=== PATIENT | male | born 1940 | race Caucasian/White ===

== ENCOUNTER 2016-06-25 20:14 | Inpatient (IN) | payer MEDICARE ==
[2016-06-25 20:15] VITALS: BMI 21.1
[2016-06-25 20:36] VITALS: RESP 20
[2016-06-25 21:59] LABS: BASO # 0.1 K/uL (0.0-0.2); BASO % 0.7 % (0.0-2.0); EOS # 0.4 K/uL (0.0-0.7); EOS % 5.6 % (0.0-4.0); HEMATOCRIT 31.6 % (35.0-51.0); LYMPH # 1.4 K/uL (1.0-4.3); LYMPH % 18.6 % (20.0-40.0); MEAN CELL VOLUME 84.5 fL (80.0-94.0); MEAN CORPUSCULAR HEMOGLOBIN 27.3 pg (27.0-31.0); MEAN CORPUSCULAR HGB CONC 32.3 g/dL (33.0-37.0); MEAN PLATELET VOLUME 7.2 fL (7.2-11.7); MONO # 0.6 K/uL (0.0-0.8); MONO % 7.8 % (0.0-10.0); RED CELL DISTRIBUTION WIDTH 15.2 % (11.5-14.5); WHITE BLOOD COUNT 7.5 K/uL (4.8-10.8)
[2016-06-25 22:00] LABS: CHLORIDE 100 mmol/L (98-107); SODIUM 143 mmol/L (132-148)
[2016-06-25 22:01] LABS: POTASSIUM 3.7 mmol/L (3.6-5.2)
[2016-06-25 22:03] LABS: ALB/GLOB RATIO 0.7 (1.0-2.1); ALKALINE PHOSPHATASE 98 U/L (38-126); ALT/SGPT 11 U/L (21-72); AST/SGOT 20 U/L (17-59); BILIRUBIN,TOTAL 0.5 mg/dL (0.2-1.3); BLOOD UREA NITROGEN 17 mg/dL (9-20); CARBON DIOXIDE 26 mmol/L (22-30); GFR AFRICAN-AMERICAN > 60; GLUCOSE,RANDOM 115 mg/dL (75-110); TOTAL PROTEIN 8.5 g/dL (6.3-8.3)
[2016-06-25 22:04] LABS: CALCIUM 9.3 mg/dl (8.6-10.4)
--- NOTE | 2016-06-25 22:30 | C.PDOC ---
History Of Present Illness A 75 year old pt c/o of left ear pain that began yesterday at 2pm. Pt notes a popping sensation in the left ear and persistent pain since yesterday. After 7 am pt states becoming confused and persistent symptoms were gone after 7 am. Pt denies fever, injuries from falls, Chest pain, shortness of breath, cough, fever , nausea, vomiting, diarrhea, dysuria, or any other complaints. Time Seen by Provider: 06/25/16 21:03 Chief Complaint (Nursing): Altered Mental Status History Per: Patient History/Exam Limitations: no limitations Onset/Duration Of Symptoms: Days Current Symptoms Are (Timing): Still Present Severity: Mild Associated Symptoms: denies: Fever, Nausea, Vomiting, Diarrhea, Chest Pain, Urinary Symptoms (Dysuria), Other (Abdominal pain. cough. ) Past Medical History Reviewed: Historical Data, Nursing Documentation, Vital Signs Vital Signs: Last Vital Signs Temp 99.0 F 06/25/16 20:33 Pulse 70 06/25/16 20:33 Resp 20 06/25/16 20:33 BP 133/62 06/25/16 20:33 Pulse Ox 97 06/25/16 23:23 - Medical History PMH: Arthritis, Cardia Arrhythmia, Emphysema, Malignancy (COLON CANCER), Rheumatoid Arthritis Denies: Hypothyroidism, Kidney Stones, Chronic Kidney Disease Surgical History: Pacemaker (03/15/2015) - [facility] Procedures DRAINAGE OF L LOW LEG SUBCU/FASCIA, OPEN APPROACH, DIAGN (02/24/16) ENDOSCOPIC BRONCHIAL BX (05/01/14) EXCISION OF L LOW LEG SUBCU/FASCIA, OPEN APPROACH (02/24/16) INITIAL INSERT TRANS LEADS INTO A[employer]IUM [employer] VENTRICLE (03/14/14) INITIAL INSERTION OF DUAL-CHAMBER DEVICE (03/14/14) INJECT/INFUSE NEC (05/18/13) Family History: States: Unknown Family Hx - Social History Hx Tobacco Use: Yes Hx Alcohol Use: No Hx Substance Use: No - Immunization History Hx Tetanus Toxoid Vaccination: No Hx Influenza Vaccination: Yes Hx Pneumococcal Vaccination: Yes Review Of Systems Except As Marked, All Systems Reviewed And Found Negative. Constitutional: Negative for: Fever ENT: Positive for: Ear Pain (Popping sensation left ear. left ear pain.) Cardiovascular: Negative for: Chest Pain Respiratory: Negative for: Cough, Shortness of Breath Gastrointestinal: Negative for: Nausea, Vomiting, Abdominal Pain, Diarrhea Genitourinary: Negative for: Dysuria Musculoskeletal: Negative for: Other (Injury falls) Physical Exam - Physical Exam Appears: Well, Non-toxic, No Acute Distress Skin: Warm, Dry, No Rash Head: Atraumatic, Normacephalic Ear(s): Left: Other (External interior tenderness to palpation. No swelling, erythema, or rash.), Bilateral: Normal (Mild pain) Throat: Normal, No Erythema, No Exudate Chest: Symmetrical Cardiovascular: Rhythm Regular Respiratory: Normal Breath Sounds, No Rales, No Rhonchi, No Wheezing Gastrointestinal/Abdominal: Normal Exam, Soft, No Tenderness Neurological/Psych: Oriented x3, Normal Speech ED Course And Treatment - Laboratory Results Result Diagrams: 06/25/16 21:46 06/25/16 21:46 O2 Sat by Pulse Oximetry: 97 - CT Scan/US CT head Other Rad Studies (CT/US): Interpreted By Me, Read By Radiologist CT/US Interpretation: EXAM: CT Head Without Intravenous Contrast. CLINICAL HISTORY: 75 years old, male; Signs and symptoms; Altered mental status/memory loss; Confusion or. disorientation; Additional info: AMS. TECHNIQUE: Axial computed tomography images of the head/brain without intravenous contrast. This CT exam. was performed using one or more of the following dose reduction techniques: automated exposure. control, adjustment of the mA and/or kV according to patient size, and/or use of iterative. reconstruction technique. COMPARISON: No relevant prior studies available. FINDINGS: Limitations: Evaluation moderately limited by patient motion. Brain: Periventricular and subcortical hypodensities are nonspecific and could reflect chronic. microvascular ischemic changes. Mild to moderate brain volume loss. No hemorrhage. Ventricles: Mild diffuse ventriculomegaly out of proportion to sulci raises possibility of normal. pressure hydrocephalus. Clinical correlation recommended. Bones/joints: Unremarkable. No acute fracture. Soft tissues: Unremarkable. Vasculature: Calcific atherosclerosis of the bilateral carotid siphon. Sinuses: Unremarkable as visualized. No acute sinusitis. Mastoid air cells: Unremarkable as visualized. No mastoid effusion. IMPRESSION : 1. Evaluation moderately limited by patient motion. 2. Mild diffuse ventriculomegaly out of proportion to sulci raises possibility of normal pressure. hydrocephalus. Clinical correlation recommended. Progress Note: Blood work, labs, and CT were ordered. CT was done because of confusion. - Scribe Statement The provider has reviewed the documentation as recorded by the Malikibe Zachery Bender All medical record entries made by the Tripp were at my direction and personally dictated by me. I have reviewed the chart and agree that the record accurately reflects my personal performance of the history, physical exam, medical decision making, and the department course for this patient. I have also personally directed, reviewed, and agree with the discharge instructions and disposition.a
[2016-06-26] MEDS ORDERED: Albuterol 0.083% Inhal Sol (2.5 mg/3 mL) UD ONE (00:05)
[2016-06-26 00:17] LABS: RBC URINE < 1 /hpf (0-3); URINE BILIRUBIN NEGATIVE (NEGATIVE); URINE BLOOD NEGATIVE (NEGATIVE); URINE COLOR Yellow (YELLOW); URINE GLUCOSE (UA) NORMAL (Normal); URINE KETONE NEGATIVE (NEGATIVE); URINE LEUKOCYTE ESTERASE NEG Leu/uL (Negative); URINE PROTEIN NEGATIVE (NEGATIVE); WBC URINE 1 /hpf (0-5)
[2016-06-26] MEDS: Tramadol 25 mg PO SCH ×4 (00:17→17:39)
[2016-06-26] MEDS: Albuterol 0.083% Inhal Sol (2.5 mg/3 mL) UD IH SCH ×2 (00:23→20:30)
--- NOTE | 2016-06-26 07:47 | CT ---
PROCEDURE: CT HEAD WITHOUT CONTRAST. HISTORY: Altered mental status COMPARISON: None available. TECHNIQUE: Axial computed tomography images were obtained through the head/brain without intravenous contrast. Radiation dose: Total exam DLP = 896 mGy-cm. FINDINGS: HEMORRHAGE: No intracranial hemorrhage. BRAIN: Scattered focal lucencies in the subcortical and periventricular white matter suggestive for chronic microvascular ischemic change. Mild to moderate brain volume loss. VENTRICLES: Mild diffuse ventriculomegaly out of proportion to sulci size raises possibility of normal pressure hydrocephalus. Clinical correlation. CALVARIUM: Unremarkable. PARANASAL SINUSES: Unremarkable as visualized. No significant inflammatory changes. MASTOID AIR CELLS: Unremarkable as visualized. No inflammatory changes. OTHER FINDINGS: Motion artifact limits evaluation. Calcific atherosclerosis of the bilateral carotid siphon. IMPRESSION: Evaluation limited by patient motion artifact. Chronic microvascular ischemic change. Mild diffuse ventriculomegaly out of proportion to sulcal size raises the possibility of normal pressure hydrocephalus. Clinical correlation recommended. If focal neurologic deficit persists, consider MRI. These findings were preliminarily reported at 10:49 p.m. on 06/25/[address] Roberto Garay from [facility].
--- NOTE | 2016-06-26 10:10 | CP.PCM.HP ---
History of Present Illness - History of Present Illness History of Present Illness: 75 year old male developed severe popping sensation with pain in the left ear. The pain continued for about 8 hours. Subsequently, pain became confused and disoriented. Family decided to take the patient to the [facility] ER for evaluation. Ct scan of the head revealed possible norrmal pressure hydrocephalus. Past history includes hypertension,COPD, carcinoma of the colon, and pacemaker implantation. Present on Admission - Present on Admission Any Indicators Present on Admission: No History of DVT/PE: No History of Uncontrolled Diabetes: No Urinary Catheter: No Decubitus Ulcer Present: No History Surgical Site Infection Following: None Review of Systems - Review of Systems Systems not reviewed;Unavailable: Altered Mental Status - Constitutional Constitutional: Fatigue - EENT Ears: Decreased Hearing Nose/Mouth/Throat: Dry Mouth - Cardiovascular Cardiovascular: Dyspnea on Exertion - Respiratory Respiratory: Dyspnea on Exertion - Gastrointestinal Gastrointestinal: Other (colostomy) - Genitourinary Genitourinary: Urinary Frequency - Musculoskeletal Musculoskeletal: Arthralgias - Integumentary Integumentary: Dry Skin - Neurological Neurological: Memory Loss - Psychiatric Psychiatric: Depression - Endocrine Endocrine: Fatigue Past Patient History - Infectious Disease Hx of Infectious Diseases: None - Tetanus Immunizations Tetanus Immunization: >10 years Ago - Past Medical History & Family History Past Medical History?: Yes - Past Social History Smoking Status: Former Smoker Chewing Tobacco Use: No Cigar Use: No Alcohol: None Drugs: Denies Home Situation {Lives}: With Family - CARDIAC Hx Angina: Yes Hx Cardia Arrhythmia: Yes Hx Congestive Heart Failure: Yes Hx Hypercholesterolemia: Yes Hx Hypertension: Yes Hx Pacemaker: Yes (03/15/2015) - PULMONARY Hx Respiratory Disorders: Yes Hx Emphysema: Yes - NEUROLOGICAL Hx Neurological Disorder: No Hx Dementia: Yes - HEENT Hx HEENT Problems: No Hx Sinusitis: Yes - RENAL Hx Chronic Kidney Disease: No Hx Kidney Stones: No - ENDOCRINE/METABOLIC Hx Endocrine Disorders: No Hx Hypothyroidism: No - HEMATOLOGICAL/ONCOLOGICAL Hx Blood Disorders: Yes Hx Blood Transfusions: Yes Hx Cancer: Yes (COLON) Hx Chemotherapy: Yes Other/Comment: has left colostomy - INTEGUMENTARY Hx Dermatological Problems: No Hx Psoriasis: Yes - MUSCULOSKELETAL/RHEUMATOLOGICAL Hx Musculoskeletal Disorders: Yes Hx Arthritis: Yes Hx Back Pain: Yes Hx Degenerative Joint Disease: Yes Hx Falls: No Hx Rheumatoid Arthritis: Yes - GASTROINTESTINAL Hx Gastrointestinal Disorders: Yes Hx Bowel Surgery: Yes (2003;2005) Hx Colostomy: Yes Other/Comment: COLON CA 2004 - GENITOURINARY/GYNECOLOGICAL Hx Genitourinary Disorders: No - PSYCHIATRIC Hx Psychophysiologic Disorder: No Hx Depression: Yes Hx Substance Use: No - SURGICAL HISTORY Hx Surgeries: Yes Other/Comment: pacemaker. colostomy - ANESTHESIA Hx Anesthesia: Yes Hx Anesthesia Reactions: No Hx Malignant Hyperthermia: No Meds Allergies/Adverse Reactions: Allergies Allergy/AdvReac Type Severity Reaction Status Date / Time No Known Allergies Allergy Verified 06/25/16 20:23 Physical Exam - Constitutional Appears: Chronically Ill - Head Exam Head Exam: NORMAL INSPECTION - Eye Exam Eye Exam: Normal appearance Pupil Exam: NORMAL ACCOMODATION - ENT Exam ENT Exam: Normal External Ear Exam - Neck Exam Neck exam: Positive for: Normal Inspection - Respiratory Exam Respiratory Exam: Decreased Breath Sounds - Cardiovascular Exam Cardiovascular Exam: Irregular Rhythm - GI/Abdominal Exam GI & Abdominal Exam: Hyperactive Bowel Sounds - Rectal Exam Rectal Exam: Deferred - Exam Exam: NORMAL INSPECTION - Extremities Exam Extremities exam: Positive for: tenderness - Back Exam Back exam: NORMAL INSPECTION - Neurological Exam Neurological exam: Altered - Psychiatric Exam Psychiatric exam: Depressed - Skin Skin Exam: Dry Results - Vital Signs Recent Vital Signs: Last Vital Signs Temp 97.2 F L 06/26/16 07:31 Pulse 77 06/26/16 07:31 Resp 20 06/26/16 07:31 BP 130/66 06/26/16 07:31 Pulse Ox 96 06/26/16 07:31 - Labs Result Diagrams: 06/25/16 21:46 06/25/16 21:46 Labs: Laboratory Results - last 24 hr 06/26/16 00:03 Urine Color Yellow Urine Clarity Clear Urine pH 6.0 Ur Specific [place] 1.021 Urine Protein Negative Urine Glucose (UA) Normal Urine Ketones Negative Urine Blood Negative Urine Nitrate Negative Urine Bilirubin Negative Urine Urobilinogen 2.0 Ur Leukocyte Esterase Neg Urine WBC (Auto) 1 Urine RBC (Auto) < 1 Hyaline Casts 3-5 H Assessment & Plan (1) Chronic obstructive airway disease Status: Acute Priority: Medium (2) Pacemaker Status: Acute Priority: Low (3) Altered mental status, unspecified Status: Acute (4) Hydrocephalus Status: Acute (5) Psoriatic arthritis Status: Acute
--- NOTE | 2016-06-26 10:48 | RAD ---
PROCEDURE: CHEST RADIOGRAPH, 1 VIEW HISTORY: ams COMPARISON: Chest CT from 03/15/2014 and chest radiograph 02/24/2016. FINDINGS: LUNGS: Reticular nodular opacities throughout both lungs. Bullous changes in the left apex. Scarring in the left upper lobe. PLEURA: Biapical pleural parenchymal thickening noted. CARDIOVASCULAR: Stable cardiomediastinal silhouette which appears mildly enlarged. OSSEOUS STRUCTURES: The osseous structures demonstrate degenerative changes. VISUALIZED UPPER ABDOMEN: Normal. OTHER FINDINGS: Left-sided medication port with the distal tip of the catheter overlying the projection of the SVC/right atrial junction. Dual lead pacemaker. IMPRESSION: Reticular nodular opacities throughout both lungs, bullous/granulomatous changes in the left apex and scarring in the left upper lobe remain essentially stable. Based on the CT, patient has diffuse interstitial lung disease with scarring and fibrosis.
--- NOTE | 2016-06-26 17:23 | VASCLAB ---
PROCEDURE: Right Lower Extremity Venous Duplex Exam. HISTORY: Leg pain, dvt PRIORS: None. TECHNIQUE: Right common femoral, femoral, popliteal and posterior tibial, peroneal and great saphenous veins were evaluated. Flow was assessed with color Doppler, compressibility, assessment of phasic flow and augmentation response. Report prepared by NEW Bello, RVT FINDINGS: RIGHT: 1. Common Femoral Vein: 1.1. Compressibility - Fully compressible: Thrombus - None: Flow - Phasic: Augmentation -Normal: Reflux - None. 2. Femoral Vein: 2.1. Compressibility - Fully compressible: Thrombus - None: Flow - Phasic: Augmentation -Normal: Reflux - None. 3. Popliteal Vein: 3.1. Compressibility - Fully compressible: Thrombus - None: Flow - Phasic: Augmentation -Normal: Reflux - None. 4. Posterior Tibial Vein: 4.1. Compressibility - Fully compressible: Thrombus - None: Flow - Phasic: Augmentation -Normal: Reflux - None. 5. Peroneal Vein: 5.1. Compressibility - Fully compressible: Thrombus - None: Flow - Phasic: Augmentation -Normal: Reflux - None. 6. Great Saphenous Vein: 6.1. Compressibility - Fully compressible: Thrombus -None: Flow - Phasic: Augmentation - Normal: Reflux - None. OTHER FINDINGS: IMPRESSION: No evidence of deep or superficial vein thrombosis of the right lower extremity with excellent venous flow. Normal valve function noted of the right side. Normal venous flow noted in the left common femoral vein.
--- NOTE | 2016-06-26 21:09 | CON ---
DATE: 06/26/2016 ATTENDING PHYSICIAN: Hever Holland M.D. LOCATION: The patient is in room 371. REASON FOR CONSULTATION: Abnormal CAT scan. CHIEF COMPLAINT: The patient was admitted with a history of left ear pain, sensation of popping feeling since the day before the admission. The patient also did have some confusion, which is documented transiently. The patient denies headache at present. No history of visual or bulbar dysfunction. No history of focal weakness. Ambulation is limited due to his joint pain. PAST MEDICAL HISTORY: Colon cancer, operated; cardiac arrhythmia, status post pacemaker; rheumatoid arthritis, hypothyroidism, renal stone, chronic kidney disease. ALLERGIES: No known allergies. REVIEW OF SYSTEMS: As per H and P. PERSONAL HISTORY: Denies smoking or alcohol use. PHYSICAL EXAMINATION: VITAL SIGNS: Blood pressure 135/65, mean arterial pressure of 88, respiratory rate is 16, temperature 97.2 with a pulse rate of 72. NECK: Supple. HEART: Irregularly irregular. EXTREMITIES: Proximal and distal muscle group atrophy. All joints are tender, particularly the large joints than small joints. NEUROLOGIC EXAMINATION: MENTAL STATUS EXAMINATION: He is awake, alert, oriented to person, place, and time. He was able to ____ the current president and the previous presidents. He could spell his name forward and backwards. He can do simple calculations. He knows how many grandkids ____ and how many great-grandkids with names. CRANIAL NERVE EXAMINATION: Visual field intact. Pupils react to light. Extraocular movement decreased ____ movement. No facial sensory deficit. No facial asymmetry. Hearing is decreased. Tongue is midline. MOTOR: Pain limited examination. He was not able to lift both upper extremities against gravity due to the pain. Both lower extremities also are limited due to pain. DEEP TENDON REFLEXES: Are absent. Plantars with equivocal response. SENSORY: Responds to pain symmetrically on both sides. GAIT: He was not able to make an attempt because of his pain. CONCLUSION: 1. The patient is presenting with abnormal CAT scan, which was reported as possible normal pressure hydrocephalus. The patient does not qualify normal pressure hydrocephalus, which includes dementia, urinary incontinence and ataxia. 2. 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 3. His ambulation is all limited due to the joint pain. 4. The patient may be benefited of workup for dementia and identify treatable cause for dementia. However, the current examination and the radiological studies do not fit in the category of normal pressure hydrocephalus. CT of the head reviewed by me showed hydrocephalus with moderate atrophy. BLOOD WORKUP: WBC 7.5, hemoglobin 10.2, hematocrit 31.6, platelets 452. Sodium 143, potassium 3.7, chloride 100, bicarbonate 26, BUN is 17. GFR 60. Urinalysis shows 3.5 hyaline casts. RECOMMENDATIONS: Physical therapy and pain management for his arthritis. The patient can be followed by me as an outpatient to assess his hydrocephalus near in the future. Ghulam Harper MD cc: [id number] TT: 06/26/2016 18:40:12 Confirmation # [id number] Dictation # [id number] dn 06/26/2016 20:07:58 GENOVEVA
--- NOTE | 2016-06-26 23:50 | CP.PCM.PN ---
Subjective - Date & Time of Evaluation Date of Evaluation: 06/26/16 Time of Evaluation: 13:30 - Subjective Subjective: Patient complains of bilateral shoulder pain. He denies any ear pain or headache today. Evaluation requested [facility] Dr ernandez. Ct scan of the head reveals possible normo pressure hyprocephalus. Objective - Vital Signs/Intake and Output Vital Signs (last 24 hours): Temp Pulse Resp BP Pulse Ox 97.9 F 75 20 120/67 95 06/26/16 17:00 06/26/16 20:31 06/26/16 17:00 06/26/16 17:00 06/26/16 17:00 Intake and Output: 06/26/16 06/27/16 18:59 06:59 Intake Total 400 250 Output Total 400 Balance 400 -150 - Medications Medications: Current Medications Albuterol Sulfate (Albuterol 0.083% Inhal Azul (2.5 Mg/3 Ml) Ud) 2.5 mg IH RQ6 [facility] Last Admin: 06/26/16 20:30 Dose: 2.5 mg Montelukast Sodium (Singulair) 10 mg PO HS [facility] Last Admin: 06/26/16 21:22 Dose: 10 mg Prednisone (Prednisone Tab) 10 mg PO DAILY [facility] Last Admin: 06/26/16 10:57 Dose: Not Given Tramadol HCl (Ultram) 25 mg PO TID [facility] Last Admin: 06/26/16 17:39 Dose: 25 mg - Head Exam Head Exam: NORMAL INSPECTION - Eye Exam Eye Exam: Normal appearance - Neck Exam Neck Exam: Normal Inspection - Respiratory Exam Respiratory Exam: Decreased Breath Sounds - Cardiovascular Exam Cardiovascular Exam: REGULAR RHYTHM - GI/Abdominal Exam GI & Abdominal Exam: Normal Bowel Sounds - Rectal Exam Rectal Exam: Deferred - Exam Exam: NORMAL INSPECTION - Extremities Exam Extremities Exam: Tenderness - Back Exam Back Exam: NORMAL INSPECTION - Neurological Exam Neurological Exam: Oriented x3 - Psychiatric Exam Psychiatric exam: Normal Affect - Skin Skin Exam: Dry Assessment and Plan (1) Chronic obstructive airway disease Status: Acute (2) Pacemaker Status: Acute (3) Altered mental status, unspecified Status: Acute (4) Hydrocephalus Status: Acute (5) Psoriatic arthritis Status: Acute
[2016-06-27] MEDS: Albuterol 0.083% Inhal Sol (2.5 mg/3 mL) UD IH SCH ×2 (08:04→14:19)
[2016-06-27] MEDS: Tramadol 25 mg PO SCH ×2 (10:11→14:30)
[2016-06-27] MEDS ORDERED: Pantoprazole 40 mg EC Tab PO SCH (15:45)
--- NOTE | 2016-06-27 16:11 | CP.PCM.PN ---
Subjective - Date & Time of Evaluation Date of Evaluation: 06/27/16 Time of Evaluation: 11:00 - Subjective Subjective: Pt seen an dexamined today , alert, ox3, denies any weakness, dizziness , blurred vision , ear pain Objective - Vital Signs/Intake and Output Vital Signs (last 24 hours): Temp Pulse Resp BP Pulse Ox 97.9 F 77 20 133/61 94 L 06/27/16 08:00 06/27/16 08:00 06/27/16 08:00 06/27/16 08:00 06/27/16 08:00 Intake and Output: 06/27/16 06/27/16 06:59 18:59 Intake Total 550 Output Total 1100 Balance -550 - Medications Medications: Current Medications Albuterol Sulfate (Albuterol 0.083% Inhal Azul (2.5 Mg/3 Ml) Ud) 2.5 mg IH RQ6 [facility] Last Admin: 06/27/16 14:19 Dose: 2.5 mg Montelukast Sodium (Singulair) 10 mg PO HS [facility] Last Admin: 06/26/16 21:22 Dose: 10 mg Pantoprazole Sodium (Protonix Ec Tab) 40 mg PO DAILY [place] Prednisone (Prednisone Tab) 10 mg PO DAILY [facility] Last Admin: 06/27/16 10:10 Dose: 10 mg Tramadol HCl (Ultram) 25 mg PO TID [facility] Last Admin: 06/27/16 10:11 Dose: 25 mg Assessment and Plan - Assessment and Plan (Free Text) Assessment: a/p seen by Dr. Harper and recommends to d/c home and f/u with his office seen by Dr. Holland, cleared for discharge home today and f/u with his office in 2 weeks
[2016-06-27 16:32] VITALS: BP 116/71; PULSE 88; TEMP 97.6; O2SAT 95
--- NOTE | 2016-06-27 22:56 | CP.PCM.DIS ---
Provider - Provider Date of Admission: 06/25/16 23:48 Attending physician: Hever Holland MD Time Spent in preparation of Discharge (in minutes): 26 Diagnosis - Discharge Diagnosis (1) Chronic obstructive airway disease Status: Acute Priority: Medium (2) Pacemaker Status: Acute Priority: Low (3) Altered mental status, unspecified Status: Acute Priority: Medium (4) Hydrocephalus Status: Acute Priority: Medium (5) Psoriatic arthritis Status: Acute Priority: Medium Hospital Course - Lab Results Lab Results: Most Recent Lab Values WBC 7.5 K/uL (4.8-10.8) 06/25/16 21:46 RBC 3.74 Mil/uL (4.40-5.90) L 06/25/16 21:46 Hgb 10.2 g/dL (12.0-18.0) L 06/25/16 21:46 Hct 31.6 % (35.0-51.0) L 06/25/16 21:46 MCV 84.5 fL (80.0-94.0) D 06/25/16 21:46 MCH 27.3 pg (27.0-31.0) 06/25/16 21:46 MCHC 32.3 g/dL (33.0-37.0) L 06/25/16 21:46 RDW 15.2 % (11.5-14.5) H 06/25/16 21:46 Plt Count 452 K/uL (130-400) H D 06/25/16 21:46 MPV 7.2 fL (7.2-11.7) 06/25/16 21:46 Neut % (Auto) 67.3 % (50.0-75.0) 06/25/16 21:46 Lymph % (Auto) 18.6 % (20.0-40.0) L 06/25/16 21:46 [place] % (Auto) 7.8 % (0.0-10.0) 06/25/16 21:46 Eos % (Auto) 5.6 % (0.0-4.0) H 06/25/16 21:46 Baso % (Auto) 0.7 % (0.0-2.0) 06/25/16 21:46 Neut # 5.0 K/uL (1.8-7.0) 06/25/16 21:46 Lymph # 1.4 K/uL (1.0-4.3) 06/25/16 21:46 [place] # 0.6 K/uL (0.0-0.8) 06/25/16 21:46 Eos # 0.4 K/uL (0.0-0.7) 06/25/16 21:46 Baso # 0.1 K/uL (0.0-0.2) 06/25/16 21:46 Sodium 143 mmol/L (132-148) 06/25/16 21:46 Potassium 3.7 mmol/L (3.6-5.2) 06/25/16 21:46 Chloride 100 mmol/L (98-107) 06/25/16 21:46 Carbon Dioxide 26 mmol/L (22-30) 06/25/16 21:46 Anion Gap 21 (10-20) H 06/25/16 21:46 BUN 17 mg/dL (9-20) 06/25/16 21:46 Creatinine 0.9 MG/DL (0.8-1.5) 06/25/16 21:46 Est GFR ( Amer) > 60 06/25/16 21:46 Est GFR (Non-Af Amer) > 60 06/25/16 21:46 Random Glucose 115 mg/dL (75-110) H 06/25/16 21:46 Calcium 9.3 mg/dl (8.6-10.4) 06/25/16 21:46 Total Bilirubin 0.5 mg/dL (0.2-1.3) 06/25/16 21:46 AST 20 U/L (17-59) 06/25/16 21:46 ALT 11 U/L (21-72) L D 06/25/16 21:46 Alkaline Phosphatase 98 U/L (38-126) 06/25/16 21:46 Total Creatine Kinase < 20 U/L (55-170) L 06/26/16 16:57 CK-MB (Mass) 0.24 ng/mL (0.0-3.38) 06/26/16 16:57 Troponin I, Quant 0.0200 ng/mL (0.00-0.120) 06/26/16 16:57 Total Protein 8.5 g/dL (6.3-8.3) H 06/25/16 21:46 Albumin 3.4 g/dL (3.5-5.0) L D 06/25/16 21:46 Globulin 5.1 gm/dL (2.2-3.9) H 06/25/16 21:46 Albumin/Globulin Ratio 0.7 (1.0-2.1) L 06/25/16 21:46 Urine Color Yellow (YELLOW) 06/26/16 00:03 Urine Clarity Clear (Clear) 06/26/16 00:03 Urine pH 6.0 (5.0-8.0) 06/26/16 00:03 Ur Specific [place] 1.021 (1.003-1.030) 06/26/16 00:03 Urine Protein Negative mg/dL (NEGATIVE) 06/26/16 00:03 Urine Glucose (UA) Normal mg/dL (Normal) 06/26/16 00:03 Urine Ketones Negative mg/dL (NEGATIVE) 06/26/16 00:03 Urine Blood Negative (NEGATIVE) 06/26/16 00:03 Urine Nitrate Negative (NEGATIVE) 06/26/16 00:03 Urine Bilirubin Negative (NEGATIVE) 06/26/16 00:03 Urine Urobilinogen 2.0 mg/dL (0.2-1.0) 06/26/16 00:03 Ur Leukocyte Esterase Neg Yuriy/uL (Negative) 06/26/16 00:03 Urine WBC (Auto) 1 /hpf (0-5) 06/26/16 00:03 Urine RBC (Auto) < 1 /hpf (0-3) 06/26/16 00:03 Hyaline Casts 3-5 /lpf (0-2) H 06/26/16 00:03 Discharge Exam - Head Exam Head Exam: NORMAL INSPECTION - Eye Exam Pupil Exam: NORMAL ACCOMODATION - ENT Exam ENT Exam: Normal Oropharynx - Neck Exam Neck exam: Normal Inspection - Respiratory Exam Respiratory Exam: Decreased Breath Sounds - Cardiovascular Exam Cardiovascular Exam: Irregular Rhythm - GI/Abdominal Exam GI & Abdominal Exam: Normal Bowel Sounds - Rectal Exam Rectal Exam: Deferred - Exam Exam: NORMAL INSPECTION - Extremities Exam Extremities exam: tenderness - Back Exam Back exam: NORMAL INSPECTION - Neurological Exam Neurological exam: Oriented x3 - Psychiatric Exam Psychiatric exam: Depressed - Skin Skin Exam: Dry Discharge Plan - Discharge Medications Prescriptions: Prednisone 20 mg PO DAILY #30 tab.ds.pk Pantoprazole [Protonix EC Tab] 40 mg PO DAILY #30 ect - Follow Up Plan Condition: GOOD Disposition: HOME/ ROUTINE Instructions: Urticaria (GEN), Acute Rash (DC), Acute Rash (GEN), Altered Mental Status (GEN) Additional Instructions: please f/u with Dr. Holland office in 2 weeks Please f/u with Dr. Harper office in 1 week Continue medication as per Med. Re.
== END 2016-06-27 20:00 | disposition home or self-care (01) | DRG 57 ==
LOC: C.ER 20:14 → C.3T 23:48
PROVIDERS: ADMIT Internal Medicine; ATTEND Internal Medicine
DX: G91.2 (Idiopathic) normal pressure hydrocephalus (principal); G62.9 Polyneuropathy, unspecified; F03.90 Unspecified dementia, unspecified severity, without behavioral disturbance, psychotic disturbance, mood disturbance, and anxiety; I10 Essential (primary) hypertension; H92.02 Otalgia, left ear; L40.50 Arthropathic psoriasis, unspecified; J43.9 Emphysema, unspecified; M19.90 Unspecified osteoarthritis, unspecified site; M06.9 Rheumatoid arthritis, unspecified; Z85.038 Personal history of other malignant neoplasm of large intestine

== ENCOUNTER 2016-08-24 20:04 | Inpatient (IN) | payer MEDICARE, OTHER ==
[2016-08-24 20:04] VITALS: BMI 21.1
--- NOTE | 2016-08-24 20:58 | C.PDOC ---
History Of Present Illness A 75 y/o male brought in by family to the ER c/o shortness of breath, generalized body aches from arthritis, urine incontinence, and decreased PO intake for the last month. Pt notes that the symptoms are on and off but has been worse over the last 3 days. Pt denies fever, chills, chest pain , lightheadedness, nausea, vomiting, abdominal pain, dizziness, or any other complaints. Time Seen by Provider: 08/24/16 20:57 Chief Complaint (Nursing): Weakness/Neurological Deficit History Per: Patient, Family History/Exam Limitations: no limitations Onset/Duration Of Symptoms: Days Current Symptoms Are (Timing): Still Present Fall Associated With With Symptoms: No Severity: Mild Recent travel outside of the [place]: No Additional History Per: Patient - Symptoms Of CVA Recent Aspirin Use: No Current Coumadin Use?: No Recent Head Trauma: No Past Medical History Reviewed: Historical Data, Nursing Documentation, Vital Signs Vital Signs: Last Vital Signs Temp 97.8 F 08/24/16 20:38 Pulse 87 08/24/16 20:38 Resp 22 08/24/16 20:38 BP 115/56 L 08/24/16 20:38 Pulse Ox 95 08/24/16 21:30 - Medical History PMH: Arthritis, Cardia Arrhythmia, Dementia, Depression, Emphysema, Malignancy ( COLON CANCER), Rheumatoid Arthritis Denies: Hypothyroidism, Kidney Stones, Chronic Kidney Disease Surgical History: Pacemaker (03/15/2015) - [facility] DRAINAGE OF L LOW LEG SUBCU/FASCIA, OPEN APPROACH, DIAGN (02/24/16) ENDOSCOPIC BRONCHIAL BX (05/01/14) EXCISION OF L LOW LEG SUBCU/FASCIA, OPEN APPROACH (02/24/16) INITIAL INSERT TRANS LEADS INTO ATRIUM & VENTRICLE (03/14/14) INITIAL INSERTION OF DUAL-CHAMBER DEVICE (03/14/14) INJECT/INFUSE NEC (05/18/13) Family History: States: Unknown Family Hx - Social History Hx Tobacco Use: Yes Hx Alcohol Use: No Hx Substance Use: No - Immunization History Hx Tetanus Toxoid Vaccination: No Hx Influenza Vaccination: Yes Hx Pneumococcal Vaccination: Yes Review Of Systems Except As Marked, All Systems Reviewed And Found Negative. Constitutional: Positive for: Weakness (Generalized body aches from arthritis), Other (Decreased PO intake). Negative for: Fever, Chills Eyes: Positive for: Conjunctivae Inflammation Cardiovascular: Negative for: Chest Pain, Light Headedness Respiratory: Positive for: Shortness of Breath Gastrointestinal: Negative for: Nausea, Vomiting, Abdominal Pain Genitourinary: Positive for: Incontinence (Urine incontinence) Musculoskeletal: Positive for: Arm Pain, Foot Pain Skin: Negative for: Rash, Lesions Neurological: Negative for: Weakness, Dizziness Psych: Negative for: Anxiety Physical Exam - Physical Exam Appears: Non-toxic, No Acute Distress Skin: Warm, Dry Head: Normacephalic Eye(s): bilateral: Normal Inspection Oral Mucosa: Moist Throat: No Exudate Neck: Trachea Midline, Supple Chest: Symmetrical, Other (Pacemaker left chest) Cardiovascular: Rhythm Regular, No Murmur Respiratory: No Rales, Rhonchi (few at bases), No Wheezing Gastrointestinal/Abdominal: Bowel Sounds (Good bowel sounds), Soft, No Tenderness, Other (Colostomy left side of abdomen) Back: Normal Inspection Extremity: No Pedal Edema, Capillary Refill (<2secs), Other (Degenerative arthritis both hands) Extremity: Bilateral: Atraumatic Pulses: Left Radial: Normal, Right Radial: Normal Neurological/Psych: Oriented x3 (Awake and alert), Normal Speech, Normal Cognition, Other Gait: Unable To Assess ED Course And Treatment - Laboratory Results Result Diagrams: 08/24/16 21:24 08/24/16 21:24 ECG: Interpreted By Me, Viewed By Me ECG Rhythm: Sinus Rhythm (89), Nonspecific Changes (atrial sensed ventricular paced ) O2 Sat by Pulse Oximetry: 95 (RA) Pulse Ox Interpretation: Normal - Radiology CXR: Interpreted by Me, Viewed By Me CXR Interpretation: Yes: Infiltrates, Cardiomegaly, Other (pacer, interstitial lung disease, unchanged from 06/26/15) Disposition Discussed With : Hever Holland Comment: accepted the pt [facility] is service and took over the care at 10:19PM Doctor Will See Patient In The: Hospital Counseled Patient/Family Regarding: Studies Performed, Diagnosis - Disposition Disposition: HOSPITALIZED Disposition Time: 20:58 Condition: FAIR - POA Present On Arrival: Poor Glycemic Control - Clinical Impression Clinical Impression: Hydrocephalus, Arthritis, Pacemaker - Scribe Statement The provider has reviewed the documentation as recorded by the Scribgilmar hoffmann All medical record entries made by the Malikibgilmar were at my direction and personally dictated by me. I have reviewed the chart and agree that the record accurately reflects my personal performance of the history, physical exam, medical decision making, and the department course for this patient. I have also personally directed, reviewed, and agree with the discharge instructions and disposition. Decision To Admit - Pt Status Changed To: Hospital Disposition Of: Inpatient - Admit Certification Admit to Inpatient:: After my assessment, the patient will require hospitalization for at least two midnights. This is because of the severity of symptoms shown, intensity of services needed, and/or the medical risk in this patient being treated as an outpatient. - InPatient: Physician Admission Certification: I certify that this patient requires 2 or more midnights of care for the following reason:: After my assessment, the patient will require hospitalization for at least two midnights. This is because of the severity of symptoms shown, intensity of services needed, and/or the medical risk in this patient being treated as an outpatient. - . Bed Request Type: Regular Admitting Physician: Hever Holland Patient Diagnosis: Altered mental status, unspecified, Hydrocephalus, Pacemaker
[2016-08-24 21:39] LABS: BASO # 0.1 K/uL (0.0-0.2); BASO % 0.7 % (0.0-2.0); EOS # 0.6 K/uL (0.0-0.7); EOS % 6.4 % (0.0-4.0); HEMATOCRIT 28.5 % (35.0-51.0); LYMPH # 1.3 K/uL (1.0-4.3); LYMPH % 14.1 % (20.0-40.0); MEAN CELL VOLUME 81.5 fL (80.0-94.0); MEAN CORPUSCULAR HEMOGLOBIN 26.6 pg (27.0-31.0); MEAN CORPUSCULAR HGB CONC 32.7 g/dL (33.0-37.0); MEAN PLATELET VOLUME 7.7 fL (7.2-11.7); MONO # 0.7 K/uL (0.0-0.8); MONO % 7.6 % (0.0-10.0); RED CELL DISTRIBUTION WIDTH 16.9 % (11.5-14.5); WHITE BLOOD COUNT 9.1 K/uL (4.8-10.8)
[2016-08-24 21:45] LABS: CHLORIDE 101 mmol/L (98-107); SODIUM 133 mmol/L (132-148)
[2016-08-24 21:46] LABS: INR 1.4; POTASSIUM 5.2 mmol/L (3.6-5.2)
[2016-08-24 21:47] LABS: BILIRUBIN,TOTAL 1.3 mg/dL (0.2-1.3); GFR AFRICAN-AMERICAN > 60
[2016-08-24 21:48] LABS: ALB/GLOB RATIO 0.5 (1.0-2.1); ALKALINE PHOSPHATASE 85 U/L (38-126); AST/SGOT 86 U/L (17-59); BLOOD UREA NITROGEN 25 mg/dL (9-20); CALCIUM 9.2 mg/dl (8.6-10.4); CARBON DIOXIDE 25 mmol/L (22-30); GLUCOSE,RANDOM 112 mg/dL (75-110); MAGNESIUM 2.1 mg/dL (1.6-2.3); TOTAL PROTEIN 8.1 g/dL (6.3-8.3)
[2016-08-24 21:49] LABS: ALT/SGPT 6 U/L (21-72)
--- NOTE | 2016-08-24 22:03 | CT ---
EXAM: CT Head Without Intravenous Contrast CLINICAL HISTORY: 75 years old, male; Signs and symptoms; Altered mental status/memory loss and weakness, extremity; Additional info: HX of nph TECHNIQUE: Axial computed tomography images of the head/brain without intravenous contrast. This CT exam was performed using one or more of the following dose reduction techniques: automated exposure control, adjustment of the mA and/or kV according to patient size, and/or use of iterative reconstruction technique. EXAM DATE/TIME: 08/24/2016 9:05 PM COMPARISON: CT - HEAD W/O CONTRAST 06/25/2016 10:38:48 PM FINDINGS: Brain: There is dilatation of sulci gyri and ventricles, unchanged. There is no midline shift. There is decreased attenuation in periventricular white matter. There is right temporal encephalomalacia with compensatory dilatation of the right temporal horn. There are no focal masses. There are no focal hemorrhages. Willams-white differentiation is visualized. Ventricles: See above Bones/joints: Bones: Cranial vault is intact. Soft tissues: unremarkable Sinuses: There is mucoperiosteal thickening in the paranasal sinuses. There are small retention cysts/polyps in the right maxillary sinus. There is opacification of occasional ethmoid air cells. Mastoid air cells: Ears and mastoids: Middle ears and mastoids are unremarkable. Orbits: Orbital contents are unremarkable. Vascular:There are carotid calcifications. IMPRESSION: No acute intracranial abnormality; atrophy and small vessel disease, old right temporal infarct
[2016-08-25] MEDS: Sodium Chloride 0.9% 1,000 ML IV SCH ×2 (02:40→08:21)
[2016-08-25] MEDS ORDERED: Dextrose 5%/0.45% NS 1,000 ML IV ONE (02:48)
[2016-08-25] MEDS: Dextrose 5%/0.45% NS 1,000 ML IV SCH ×3 (02:59→21:13)
[2016-08-25 07:23] LABS: RBC URINE 1 /hpf (0-3); URINE BACTERIA RARE (<OCC); URINE BILIRUBIN NEGATIVE (NEGATIVE); URINE BLOOD NEGATIVE (NEGATIVE); URINE GLUCOSE (UA) NORMAL (Normal); URINE KETONE NEGATIVE (NEGATIVE); URINE LEUKOCYTE ESTERASE NEG Leu/uL (Negative); URINE PROTEIN NEGATIVE (NEGATIVE); WBC URINE 2 /hpf (0-5)
[2016-08-25 07:26] LABS: URINE COLOR YELLOW (YELLOW)
[2016-08-25 07:53] LABS: ALB/GLOB RATIO 0.4 (1.0-2.1); ALKALINE PHOSPHATASE 82 U/L (38-126); ALT/SGPT 19 U/L (21-72); AST/SGOT 53 U/L (17-59); BILIRUBIN,DIRECT 0.5 mg/dL (0.0-0.4); BILIRUBIN,TOTAL 0.6 mg/dL (0.2-1.3); TOTAL PROTEIN 7.3 g/dL (6.3-8.3)
[2016-08-25] MEDS ORDERED: BACLOFEN 10 MG PO SCH (10:00)
--- NOTE | 2016-08-25 10:22 | CP.PCM.HP ---
History of Present Illness - History of Present Illness History of Present Illness: 75 year old male presents himself at the [facility] ER complaining of progressive dizziness. nausea, joint pain, stiffness and incontinence. Patient also has a change in mental status. Following evaluation. patient noted to have dehydration and admission was advised. Past history includes rheumatoid arthritis, left sided colostomy for a colon lesion, COPD, and a pacemaker. Present on Admission - Present on Admission Any Indicators Present on Admission: No History of Uncontrolled Diabetes: No Urinary Catheter: No Decubitus Ulcer Present: No History Surgical Site Infection Following: None Review of Systems - Review of Systems Systems not reviewed;Unavailable: Altered Mental Status - Constitutional Constitutional: Fatigue, Headache - EENT Eyes: Blurred Vision Ears: Decreased Hearing Nose/Mouth/Throat: Sinus Pain - Cardiovascular Cardiovascular: Chest Pain - Respiratory Respiratory: Dyspnea - Gastrointestinal Gastrointestinal: Nausea - Genitourinary Genitourinary: Urinary Incontinence - Musculoskeletal Musculoskeletal: Arthralgias - Integumentary Integumentary: Dry Skin - Neurological Neurological: Dizziness, Headaches, Memory Loss, Weakness - Psychiatric Psychiatric: Depression, Difficulty Concentrating Past Patient History - Infectious Disease Hx of Infectious Diseases: None - Tetanus Immunizations Tetanus Immunization: Up to Date, >10 years Ago - Past Medical History & Family History Past Medical History?: Yes - Past Social History Smoking Status: Former Smoker Chewing Tobacco Use: No Cigar Use: No Alcohol: None Drugs: Denies Home Situation {Lives}: With Family Domestic Violence: Negative - CARDIAC Hx Cardiac Disorders: Yes Hx Cardia Arrhythmia: Yes Hx Hypertension: Yes Hx Pacemaker: Yes (03/15/2015) - PULMONARY Hx Respiratory Disorders: Yes Hx Asthma: Yes Hx Chronic Obstructive Pulmonary Disease (COPD): Yes Hx Emphysema: Yes - NEUROLOGICAL Hx Neurological Disorder: Yes Hx Dementia: Yes Hx Dizziness: Yes - HEENT Hx HEENT Problems: Yes Hx Sinusitis: Yes - RENAL Hx Chronic Kidney Disease: No Hx Kidney Stones: Yes - ENDOCRINE/METABOLIC Hx Endocrine Disorders: No Hx Hypothyroidism: No - HEMATOLOGICAL/ONCOLOGICAL Hx Blood Disorders: Yes Hx Blood Transfusions: Yes Hx Cancer: Yes (COLON) Hx Chemotherapy: Yes Other/Comment: has left colostomy - INTEGUMENTARY Hx Dermatological Problems: Yes Hx Psoriasis: Yes - MUSCULOSKELETAL/RHEUMATOLOGICAL Hx Arthritis: Yes Hx Rheumatoid Arthritis: Yes - GASTROINTESTINAL Hx Gastrointestinal Disorders: Yes Hx Bowel Surgery: Yes (2003;2005) Hx Colostomy: Yes Other/Comment: COLON CA 2003 - GENITOURINARY/GYNECOLOGICAL Hx Genitourinary Disorders: No Hx Incontinence: Yes - PSYCHIATRIC Hx Psychophysiologic Disorder: Yes Hx Depression: Yes Hx Sexual Abuse: No Hx Substance Use: No - SURGICAL HISTORY Hx Surgeries: Yes Other/Comment: pacemaker. colostomy - ANESTHESIA Hx Anesthesia: Yes Hx Anesthesia Reactions: No Hx Malignant Hyperthermia: No Has any member of the family had a problem w/ anesthesia?: No Meds Allergies/Adverse Reactions: Allergies Allergy/AdvReac Type Severity Reaction Status Date / Time No Known Allergies Allergy Verified 07/30/16 19:23 Physical Exam - Constitutional Appears: Confused - Head Exam Head Exam: NORMAL INSPECTION - Eye Exam Eye Exam: Normal appearance Pupil Exam: NORMAL ACCOMODATION - ENT Exam ENT Exam: Mucous Membranes Dry - Neck Exam Neck exam: Positive for: Normal Inspection - Respiratory Exam Respiratory Exam: Decreased Breath Sounds - Cardiovascular Exam Cardiovascular Exam: REGULAR RHYTHM - GI/Abdominal Exam GI & Abdominal Exam: Hyperactive Bowel Sounds - Rectal Exam Rectal Exam: Deferred - Exam Exam: NORMAL INSPECTION - Extremities Exam Extremities exam: Positive for: tenderness - Back Exam Back exam: NORMAL INSPECTION - Neurological Exam Neurological exam: Altered - Psychiatric Exam Psychiatric exam: Depressed - Skin Skin Exam: Dry Results - Vital Signs Recent Vital Signs: Last Vital Signs Temp 97.8 F 08/25/16 07:50 Pulse 94 H 08/25/16 07:50 Resp 22 08/25/16 07:50 BP 111/64 08/25/16 07:50 Pulse Ox 96 08/25/16 07:50 - Labs Result Diagrams: 08/24/16 21:24 08/24/16 21:24 Labs: Laboratory Results - last 24 hr 08/25/16 08/25/16 08/25/16 05:52 07:17 07:17 ESR 130 H Hemoglobin A1c Total Bilirubin 0.6 Direct Bilirubin 0.5 H AST 53 ALT 19 L D Alkaline Phosphatase 82 Ammonia C-React Prot High Sens Total Protein 7.3 Albumin 2.1 L D Globulin 5.2 H Albumin/Globulin Ratio 0.4 L Vitamin B12 > 1000 H Urine Color Yellow Urine Clarity Clear Urine pH 5.0 Ur Specific [place] 1.021 Urine Protein Negative Urine Glucose (UA) Normal Urine Ketones Negative Urine Blood Negative Urine Nitrate Negative Urine Bilirubin Negative Urine Urobilinogen 2.0 Ur Leukocyte Esterase Neg Urine WBC (Auto) 2 Urine RBC (Auto) 1 Urine Bacteria Rare Hyaline Casts 3-5 H 08/25/16 08/25/16 08/25/16 07:17 07:17 07:17 ESR Hemoglobin A1c 5.7 Total Bilirubin Direct Bilirubin AST ALT Alkaline Phosphatase Ammonia < 9 L C-React Prot High Sens > 15.00 H Total Protein Albumin Globulin Albumin/Globulin Ratio Vitamin B12 Urine Color Urine Clarity Urine pH Ur Specific [place] Urine Protein Urine Glucose (UA) Urine Ketones Urine Blood Urine Nitrate Urine Bilirubin Urine Urobilinogen Ur Leukocyte Esterase Urine WBC (Auto) Urine RBC (Auto) Urine Bacteria Hyaline Casts Assessment & Plan (1) Dehydration Status: Acute (2) Altered mental status, unspecified Status: Acute Priority: Medium (3) Hydrocephalus Status: Acute Priority: Medium (4) Chronic obstructive airway disease Status: Acute Priority: Medium (5) Psoriatic arthritis Status: Acute Priority: Medium
[2016-08-25] MEDS: Enoxaparin 40 mg Syringe SC SCH (10:52)
--- NOTE | 2016-08-25 11:05 | RAD ---
HISTORY: SOB COMPARISON: Chest x-ray performed 06/25/16 TECHNIQUE: Chest, one view. FINDINGS: Right-sided MediPort extends expected location of the cavoatrial junction. LUNGS: Reticular nodular opacities re-identified throughout bilateral lung garcia. Question possibility of mild superimposed pulmonary venous congestion. Biapical pleural thickening. Please note that chest x-ray has limited sensitivity for the detection of pulmonary masses. PLEURA: No significant pleural effusion identified. No definite pneumothorax . CARDIOVASCULAR: Left-sided dual lead pacemaker. Cardiomegaly. Atherosclerotic calcifications of the aorta. OSSEOUS STRUCTURES: Degenerative changes of the spine. VISUALIZED UPPER ABDOMEN: Unremarkable. OTHER FINDINGS: None. IMPRESSION: Reticular nodular opacities re-identified throughout bilateral lung garcia. Question possibility of mild superimposed pulmonary venous congestion. Biapical pleural thickening. Cardiomegaly. Left-sided pacemaker. Right-sided MediPort.
--- NOTE | 2016-08-25 11:54 | CON ---
DATE: 08/25/2016 REASON FOR CONSULTATION: Change in mental status and weakness. CHIEF COMPLAINT: The patient was brought in to [facility] with a history of generalized weakness and inability to get up and walk himself. From neurological point of view, I was called in to evaluate him for further management. HISTORY OF PRESENT ILLNESS: The patient is a 75-year-old right-handed male who is known to me as outpatient for his peripheral neuropathy, dementia, and stroke in the past. At present, he was admitted with generalized weakness with shortness of breath and urinary incontinence. No history of fall, no history of trauma, no history of involuntary movements has been documented. PERSONAL HISTORY: Denies smoking or alcohol use. ALLERGIES: No known allergies. MEDICATIONS: Ibuprofen, Lovenox, Ultram. REVIEW OF SYSTEMS: As per H and P. PHYSICAL EXAMINATION: VITAL SIGNS: Blood pressure 137/80, mean arterial pressure of 99, respiratory rate 16, temperature afebrile. NECK: Supple. No carotid bruit. HEART: Sounds are regular. CHEST: Fair air entry. EXTREMITIES: Both legs are externally rotated. NEUROLOGIC EXAMINATION: MENTAL STATUS EXAMINATION: He is communicable only in [place]. He is awake, follows just one-step command at times. His speech is fluent. Most of the time , he could not follow any commands at all. Spontaneous movement noted in both upper extremities. CRANIAL NERVE EXAMINATION: Responds to visual threat. Pupils react to light. Extraocular movements normal. No facial asymmetry noted. MOTOR EXAMINATION: No movement of the lower extremities is noted. Tone is slightly increased in both lower extremities. Significant muscle atrophy noted in both upper extremities, and disfigured joints in the upper extremities noted. DEEP TENDON REFLEXES: Absent. Plantars are mute. CONCLUSION: Upon reviewing his history and neurological examination, the patient is presenting with bilateral cerebral dysfunction, which probably is secondary to his underlying dementia process, super imposed with other possible causes including metabolic electrolyte imbalance, and toxic encephalopathy should be ruled out. On the current examination, weakness of the lower extremities is pronounced than his upper extremities. Considering no cranial nerve abnormal finding, probably the cervical pathology should be ruled out. The patient is also suffering from significant bilateral dissymmetric sensorimotor neuropathy. LABORATORY DATA: Blood workup: WBC 9.1, hemoglobin 9.3, hematocrit 28.5, platelets 419. PT 16.2, INR 1.4, PTT 36. Sodium 133, potassium 5.2, chloride 101, bicarbonate 25 with BUN 25, creatinine 0.8. GFR more than 60, random glucose 112. Liver functions are elevated. CT of the head reviewed, showed hydrocephalus with ex-vacuo with more dilatation of the right temporal horn suggestive of previous stroke. Periventricular ischemic changes also noted. RECOMMENDATION: 1. CT of the cervical spine to rule out any cervical pathology. 2. Hydration, correct the electrolytes. 3. EEG to be done to rule out any electrographic seizures. 4. DVT prophylaxis and bedside physical therapy is recommended. The patient will be followed closely with you. Ghulam Harper MD cc: [id number] TT: 08/25/2016 11:53:28 Confirmation # [id number] Dictation # [id number] [id number]
--- NOTE | 2016-08-25 13:48 | CT ---
PROCEDURE: CT Cervical Spine without contrast HISTORY: <myelopathy> COMPARISON: None available. TECHNIQUE: Axial computed tomography images were obtained of the cervical spine without the use of intravenous contrast. Coronal and sagittal reformatted images were created and reviewed. Radiation dose: Total exam DLP = 536.5 mGy-cm. This CT exam was performed using one or more of the following dose reduction techniques: Automated exposure control, adjustment of the mA and/or kV according to patient size, and/or use of iterative reconstruction technique. FINDINGS: VERTEBRAE: No acute compression fractures no retropulsed fragments. . Multilevel degenerative endplate changes and Schmorl's nodes however vertebral bodies otherwise exhibit relatively normal stature. There is straightening of the normal lumbar lordosis aligned possibly due to patient positioning gantry however underlying element of muscle spasm may contribute. Vertebral bodies and facets are otherwise normally aligned. DISCS/SPINAL CANAL/NEURAL FORAMINA: Multilevel degenerative spondylosis. At the C7-T1 level, there is marked disc space narrowing, cortical endplate irregularity Schmorl's node formation. No disc herniation or significant disc bulge. Central canal and exit foramina appear adequate. At the C6-C7 level, there is also marked disc space narrowing with cortical endplate irregularity -Schmorl's node formation and mild hypertrophic uncovertebral joint changes left greater than right. The facet joints are hypertrophic left greater than right. Central canal appears adequate. Left exit foramen is stenotic. Right exit foramen is adequate. At the C5-C6 level, there is also moderate disc space narrowing with cortical endplate irregularity - Schmorl's node formation and mild hypertrophic uncovertebral joint changes. Facets also mildly hypertrophic left greater than right. Central canal appears adequate. Exit foramina appear marginal to minimally narrowed on the left and adequate on the right. At the C4-C5 level, there is mild disc space narrowing on more so along the posterior disc margin. No disc herniation or significant disc bulge. Minor hypertrophic uncovertebral facet joint changes. Central canal appears adequate. Left exit foramen is slightly narrowed. Right exit foramen is adequate. At the C3-C4 level, there is also mild disc space narrowing. No disc herniation or significant disc bulge. The minimally overgrown uncovertebral joint changes. Facets also mildly hypertrophic. Central canal appears adequate. Exit foramina appear marginal to adequate on the left and marginal to slightly narrowed on the right. Small central and bilateral disc bulge the C2-C3 level without significant canal compromise nor cord compression. Exit foramina are adequate. Degenerative changes noted at the C1-C2 articulation. PARASPINAL SOFT TISSUES: Prevertebral and paraspinal soft tissues unremarkable. No acute fractures OTHER FINDINGS: Note made of what appears represent moderate to fairly significant centrilobular and additional and additional paraseptal emphysematous changes in the lung apices bilaterally. There are also bullous and bleb changes as well. IMPRESSION: No acute fractures. . Mild significant central compromise nor cord compression. . Variable mild bilateral foraminal narrowing as described.
--- NOTE | 2016-08-25 15:36 | CP.PCM.PN ---
Subjective - Date & Time of Evaluation Date of Evaluation: 08/25/16 Time of Evaluation: 11:00 - Subjective Subjective: Awake, alert, swallowing well. Objective - Vital Signs/Intake and Output Vital Signs (last 24 hours): Temp Pulse Resp BP Pulse Ox 97.8 F 94 H 22 111/64 96 08/25/16 07:50 08/25/16 07:50 08/25/16 07:50 08/25/16 07:50 08/25/16 07:50 Intake and Output: 08/25/16 08/25/16 06:59 18:59 Intake Total 840 Output Total 900 Balance -60 - Medications Medications: Current Medications Albuterol Sulfate (Albuterol 0.042% Inhal Azul (1.25mg/3ml) Ud) 1.25 mg INH RQ6 [facility] Enoxaparin Sodium (Lovenox) 40 mg SC DAILY [facility] Last Admin: 08/25/16 10:52 Dose: 40 mg Home Med (Baclofen) 10 mg PO BID [facility] Last Admin: 08/25/16 10:43 Dose: Not Given Sodium Chloride (Sodium Chloride 0.9%) 1,000 mls @ 100 mls/hr IV .Q10H [facility] Last Admin: 08/25/16 08:21 Dose: Not Given Dextrose/Sodium Chloride (Dextrose 5%/0.45% Ns 1000 Ml) 1,000 mls @ 60 mls/hr IV .[id number] [facility] Last Admin: 08/25/16 02:59 Dose: 60 mls/hr Ibuprofen (Motrin Tab) 600 mg PO Q8 PRN PRN Reason: Pain, moderate (4-7) Saliva Substitute (First Magic Mouthwash) 5 ml PO QID [facility] Tramadol HCl (Ultram) 50 mg PO Q8 PRN PRN Reason: Pain, moderate (4-7) - Labs Labs: PT 16.2 SECONDS (9.7-12.2) H 08/24/16 21:24 INR 1.4 08/24/16 21:24 APTT 36 SECONDS (21-34) H 08/24/16 21:24 Assessment and Plan - Assessment and Plan (Free Text) Assessment: Patient is seen and examined. Awake, alert, asking for water. fed apple sauce and water, swallowing well, no coughing or choking noted. Will start on pureed diet with aspiration precautions. Monitor closely. Magic mouth wash ordered for mouth sores.
[2016-08-25] MEDS: Mag&Al/Simet/Diphen/Lido 237 ML KIT PO SCH ×2 (18:11→21:10)
[2016-08-25] MEDS: Albuterol 0.042% Inhal Sol (1.25 mg/3 mL) UD INH SCH (19:37)
[2016-08-26] MEDS: Albuterol 0.042% Inhal Sol (1.25 mg/3 mL) UD INH SCH ×4 (03:31→19:39)
[2016-08-26 07:20] LABS: CHLORIDE 107 mmol/L (98-107); POTASSIUM 3.4 mmol/L (3.6-5.2); SODIUM 134 mmol/L (132-148)
[2016-08-26 07:23] LABS: BLOOD UREA NITROGEN 16 mg/dL (9-20); CARBON DIOXIDE 21 mmol/L (22-30); GFR AFRICAN-AMERICAN > 60; GLUCOSE,RANDOM 103 mg/dL (75-110)
[2016-08-26 07:24] LABS: CALCIUM 8.5 mg/dl (8.6-10.4)
[2016-08-26] MEDS: Dextrose 5%/0.45% NS 1,000 ML IV SCH ×2 (08:31→12:56)
--- NOTE | 2016-08-26 10:51 | PN ---
DATE: 08/26/2016 SUBJECTIVE: The patient is alert, in bed. PHYSICAL EXAMINATION: VITAL SIGNS: He is afebrile with blood pressure of 98/60, pulse rate 87, respirations 20 and hemoglobin oxygen saturation of 95%. GENERAL: His dyspnea has decreased. HEART: Regular. No gallop rhythm. LUNGS: Diminished breath sounds over lung bases. ABDOMEN: Soft. LEGS: No edema. LABORATORY DATA: White count is 9100; hemoglobin 9.3 and platelet count of 419, 000. IMPRESSION: Respiratory insufficiency, dementia, depression, arthritis, bronchitis, and emphysema. PLAN: To continue with the current medications and follow up with neurology. Alessandro Hayes MD cc: [id number] TT: 08/26/2016 10:49:36 Confirmation # [id number] Dictation # [id number] abbey TOMAS
[2016-08-26] MEDS: Potassium Chloride 20 mEq/15 ml LIQ UD PO ONE ×2 (11:05→11:18)
[2016-08-26] MEDS: Enoxaparin 40 mg Syringe SC SCH (11:05)
[2016-08-26] MEDS: Mag&Al/Simet/Diphen/Lido 237 ML KIT PO SCH ×4 (11:09→21:23)
[2016-08-26 11:48] LABS: BASO % 0.6 % (0.0-2.0); EOS # 0.7 K/uL (0.0-0.7); EOS % 8.6 % (0.0-4.0); HEMATOCRIT 25.5 % (35.0-51.0); LYMPH # 1.2 K/uL (1.0-4.3); LYMPH % 15.3 % (20.0-40.0); MEAN CELL VOLUME 81.4 fL (80.0-94.0); MEAN CORPUSCULAR HEMOGLOBIN 26.2 pg (27.0-31.0); MEAN CORPUSCULAR HGB CONC 32.2 g/dL (33.0-37.0); MEAN PLATELET VOLUME 7.6 fL (7.2-11.7); MONO # 0.6 K/uL (0.0-0.8); MONO % 7.4 % (0.0-10.0); RED CELL DISTRIBUTION WIDTH 16.8 % (11.5-14.5); WHITE BLOOD COUNT 7.6 K/uL (4.8-10.8)
[2016-08-26] MEDS ORDERED: Iohexol 300 100 ML IJ ONE (17:15)
--- NOTE | 2016-08-26 18:26 | PN ---
DATE: 08/26/2016 NEUROLOGICAL PROBLEM: Bilateral cerebral dysfunction. PHYSICAL EXAMINATION: VITAL SIGNS: Blood pressure 100/63, mean arterial pressure 70, respiratory rate 16, temperature 98, pulse rate 99. NEUROLOGIC: The patient is arousable, communicable in [place]ian. He moves all 4 extremities. His previous examination of paraparesis is not noticeable. He was able to move his legs, somewhat better than yesterday's exam. The patient's CAT scan was reviewed. It does not show any cord compression. The patient's workup showed rheumatoid arthritis, positive ELVIA positive, 1 in 160 with a speckled forearm. 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 At this point, I would refer him to be seen by a hotel staff member for further management. In the meantime, the patient should be hydrated well and correct the electrolytes. Ghulam Harper MD cc: [id number] TT: 08/26/2016 18:26:25 Confirmation # [id number] Dictation # [id number] jn MTDD
--- NOTE | 2016-08-26 20:18 | CT ---
EXAM: CT Abdomen and Pelvis With Intravenous Contrast CLINICAL HISTORY: 75 years old, male; Signs and symptoms; Constipation; Additional info: Poor eating TECHNIQUE: Axial computed tomography images of the abdomen and pelvis with intravenous contrast. This CT exam was performed using one or more of the following dose reduction techniques: automated exposure control, adjustment of the mA and/or kV according to patient size, and/or use of iterative reconstruction technique. Coronal and sagittal reformatted images were created and reviewed. CONTRAST: 100 mL of OMNIPAQUE 300 administered intravenously. EXAM DATE/TIME: 08/26/2016 1:36 PM COMPARISON: [facility] - DENSITOMETRY HIP SPINE 05/08/2015 1:40:00 PM FINDINGS: Lower thorax: There is streak artifact from pacemaker leads. Heart size is normal. There is a small pericardial effusion. There are coronary calcifications. There is a moderate left pleural effusion. There is fibrosis and scarring at both lung bases. There is superimposed interstitial and airspace disease in both lower lobes left greater than right. ABDOMEN: Liver: There is fatty infiltration of the liver. Gallbladder and bile ducts: unremarkable Pancreas: Pancreas is atrophic with fatty replacement. Spleen: Spleen is unremarkable. There is an accessory spleen in the left upper quadrant. Adrenals: unremarkable Kidneys and ureters: There are renovascular calcifications bilaterally. There are left renal cysts.Kidneys and ureters are otherwise unremarkable. Stomach and bowel: Stomach is almost empty. Rotation is normal. Streak and motion limits evaluation of small and large bowel. Small bowel is mildly distended with fluid and air There is no obstruction Terminal ileum is unremarkable. Appendix is unremarkable.Colon is incompletely distended which limits evaluation. There is a proximal sigmoid colon colostomy in the left lower quadrant. Sigmoid and rectum have been resected. There are clips in the low pelvis. There is soft tissue mass/thickening in the low pelvis at the distal resection site. There is soft tissue mass/edema in the presacral soft tissues. Appendix: See stomach and bowel PELVIS: Bladder: Bladder is partially distended with air and minimal urine. There is a Stahl catheter. There is bladder wall thickening. Reproductive: Prostate is mildly enlarged. Prosthetic margins are indistinct. There is a soft tissue mass posterior to the prostate which is contiguous with posterior prostate. ABDOMEN and PELVIS: Intraperitoneal space:There is no free air.There is no free fluid. There are multiple surgical clips in the pelvis. There is inflammation/infiltrative change in the low pelvis and presacral soft tissues. Bones/joints: Bony structures are osteopenic.There are degenerative changes in the osseus structures. The there is a wedge compression fracture at L1. Soft tissues: There is a small fat containing umbilical hernia. Vasculature: There are vascular calcifications. Lymph nodes: There is no pathologic adenopathy. IMPRESSION: Rectosigmoid resection with infiltrative change and mass in the low pelvis and the distal resection site, infiltrative change in presacral extending to the posterior prosthetic margins; no acute solid visceral abnormality; left lower quadrant colostomy, no bowel obstruction; small pericardial effusion; fibrosis and scarring at the lung bases with superimposed infection cannot be excluded; left effusion Additional findings as described above.
--- NOTE | 2016-08-26 21:33 | EEG ---
DATE: 08/25/2016 STUDY RESULTS: This is a 16-channel electroencephalogram of awake and drowsy adult. During the study, photic stimulation was performed. Hyperventilation was not performed. The resting electroencephalogram consists of 20-30 microvolt diffuse 4-5 Hz theta activity seen at parietal and occipital leads superimposed with 2-3 Hz delta activity seen. Intermittent movement as well as muscle artifact contaminated the background rhythm. The photic stimulation did not evoke driving response noted at 2-20 Hz. IMPRESSION: This is abnormal electroencephalogram because of persistent slowing throughout the record, suggestive of bilateral cerebral dysfunction. This is probably secondary to metabolic vascular or degenerative process. Please correlate the finding with the neurological and radiological studies. Ghulam Harper MD cc: [id number] TT: 08/26/2016 21:32:49 Confirmation # [id number] Dictation # [id number] MTDD
--- NOTE | 2016-08-26 22:27 | CP.PCM.PN ---
Subjective - Date & Time of Evaluation Date of Evaluation: 08/26/16 Time of Evaluation: 13:10 - Subjective Subjective: Patient able to swollow water but mildly cofused and very weak. Patient being evaluated by Dr Harper. CT scan of abdomen reveals wedge compression fracture of L1. small umbilical hernia, soft tissue mass in the posterior prostate., fatty infiltration of the liver, and a moderate pleural effusion. IV fluids and antibiotic therapy started. Objective - Vital Signs/Intake and Output Vital Signs (last 24 hours): Temp Pulse Resp BP Pulse Ox 101.5 F H 87 20 98/60 L 95 08/26/16 17:48 08/26/16 07:46 08/26/16 07:46 08/26/16 07:46 08/26/16 07:46 Intake and Output: 08/26/16 08/27/16 18:59 06:59 Intake Total 640 Output Total 250 Balance 390 - Medications Medications: Current Medications Acetaminophen (Tylenol 325mg Tab) 650 mg PO Q6 PRN PRN Reason: Fever >100.4 F Last Admin: 08/26/16 17:48 Dose: 650 mg Albuterol Sulfate (Albuterol 0.042% Inhal Azul (1.25mg/3ml) Ud) 1.25 mg INH RQ6 [facility] Last Admin: 08/26/16 19:39 Dose: Not Given Baclofen (Lioresal) 10 mg PO BID [facility] Last Admin: 08/26/16 17:49 Dose: 10 mg Enoxaparin Sodium (Lovenox) 40 mg SC DAILY [facility] Last Admin: 08/26/16 11:05 Dose: 40 mg Dextrose/Sodium Chloride (Dextrose 5%/0.45% Ns 1000 Ml) 1,000 mls @ 80 mls/hr IV .[id number] [facility] Last Admin: 08/26/16 12:56 Dose: 80 mls/hr Ceftriaxone Sodium 1 gm/ (Sodium Chloride) 100 mls @ 100 mls/hr IVPB DAILY [facility] Last Admin: 08/26/16 18:30 Dose: 100 mls/hr Ibuprofen (Motrin Tab) 600 mg PO Q8 PRN PRN Reason: Pain, moderate (4-7) Saliva Substitute (First Magic Mouthwash) 5 ml PO QID [facility] Last Admin: 08/26/16 21:23 Dose: 5 ml Tramadol HCl (Ultram) 50 mg PO Q8 PRN PRN Reason: Pain, moderate (4-7) - Labs Labs: 08/26/16 11:30 08/26/16 07:07 PT 16.2 SECONDS (9.7-12.2) H 08/24/16 21:24 INR 1.4 08/24/16 21:24 APTT 36 SECONDS (21-34) H 08/24/16 21:24 - Constitutional Appears: No Acute Distress - Head Exam Head Exam: NORMAL INSPECTION - Eye Exam Eye Exam: Normal appearance Pupil Exam: NORMAL ACCOMODATION - ENT Exam ENT Exam: Normal Exam - Neck Exam Neck Exam: Normal Inspection - Respiratory Exam Respiratory Exam: Decreased Breath Sounds - Cardiovascular Exam Cardiovascular Exam: REGULAR RHYTHM - GI/Abdominal Exam GI & Abdominal Exam: Hyperactive Bowel Sounds - Rectal Exam Rectal Exam: Deferred - Exam Exam: NORMAL INSPECTION - Extremities Exam Extremities Exam: Joint Swelling - Neurological Exam Neurological Exam: Altered - Psychiatric Exam Psychiatric exam: Flat Affect - Skin Skin Exam: Dry Assessment and Plan (1) Dehydration Status: Acute (2) Altered mental status, unspecified Status: Acute (3) Hydrocephalus Status: Acute (4) Chronic obstructive airway disease Status: Acute (5) Psoriatic arthritis Status: Acute
[2016-08-27] MEDS: Albuterol 0.042% Inhal Sol (1.25 mg/3 mL) UD INH SCH ×3 (01:08→18:25)
[2016-08-27 18:36] LABS: RNP Interpretation Negative (Negative)
[2016-08-27] MEDS: Mag&Al/Simet/Diphen/Lido 237 ML KIT PO SCH (22:04)
[2016-08-28] MEDS: Albuterol 0.042% Inhal Sol (1.25 mg/3 mL) UD INH SCH ×4 (01:20→19:13)
[2016-08-28] MEDS: Dextrose 5%/0.45% NS 1,000 ML IV SCH ×2 (02:30→23:29)
[2016-08-28 08:17] LABS: CCP IGG >250 Units (<20)
[2016-08-28 09:15] LABS: BASO % 0.5 % (0.0-2.0); EOS # 0.8 K/uL (0.0-0.7); EOS % 10.4 % (0.0-4.0); HEMATOCRIT 23.8 % (35.0-51.0); LYMPH # 0.8 K/uL (1.0-4.3); MEAN CORPUSCULAR HGB CONC 32.1 g/dL (33.0-37.0); MEAN PLATELET VOLUME 7.8 fL (7.2-11.7); MONO # 0.4 K/uL (0.0-0.8); MONO % 5.3 % (0.0-10.0); WHITE BLOOD COUNT 7.2 K/uL (4.8-10.8)
--- NOTE | 2016-08-28 09:56 | CP.PCM.PN ---
Subjective - Date & Time of Evaluation Date of Evaluation: 08/27/16 Time of Evaluation: 13:25 - Subjective Subjective: Internet down Extremely weak and unable to swollow. Recurrnt fever. Ct of the abdomen reveals mass posterior to the prostate. Urology cosult requested. Objective - Vital Signs/Intake and Output Vital Signs (last 24 hours): Temp Pulse Resp BP Pulse Ox 98.5 F 97 H 20 105/65 96 08/28/16 07:00 08/28/16 07:00 08/28/16 07:00 08/28/16 07:00 08/28/16 07:00 Intake and Output: 08/28/16 08/28/16 06:59 18:59 Intake Total 1360 Output Total 500 Balance 860 - Medications Medications: Current Medications Acetaminophen (Tylenol 325mg Tab) 650 mg PO Q6 PRN PRN Reason: Fever >100.4 F Last Admin: 08/26/16 17:48 Dose: 650 mg Albuterol Sulfate (Albuterol 0.042% Inhal Azul (1.25mg/3ml) Ud) 1.25 mg INH RQ6 [facility] Last Admin: 08/28/16 08:04 Dose: 1.25 mg Baclofen (Lioresal) 10 mg PO BID [facility] Last Admin: 08/26/16 17:49 Dose: 10 mg Enoxaparin Sodium (Lovenox) 40 mg SC DAILY [facility] Last Admin: 08/26/16 11:05 Dose: 40 mg Dextrose/Sodium Chloride (Dextrose 5%/0.45% Ns 1000 Ml) 1,000 mls @ 80 mls/hr IV .[id number] [facility] Last Admin: 08/28/16 02:30 Dose: 80 mls/hr Ceftriaxone Sodium 1 gm/ (Sodium Chloride) 100 mls @ 100 mls/hr IVPB DAILY [facility] Last Admin: 08/26/16 18:30 Dose: 100 mls/hr Vancomycin HCl 1 gm/ Sodium (Chloride) 250 mls @ 166.7 mls/hr IVPB Q24H [facility] Last Admin: 08/27/16 22:38 Dose: 166.7 mls/hr Ibuprofen (Motrin Tab) 600 mg PO Q8 PRN PRN Reason: Pain, moderate (4-7) Saliva Substitute (First Magic Mouthwash) 5 ml PO QID [facility] Last Admin: 08/27/16 22:04 Dose: 5 ml Tramadol HCl (Ultram) 50 mg PO Q8 PRN PRN Reason: Pain, moderate (4-7) - Labs Labs: 08/28/16 09:01 08/26/16 07:07 PT 16.2 SECONDS (9.7-12.2) H 08/24/16 21:24 INR 1.4 08/24/16 21:24 APTT 36 SECONDS (21-34) H 08/24/16 21:24 - Constitutional Appears: No Acute Distress - Head Exam Head Exam: NORMAL INSPECTION - Eye Exam Eye Exam: Normal appearance - ENT Exam ENT Exam: Normal Exam - Neck Exam Neck Exam: Normal Inspection - Respiratory Exam Respiratory Exam: Decreased Breath Sounds - Cardiovascular Exam Cardiovascular Exam: REGULAR RHYTHM - GI/Abdominal Exam GI & Abdominal Exam: Hyperactive Bowel Sounds - Rectal Exam Rectal Exam: Deferred - Exam Exam: NORMAL INSPECTION - Extremities Exam Extremities Exam: Tenderness - Back Exam Back Exam: NORMAL INSPECTION - Neurological Exam Neurological Exam: Altered - Psychiatric Exam Psychiatric exam: Depressed - Skin Skin Exam: Dry Assessment and Plan (1) Dehydration Status: Acute (2) Altered mental status, unspecified Status: Acute (3) Hydrocephalus Status: Acute (4) Chronic obstructive airway disease Status: Acute (5) Psoriatic arthritis Status: Acute
[2016-08-28 10:13] LABS: CHLORIDE 104 mmol/L (98-107); POTASSIUM 3.7 mmol/L (3.6-5.2); SODIUM 133 mmol/L (132-148)
[2016-08-28 10:16] LABS: BLOOD UREA NITROGEN 15 mg/dL (9-20); CARBON DIOXIDE 21 mmol/L (22-30); GFR AFRICAN-AMERICAN > 60
[2016-08-28 10:17] LABS: CALCIUM 8.7 mg/dl (8.6-10.4); GLUCOSE,RANDOM 104 mg/dL (75-110)
[2016-08-28 10:38] LABS: PROSTATE SPECIFIC ANTIGEN 0.297 ng/mL (0.00-4.0)
[2016-08-28] MEDS: Mag&Al/Simet/Diphen/Lido 237 ML KIT PO SCH ×4 (10:50→22:08)
[2016-08-28] MEDS: Enoxaparin 40 mg Syringe SC SCH (10:50)
--- NOTE | 2016-08-28 10:58 | PN ---
DATE: 08/28/2016 PHYSICAL EXAMINATION: GENERAL: The patient is alert, in bed. VITAL SIGNS: Afebrile with blood pressure 105/65, pulse 97, respirations 20, hemoglobin oxygen satur ation of 96%. His dyspnea has decreased at rest. HEART: Regular, no gallop rhythm. LUNGS: Diminished breath sounds over lung bases. Rhonchi decreased. ABDOMEN: Soft. EXTREMITIES: Legs no edema. IMPRESSION: The patient has respiratory insufficiency, bronchitis, myelopathy and dyspepsia. The ignacio robles was seen by the manager of selection and assessment and neurologist and hematology/oncology for prostatic mass a nd urologist. PLAN: To continue with the current management and followup with hem/onc, manager of selection and assessment, neurolo gist and urologist. Alessandro Hayes MD cc: [id number] TT: 08/28/2016 10:57:28 Confirmation # [id number] Dictation # [id number]
[2016-08-28] MEDS ORDERED: Phytonadione 10 mg/ml Inj (Adult) SC STA ×2 (13:45→14:58)
--- NOTE | 2016-08-28 14:00 | PN ---
DATE: 08/28/2016 LOCATION: 365. This is a 75-year-old male seen and examined on rounds today after being examined on 08/27/2016 for GI consultation due to the patient's reported severe anemia before, but no reported active bleeding. No reported significant clinical changes. All the available lab and radiology study results, current and previous medication lists, current and the previous medical events were reviewed. Case discusse dasha with the staff on the floor. The most recent lab results showed hemoglobin of 7.7 with hematocrit 23.8 with low platelet count with CO2 content of 21. His stool for C. diff was reported to be negati ve before. Abdominal and pelvic CAT scan reports are seen with mass in the low pelvis area and distal to the res ection site. The rest of the CAT scan report is seen. PHYSICAL EXAMINATION: GENERAL: A 75-year-old male. VITAL SIGNS: Afebrile with pulse of 96, respiratory rate 20-22, blood pressure 110/62. HEENT: Showed pale, dry oral mucoid membrane. Nonicteric sclerae. LUNGS: Few scattered crepitations, decreased air entry at bases. HEART: Positive S1 and S2. ABDOMEN: Soft. Bowel sounds are present. No mass or organomegaly. No rebound tenderness or guardi ng. NEUROLOGIC: No new reported neurological deficits, sensory or motor. IMPRESSION: 1. Anemia, rule out recurrent gastrointestinal blood loss, upper versus lower. 2. Bronchial asthma by history. 3. Abnormal CAT scan of the abdomen and the pelvis. The patient is still complaining of generalized weakness and malaise. SUGGESTIONS: 1. Agree with your plan. 2. Rule out upper versus lower recurrent gastrointestinal blood loss. 3. Repeat cancer markers. 4. Endoscopic evaluation of the GI tract after blood transfusion and when the patient is stable clin ically. 5. Guaiac all the stools through the colostomy tube. Will follow up closely with you. Roger Mcclure MD cc: [id number] TT: 08/28/2016 13:59:44 Confirmation # [id number] Dictation # [id number] estefania
--- NOTE | 2016-08-28 14:21 | CP.PCM.CON ---
History of Present Illness - History of Present Illness History of Present Illness: A 75 y/o male brought in by family to the ER c/o shortness of breath, generalized body aches from arthritis, urine incontinence, and decreased PO intake for the last month. Pt notes that the symptoms are on and off but has been worse over the last 3 days. Pt denies fever, chills, chest pain , lightheadedness, nausea, vomiting, abdominal pain, dizziness, or any other complaints. FOUND TO HAVE PELVIC MASS AND BILAT PULM NODULES - RAISING SUSPICION FOR METS REFERRED FOR ID EVAL OF POSITIVE BLOOD C/S Past history includes rheumatoid arthritis, left sided colostomy for a colon lesion, COPD, and a pacemaker. PMH + RA, COLOSTOMY Review of Systems - Review of Systems Systems not reviewed;Unavailable: Altered Mental Status - Constitutional Constitutional: As Per HPI, Anorexia - EENT Eyes: absent: As Per HPI, Blind Spots, Blurred Vision, Change in Vision, Decreased Night Vision, Diplopia, Discharge, Dry Eye, Exophthalmos, Floaters, Irritation, Itchy Eyes, Loss of Peripheral Vision, Pain, Photophobia, Requires Corrective Lenses, Sees Flashes, Spots in Vision, Tunnel Vision, Other Visual Disturbances, Loss of Vision, Other Ears: absent: As Per HPI, Decreased Hearing, Ear Discharge, Ear Pain, Tinnitus, Abnormal Hearing, Disequilibrium, Dizziness, Other Nose/Mouth/Throat: absent: As Per HPI, Epistaxis, Nasal Congestion, Nasal Discharge, Nasal Obstruction, Nasal Trauma, Nose Pain, Post Nasal Drip, Sinus Pain, Sinus Pressure, Bleeding Gums, Change in Voice, Dental Pain, Dry Mouth, Dysphagia, Halitosis, Hoarsness, Lip Swelling, Mouth Lesions, Mouth Pain, Odynophagia, Sore Throat, Throat Swelling, Tongue Swelling, Facial Pain, Neck Pain, Neck Mass, Other - Cardiovascular Cardiovascular: As Per HPI - Respiratory Respiratory: As Per HPI - Gastrointestinal Gastrointestinal: absent: As Per HPI, Abdominal Pain, Belching, Bloating, Change in Bowel Habits, Change in Stool Character, Coffee Ground Emesis, Constipation, Cramping, Diarrhea, Dyspepsia, Dysphagia, Early Satiety, Excessive Flatus, Fecal Incontinence, Heartburn, Hematemesis, Hematochezia, Loose Stools, Melena, Nausea, Odynophagia, Temesmus, Vomiting, Other - Genitourinary Genitourinary: absent: As Per HPI, Change in Urinary Stream, Difficulty Urinating, Dysuria, Flank Pain, Hematuria, Pyuria, Nocturia, Urinary Incontinence, Urinary Frequency, Urinary Hesitance, Urinary Urgency, Voiding Freq/Small Amts, Freq UTI, Hx Renal/Bladder Calculi, Hx /Renal Surgery, Bladder Distension, Other - Musculoskeletal Musculoskeletal: absent: As Per HPI, Abnormal Gait, Arthralgias, Atrophy, Back Pain, Deformity, Joint Swelling, Limited Range of Motion, Loss of Height, Muscle Cramps, Muscle Weakness, Myalgias, Neck Pain, Numbness, Radiating Pain into Limb, Stiffness, Tingling, Other - Integumentary Integumentary: absent: As Per HPI, Acne, Alopecia, Bleeding Lesions, Change in Hair, Change in Nails, Change in Pigmentation, Changing Lesions, Dry Skin, Erythema, Furuncle, Hirsutism, Lesions, New Lesions, Non-Healing Lesions, Photosensitivity, Pruritus, Rash, Skin Pain, Skin Ulcer, Sores, Striae, Swelling , Unusual Bruising, Wounds, Jaundice, Other - Neurological Neurological: absent: As Per HPI, Abnormal Gait, Abnormal Hearing, Abnormal Movements, Abnormal Speech, Behavioral Changes, Burning Sensations, Confusion, Convulsions, Disequilibrium, Dizziness, Numbness, Focal Weakness, Frequent Falls , Headaches, Lack of Coordination, Loss of Vision, Memory Loss, Paresthesias, Radicular Pain, Restless Legs, Sensory Deficit, Syncope, Tingling, Tremor, Vertigo, Weakness, Other Visual Disturbances, Other - Psychiatric Psychiatric: absent: As Per HPI, Abnormal Sleep Pattern, Anhedonia, Anxiety, Auditory Hallucinations, Behavioral Changes, Change in Appetite, Change in Libido, Confusion, Depression, Difficulty Concentrating, Hallucinations, Homicidal Ideation, Hopelessness, Irritability, Memory Loss, Mood Swings, Panic Attacks, Paranoia, Suicidal Ideation, Visual Hallucinations, Tactile Hallucinations, Other - Endocrine Endocrine: absent: As Per HPI, Change in Body Appearance, Change in Libido, Cold Intolorance, Deepening of Voice, Excessive Sweating, Fatigue, Flushing, Heat Intolorance, Increase in Ring/Shoe/Hat Size, Palpitations, Polydipsia, Polyphagia, Polyuria, Other - Hematologic/Lymphatic Hematologic: absent: As Per HPI, Easy Bleeding, Easy Bruising, Lymphadenopathy, Other Past Patient History - Infectious Disease Hx of Infectious Diseases: None - Tetanus Immunizations Tetanus Immunization: Up to Date, >10 years Ago - Past Medical History & Family History Past Medical History?: Yes - Past Social History Smoking Status: Former Smoker Chewing Tobacco Use: No Cigar Use: No Alcohol: None Drugs: Denies Home Situation {Lives}: With Family Domestic Violence: Negative - CARDIAC Hx Cardiac Disorders: Yes Hx Hypertension: Yes - PULMONARY Hx Chronic Obstructive Pulmonary Disease (COPD): Yes - NEUROLOGICAL Hx Neurological Disorder: Yes Hx Dementia: Yes Hx Dizziness: Yes - HEENT Hx HEENT Problems: Yes Hx Sinusitis: Yes - RENAL Hx Chronic Kidney Disease: No Hx Kidney Stones: Yes - ENDOCRINE/METABOLIC Hx Endocrine Disorders: No Hx Hypothyroidism: No - HEMATOLOGICAL/ONCOLOGICAL Hx Blood Disorders: Yes Hx Blood Transfusions: Yes Hx Cancer: Yes (COLON) Hx Chemotherapy: Yes Other/Comment: has left colostomy - INTEGUMENTARY Hx Dermatological Problems: Yes Hx Psoriasis: Yes - MUSCULOSKELETAL/RHEUMATOLOGICAL Hx Arthritis: Yes Hx Rheumatoid Arthritis: Yes - GASTROINTESTINAL Hx Gastrointestinal Disorders: Yes Hx Bowel Surgery: Yes (2003;2005) Hx Colostomy: Yes Other/Comment: COLON CA 2003 - GENITOURINARY/GYNECOLOGICAL Hx Genitourinary Disorders: No Hx Incontinence: Yes - PSYCHIATRIC Hx Psychophysiologic Disorder: Yes Hx Depression: Yes Hx Sexual Abuse: No Hx Substance Use: No - SURGICAL HISTORY Hx Surgeries: Yes Other/Comment: pacemaker. colostomy - ANESTHESIA Hx Anesthesia: Yes Hx Anesthesia Reactions: No Hx Malignant Hyperthermia: No Has any member of the family had a problem w/ anesthesia?: No Meds Allergies/Adverse Reactions: Allergies Allergy/AdvReac Type Severity Reaction Status Date / Time No Known Allergies Allergy Verified 07/30/16 19:23 - Medications Medications: Current Medications Acetaminophen (Tylenol 325mg Tab) 650 mg PO Q6 PRN PRN Reason: Fever >100.4 F Last Admin: 08/26/16 17:48 Dose: 650 mg Albuterol Sulfate (Albuterol 0.042% Inhal Azul (1.25mg/3ml) Ud) 1.25 mg INH RQ6 [facility] Last Admin: 08/28/16 13:24 Dose: Not Given Baclofen (Lioresal) 10 mg PO BID [facility] Last Admin: 08/28/16 10:50 Dose: 10 mg Enoxaparin Sodium (Lovenox) 40 mg SC DAILY [facility] Last Admin: 08/28/16 10:50 Dose: 40 mg Dextrose/Sodium Chloride (Dextrose 5%/0.45% Ns 1000 Ml) 1,000 mls @ 80 mls/hr IV .[id number] [facility] Last Admin: 08/28/16 02:30 Dose: 80 mls/hr Ceftriaxone Sodium 1 gm/ (Sodium Chloride) 100 mls @ 100 mls/hr IVPB DAILY [facility] Last Admin: 08/28/16 10:47 Dose: 100 mls/hr Vancomycin HCl 1 gm/ Sodium (Chloride) 250 mls @ 166.7 mls/hr IVPB Q24H [facility] Last Admin: 08/27/16 22:38 Dose: 166.7 mls/hr Ibuprofen (Motrin Tab) 600 mg PO Q8 PRN PRN Reason: Pain, moderate (4-7) Saliva Substitute (First Magic Mouthwash) 5 ml PO QID [facility] Last Admin: 08/28/16 10:50 Dose: 5 ml Tramadol HCl (Ultram) 50 mg PO Q8 PRN PRN Reason: Pain, moderate (4-7) Physical Exam - Constitutional Appears: Cachectic, Chronically Ill - Head Exam Head Exam: ATRAUMATIC, NORMAL INSPECTION, NORMOCEPHALIC - Eye Exam Eye Exam: EOMI, PERRL. absent: Scleral icterus - ENT Exam ENT Exam: Mucous Membranes Dry, Normal External Ear Exam, Normal Oropharynx - Respiratory Exam Respiratory Exam: Decreased Breath Sounds, Rhonchi - Cardiovascular Exam Cardiovascular Exam: REGULAR RHYTHM, +S1, +S2 - GI/Abdominal Exam GI & Abdominal Exam: Diminished Bowel Sounds, Soft. absent: Tenderness - Rectal Exam Rectal Exam: Deferred - Exam Exam: NORMAL INSPECTION - Extremities Exam Extremities exam: Positive for: pedal pulses present. Negative for: calf tenderness, pedal edema, tenderness - Back Exam Back exam: absent: CVA tenderness (L), CVA tenderness (R) - Neurological Exam Neurological exam: Alert, CN II-XII Intact, Oriented x3, Reflexes Normal - Psychiatric Exam Psychiatric exam: Depressed - Skin Skin Exam: Dry Results - Vital Signs Recent Vital Signs: Last Vital Signs Temp 98.5 F 08/28/16 07:00 Pulse 97 H 08/28/16 07:00 Resp 20 08/28/16 07:00 BP 105/65 08/28/16 07:00 Pulse Ox 96 08/28/16 07:00 - Labs Result Diagrams: 08/28/16 09:01 08/28/16 09:01 Labs: Laboratory Results - last 24 hr 08/26/16 08/26/16 08/27/16 07:07 07:07 11:20 WBC RBC Hgb Hct MCV MCH MCHC RDW Plt Count MPV Neut % (Auto) Lymph % (Auto) [place] % (Auto) Eos % (Auto) Baso % (Auto) Neut # Lymph # [place] # Eos # Baso # Sodium Potassium Chloride Carbon Dioxide Anion Gap BUN Creatinine Est GFR ( Amer) Est GFR (Non-Af Amer) POC Glucose (mg/dL) 129 H Random Glucose Calcium Prostate Specific Ag Cycl Citrul Peptide IgG >250 H MUSHROOM CUTTER Antibody <1.0 MUSHROOM CUTTER Antibody Interp Negative 08/27/16 08/28/16 08/28/16 16:21 09:01 09:01 WBC 7.2 RBC 2.94 L Hgb 7.7 L Hct 23.8 L MCV 81.0 MCH 26.0 L MCHC 32.1 L RDW 17.0 H Plt Count 280 MPV 7.8 Neut % (Auto) 72.8 Lymph % (Auto) 11.0 L [place] % (Auto) 5.3 Eos % (Auto) 10.4 H Baso % (Auto) 0.5 Neut # 5.3 Lymph # 0.8 L [place] # 0.4 Eos # 0.8 H Baso # 0.0 Sodium 133 Potassium 3.7 Chloride 104 Carbon Dioxide 21 L Anion Gap 12 BUN 15 Creatinine 0.8 Est GFR ( Amer) > 60 Est GFR (Non-Af Amer) > 60 POC Glucose (mg/dL) 122 H Random Glucose 104 Calcium 8.7 Prostate Specific Ag 0.297 Cycl Citrul Peptide IgG MUSHROOM CUTTER Antibody MUSHROOM CUTTER Antibody Interp Assessment & Plan (1) Altered mental status, unspecified Status: Acute Priority: Medium (2) Arthritis Status: Acute Priority: Medium (3) Dehydration Status: Acute (4) Pacemaker Status: Acute Priority: Low (5) Psoriatic arthritis Status: Acute Priority: Medium - Assessment and Plan (Free Text) Assessment: SEVERE CACHEXIA HX COLON CA S/P PPM R/O METASTATIC DISEASE R/O SEPSIS IV ANTIBIOTIC IN PROGRESS
--- NOTE | 2016-08-28 15:30 | NM ---
PROCEDURE: Whole Body Bone Scan HISTORY: R/O mets, hx of colon ca COMPARISON: None available. TECHNIQUE: Following administration of 23.6 miCu of Tc MDP multiplanar whole body images were obtained. FINDINGS: Evidence for bony metastatic disease: None. Degenerative uptake: Bilateral knees and feet. Physiologic uptake: Normal physiologic activity in the kidneys. Other findings: None. IMPRESSION: No evidence of bony metastatic disease.
[2016-08-28 19:17] LABS: CARCINOEMBRYONIC ANTIGEN 11.4 ng/mL (0-3.0)
[2016-08-28 19:21] LABS: CA 19-9 30.8 U/mL (0-37)
--- NOTE | 2016-08-28 22:22 | CP.PCM.PN ---
Subjective - Date & Time of Evaluation Date of Evaluation: 08/28/16 Time of Evaluation: 13:25 - Subjective Subjective: Patient weak and febrile. Latest Hgb 7.7. Packed cells ordered for transfusion. Patient evaluated by Dr Kyle for positive blood cultures. Objective - Vital Signs/Intake and Output Vital Signs (last 24 hours): Temp Pulse Resp BP Pulse Ox 98.7 F 100 H 20 94/54 L 95 08/28/16 21:42 08/28/16 21:42 08/28/16 21:42 08/28/16 21:42 08/28/16 16:00 Intake and Output: 08/28/16 08/29/16 18:59 06:59 Intake Total 760 0 Output Total 250 Balance 510 0 - Medications Medications: Current Medications Acetaminophen (Tylenol 325mg Tab) 650 mg PO Q6 PRN PRN Reason: Fever >100.4 F Last Admin: 08/28/16 20:05 Dose: 650 mg Acetaminophen (Tylenol 650 Mg Supp) 650 mg [place] Q4 PRN PRN Reason: Fever >100.4 F Albuterol Sulfate (Albuterol 0.042% Inhal Azul (1.25mg/3ml) Ud) 1.25 mg INH RQ6 [facility] Last Admin: 08/28/16 19:13 Dose: 1.25 mg Baclofen (Lioresal) 10 mg PO BID [facility] Last Admin: 08/28/16 17:40 Dose: 10 mg Enoxaparin Sodium (Lovenox) 40 mg SC DAILY [facility] Last Admin: 08/28/16 10:50 Dose: 40 mg Dextrose/Sodium Chloride (Dextrose 5%/0.45% Ns 1000 Ml) 1,000 mls @ 80 mls/hr IV .[id number] [facility] Last Admin: 08/28/16 02:30 Dose: 80 mls/hr Ceftriaxone Sodium 1 gm/ (Sodium Chloride) 100 mls @ 100 mls/hr IVPB DAILY [facility] Last Admin: 08/28/16 10:47 Dose: 100 mls/hr Vancomycin HCl 1 gm/ Sodium (Chloride) 250 mls @ 166.7 mls/hr IVPB Q24H [facility] Last Admin: 08/27/16 22:38 Dose: 166.7 mls/hr Ibuprofen (Motrin Tab) 600 mg PO Q8 PRN PRN Reason: Pain, moderate (4-7) Saliva Substitute (First Magic Mouthwash) 5 ml PO QID [facility] Last Admin: 08/28/16 22:08 Dose: 5 ml Tramadol HCl (Ultram) 50 mg PO Q8 PRN PRN Reason: Pain, moderate (4-7) - Labs Labs: 08/28/16 09:01 08/28/16 09:01 PT 16.2 SECONDS (9.7-12.2) H 08/24/16 21:24 INR 1.4 08/24/16 21:24 APTT 36 SECONDS (21-34) H 08/24/16 21:24 - Constitutional Appears: Confused - Head Exam Head Exam: NORMAL INSPECTION - Eye Exam Eye Exam: Normal appearance, Scleral icterus - ENT Exam ENT Exam: Normal Exam - Neck Exam Neck Exam: Normal Inspection - Respiratory Exam Respiratory Exam: Decreased Breath Sounds - Cardiovascular Exam Cardiovascular Exam: REGULAR RHYTHM - GI/Abdominal Exam GI & Abdominal Exam: Hyperactive Bowel Sounds - Rectal Exam Rectal Exam: Deferred - Exam Exam: NORMAL INSPECTION - Extremities Exam Extremities Exam: Tenderness - Back Exam Back Exam: NORMAL INSPECTION - Neurological Exam Neurological Exam: Altered - Psychiatric Exam Psychiatric exam: Depressed - Skin Skin Exam: Dry Assessment and Plan (1) Dehydration Status: Acute (2) Altered mental status, unspecified Status: Acute (3) Hydrocephalus Status: Acute (4) Chronic obstructive airway disease Status: Acute (5) Psoriatic arthritis Status: Acute
[2016-08-29] MEDS: Albuterol 0.042% Inhal Sol (1.25 mg/3 mL) UD INH SCH ×4 (02:26→20:36)
[2016-08-29 08:51] LABS: BASO % 0.5 % (0.0-2.0); EOS # 0.8 K/uL (0.0-0.7); EOS % 10.8 % (0.0-4.0); HEMATOCRIT 29.7 % (35.0-51.0); LYMPH # 0.7 K/uL (1.0-4.3); LYMPH % 9.5 % (20.0-40.0); MEAN CELL VOLUME 82.5 fL (80.0-94.0); MEAN CORPUSCULAR HEMOGLOBIN 26.9 pg (27.0-31.0); MEAN CORPUSCULAR HGB CONC 32.6 g/dL (33.0-37.0); MEAN PLATELET VOLUME 7.9 fL (7.2-11.7); MONO # 0.3 K/uL (0.0-0.8); MONO % 4.4 % (0.0-10.0); PLATELET COUNT 315 K/uL (130-400); RED CELL DISTRIBUTION WIDTH 16.7 % (11.5-14.5); WHITE BLOOD COUNT 7.4 K/uL (4.8-10.8)
[2016-08-29 09:08] LABS: CHLORIDE 106 mmol/L (98-107); POTASSIUM 3.6 mmol/L (3.6-5.2); SODIUM 136 mmol/L (132-148)
[2016-08-29 09:11] LABS: BLOOD UREA NITROGEN 14 mg/dL (9-20); CALCIUM 8.8 mg/dl (8.6-10.4); CARBON DIOXIDE 24 mmol/L (22-30); GFR AFRICAN-AMERICAN > 60; GLUCOSE,RANDOM 96 mg/dL (75-110)
[2016-08-29 10:31] LABS: EOSINOPHIL 9 % (0-4); NEUTROPHIL 74 % (50-75); TOTAL CELLS COUNTED 100
[2016-08-29] MEDS: Enoxaparin 40 mg Syringe SC SCH (10:40)
[2016-08-29] MEDS: Mag&Al/Simet/Diphen/Lido 237 ML KIT PO SCH ×4 (10:41→21:24)
[2016-08-29] MEDS: Dextrose 5%/0.45% NS 1,000 ML IV SCH ×2 (15:12→18:57)
--- NOTE | 2016-08-29 19:15 | PN ---
DATE: 08/29/2016 The patient remains in bed. PHYSICAL EXAMINATION: VITAL SIGNS: He is afebrile with blood pressure of 112/56, pulse 91, respiration 20, hemoglobin oxygen saturation of 98%. GENERAL: His family is by his bedside. The patient's dyspnea is easier. HEART: Regular. There is no gallop. LUNGS: Diminished breath sounds over lung bases. ABDOMEN: Soft. EXTREMITIES: Legs, no edema. The patient remains in bed with poor mobility. The patient is being followed by neurology and hem/onc, as well as urologist. IMPRESSION: Respiratory insufficiency, bronchitis, myelopathy, dyspepsia and urosepsis. PLAN: To continue with the current medications and current measures and follow up with gastroenterology, neurology hem/onc and urologist, as well as infectious disease. Alessandro Hayes MD cc: [id number] TT: 08/29/2016 19:15:34 Confirmation # [id number] Dictation # [id number] mary TOMAS
--- NOTE | 2016-08-29 22:44 | CP.PCM.PN ---
Subjective - Date & Time of Evaluation Date of Evaluation: 08/29/16 Time of Evaluation: 16:00 - Subjective Subjective: Patient still mildly disoriented. Hgb 9.7 after transfusion. Presently he is receiving vancomycin. Consultations requested with urology and GI. Dr Hayes following patient for COPD. Objective - Vital Signs/Intake and Output Vital Signs (last 24 hours): Temp Pulse Resp BP Pulse Ox 98.9 F 91 H 20 112/56 L 90 L 08/29/16 19:55 08/29/16 16:00 08/29/16 16:00 08/29/16 16:00 08/29/16 16:00 Intake and Output: 08/29/16 08/30/16 18:59 06:59 Intake Total 910 890 Output Total 500 200 Balance 410 690 - Medications Medications: Current Medications Acetaminophen (Tylenol 325mg Tab) 650 mg PO Q6 PRN PRN Reason: Fever >100.4 F Last Admin: 08/29/16 18:55 Dose: 650 mg Acetaminophen (Tylenol 650 Mg Supp) 650 mg [place] Q4 PRN PRN Reason: Fever >100.4 F Albuterol Sulfate (Albuterol 0.042% Inhal Azul (1.25mg/3ml) Ud) 1.25 mg INH RQ6 [facility] Last Admin: 08/29/16 20:36 Dose: 1.25 mg Baclofen (Lioresal) 10 mg PO BID [facility] Last Admin: 08/29/16 18:12 Dose: 10 mg Enoxaparin Sodium (Lovenox) 40 mg SC DAILY [facility] Last Admin: 08/29/16 10:40 Dose: 40 mg Dextrose/Sodium Chloride (Dextrose 5%/0.45% Ns 1000 Ml) 1,000 mls @ 80 mls/hr IV .[id number] [facility] Last Admin: 08/29/16 18:57 Dose: 80 mls/hr Ceftriaxone Sodium 1 gm/ (Sodium Chloride) 100 mls @ 100 mls/hr IVPB DAILY [facility] Last Admin: 08/29/16 10:41 Dose: 100 mls/hr Vancomycin HCl 1 gm/ Sodium (Chloride) 250 mls @ 166.7 mls/hr IVPB Q24H [facility] Last Admin: 08/29/16 21:23 Dose: 166.7 mls/hr Ibuprofen (Motrin Tab) 600 mg PO Q8 PRN PRN Reason: Pain, moderate (4-7) Saliva Substitute (First Magic Mouthwash) 5 ml PO QID [facility] Last Admin: 08/29/16 21:24 Dose: 5 ml Tramadol HCl (Ultram) 50 mg PO Q8 PRN PRN Reason: Pain, moderate (4-7) - Labs Labs: 08/29/16 08:32 08/29/16 08:32 PT 16.2 SECONDS (9.7-12.2) H 08/24/16 21:24 INR 1.4 08/24/16 21:24 APTT 36 SECONDS (21-34) H 08/24/16 21:24 - Constitutional Appears: No Acute Distress - Head Exam Head Exam: NORMAL INSPECTION - Eye Exam Eye Exam: Normal appearance Pupil Exam: NORMAL ACCOMODATION - ENT Exam ENT Exam: Normal Exam - Neck Exam Neck Exam: Normal Inspection - Respiratory Exam Respiratory Exam: Decreased Breath Sounds - Cardiovascular Exam Cardiovascular Exam: Irregular Rhythm - GI/Abdominal Exam GI & Abdominal Exam: Hyperactive Bowel Sounds - Rectal Exam Rectal Exam: Deferred - Exam Exam: NORMAL INSPECTION - Extremities Exam Extremities Exam: Joint Swelling - Back Exam Back Exam: NORMAL INSPECTION - Neurological Exam Neurological Exam: Oriented x3 - Psychiatric Exam Psychiatric exam: Depressed - Skin Skin Exam: Dry Assessment and Plan (1) Dehydration Status: Acute (2) Altered mental status, unspecified Status: Acute (3) Hydrocephalus Status: Acute (4) Chronic obstructive airway disease Status: Acute (5) Psoriatic arthritis Status: Acute
[2016-08-30] MEDS: Albuterol 0.042% Inhal Sol (1.25 mg/3 mL) UD INH SCH ×3 (03:12→13:27)
[2016-08-30] MEDS: Dextrose 5%/0.45% NS 1,000 ML IV SCH ×2 (03:42→16:12)
--- NOTE | 2016-08-30 10:25 | PN ---
DATE: 08/30/2016 LOCATION: 365, bed B. This is a 75-year-old male, seen and examined in rounds without significant clinical changes with dawna y poor oral intake, received blood transfusion yesterday due to the subsequent drop of hemoglobin and hematocrit. The entire chart is reviewed including, but not limited to, the most recent lab and radiology study r esults, current and previous medication lists, current and previous medical events and the latest blo od workup showed hemoglobin of 9.7, hematocrit 29.7 with low indices with increased CEA level to 11.4 and elevated vancomycin trough . The patient had bone scan, which showed no evidence of bony metastatic disease. PHYSICAL EXAMINATION: GENERAL: A 75-year-old male. VITAL SIGNS: Afebrile with pulse of 86, respiratory rate 22-24, blood pressure 128/64. HEENT: Showed pale, dry oral mucoid membrane. Nonicteric sclerae. LUNGS: Few scattered crepitation, decreased air entry at bases. HEART: Positive S1 and S2. ABDOMEN: Soft, mildly distended with slight generalized tenderness. No mass or organomegaly. No re bound tenderness or guarding. RECTAL: The patient refused. EXTREMITIES: Without significant edema, clubbing or cyanosis. NEUROLOGIC: No reported new neurological deficits, sensory or motor. However, patient appeared to b e slightly disoriented. The official report of the CAT scan again reviewed, indicative of possible rectosigmoid infiltrative changes and reported mass in the low pelvis, pelvic area. IMPRESSION: 1. Anemia with possible gastrointestinal blood loss, upper versus lower. 2. Abnormal CAT scan of the abdomen and pelvis. 3. Rule out occult gastrointestinal malignancy. 4. To rule out gastrointestinal blood loss, upper versus lower. 5. Chronic obstructive pulmonary disease by history. 6. Septicemia, on vancomycin. 7. Known history of cardiac arrhythmia, osteoarthritis, dementia with depression. 8. Colon cancer by history. 9. Status post pacemaker insertion due to his cardiac arrhythmias. SUGGESTION: 1. Agree with your plan. 2. The patient may need endoscopic evaluation of the gastrointestinal tract only when he is stable c linically. Otherwise, conservative treatment only to continue. Roger Mcclure MD cc: [id number] TT: 08/30/2016 10:24:43 Confirmation # [id number] Dictation # [id number] en
[2016-08-30] MEDS: Enoxaparin 40 mg Syringe SC SCH (10:58)
[2016-08-30] MEDS: Mag&Al/Simet/Diphen/Lido 237 ML KIT PO SCH ×5 (10:59→21:24)
--- NOTE | 2016-08-30 15:26 | CP.PCM.PN ---
Subjective - Date & Time of Evaluation Date of Evaluation: 08/30/16 Time of Evaluation: 08:00 - Subjective Subjective: MORE AWAKE FAMILY AT BEDSIDE C/S + COAG NEG SATPH- POSSIBLE CONTAMINANT AWAIT DR SAMARIA TAVAREZ LUNG METS? Objective - Vital Signs/Intake and Output Vital Signs (last 24 hours): Temp Pulse Resp BP Pulse Ox 98.1 F 89 20 131/69 97 08/30/16 00:00 08/30/16 00:00 08/30/16 00:00 08/30/16 00:00 08/30/16 00:00 Intake and Output: 08/30/16 08/30/16 06:59 18:59 Intake Total 1530 640 Output Total 650 400 Balance 880 240 - Medications Medications: Current Medications Acetaminophen (Tylenol 325mg Tab) 650 mg PO Q6 PRN PRN Reason: Fever >100.4 F Last Admin: 08/29/16 18:55 Dose: 650 mg Acetaminophen (Tylenol 650 Mg Supp) 650 mg [place] Q4 PRN PRN Reason: Fever >100.4 F Baclofen (Lioresal) 10 mg PO BID [facility] Last Admin: 08/30/16 10:59 Dose: 10 mg Enoxaparin Sodium (Lovenox) 40 mg SC DAILY [facility] Last Admin: 08/30/16 10:58 Dose: 40 mg Dextrose/Sodium Chloride (Dextrose 5%/0.45% Ns 1000 Ml) 1,000 mls @ 80 mls/hr IV .[id number] [facility] Last Admin: 08/30/16 03:42 Dose: Not Given Ceftriaxone Sodium 1 gm/ (Sodium Chloride) 100 mls @ 100 mls/hr IVPB DAILY [facility] Last Admin: 08/30/16 10:15 Dose: 100 mls/hr Vancomycin HCl 1 gm/ Sodium (Chloride) 250 mls @ 166.7 mls/hr IVPB Q24H [facility] Last Admin: 08/29/16 21:23 Dose: 166.7 mls/hr Ibuprofen (Motrin Tab) 600 mg PO Q8 PRN PRN Reason: Pain, moderate (4-7) Saliva Substitute (First Magic Mouthwash) 5 ml PO QID [facility] Last Admin: 08/30/16 14:53 Dose: Not Given Tramadol HCl (Ultram) 50 mg PO Q8 PRN PRN Reason: Pain, moderate (4-7) - Labs Labs: 08/29/16 08:32 08/29/16 08:32 PT 16.2 SECONDS (9.7-12.2) H 08/24/16 21:24 INR 1.4 08/24/16 21:24 APTT 36 SECONDS (21-34) H 08/24/16 21:24 - Constitutional Appears: Non-toxic, Cachectic, Chronically Ill - Head Exam Head Exam: NORMOCEPHALIC - Eye Exam Eye Exam: PERRL. absent: Scleral icterus - ENT Exam ENT Exam: Mucous Membranes Dry - Neck Exam Neck Exam: absent: Lymphadenopathy - Respiratory Exam Respiratory Exam: Decreased Breath Sounds, Rhonchi - Cardiovascular Exam Cardiovascular Exam: REGULAR RHYTHM, +S1, +S2 - GI/Abdominal Exam GI & Abdominal Exam: Distended, Soft. absent: Tenderness - Rectal Exam Rectal Exam: Deferred - Exam Exam: NORMAL INSPECTION - Extremities Exam Extremities Exam: absent: Pedal Edema - Back Exam Back Exam: absent: CVA tenderness (L), CVA tenderness (R) - Neurological Exam Neurological Exam: Alert, Awake, Oriented x3 - Psychiatric Exam Psychiatric exam: Depressed - Skin Skin Exam: Dry Assessment and Plan (1) Altered mental status, unspecified Status: Acute (2) Arthritis Status: Acute (3) Dehydration Status: Acute (4) Pacemaker Status: Acute (5) Psoriatic arthritis Status: Acute - Assessment and Plan (Free Text) Assessment: IV RX REORDERED
--- NOTE | 2016-08-30 22:15 | CP.PCM.PN ---
Subjective - Date & Time of Evaluation Date of Evaluation: 08/30/16 Time of Evaluation: 17:15 - Subjective Subjective: Patient more alert today. Patient evaluated by Dr Cerna who suggests conservative treatment at this time. Continue antibiotic therapy. Followup by Dr Kyle. Objective - Vital Signs/Intake and Output Vital Signs (last 24 hours): Temp Pulse Resp BP Pulse Ox 100.1 F H 98 H 18 96/58 L 97 08/30/16 14:00 08/30/16 14:00 08/30/16 14:00 08/30/16 14:00 08/30/16 00:00 Intake and Output: 08/30/16 08/31/16 18:59 06:59 Intake Total 640 890 Output Total 400 200 Balance 240 690 - Medications Medications: Current Medications Acetaminophen (Tylenol 325mg Tab) 650 mg PO Q6 PRN PRN Reason: Fever >100.4 F Last Admin: 08/30/16 16:16 Dose: 650 mg Acetaminophen (Tylenol 650 Mg Supp) 650 mg [place] Q4 PRN PRN Reason: Fever >100.4 F Baclofen (Lioresal) 10 mg PO BID [facility] [place] Last Admin: 08/30/16 17:55 Dose: 10 mg Enoxaparin Sodium (Lovenox) 40 mg SC DAILY [facility] [place] Last Admin: 08/30/16 10:58 Dose: 40 mg Dextrose/Sodium Chloride (Dextrose 5%/0.45% Ns 1000 Ml) 1,000 mls @ 80 mls/hr IV .[id number] [facility] [place] Last Admin: 08/30/16 16:12 Dose: Not Given Ceftriaxone Sodium 1 gm/ (Sodium Chloride) 100 mls @ 100 mls/hr IVPB DAILY [facility] [place] Last Admin: 08/30/16 10:15 Dose: 100 mls/hr Vancomycin HCl 1 gm/ Sodium (Chloride) 250 mls @ 166.7 mls/hr IVPB Q24H [facility] [place] Last Admin: 08/30/16 21:25 Dose: 166.7 mls/hr Ibuprofen (Motrin Tab) 600 mg PO Q8 PRN PRN Reason: Pain, moderate (4-7) Saliva Substitute (First Magic Mouthwash) 5 ml PO QID [facility] [place] Last Admin: 08/30/16 21:24 Dose: 5 ml Tramadol HCl (Ultram) 50 mg PO Q8 PRN PRN Reason: Pain, moderate (4-7) - Labs Labs: 08/29/16 08:32 08/29/16 08:32 PT 16.2 SECONDS (9.7-12.2) H 08/24/16 21:24 INR 1.4 08/24/16 21:24 APTT 36 SECONDS (21-34) H 08/24/16 21:24 - Constitutional Appears: No Acute Distress - Head Exam Head Exam: NORMAL INSPECTION - Eye Exam Eye Exam: Normal appearance Pupil Exam: NORMAL ACCOMODATION - ENT Exam ENT Exam: Normal Exam - Neck Exam Neck Exam: Normal Inspection - Respiratory Exam Respiratory Exam: Decreased Breath Sounds - Cardiovascular Exam Cardiovascular Exam: REGULAR RHYTHM - GI/Abdominal Exam GI & Abdominal Exam: Normal Bowel Sounds - Rectal Exam Rectal Exam: Deferred - Exam Exam: NORMAL INSPECTION - Extremities Exam Extremities Exam: Joint Swelling - Back Exam Back Exam: NORMAL INSPECTION - Neurological Exam Neurological Exam: Altered - Psychiatric Exam Psychiatric exam: Depressed - Skin Skin Exam: Dry Assessment and Plan (1) Dehydration Status: Acute (2) Altered mental status, unspecified Status: Acute (3) Hydrocephalus Status: Acute (4) Chronic obstructive airway disease Status: Acute (5) Psoriatic arthritis Status: Acute
[2016-08-31 01:08] LABS: ABG ALLEN TEST POS; DRAW SITE RT RAD
--- NOTE | 2016-08-31 01:17 | CP.PCM.PN ---
Addendum entered and electronically signed by Fatoumata Jackson DO 08/31/16 02: 12: Patient started on Cefepime, Zithromax IVPB. Vanco IVPB was continued and Rocephin was D/C as per Dr. Dubon. Will start Versed Q1H PRN for sedation. Addendum entered and electronically signed by Fatoumata Jackson DO 08/31/16 02: 07: Alyse Almonte (Next of kin as per chart) was called and notified at 2:05 am of patient's need for transfer to the ICU and intubation as per Dr. Dubon. Patient was intubated as per Dr. Dubon. Follow up CXR ordered. CBC/CMP/Mag/Phos/Sputum Cx ordered. Original Note: <Fatoumata Jackson - Last Filed: 08/31/16 01:49> Subjective - Date & Time of Evaluation Date of Evaluation: 08/31/16 Time of Evaluation: 01:12 - Subjective Subjective: Rapid Response: 75 y/o male with PMHx of COPD admitted on 08/25/16 for AMS and dehydration evaluated at 12:45 am when TE[employer]INING [employer]GER was called for low O2 sat 86%. Patient noted to have accessory muscle use and is non verbal. Vital signs: HR 94, RR 28, BP 114/ 63, 86% on 2L, 100.1 temperature. Rectal temp 99.8. Patient is awake and arousable not following commands. Patient was placed on venti mask 50% and O2 improved to 93%. Patient continued to have labored breathing, but in no acute distress. Patient recently received breathing treatment as per respiratory team. Stat ABG was ordered and patient was found to have pO2 64, with pH 7.41. Lactate 1.2. Blood cultures ordered and collected as per primary team at 9pm. Physical Exam. GEN: NAD, labored breathing. Awake. No oriented. Cardio: RR, S1 S2. Pulm: +inspiratory/expiratory wheezing, +accessory muscle use. Abd: soft, ND Extremities: right upper extremity contracted. No edema. Patient with secretions and continues to have labored breathing and desaturating on venti mask. Stat CXR done notable for worsening pleural effusion of right lung. Patient will be transferred to ICU as per Dr. Dubon. P. Miguez, DO- PGY 2 Objective - Vital Signs/Intake and Output Vital Signs (last 24 hours): Temp Pulse Resp BP Pulse Ox 100.1 F H 98 H 18 96/58 L 97 08/30/16 14:00 08/30/16 14:00 08/30/16 14:00 08/30/16 14:00 08/30/16 00:00 Intake and Output: 08/30/16 08/31/16 18:59 06:59 Intake Total 640 890 Output Total 400 200 Balance 240 690 - Medications Medications: Current Medications Acetaminophen (Tylenol 325mg Tab) 650 mg PO Q6 PRN PRN Reason: Fever >100.4 F Last Admin: 08/30/16 16:16 Dose: 650 mg Acetaminophen (Tylenol 650 Mg Supp) 650 mg [place] Q4 PRN PRN Reason: Fever >100.4 F Baclofen (Lioresal) 10 mg PO BID [facility] Last Admin: 08/30/16 17:55 Dose: 10 mg Enoxaparin Sodium (Lovenox) 40 mg SC DAILY [facility] Last Admin: 08/30/16 10:58 Dose: 40 mg Dextrose/Sodium Chloride (Dextrose 5%/0.45% Ns 1000 Ml) 1,000 mls @ 80 mls/hr IV .[id number] [facility] Last Admin: 08/30/16 16:12 Dose: Not Given Ceftriaxone Sodium 1 gm/ (Sodium Chloride) 100 mls @ 100 mls/hr IVPB DAILY [facility] Last Admin: 08/30/16 10:15 Dose: 100 mls/hr Vancomycin HCl 1 gm/ Sodium (Chloride) 250 mls @ 166.7 mls/hr IVPB Q24H [facility] Last Admin: 08/30/16 21:25 Dose: 166.7 mls/hr Ibuprofen (Motrin Tab) 600 mg PO Q8 PRN PRN Reason: Pain, moderate (4-7) Saliva Substitute (First Magic Mouthwash) 5 ml PO QID [facility] Last Admin: 08/30/16 21:24 Dose: 5 ml Tramadol HCl (Ultram) 50 mg PO Q8 PRN PRN Reason: Pain, moderate (4-7) - Labs Labs: 08/29/16 08:32 08/29/16 08:32 PT 16.2 SECONDS (9.7-12.2) H 08/24/16 21:24 INR 1.4 08/24/16 21:24 APTT 36 SECONDS (21-34) H 08/24/16 21:24 <Abhishek Dubon P - Last Filed: 09/03/16 19:55> Objective - Vital Signs/Intake and Output Vital Signs (last 24 hours): Temp Pulse Resp BP Pulse Ox 98 F 85 19 116/66 93 L 09/03/16 04:00 09/03/16 18:31 09/03/16 18:31 09/03/16 18:31 09/03/16 18:31 Intake and Output: 09/03/16 09/04/16 18:59 06:59 Intake Total 425 Output Total 940 Balance -515 - Medications Medications: Current Medications Acetaminophen (Tylenol 650mg/20.3ml Solution Ud) 650 mg PO Q4H PRN PRN Reason: Fever >100.4 F Last Admin: 08/31/16 13:06 Dose: 650 mg Albuterol/Ipratropium (Duoneb 3 Mg/0.5 Mg (3 Ml) Ud) 3 ml INH RQ6 [facility] Last Admin: 09/03/16 19:20 Dose: 3 ml Baclofen (Lioresal) 10 mg PO BID [facility] Last Admin: 09/03/16 18:17 Dose: 10 mg Enoxaparin Sodium (Lovenox) 40 mg SC DAILY [facility] Last Admin: 09/03/16 10:29 Dose: 40 mg Famotidine (Pepcid) 20 mg PO BID [facility] Last Admin: 09/03/16 18:17 Dose: 20 mg Vancomycin HCl 1 gm/ Sodium (Chloride) 250 mls @ 166.7 mls/hr IVPB Q24H [facility] Last Admin: 09/02/16 22:22 Dose: 166.7 mls/hr Cefepime HCl (Maxipime Iv 1 Gm Premix) 1 gm in 50 mls @ 100 mls/hr IVPB Q8H [facility] Last Admin: 09/03/16 18:17 Dose: 100 mls/hr Insulin Aspart (Novolog) 0 unit SC Q6 [facility] PRN Reason: Protocol Last Admin: 09/03/16 18:17 Dose: Not Given Methylprednisolone (Solu-Medrol) 40 mg IVP Q8 [facility] Last Admin: 09/03/16 14:05 Dose: 40 mg Oxycodone/Acetaminophen (Percocet 5/325 Mg Tab) 1 tab PO Q6H PRN PRN Reason: Pain, moderate (4-7) Stop: 09/06/16 09:41 - Labs Labs: 09/03/16 06:09 09/03/16 06:09 PT 17.6 SECONDS (9.7-12.2) H 08/31/16 02:36 INR 1.5 08/31/16 02:36 APTT 34 SECONDS (21-34) 08/31/16 02:36 Attending/Attestation - Attestation I have personally seen and examined this patient.: Yes I have fully participated in the care of the patient.: Yes I have reviewed all pertinent clinical information, including history, physical exam and plan: Yes
[2016-08-31] MEDS ORDERED: Midazolam 2 MG/2 ML VIAL IVP PRN (02:10)
--- NOTE | 2016-08-31 02:16 | PCM.PROC ---
<Fatoumata Jackson - Last Filed: 08/31/16 02:14> Procedures Attestation:: I certify that I have explained the specified Operation(s) or Procedure(s), risks, benefits and reasonable alternatives to the Patient and/or other person responsible. The opportunity was given to ask questions and all questions answered - Intubation Time Out Performed: Yes (2:05) Sedative: Etomidate Laryngoscope: Jesse (4 blade) ET Tube Size: 8.0 ET Tube Uncuffed: No ET Tube Secured at Depth: 24 cm ET Tube Secured Locarion: Lips ET Tube Placement Confirmation: Visualized Passing Through Cords, Breath Sounds Equal Bilaterally, No Breath Sounds Over Epigastrum, Confirmation w/Capnometry Patient Tolerated Procedure: Well Procedure Immediate Complications: None Additional comments: Intubation done by attending Dr. Dubon for hypoxia, respiratory distress, thick secretions which patient was not able to clear. <Abhishek Dubon - Last Filed: 09/03/16 19:55> Attending/Attestation - Attestation I have personally seen and examined this patient.: Yes I have fully participated in the care of the patient.: Yes I have reviewed all pertinent clinical information, including history, physical exam and plan: Yes
[2016-08-31 02:46] LABS: BASO # 0.1 K/uL (0.0-0.2); BASO % 0.4 % (0.0-2.0); EOS # 0.6 K/uL (0.0-0.7); EOS % 4.6 % (0.0-4.0); HEMATOCRIT 29.8 % (35.0-51.0); LYMPH # 1.1 K/uL (1.0-4.3); LYMPH % 8.9 % (20.0-40.0); MEAN CELL VOLUME 83.4 fL (80.0-94.0); MEAN CORPUSCULAR HGB CONC 32.4 g/dL (33.0-37.0); MEAN PLATELET VOLUME 7.7 fL (7.2-11.7); MONO # 0.6 K/uL (0.0-0.8); MONO % 4.9 % (0.0-10.0); PLATELET COUNT 364 K/uL (130-400); RED CELL DISTRIBUTION WIDTH 17.5 % (11.5-14.5); WHITE BLOOD COUNT 12.1 K/uL (4.8-10.8)
[2016-08-31 02:48] LABS: INR 1.5
[2016-08-31 02:51] LABS: ABG ALLEN TEST POS; ABG MECHANICAL RATE 15; ATERIAL BLOOD GAS PEEP 5; DRAW SITE RR
[2016-08-31 02:51] LABS: CHLORIDE 107 mmol/L (98-107)
[2016-08-31 02:52] LABS: POTASSIUM 3.7 mmol/L (3.6-5.2); SODIUM 136 mmol/L (132-148)
[2016-08-31 02:54] LABS: ALB/GLOB RATIO 0.4 (1.0-2.1); ALKALINE PHOSPHATASE 88 U/L (38-126); AST/SGOT 33 U/L (17-59); BILIRUBIN,TOTAL 0.7 mg/dL (0.2-1.3); CARBON DIOXIDE 22 mmol/L (22-30); GFR AFRICAN-AMERICAN > 60
[2016-08-31 02:55] LABS: ALT/SGPT 13 U/L (21-72); BLOOD UREA NITROGEN 16 mg/dL (9-20); CALCIUM 8.6 mg/dl (8.6-10.4); GLUCOSE,RANDOM 117 mg/dL (75-110); MAGNESIUM 1.9 mg/dL (1.6-2.3)
[2016-08-31] MEDS ORDERED: Azithromycin 500 MG in Sodium Chloride 0.9% 250 ML IVPB SCH (03:00)
[2016-08-31] MEDS: Cefepime IV 1 gm in Dextrose 1 GM/50 ML BAG IVPB SCH ×3 (03:24→18:19)
[2016-08-31 03:36] LABS: EOSINOPHIL 4 % (0-4); NEUTROPHIL 86 % (50-75); TOTAL CELLS COUNTED 100
[2016-08-31 03:37] LABS: GIANT PLATELETS PRESENT
[2016-08-31] MEDS: Dextrose 5%/0.45% NS 1,000 ML IV SCH (04:40)
--- NOTE | 2016-08-31 08:53 | RAD ---
PROCEDURE: CHEST RADIOGRAPH, 1 VIEW HISTORY: s/p intubation COMPARISON: 08/31/2016 FINDINGS: LUNGS: Endotracheal tube extending into the midthoracic trachea. NG tube extending into the stomach. Other lines and tubes in stable position. Persistent moderate to large loculated right pleural effusion. Persistent diffuse consolidative opacities throughout the right mid to lower lung zone as well as the left lung base. Persistent ill-defined interstitial opacities in both lungs. Biapical pleural thickening with upper lobe granulomatous changes and scarring. PLEURA: As above CARDIOVASCULAR: Cardiomegaly. Left-sided pacemaker. OSSEOUS STRUCTURES: Degenerative changes in the spine and shoulders. VISUALIZED UPPER ABDOMEN: Normal. OTHER FINDINGS: None. IMPRESSION: Endotracheal tube extending into the midthoracic trachea. NG tube extending into the stomach. Other lines and tubes in stable position. Persistent moderate to large loculated right pleural effusion. Persistent diffuse consolidative opacities throughout the right mid to lower lung zone as well as the left lung base. Persistent ill-defined interstitial opacities in both lungs. Biapical pleural thickening with upper lobe granulomatous changes and scarring.
--- NOTE | 2016-08-31 09:06 | RAD ---
HISTORY: Shortness of breath COMPARISON: 08/24/2016 FINDINGS: LUNGS: Lines and tubes stable position. Worsening now moderate to large loculated right pleural effusion. Prominent ill-defined consolidative opacity throughout the right mid to lower lung zone and left lung base. Biapical pleural thickening with upper lobe granulomatous changes. Diffuse increased interstitial lung markings. A few additional scattered ill-defined opacities within the right and left upper to mid lung zone. PLEURA: As above. CARDIOVASCULAR: Cardiomegaly. Left-sided pacemaker. OSSEOUS STRUCTURES: Degenerative changes in the spine and shoulders. VISUALIZED UPPER ABDOMEN: Normal. OTHER FINDINGS: None. IMPRESSION: Lines and tubes stable position. Worsening now moderate to large loculated right pleural effusion. Prominent ill-defined consolidative opacity throughout the right mid to lower lung zone and left lung base. Biapical pleural thickening with upper lobe granulomatous changes. Diffuse increased interstitial lung markings. A few additional scattered ill-defined opacities within the right and left upper to mid lung zone.
[2016-08-31] MEDS: MethylPREDNISolone 40 mg Vial IVP SCH ×2 (10:04→22:46)
[2016-08-31] MEDS: Sodium Chloride 0.9% 1,000 ML IV SCH (10:15)
[2016-08-31] MEDS: Enoxaparin 40 mg Syringe SC SCH (10:17)
[2016-08-31] MEDS: Dexmedetomidine Hydrochloride 200 MCG in Sodium Chloride 0.9% 48 ML IV PRN ×3 (10:30→19:59)
--- NOTE | 2016-08-31 11:13 | CP.PCM.CON ---
<Taras Mejia - Last Filed: 08/31/16 11:02> History of Present Illness - History of Present Illness History of Present Illness: ICU consult note This is a 75 y/o male with PMHx of COPD admitted on 08/25/16 for AMS and dehydration and had a HISTOLOGY SPECIALIST called on 08/31 for desaturation/respiratory distress. Pt was transferred to the ICU and intubated secondary to hypoxemic respiratory failure. A CXR was obtained which showed worsening loculated right pleural effusion. Prominent ill-defined consolidative opacity throughout the right mid to lower lung zone and left lung base. Biapical pleural thickening with upper lobe granulomatous changes. Diffuse increased interstitial lung markings. A few additional scattered ill-defined opacities within the right and left upper to mid lung zone. Pt still intubated and sedated and no other hx obtainable at this time. PMH/PSH: RA, left sided colostomy for a colon lesion, COPD and biventricular pacemaker Home meds: Ibuprofen Allergies: NKDA FH: unkown SH: Former smoker Review of Systems - Review of Systems Systems not reviewed;Unavailable: Intubated Past Patient History - Infectious Disease Hx of Infectious Diseases: None - Tetanus Immunizations Tetanus Immunization: Up to Date, >10 years Ago - Past Medical History & Family History Past Medical History?: Yes - Past Social History Smoking Status: Former Smoker Chewing Tobacco Use: No Cigar Use: No Alcohol: None Drugs: Denies Home Situation {Lives}: With Family Domestic Violence: Negative - CARDIAC Hx Cardiac Disorders: Yes Hx Hypertension: Yes - PULMONARY Hx Chronic Obstructive Pulmonary Disease (COPD): Yes - NEUROLOGICAL Hx Neurological Disorder: Yes Hx Dementia: Yes Hx Dizziness: Yes - HEENT Hx HEENT Problems: Yes Hx Sinusitis: Yes - RENAL Hx Chronic Kidney Disease: No Hx Kidney Stones: Yes - ENDOCRINE/METABOLIC Hx Endocrine Disorders: No Hx Hypothyroidism: No - HEMATOLOGICAL/ONCOLOGICAL Hx Blood Disorders: Yes Hx Blood Transfusions: Yes Hx Cancer: Yes (COLON) Hx Chemotherapy: Yes Other/Comment: has left colostomy - INTEGUMENTARY Hx Dermatological Problems: Yes Hx Psoriasis: Yes - MUSCULOSKELETAL/RHEUMATOLOGICAL Hx Arthritis: Yes Hx Rheumatoid Arthritis: Yes - GASTROINTESTINAL Hx Gastrointestinal Disorders: Yes Hx Bowel Surgery: Yes (2003;2005) Hx Colostomy: Yes Other/Comment: COLON CA 2004 - GENITOURINARY/GYNECOLOGICAL Hx Genitourinary Disorders: No Hx Incontinence: Yes - PSYCHIATRIC Hx Psychophysiologic Disorder: Yes Hx Depression: Yes Hx Sexual Abuse: No Hx Substance Use: No - SURGICAL HISTORY Hx Surgeries: Yes Other/Comment: pacemaker. colostomy - ANESTHESIA Hx Anesthesia: Yes Hx Anesthesia Reactions: No Hx Malignant Hyperthermia: No Has any member of the family had a problem w/ anesthesia?: No Meds Allergies/Adverse Reactions: Allergies Allergy/AdvReac Type Severity Reaction Status Date / Time No Known Allergies Allergy Verified 07/30/16 19:23 - Medications Medications: Current Medications Albuterol/Ipratropium (Duoneb 3 Mg/0.5 Mg (3 Ml) Ud) 3 ml INH RQ6 [facility] Baclofen (Lioresal) 10 mg PO BID [facility] Last Admin: 08/31/16 10:22 Dose: 10 mg Enoxaparin Sodium (Lovenox) 40 mg SC DAILY [facility] Last Admin: 08/31/16 10:17 Dose: 40 mg Famotidine (Pepcid) 20 mg IVP Q12 [facility] Last Admin: 08/31/16 10:04 Dose: 20 mg Vancomycin HCl 1 gm/ Sodium (Chloride) 250 mls @ 166.7 mls/hr IVPB Q24H [facility] Last Admin: 08/30/16 21:25 Dose: 166.7 mls/hr Cefepime HCl (Maxipime Iv 1 Gm Premix) 1 gm in 50 mls @ 100 mls/hr IVPB Q8H [facility] Last Admin: 08/31/16 03:24 Dose: 100 mls/hr Sodium Chloride (Sodium Chloride 0.9%) 1,000 mls @ 50 mls/hr IV .Q20H [facility] Dexmedetomidine HCl 200 mcg/ (Sodium Chloride) 50 mls @ 3.17 mls/hr IV TITR PRN ; Protocol; 0.2 MCG/KG/HR PRN Reason: Sedation Last Admin: 08/31/16 10:30 Dose: 0.2 mcg/kg/hr, 3.17 mls/hr Methylprednisolone (Solu-Medrol) 40 mg IVP Q12 [facility] Last Admin: 08/31/16 10:04 Dose: 40 mg Physical Exam - Constitutional Appears: Chronically Ill - Head Exam Head Exam: ATRAUMATIC, NORMOCEPHALIC - Eye Exam Eye Exam: PERRL - ENT Exam ENT Exam: Mucous Membranes Moist - Respiratory Exam Respiratory Exam: Decreased Breath Sounds - Cardiovascular Exam Cardiovascular Exam: +S1, +S2 - GI/Abdominal Exam GI & Abdominal Exam: Normal Bowel Sounds, Soft - Extremities Exam Extremities exam: Positive for: normal inspection - Skin Skin Exam: Dry, Warm Results - Vital Signs Recent Vital Signs: Last Vital Signs Temp 97.6 F 08/31/16 00:30 Pulse 93 H 08/31/16 03:40 Resp 29 H 08/31/16 03:40 BP 104/48 L 08/31/16 03:24 Pulse Ox 95 08/31/16 03:40 - Labs Result Diagrams: 08/31/16 02:36 08/31/16 02:36 Labs: Laboratory Results - last 24 hr 08/31/16 08/31/16 08/31/16 01:02 02:36 02:36 WBC 12.1 H D RBC 3.57 L Hgb 9.7 L Hct 29.8 L MCV 83.4 MCH 27.0 MCHC 32.4 L RDW 17.5 H Plt Count 364 MPV 7.7 Neut % (Auto) 81.2 H Lymph % (Auto) 8.9 L [place] % (Auto) 4.9 Eos % (Auto) 4.6 H Baso % (Auto) 0.4 Neut # 9.9 H Lymph # 1.1 [place] # 0.6 Eos # 0.6 Baso # 0.1 Neutrophils % (Manual) 86 H Lymphocytes % (Manual) 6 L Monocytes % (Manual) 4 Eosinophils % (Manual) 4 Platelet Estimate Normal Giant Platelets Present Polychromasia Slight Anisocytosis (manual) Slight PT INR APTT Puncture Site Rt rad pCO2 32 L pO2 64 L HCO3 22.1 ABG pH 7.41 ABG Total CO2 21.3 L ABG O2 Saturation 95.2 ABG Base Excess -3.4 L Jerad Test Pos ABG Potassium 3.4 L A-a O2 Difference 253.0 Respiratory Index 4.0 Sodium 138.0 136 Chloride 112.0 H 107 Glucose 113 H Lactate 1.2 Liter Flow 15.0 Mechanical Rate FiO2 50.0 Tidal Volume PEEP Crit Value Called To Md tamia harp Crit Value Called By R alert insect control aide Crit Value Read Back Y Blood Gas Notified Time 110 Potassium 3.7 Carbon Dioxide 22 Anion Gap 11 BUN 16 Creatinine 0.8 Est GFR ( Amer) > 60 Est GFR (Non-Af Amer) > 60 Random Glucose 117 H Calcium 8.6 Phosphorus Magnesium 1.9 Total Bilirubin 0.7 AST 33 ALT 13 L D Alkaline Phosphatase 88 Total Protein 7.0 Albumin 2.1 L Globulin 4.9 H Albumin/Globulin Ratio 0.4 L Arterial Blood Potassium 3.4 L 08/31/16 08/31/16 08/31/16 02:36 02:36 02:45 WBC RBC Hgb Hct MCV MCH MCHC RDW Plt Count MPV Neut % (Auto) Lymph % (Auto) [place] % (Auto) Eos % (Auto) Baso % (Auto) Neut # Lymph # [place] # Eos # Baso # Neutrophils % (Manual) Lymphocytes % (Manual) Monocytes % (Manual) Eosinophils % (Manual) Platelet Estimate Giant Platelets Polychromasia Anisocytosis (manual) PT 17.6 H INR 1.5 APTT 34 Puncture Site Rr pCO2 33 L pO2 84 HCO3 20.8 L ABG pH 7.37 ABG Total CO2 20.1 L ABG O2 Saturation 98.4 H ABG Base Excess -5.3 L Jerad Test Pos ABG Potassium 3.4 L A-a O2 Difference 231.0 Respiratory Index 2.8 Sodium 137.0 Chloride 112.0 H Glucose 109 Lactate 1.4 Liter Flow Mechanical Rate 15 FiO2 50.0 Tidal Volume 450 PEEP 5 Crit Value Called To Crit Value Called By Crit Value Read Back Blood Gas Notified Time Potassium Carbon Dioxide Anion Gap BUN Creatinine Est GFR ( Amer) Est GFR (Non-Af Amer) Random Glucose Calcium Phosphorus 4.0 Magnesium Total Bilirubin AST ALT Alkaline Phosphatase Total Protein Albumin Globulin Albumin/Globulin Ratio Arterial Blood Potassium 3.4 L Assessment & Plan - Assessment and Plan (Free Text) Assessment: This is a 75 yo M with hypoxemic respiratory failure secondary to likely aspiration pneumonia, now intubated and sedated. Plan: Neuro: intubated/sedated Cardiovascular: Slightly hypotensive but stable NS at 50 cc/hr Pulmonary: Hypoxemic respiratory failure - intubated and sedated Likely aspiration pneumonia Serial ABGs CXR - Endotracheal tube extending into the midthoracic trachea. NG tube extending into the stomach. Other lines and tubes in stable position. Persistent moderate to large loculated right pleural effusion. Persistent diffuse consolidative opacities throughout the right mid to lower lung zone as well as the left lung base. Persistent ill-defined interstitial opacities in both lungs. Biapical pleural thickening with upper lobe granulomatous changes and scarring. Recent CT abd/pelvis shows evidence of lung fibrosis Continue Cefepime and vanc Continue IV steroids/duonebs CT chest w/o contrast Gastrointestinal: Start tube feeds No acute issues Hematology: No acute issues Endocrine: No acute issues Renal: NS at 50cc/hr Infectious Disease: Leukocytosis secondary to likely pneumonia Sputum culture sent Most recent blood cultures (08/28) - negative after 48 hours Continue cefepime and vanc GI Prophylaxis: Pepcid DVT Prophylaxis: Lovenox <Oksana Kong - Last Filed: 08/31/16 12:50> Meds - Medications Medications: Current Medications Albuterol/Ipratropium (Duoneb 3 Mg/0.5 Mg (3 Ml) Ud) 3 ml INH RQ6 [facility] Baclofen (Lioresal) 10 mg PO BID [facility] Last Admin: 08/31/16 10:22 Dose: 10 mg Enoxaparin Sodium (Lovenox) 40 mg SC DAILY [facility] Last Admin: 08/31/16 10:17 Dose: 40 mg Famotidine (Pepcid) 20 mg IVP Q12 [facility] Last Admin: 08/31/16 10:04 Dose: 20 mg Vancomycin HCl 1 gm/ Sodium (Chloride) 250 mls @ 166.7 mls/hr IVPB Q24H [facility] Last Admin: 08/30/16 21:25 Dose: 166.7 mls/hr Cefepime HCl (Maxipime Iv 1 Gm Premix) 1 gm in 50 mls @ 100 mls/hr IVPB Q8H [facility] Last Admin: 08/31/16 03:24 Dose: 100 mls/hr Sodium Chloride (Sodium Chloride 0.9%) 1,000 mls @ 50 mls/hr IV .Q20H [facility] Dexmedetomidine HCl 200 mcg/ (Sodium Chloride) 50 mls @ 3.17 mls/hr IV TITR PRN ; Protocol; 0.2 MCG/KG/HR PRN Reason: Sedation Last Admin: 08/31/16 10:30 Dose: 0.2 mcg/kg/hr, 3.17 mls/hr Methylprednisolone (Solu-Medrol) 40 mg IVP Q12 [facility] Last Admin: 08/31/16 10:04 Dose: 40 mg Results - Vital Signs Recent Vital Signs: Last Vital Signs Temp 97.6 F 08/31/16 00:30 Pulse 93 H 08/31/16 03:40 Resp 29 H 08/31/16 03:40 BP 104/48 L 08/31/16 03:24 Pulse Ox 95 08/31/16 03:40 - Labs Result Diagrams: 08/31/16 02:36 08/31/16 02:36 Labs: Laboratory Results - last 24 hr 08/27/16 08/31/16 08/31/16 11:20 00:50 01:02 WBC RBC Hgb Hct MCV MCH MCHC RDW Plt Count MPV Neut % (Auto) Lymph % (Auto) [place] % (Auto) Eos % (Auto) Baso % (Auto) Neut # Lymph # [place] # Eos # Baso # Neutrophils % (Manual) Lymphocytes % (Manual) Monocytes % (Manual) Eosinophils % (Manual) Platelet Estimate Giant Platelets Polychromasia Anisocytosis (manual) PT INR APTT Puncture Site Rt rad pCO2 32 L pO2 64 L HCO3 22.1 ABG pH 7.41 ABG Total CO2 21.3 L ABG O2 Saturation 95.2 ABG Base Excess -3.4 L Jerad Test Pos ABG Potassium 3.4 L A-a O2 Difference 253.0 Respiratory Index 4.0 Sodium 138.0 Chloride 112.0 H Glucose 113 H Lactate 1.2 Liter Flow 15.0 Mechanical Rate FiO2 50.0 Tidal Volume PEEP Crit Value Called To Md tamia harp Crit Value Called By R alert insect control aide Crit Value Read Back Y Blood Gas Notified Time 110 Potassium Carbon Dioxide Anion Gap BUN Creatinine Est GFR ( Amer) Est GFR (Non-Af Amer) POC Glucose (mg/dL) 129 H 121 H Random Glucose Calcium Phosphorus Magnesium Total Bilirubin AST ALT Alkaline Phosphatase Total Protein Albumin Globulin Albumin/Globulin Ratio Arterial Blood Potassium 3.4 L 08/31/16 08/31/16 08/31/16 02:36 02:36 02:36 WBC 12.1 H D RBC 3.57 L Hgb 9.7 L Hct 29.8 L MCV 83.4 MCH 27.0 MCHC 32.4 L RDW 17.5 H Plt Count 364 MPV 7.7 Neut % (Auto) 81.2 H Lymph % (Auto) 8.9 L [place] % (Auto) 4.9 Eos % (Auto) 4.6 H Baso % (Auto) 0.4 Neut # 9.9 H Lymph # 1.1 [place]vin # 0.6 Eos # 0.6 Baso # 0.1 Neutrophils % (Manual) 86 H Lymphocytes % (Manual) 6 L Monocytes % (Manual) 4 Eosinophils % (Manual) 4 Platelet Estimate Normal Giant Platelets Present Polychromasia Slight Anisocytosis (manual) Slight PT 17.6 H INR 1.5 APTT 34 Puncture Site pCO2 pO2 HCO3 ABG pH ABG Total CO2 ABG O2 Saturation ABG Base Excess Jerad Test ABG Potassium A-a O2 Difference Respiratory Index Sodium 136 Chloride 107 Glucose Lactate Liter Flow Mechanical Rate FiO2 Tidal Volume PEEP Crit Value Called To Crit Value Called By Crit Value Read Back Blood Gas Notified Time Potassium 3.7 Carbon Dioxide 22 Anion Gap 11 BUN 16 Creatinine 0.8 Est GFR ( Amer) > 60 Est GFR (Non-Af Amer) > 60 POC Glucose (mg/dL) Random Glucose 117 H Calcium 8.6 Phosphorus Magnesium 1.9 Total Bilirubin 0.7 AST 33 ALT 13 L D Alkaline Phosphatase 88 Total Protein 7.0 Albumin 2.1 L Globulin 4.9 H Albumin/Globulin Ratio 0.4 L Arterial Blood Potassium 08/31/16 08/31/16 02:36 02:45 WBC RBC Hgb Hct MCV MCH MCHC RDW Plt Count MPV Neut % (Auto) Lymph % (Auto) [place] % (Auto) Eos % (Auto) Baso % (Auto) Neut # Lymph # [place] # Eos # Baso # Neutrophils % (Manual) Lymphocytes % (Manual) Monocytes % (Manual) Eosinophils % (Manual) Platelet Estimate Giant Platelets Polychromasia Anisocytosis (manual) PT INR APTT Puncture Site Rr pCO2 33 L pO2 84 HCO3 20.8 L ABG pH 7.37 ABG Total CO2 20.1 L ABG O2 Saturation 98.4 H ABG Base Excess -5.3 L Jerad Test Pos ABG Potassium 3.4 L A-a O2 Difference 231.0 Respiratory Index 2.8 Sodium 137.0 Chloride 112.0 H Glucose 109 Lactate 1.4 Liter Flow Mechanical Rate 15 FiO2 50.0 Tidal Volume 450 PEEP 5 Crit Value Called To Crit Value Called By Crit Value Read Back Blood Gas Notified Time Potassium Carbon Dioxide Anion Gap BUN Creatinine Est GFR ( Amer) Est GFR (Non-Af Amer) POC Glucose (mg/dL) Random Glucose Calcium Phosphorus 4.0 Magnesium Total Bilirubin AST ALT Alkaline Phosphatase Total Protein Albumin Globulin Albumin/Globulin Ratio Arterial Blood Potassium 3.4 L Attending/Attestation - Attestation I have personally seen and examined this patient.: Yes I have fully participated in the care of the patient.: Yes I have reviewed all pertinent clinical information: Yes Notes (Text): 08/31/16 12:49 Patient is a 75-year-old male with history of rheumatoid arthritis admitted to the hospital. Complicated now. Acute pneumonia with chronic lung disease, possibly interstitial lung disease with bullous formation. Patient is on ventilator. On antibiotic. Bronchial dilators
--- NOTE | 2016-08-31 12:07 | PN ---
DATE: 08/31/2016 LOCATION: ICU 1. This is a 75-year-old male, seen and examined in intensive care unit after being transferred from the floor due to an episode of shortness of breath, and being tachypneic as rapid response was called ea rlagusto this morning. The patient also had been having rapid ventricular tachycardia, intubated and NG t ube is in place. No reported active bleeding. The entire chart is reviewed including, but not limited to, the most recent lab and radiology study r esults, current and previous medication lists, current and previous medical events and the patient dan s leukocytosis of 12.1 with low hemoglobin 9.7, low hematocrit 29.8 but normal platelet count with ab normal ABGs and increased blood glucose level to 117 with low albumin 2.1. Most recent chest x-ray was done today, indicative of NG tube and T-tube is in place with right pleur al effusion with persistent diffuse opacities indicative of pneumonia. PHYSICAL EXAMINATION: GENERAL: A 75-year-old male, seen and examined in the presence of the staff in the intensive care un it, intubated, appeared to be lethargic. VITAL SIGNS: Afebrile with pulse of 98 and blood pressure 100/54. HEENT: Showed pale, dry oral mucoid membrane. Nonicteric sclerae. LUNGS: Few scattered crepitation, decreased air entry at bases. HEART: Positive S1 and S2. ABDOMEN: Soft. Bowel sounds are present, but decreased with mild abdominal distention. No mass or organomegaly. EXTREMITIES: Without significant clubbing or cyanosis, but with lower extremities edematous changes. NEUROLOGIC: No reported new neurological deficits, sensory or motor. The patient is intubated and m ildly sedated. IMPRESSION: 1. Pneumonia. 2. Respiratory failure. The patient is intubated to vent. 3. Anemia, to rule out gastrointestinal blood loss, upper versus lower versus anemia secondary to ch ronic disease. 4. Abnormal CAT scan of the abdomen and the pelvis. 5. Pleural effusion by radiology study results. 6. Known history of chronic obstructive pulmonary disease. 7. Clinical septicemia, on antibiotics. 8. Colon cancer by history, to rule out recurrent lower gastrointestinal tract neoplastic lesion. SUGGESTION: 1. Agree with your plan. 2. Blood transfusion to keep hemoglobin around 10 gram percent. 3. Peripheral hyperalimentation. 4. No aggressive gastrointestinal workup in the meantime until the patient is more stable clinically . 5. Follow up on cancer markers. 6. Will follow up closely with you. Roger Mcclure MD cc: 14 TT: 08/31/2016 11:41:21 Confirmation # [id number] Dictation # [id number]
[2016-08-31] MEDS ORDERED: Acetaminophen 650mg/20.3ml solution UD PO PRN (12:50)
--- NOTE | 2016-08-31 13:21 | PCM.URO ---
Urology Progress Note - Objective Lab Results Last 24 Hours: Laboratory Results - last 24 hr 08/27/16 08/31/16 08/31/16 11:20 00:50 01:02 WBC RBC Hgb Hct MCV MCH MCHC RDW Plt Count MPV Neut % (Auto) Lymph % (Auto) [place] % (Auto) Eos % (Auto) Baso % (Auto) Neut # Lymph # [place] # Eos # Baso # Neutrophils % (Manual) Lymphocytes % (Manual) Monocytes % (Manual) Eosinophils % (Manual) Platelet Estimate Giant Platelets Polychromasia Anisocytosis (manual) PT INR APTT Puncture Site Rt rad pCO2 32 L pO2 64 L HCO3 22.1 ABG pH 7.41 ABG Total CO2 21.3 L ABG O2 Saturation 95.2 ABG Base Excess -3.4 L Jerad Test Pos ABG Potassium 3.4 L A-a O2 Difference 253.0 Respiratory Index 4.0 Sodium 138.0 Chloride 112.0 H Glucose 113 H Lactate 1.2 Liter Flow 15.0 Mechanical Rate FiO2 50.0 Tidal Volume PEEP Crit Value Called To Md tamia harp Crit Value Called By R alert master deputy sheriff court security Crit Value Read Back Y Blood Gas Notified Time 110 Potassium Carbon Dioxide Anion Gap BUN Creatinine Est GFR ( Amer) Est GFR (Non-Af Amer) POC Glucose (mg/dL) 129 H 121 H Random Glucose Calcium Phosphorus Magnesium Total Bilirubin AST ALT Alkaline Phosphatase Total Protein Albumin Globulin Albumin/Globulin Ratio Arterial Blood Potassium 3.4 L 08/31/16 08/31/16 08/31/16 02:36 02:36 02:36 WBC 12.1 H D RBC 3.57 L Hgb 9.7 L Hct 29.8 L MCV 83.4 MCH 27.0 MCHC 32.4 L RDW 17.5 H Plt Count 364 MPV 7.7 Neut % (Auto) 81.2 H Lymph % (Auto) 8.9 L [place] % (Auto) 4.9 Eos % (Auto) 4.6 H Baso % (Auto) 0.4 Neut # 9.9 H Lymph # 1.1 [place] # 0.6 Eos # 0.6 Baso # 0.1 Neutrophils % (Manual) 86 H Lymphocytes % (Manual) 6 L Monocytes % (Manual) 4 Eosinophils % (Manual) 4 Platelet Estimate Normal Giant Platelets Present Polychromasia Slight Anisocytosis (manual) Slight PT 17.6 H INR 1.5 APTT 34 Puncture Site pCO2 pO2 HCO3 ABG pH ABG Total CO2 ABG O2 Saturation ABG Base Excess Jerad Test ABG Potassium A-a O2 Difference Respiratory Index Sodium 136 Chloride 107 Glucose Lactate Liter Flow Mechanical Rate FiO2 Tidal Volume PEEP Crit Value Called To Crit Value Called By Crit Value Read Back Blood Gas Notified Time Potassium 3.7 Carbon Dioxide 22 Anion Gap 11 BUN 16 Creatinine 0.8 Est GFR ( Amer) > 60 Est GFR (Non-Af Amer) > 60 POC Glucose (mg/dL) Random Glucose 117 H Calcium 8.6 Phosphorus Magnesium 1.9 Total Bilirubin 0.7 AST 33 ALT 13 L D Alkaline Phosphatase 88 Total Protein 7.0 Albumin 2.1 L Globulin 4.9 H Albumin/Globulin Ratio 0.4 L Arterial Blood Potassium 08/31/16 08/31/16 02:36 02:45 WBC RBC Hgb Hct MCV MCH MCHC RDW Plt Count MPV Neut % (Auto) Lymph % (Auto) [place] % (Auto) Eos % (Auto) Baso % (Auto) Neut # Lymph # [place] # Eos # Baso # Neutrophils % (Manual) Lymphocytes % (Manual) Monocytes % (Manual) Eosinophils % (Manual) Platelet Estimate Giant Platelets Polychromasia Anisocytosis (manual) PT INR APTT Puncture Site Rr pCO2 33 L pO2 84 HCO3 20.8 L ABG pH 7.37 ABG Total CO2 20.1 L ABG O2 Saturation 98.4 H ABG Base Excess -5.3 L Jerad Test Pos ABG Potassium 3.4 L A-a O2 Difference 231.0 Respiratory Index 2.8 Sodium 137.0 Chloride 112.0 H Glucose 109 Lactate 1.4 Liter Flow Mechanical Rate 15 FiO2 50.0 Tidal Volume 450 PEEP 5 Crit Value Called To Crit Value Called By Crit Value Read Back Blood Gas Notified Time Potassium Carbon Dioxide Anion Gap BUN Creatinine Est GFR ( Amer) Est GFR (Non-Af Amer) POC Glucose (mg/dL) Random Glucose Calcium Phosphorus 4.0 Magnesium Total Bilirubin AST ALT Alkaline Phosphatase Total Protein Albumin Globulin Albumin/Globulin Ratio Arterial Blood Potassium 3.4 L Intake & Output: Intake & Output 08/30/16 08/31/16 08/31/16 18:59 06:59 18:59 Intake Total 640 890 0 Output Total 400 445 195 Balance 240 445 -195 Intake: Intake, IV Amount 640 640 Right Wrist 640 640 Oral 0 0 Other 250 Output: Urine 400 445 195 Condom 400 200 Urethral (Stahl) 245 195 Vital Signs: Vital Signs - 24 hr 08/30/16 08/31/16 08/31/16 14:00 00:30 01:47 Temperature 100.1 F H 97.6 F Pulse Rate 98 H 95 H 96 H Respiratory 18 28 H 32 H Rate Blood Pressure 96/58 L 113/60 O2 Sat by Pulse 86 L 96 Oximetry 08/31/16 08/31/16 08/31/16 01:50 02:00 02:10 Temperature Pulse Rate 92 H 95 H 92 H Respiratory 31 H 17 26 H Rate Blood Pressure O2 Sat by Pulse 97 98 95 Oximetry 08/31/16 08/31/16 08/31/16 02:20 02:24 02:25 Temperature Pulse Rate 94 H 97 H 97 H Respiratory 27 H 32 H 27 H Rate Blood Pressure 118/61 120/68 O2 Sat by Pulse 97 98 96 Oximetry 08/31/16 08/31/16 08/31/16 02:26 02:27 02:28 Temperature Pulse Rate 95 H 95 H 96 H Respiratory 24 25 H 27 H Rate Blood Pressure 113/77 107/54 L 112/57 L O2 Sat by Pulse 96 96 97 Oximetry 08/31/16 08/31/16 08/31/16 02:29 02:30 02:40 Temperature Pulse Rate 96 H 95 H 97 H Respiratory 26 H 30 H 27 H Rate Blood Pressure 111/53 L O2 Sat by Pulse 95 97 96 Oximetry 08/31/16 08/31/16 08/31/16 02:50 03:00 03:10 Temperature Pulse Rate 95 H 95 H 95 H Respiratory 25 H 24 30 H Rate Blood Pressure O2 Sat by Pulse 96 94 L 96 Oximetry 08/31/16 08/31/16 08/31/16 03:20 03:24 03:30 Temperature Pulse Rate 95 H 100 H 94 H Respiratory 31 H 27 H 29 H Rate Blood Pressure 104/48 L O2 Sat by Pulse 95 95 95 Oximetry 08/31/16 08/31/16 03:40 13:06 Temperature 101.2 F H Pulse Rate 93 H Respiratory 29 H Rate Blood Pressure O2 Sat by Pulse 95 Oximetry
--- NOTE | 2016-08-31 13:25 | CP.PCM.PN ---
Subjective - Date & Time of Evaluation Date of Evaluation: 08/31/16 Time of Evaluation: 09:00 - Subjective Subjective: 75 y/o male with PMHx of COPD admitted on 08/25/16 for AMS and dehydration and had a [employer] APPRENTICE called on 08/31 for desaturation/respiratory distress. Pt was transferred to the ICU and intubated secondary to hypoxemic respiratory failure. A CXR was obtained which showed worsening loculated right pleural effusion. Prominent ill-defined consolidative opacity throughout the right mid to lower lung zone and left lung base. Biapical pleural thickening with upper lobe granulomatous changes. Diffuse increased interstitial lung markings. A few additional scattered ill-defined opacities within the right and left upper to mid lung zone. Pt still intubated and sedated and no other hx obtainable at this time. PMH/PSH: RA, left sided colostomy for a colon lesion, COPD and biventricular pacemaker Home meds: Ibuprofen Allergies: NKDA FH: unkown SH: Former smoker Objective - Vital Signs/Intake and Output Vital Signs (last 24 hours): Temp Pulse Resp BP Pulse Ox 101.2 F H 93 H 29 H 104/48 L 95 08/31/16 13:06 08/31/16 03:40 08/31/16 03:40 08/31/16 03:24 08/31/16 03:40 Intake and Output: 08/31/16 08/31/16 06:59 18:59 Intake Total 890 0 Output Total 445 195 Balance 445 -195 - Medications Medications: Current Medications Acetaminophen (Tylenol 650mg/20.3ml Solution Ud) 650 mg PO Q4H PRN PRN Reason: Fever >100.4 F Last Admin: 08/31/16 13:06 Dose: 650 mg Albuterol/Ipratropium (Duoneb 3 Mg/0.5 Mg (3 Ml) Ud) 3 ml INH RQ6 [facility] Baclofen (Lioresal) 10 mg PO BID [facility] Last Admin: 08/31/16 10:22 Dose: 10 mg Enoxaparin Sodium (Lovenox) 40 mg SC DAILY [facility] Last Admin: 08/31/16 10:17 Dose: 40 mg Famotidine (Pepcid) 20 mg IVP Q12 [facility] Last Admin: 08/31/16 10:04 Dose: 20 mg Vancomycin HCl 1 gm/ Sodium (Chloride) 250 mls @ 166.7 mls/hr IVPB Q24H [facility] Last Admin: 08/30/16 21:25 Dose: 166.7 mls/hr Cefepime HCl (Maxipime Iv 1 Gm Premix) 1 gm in 50 mls @ 100 mls/hr IVPB Q8H [facility] Last Admin: 08/31/16 13:03 Dose: 100 mls/hr Sodium Chloride (Sodium Chloride 0.9%) 1,000 mls @ 50 mls/hr IV .Q20H [facility] Last Admin: 08/31/16 10:15 Dose: 50 mls/hr Dexmedetomidine HCl 200 mcg/ (Sodium Chloride) 50 mls @ 3.17 mls/hr IV TITR PRN ; Protocol; 0.2 MCG/KG/HR PRN Reason: Sedation Last Admin: 08/31/16 10:30 Dose: 0.2 mcg/kg/hr, 3.17 mls/hr Methylprednisolone (Solu-Medrol) 40 mg IVP Q12 [facility] Last Admin: 08/31/16 10:04 Dose: 40 mg Morphine Sulfate (Morphine) 2 mg IVP Q6 PRN PRN Reason: Pain, moderate (4-7) Last Admin: 08/31/16 13:08 Dose: 2 mg - Labs Labs: 08/31/16 02:36 08/31/16 02:36 PT 17.6 SECONDS (9.7-12.2) H 08/31/16 02:36 INR 1.5 08/31/16 02:36 APTT 34 SECONDS (21-34) 08/31/16 02:36 Assessment and Plan (1) Altered mental status, unspecified Status: Acute (2) Arthritis Status: Acute (3) Dehydration Status: Acute (4) Pacemaker Status: Acute (5) Psoriatic arthritis Status: Acute
[2016-08-31] MEDS: Albuterol-Ipratrop 3 mg / 0.5 (3 ml) UD INH SCH ×2 (13:38→20:15)
--- NOTE | 2016-08-31 15:32 | CT ---
PROCEDURE: CT Chest without contrast HISTORY: eval for lung fibrosis/resp failure COMPARISON: 03/15/2014 TECHNIQUE: Contiguous axial images were obtained through the chest without intravenous contrast enhancement. Sagittal and coronal reconstructions were performed. Radiation dose (DLP): 671.50 mGy-cm. This CT exam was performed using one or more of the following dose reduction techniques: Automated exposure control, adjustment of the mA and/or kV according to patient size, and/or use of iterative reconstruction technique. FINDINGS: LUNGS: Evaluation limited due to respiratory motion artifact. Honeycombing in left lower lobe consistent with chronic interstitial fibrosis. . Extensive atelectasis of right lower lobe likely secondary to moderate right pleural effusion. Similar mild compressive atelectasis posterior segment right upper lobe. Aerated portion of right lower lobe shows honeycombing as well. Subpleural emphysema. Upper lobe and apical bullae. Nonspecific findings. No acute infiltrate. In comparison to examination of 03/15/2014, the extent of interstitial fibrosis does not appear to have changed significantly. MEDIASTINUM: Unremarkable thoracic aorta. No aneurysm. Normal-sized heart. Permanent pacemaker. Coronary arterial calcification. Main pulmonary artery unremarkable. No vascular congestion. No lymphadenopathy. Endotracheal tube tip approximately 4.6 cm above tracheal huber. Nasogastric tube extends to gastric lumen. PLEURA: Moderate right and small left pleural effusion. BONES: Anterior wedge compression deformity of L1 vertebra with lydia fracture of inferior L1 vertebral endplate. Age indeterminate. This represents interval change since prior CT examination. No other fracture identified. UPPER ABDOMEN: 3.6 cm mid left renal cortical cyst. Comparison to prior examination cannot be made at this was not included in its entirety on that examination. Probable 2nd mid left renal cortical cysts only the uppermost portion of which is included in this examination. OTHER FINDINGS: None. IMPRESSION: Chronic interstitial fibrosis in both lower lobes. Subpleural emphysema. Bullous changes in upper lobes/lung apices. Moderate right and small left pleural effusion. Extensive right lower lobe compressive atelectasis with mild compressive atelectasis of posterior segment right upper lobe. Permanent pacemaker. Nasogastric tube. Endotracheal tube.
[2016-08-31] MEDS ORDERED: Albumin Human 25% (12.5 gm/50 ml) IV ONE (18:36)
--- NOTE | 2016-08-31 20:00 | CON ---
DATE: 08/27/[address] Roger Mcclure to Dr. Holland. I was called for GI consultation by the admitting MD as well as the staff on the floor. The patient is seen and fully examined on 08/27/2016 in the presence of the admitting medical team. All the [facility] l[facility] lab and radiology study results, current and previous medication lists, current and the previou s medical events, allergy to medication list as well as all the available current and previous medica l records were reviewed. The patient is seen with a extruding department supervisor. HISTORY OF PRESENT ILLNESS: This 78-year-old male was admitted to the hospital through the Emergency Room with main complaint of, but not limited to, shortness of breath, generalized weakness and malai se, urine incontinent, very poor oral intake for the last 4-5 weeks prior to his admission. All the symptoms were getting worse for the last 3-4 days, but no reported chest pain, active bleeding, chill s or fever, but nausea with mild dyspepsia on occasion. PAST MEDICAL HISTORY: Including mainly, but not limited to: 1. COPD. 2. Cardiac arrhythmia, status post pacemaker insertion. 3. 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 4. Colon CA. 5. Dementia with depression. 6. Peptic ulcer disease. 7. Lower extremity cellulitis before. FAMILY HISTORY: Unknown. SOCIAL HISTORY: Positive for cigarette smoking, but no recent history of alcohol intake reported. CURRENT MEDICATIONS: Medication lists were reviewed. ALLERGY TO MEDICATION: Unclear. After being admitted to the hospital, the patient was found to have low hemoglobin of 9.3 with hemato crit 28.5 with thrombocytosis of 419 with increased blood glucose level mildly to 112. PHYSICAL EXAMINATION: GENERAL: A 75-year-old male, somewhat awake, alert. VITAL SIGNS: With respiratory rate of ____24, afebrile with a pulse of 92, and blood pressure 124/54 . HEENT: Showed pale, dry oral mucoid membrane. Nonicteric sclerae. LUNGS: a few scattered crepitations. Decreased air entry at bases. LYMPH NODES: No lymphadenitis or lymphadenopathy. HEART: Positive S1 and S2 with increased rate. ABDOMEN: Soft, mildly distended, mildly obese with generalized mild tenderness. Bowel sounds are hy poactive. No mass or organomegaly. No rebound tenderness or guarding. RECTAL: Deferred due to the patient's respiratory status. EXTREMITIES: With lower extremities mild edematous changes. No clubbing or cyanosis. NEUROLOGIC: No reported new neurological deficit, sensory or motor; however, the patient appears to be slightly lethargic. IMPRESSION: 1. Known history of colon cancer. 2. Anemia, which could be secondary to above. 3. Reexacerbation of peptic ulcer disease. 4. Chronic obstructive pulmonary disease with possible pneumonia. 5. Past medical history including, but not limited to, depression, cardiac arrhythmia with status po st pacemaker insertion, rheumatoid arthritis with reported dementia. 6. To rule out gastrointestinal blood loss, upper versus lower. SUGGESTION: 1. Agree with your plan. 2. Guaiac all the stool daily x 3. 3. Sectional abdominal and pelvic CAT scan. 4. Proton pump inhibitors. 5. Correct underlying respiratory status and deficiency. 6. The patient may need endoscopic evaluation of the GI tract only when he is more stable clinically . Otherwise, conservative treatment to be kept in mind including peripheral hyperalimentation due to patient's very poor oral intake. The patient may be a candidate for PEG insertion if his symptoms p ersist. Thank you for letting me participate in your patient's case management. Further recommendations and evaluation to follow. Roger Mcclure MD cc: 14 TT: 08/31/2016 19:59:52 Confirmation # [id number] Dictation # [id number] mary
--- NOTE | 2016-08-31 22:49 | CP.PCM.PN ---
Subjective - Date & Time of Evaluation Date of Evaluation: 08/31/16 Time of Evaluation: 12:30 - Subjective Subjective: Patient became hypoxic on floor. He waintubated and transfered to ICU. Chest xray reveals pulmonary fibrosis and a right sided loculated pleural effusion. Patient is on vancomycin. He was evaluated by Dr Kyle. Objective - Vital Signs/Intake and Output Vital Signs (last 24 hours): Temp Pulse Resp BP Pulse Ox 97.6 F 71 18 85/42 L 96 08/31/16 16:00 08/31/16 19:20 08/31/16 19:20 08/31/16 18:24 08/31/16 19:20 Intake and Output: 08/31/16 09/01/16 18:59 06:59 Intake Total 532.5 50 Output Total 430 Balance 102.5 50 - Medications Medications: Current Medications Acetaminophen (Tylenol 650mg/20.3ml Solution Ud) 650 mg PO Q4H PRN PRN Reason: Fever >100.4 F Last Admin: 08/31/16 13:06 Dose: 650 mg Albuterol/Ipratropium (Duoneb 3 Mg/0.5 Mg (3 Ml) Ud) 3 ml INH RQ6 [facility] Last Admin: 08/31/16 20:15 Dose: 3 ml Baclofen (Lioresal) 10 mg PO BID [facility] Last Admin: 08/31/16 18:06 Dose: 10 mg Enoxaparin Sodium (Lovenox) 40 mg SC DAILY [facility] Last Admin: 08/31/16 10:17 Dose: 40 mg Famotidine (Pepcid) 20 mg IVP Q12 [facility] Last Admin: 08/31/16 10:04 Dose: 20 mg Vancomycin HCl 1 gm/ Sodium (Chloride) 250 mls @ 166.7 mls/hr IVPB Q24H [facility] Last Admin: 08/30/16 21:25 Dose: 166.7 mls/hr Cefepime HCl (Maxipime Iv 1 Gm Premix) 1 gm in 50 mls @ 100 mls/hr IVPB Q8H [facility] Last Admin: 08/31/16 18:19 Dose: 100 mls/hr Sodium Chloride (Sodium Chloride 0.9%) 1,000 mls @ 50 mls/hr IV .Q20H [facility] Last Admin: 08/31/16 10:15 Dose: 50 mls/hr Dexmedetomidine HCl 200 mcg/ (Sodium Chloride) 50 mls @ 3.17 mls/hr IV TITR PRN ; Protocol; 0.2 MCG/KG/HR PRN Reason: Sedation Last Admin: 08/31/16 19:59 Dose: 0.5 mcg/kg/hr, 7.93 mls/hr Methylprednisolone (Solu-Medrol) 40 mg IVP Q12 [facility] Last Admin: 08/31/16 10:04 Dose: 40 mg Morphine Sulfate (Morphine) 2 mg IVP Q6 PRN PRN Reason: Pain, moderate (4-7) Last Admin: 08/31/16 13:08 Dose: 2 mg - Labs Labs: 08/31/16 02:36 08/31/16 02:36 PT 17.6 SECONDS (9.7-12.2) H 08/31/16 02:36 INR 1.5 08/31/16 02:36 APTT 34 SECONDS (21-34) 08/31/16 02:36 - Constitutional Appears: Chronically Ill - Head Exam Head Exam: NORMOCEPHALIC - Eye Exam Eye Exam: Periorbital swelling, PERRL - Neck Exam Neck Exam: Normal Inspection - Respiratory Exam Respiratory Exam: Decreased Breath Sounds - Cardiovascular Exam Cardiovascular Exam: Irregular Rhythm - GI/Abdominal Exam GI & Abdominal Exam: Hypoactive Bowel Sounds - Rectal Exam Rectal Exam: Deferred - Exam Exam: NORMAL INSPECTION - Extremities Exam Extremities Exam: Joint Swelling - Back Exam Back Exam: NORMAL INSPECTION - Skin Skin Exam: Dry Assessment and Plan (1) Dehydration Status: Acute (2) Altered mental status, unspecified Status: Acute (3) Hydrocephalus Status: Acute (4) Chronic obstructive airway disease Status: Acute (5) Psoriatic arthritis Status: Acute
[2016-09-01] MEDS: Albuterol-Ipratrop 3 mg / 0.5 (3 ml) UD INH SCH ×4 (01:28→19:36)
[2016-09-01] MEDS: Cefepime IV 1 gm in Dextrose 1 GM/50 ML BAG IVPB SCH ×3 (03:03→18:26)
[2016-09-01 04:25] LABS: ABG ALLEN TEST POS; ABG MECHANICAL RATE 15; ARTERIAL BLOOD HGB O2 SAT 95.8 % (95.0-98.0); ATERIAL BLOOD GAS PEEP 5; CARBOXYHEMOGLOBIN 1.8 % (0.5-1.5); DRAW SITE RR; HHB 1.4 % (0.0-5.0); METHEMOGLOBIN 0.9 % (0.0-3.0)
[2016-09-01] MEDS: Dexmedetomidine Hydrochloride 200 MCG in Sodium Chloride 0.9% 48 ML IV PRN ×2 (06:00→17:08)
[2016-09-01 06:38] LABS: BASO % 0.2 % (0.0-2.0); HEMATOCRIT 28.4 % (35.0-51.0); LYMPH # 0.6 K/uL (1.0-4.3); LYMPH % 6.1 % (20.0-40.0); MEAN CELL VOLUME 84.1 fL (80.0-94.0); MEAN CORPUSCULAR HGB CONC 32.1 g/dL (33.0-37.0); MEAN PLATELET VOLUME 8.1 fL (7.2-11.7); MONO # 0.4 K/uL (0.0-0.8); MONO % 3.6 % (0.0-10.0); PLATELET COUNT 324 K/uL (130-400); RED CELL DISTRIBUTION WIDTH 17.5 % (11.5-14.5); WHITE BLOOD COUNT 10.6 K/uL (4.8-10.8)
[2016-09-01 06:51] LABS: CHLORIDE 107 mmol/L (98-107)
[2016-09-01 06:52] LABS: POTASSIUM 4.1 mmol/L (3.6-5.2); SODIUM 134 mmol/L (132-148)
[2016-09-01 06:54] LABS: ALB/GLOB RATIO 0.4 (1.0-2.1); ALKALINE PHOSPHATASE 84 U/L (38-126); AST/SGOT 31 U/L (17-59); BILIRUBIN,TOTAL 0.5 mg/dL (0.2-1.3); BLOOD UREA NITROGEN 25 mg/dL (9-20); CARBON DIOXIDE 21 mmol/L (22-30); GFR AFRICAN-AMERICAN > 60; TOTAL PROTEIN 6.8 g/dL (6.3-8.3)
[2016-09-01 06:55] LABS: ALT/SGPT 11 U/L (21-72); CALCIUM 8.5 mg/dl (8.6-10.4); GLUCOSE,RANDOM 232 mg/dL (75-110); PHOSPHOROUS 3.9 mg/dL (2.5-4.5)
[2016-09-01] MEDS: Sodium Chloride 0.9% 1,000 ML IV SCH ×2 (07:24→11:59)
[2016-09-01 08:28] LABS: NEUTROPHIL 95 % (50-75); TOTAL CELLS COUNTED 100
--- NOTE | 2016-09-01 08:41 | RAD ---
HISTORY: intubation COMPARISON: 08/31/2016 FINDINGS: LUNGS: Lines and tubes in stable position. Again identified are prominent airspace consolidative changes in the mid to lower lung zones with associated moderate bilateral pleural effusions ; right greater than left. Prominent biapical pleural thickening with upper lobe granulomatous changes. Scattered areas of ill-defined consolidation seen within the lateral aspect of the right upper lung zone and left upper lung zone. PLEURA: As above. CARDIOVASCULAR: Cardiomegaly. Left-sided pacemaker. OSSEOUS STRUCTURES: Degenerative changes in the spine and shoulders. VISUALIZED UPPER ABDOMEN: Normal. OTHER FINDINGS: None. IMPRESSION: No significant interval change.
[2016-09-01] MEDS: Enoxaparin 40 mg Syringe SC SCH (09:50)
--- NOTE | 2016-09-01 10:23 | PN ---
DATE: 09/01/2016 LOCATION: ICU 1. This 75-year-old male was seen and examined on rounds without significant clinical changes, still int ubated with NG tube in place. The entire chart is reviewed, including but not limited to the most re cent lab and radiology study results, current and previous medication lists, current and the previous medical events. The case discussed with the staff in the intensive care unit at length. The patien t tolerating NG tube feeding and colostomy care is in place with colostomy tube, colostomy opening at the left lower quadrant functioning well with brownish stool. Most recent lab results showed hemoglobin low of 9.1 with hematocrit 28.7, but normal platelet count with abnormal ABGs with low CO2 content at 21 indicative of metabolic acidosis. BUN elevated to 25, but normal creatinine and elevated blood glucose level to 232 with low albumin to 2.1. Chest x-ray for today, report seen. PHYSICAL EXAMINATION: GENERAL: A 75-year-old male. VITAL SIGNS: Afebrile with pulse of 74, blood pressure 108/56. HEENT: Showed pale, dry mucoid membrane. Nonicteric sclerae. LUNGS: Few scattered crepitations, decreased air entry at bases. HEART: Positive S1 and S2. ABDOMEN: Soft. Bowel sounds are present with mild distention. Colostomy tube is in place. EXTREMITIES: Lower extremities with edematous changes. NEUROLOGICAL: No new reported neurological deficits, sensory or motor. IMPRESSION: 1. Respiratory failure, intubated. 2. Septicemia with metabolic acidosis. 3. Malnutrition, hypoalbuminemia. 4. Known history of chronic obstructive pulmonary disease. 5. Known history of psoriatic arthritis. 6. Anemia, most likely secondary to above. 7. Known history of colon cancer, colostomy tube is in place. 8. Reexacerbation of peptic ulcer disease. 9. Recent history of lower extremity cellulitis. SUGGESTION: 1. Continue current management. 2. Enteral hyperalimentation. 3. The patient is a candidate for PEG insertion if his symptoms persist and further recommendations to follow. Roger Mcclure MD cc: 14 TT: 09/01/2016 10:22:33 Confirmation # [id number] Dictation # [id number] rn
--- NOTE | 2016-09-01 10:24 | CP.CCUPN ---
<RobertoTaras - Last Filed: 09/01/16 10:21> CCU Subjective - Physician Review Subjective (Free Text): 09/01/16 10:21 PGY-1 ICU progress note Pt seen and examined at bedside. There were no overnight events per staff. Pt intubated. Critical Care Time Spent (in minutes): 35 CCU Objective - Vital Signs / Intake & Output Vital Signs (Last 4 hours): Vital Signs Pulse Resp BP Pulse Ox 09/01/16 06:56 73 17 109/56 L 99 Intake and Output (Last 8hrs): Intake & Output 08/31/16 09/01/16 09/01/16 22:59 06:59 14:59 Intake Total 894.9 728.2 Output Total 235 475 Balance 659.9 253.2 Weight 158 lb 11.725 oz Intake: IV 58.8 41.2 Intake, IV Amount 686.1 432.0 Left Forearm 61.1 32.0 Right Port-A-Cath 375 350 Rt Port-A-Cath 250 50 Oral 0 0 Tube Feeding 150 255 Output: Urine 235 475 Urethral (Stahl) 235 475 - Physical Exam Head: Positive for: Atraumatic, Normocephalic Respiratory/Chest: Positive for: Good Air Exchange, Other (initubated) Cardiovascular: Positive for: Normal S1, S2 Abdomen: Positive for: Normal Bowel Sounds. Negative for: Distention Lower Extremity: Positive for: NORMAL PULSES Neurological: Positive for: Other (intubated) Skin: Positive for: Warm, Dry Psychiatric: Positive for: Other (sedated) - Medications Active Medications: Active Medications Generic Name Dose Route Start Last Admin Trade Name Freq PRN Reason Stop Dose Admin Acetaminophen 650 mg 08/31/16 12:50 08/31/16 13:06 Tylenol 650mg/20.3ml Solution Ud PO 650 mg Q4H PRN Administration Fever >100.4 F Albuterol/Ipratropium 3 ml 08/31/16 14:00 09/01/16 08:30 Duoneb 3 Mg/0.5 Mg (3 Ml) Ud INH 3 ml RQ6 MINA Administration Baclofen 10 mg 08/25/16 18:00 09/01/16 09:51 Lioresal PO 10 mg BID [facility]A Administration Enoxaparin Sodium 40 mg 08/25/16 10:00 09/01/16 09:50 Lovenox SC 40 mg DAILY [facility] Administration Famotidine 20 mg 08/31/16 10:00 09/01/16 09:51 Pepcid IVP 20 mg Q12 [facility] Administration Vancomycin HCl 1 gm/ Sodium 250 mls @ 166.7 mls/hr 08/27/16 22:15 08/31/16 22 :45 Chloride IVPB 166.7 mls/hr Q24H [facility] Administration Cefepime HCl 1 gm in 50 mls @ 100 mls/hr 08/31/16 03:00 09/01/16 03:03 Maxipime Iv 1 Gm Premix IVPB 100 mls/hr Q8H [facility] Administration Sodium Chloride 1,000 mls @ 50 mls/hr 08/31/16 09:30 09/01/16 07:24 Sodium Chloride 0.9% IV Not Given .Q20H MINA Dexmedetomidine HCl 200 mcg/ 50 mls @ 3.17 mls/hr 08/31/16 09:27 09/01/16 06: 00 Sodium Chloride IV 0.3 mcg/kg/hr TITR PRN 4.8 mls/hr Sedation Administration Protocol 0.2 MCG/KG/HR Insulin Aspart 0 unit 09/01/16 11:30 Novolog SC ACHS [facility] Protocol Methylprednisolone 40 mg 09/01/16 12:00 Solu-Medrol IVP Q4 [facility] Morphine Sulfate 2 mg 08/31/16 12:50 08/31/16 13:08 Morphine IVP 2 mg Q6 PRN Administration Pain, moderate (4-7) - Patient Studies Lab Studies: Microbiology Studies 08/30/16 21:00 Blood Culture - Preliminary Blood-Venous NO GROWTH AFTER 24 HOURS 08/28/16 18:19 Blood Culture - Preliminary Blood-Venous NO GROWTH AFTER 3 DAYS 08/28/16 16:00 Blood Culture - Preliminary Blood-Venous NO GROWTH AFTER 3 DAYS 08/31/16 11:39 Gram Stain - Final Trachasp 08/31/16 02:55 Gram Stain - Final Sputum Induced Lab Studies 09/01/16 09/01/16 09/01/16 Range/Units 06:29 06:29 04:20 WBC 10.6 (4.8-10.8) K/uL RBC 3.38 L (4.40-5.90) Mil/uL Hgb 9.1 L (12.0-18.0) g/dL Hct 28.4 L (35.0-51.0) % MCV 84.1 (80.0-94.0) fL MCH 27.0 (27.0-31.0) pg MCHC 32.1 L (33.0-37.0) g/dL RDW 17.5 H (11.5-14.5) % Plt Count 324 (130-400) K/uL MPV 8.1 (7.2-11.7) fL Neut % (Auto) 90.1 H (50.0-75.0) % Lymph % (Auto) 6.1 L (20.0-40.0) % Garfield % (Auto) 3.6 (0.0-10.0) % Eos % (Auto) 0.0 (0.0-4.0) % Baso % (Auto) 0.2 (0.0-2.0) % Neut # 9.5 H (1.8-7.0) K/uL Lymph # 0.6 L (1.0-4.3) K/uL Garfield # 0.4 (0.0-0.8) K/uL Eos # 0.0 (0.0-0.7) K/uL Baso # 0.0 (0.0-0.2) K/uL Neutrophils % (Manual) 95 H (50-75) % Band Neutrophils % 1 (0-2) % Lymphocytes % (Manual) 2 L (20-40) % Monocytes % (Manual) 2 (0-10) % Platelet Estimate Normal (NORMAL) Polychromasia Slight Hypochromasia (manual) Slight Anisocytosis (manual) Slight Tear Drop Cells Slight Puncture Site Rr pCO2 29 L (35-45) mm/Hg pO2 88 (80-100) mm/Hg HCO3 20.1 L (21-28) mmol/L ABG pH 7.39 (7.35-7.45) ABG Total CO2 18.5 L (22-28) mmol/L ABG O2 Saturation 98.6 H (95-98) % ABG Base Excess -6.2 L (-2.0-3.0) mmol/L ABG Hemoglobin 11.8 (11.7-17.4) g/dL ABG Carboxyhemoglobin 1.8 H (0.5-1.5) % POC ABG HHb (Measured) 1.4 (0.0-5.0) % ABG Methemoglobin 0.9 (0.0-3.0) % Jerad Test Pos A-a O2 Difference 232.0 mm/Hg Respiratory Index 2.6 Hgb O2 Saturation 95.8 (95.0-98.0) % Mechanical Rate 15 FiO2 50.0 % Tidal Volume 450 PEEP 5 Sodium 134 (132-148) mmol/L Potassium 4.1 (3.6-5.2) mmol/L Chloride 107 (98-107) mmol/L Carbon Dioxide 21 L (22-30) mmol/L Anion Gap 10 (10-20) BUN 25 H (9-20) mg/dL Creatinine 0.8 (0.8-1.5) MG/DL Est GFR ( Amer) > 60 Est GFR (Non-Af Amer) > 60 POC Glucose (mg/dL) (65-110) mg/dL Random Glucose 232 H (75-110) mg/dL Calcium 8.5 L (8.6-10.4) mg/dl Phosphorus 3.9 (2.5-4.5) mg/dL Magnesium 2.0 (1.6-2.3) mg/dL Total Bilirubin 0.5 (0.2-1.3) mg/dL AST 31 (17-59) U/L ALT 11 L (21-72) U/L Alkaline Phosphatase 84 (38-126) U/L Total Protein 6.8 (6.3-8.3) g/dL Albumin 2.1 L (3.5-5.0) g/dL Globulin 4.7 H (2.2-3.9) gm/dL Albumin/Globulin Ratio 0.4 L (1.0-2.1) 08/31/16 08/27/16 Range/Units 00:50 11:20 WBC (4.8-10.8) K/uL RBC (4.40-5.90) Mil/uL Hgb (12.0-18.0) g/dL Hct (35.0-51.0) % MCV (80.0-94.0) fL MCH (27.0-31.0) pg MCHC (33.0-37.0) g/dL RDW (11.5-14.5) % Plt Count (130-400) K/uL MPV (7.2-11.7) fL Neut % (Auto) (50.0-75.0) % Lymph % (Auto) (20.0-40.0) % Garfield % (Auto) (0.0-10.0) % Eos % (Auto) (0.0-4.0) % Baso % (Auto) (0.0-2.0) % Neut # (1.8-7.0) K/uL Lymph # (1.0-4.3) K/uL Garfield # (0.0-0.8) K/uL Eos # (0.0-0.7) K/uL Baso # (0.0-0.2) K/uL Neutrophils % (Manual) (50-75) % Band Neutrophils % (0-2) % Lymphocytes % (Manual) (20-40) % Monocytes % (Manual) (0-10) % Platelet Estimate (NORMAL) Polychromasia Hypochromasia (manual) Anisocytosis (manual) Tear Drop Cells Puncture Site pCO2 (35-45) mm/Hg pO2 (80-100) mm/Hg HCO3 (21-28) mmol/L ABG pH (7.35-7.45) ABG Total CO2 (22-28) mmol/L ABG O2 Saturation (95-98) % ABG Base Excess (-2.0-3.0) mmol/L ABG Hemoglobin (11.7-17.4) g/dL ABG Carboxyhemoglobin (0.5-1.5) % POC ABG HHb (Measured) (0.0-5.0) % ABG Methemoglobin (0.0-3.0) % Jerad Test A-a O2 Difference mm/Hg Respiratory Index Hgb O2 Saturation (95.0-98.0) % Mechanical Rate FiO2 % Tidal Volume PEEP Sodium (132-148) mmol/L Potassium (3.6-5.2) mmol/L Chloride (98-107) mmol/L Carbon Dioxide (22-30) mmol/L Anion Gap (10-20) BUN (9-20) mg/dL Creatinine (0.8-1.5) MG/DL Est GFR ( Amer) Est GFR (Non-Af Amer) POC Glucose (mg/dL) 121 H 129 H (65-110) mg/dL Random Glucose (75-110) mg/dL Calcium (8.6-10.4) mg/dl Phosphorus (2.5-4.5) mg/dL Magnesium (1.6-2.3) mg/dL Total Bilirubin (0.2-1.3) mg/dL AST (17-59) U/L ALT (21-72) U/L Alkaline Phosphatase (38-126) U/L Total Protein (6.3-8.3) g/dL Albumin (3.5-5.0) g/dL Globulin (2.2-3.9) gm/dL Albumin/Globulin Ratio (1.0-2.1) Laboratory Results - last 24 hr 08/27/16 08/31/16 09/01/16 11:20 00:50 04:20 WBC RBC Hgb Hct MCV MCH MCHC RDW Plt Count MPV Neut % (Auto) Lymph % (Auto) Garfield % (Auto) Eos % (Auto) Baso % (Auto) Neut # Lymph # Garfield # Eos # Baso # Neutrophils % (Manual) Band Neutrophils % Lymphocytes % (Manual) Monocytes % (Manual) Platelet Estimate Polychromasia Hypochromasia (manual) Anisocytosis (manual) Tear Drop Cells Puncture Site Rr pCO2 29 L pO2 88 HCO3 20.1 L ABG pH 7.39 ABG Total CO2 18.5 L ABG O2 Saturation 98.6 H ABG Base Excess -6.2 L ABG Hemoglobin 11.8 ABG Carboxyhemoglobin 1.8 H POC ABG HHb (Measured) 1.4 ABG Methemoglobin 0.9 Jerad Test Pos A-a O2 Difference 232.0 Respiratory Index 2.6 Hgb O2 Saturation 95.8 Mechanical Rate 15 FiO2 50.0 Tidal Volume 450 PEEP 5 Sodium Potassium Chloride Carbon Dioxide Anion Gap BUN Creatinine Est GFR ( Amer) Est GFR (Non-Af Amer) POC Glucose (mg/dL) 129 H 121 H Random Glucose Calcium Phosphorus Magnesium Total Bilirubin AST ALT Alkaline Phosphatase Total Protein Albumin Globulin Albumin/Globulin Ratio 09/01/16 09/01/16 06:29 06:29 WBC 10.6 RBC 3.38 L Hgb 9.1 L Hct 28.4 L MCV 84.1 MCH 27.0 MCHC 32.1 L RDW 17.5 H Plt Count 324 MPV 8.1 Neut % (Auto) 90.1 H Lymph % (Auto) 6.1 L Garfield % (Auto) 3.6 Eos % (Auto) 0.0 Baso % (Auto) 0.2 Neut # 9.5 H Lymph # 0.6 L Garfield # 0.4 Eos # 0.0 Baso # 0.0 Neutrophils % (Manual) 95 H Band Neutrophils % 1 Lymphocytes % (Manual) 2 L Monocytes % (Manual) 2 Platelet Estimate Normal Polychromasia Slight Hypochromasia (manual) Slight Anisocytosis (manual) Slight Tear Drop Cells Slight Puncture Site pCO2 pO2 HCO3 ABG pH ABG Total CO2 ABG O2 Saturation ABG Base Excess ABG Hemoglobin ABG Carboxyhemoglobin POC ABG HHb (Measured) ABG Methemoglobin Jerad Test A-a O2 Difference Respiratory Index Hgb O2 Saturation Mechanical Rate FiO2 Tidal Volume PEEP Sodium 134 Potassium 4.1 Chloride 107 Carbon Dioxide 21 L Anion Gap 10 BUN 25 H Creatinine 0.8 Est GFR ( Amer) > 60 Est GFR (Non-Af Amer) > 60 POC Glucose (mg/dL) Random Glucose 232 H Calcium 8.5 L Phosphorus 3.9 Magnesium 2.0 Total Bilirubin 0.5 AST 31 ALT 11 L Alkaline Phosphatase 84 Total Protein 6.8 Albumin 2.1 L Globulin 4.7 H Albumin/Globulin Ratio 0.4 L Review of Systems - Review of Systems Systems not reviewed;Unavailable: Intubated Critical Care Progress Note - Nutrition Nutrition: Nutrition Category Date Time Status NPO Diet [DIET] Diets 08/31/16 Breakfast Active Assessment/Plan - Assessment and Plan (Free Text) Assessment: This is a 75 yo M with hypoxemic respiratory failure secondary to likely aspiration pneumonia, now intubated and sedated. 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 Subpleural emphysema. Bullous changes in upper lobes/lung apices. Moderate right and small left pleural effusion. Extensive right lower lobe compressive atelectasis with mild compressive atelectasis of posterior segment right upper lobe. Continue Cefepime and vanc Increase IV steroids Continue duonebs Will place chest tube to drain pleural effusion Gastrointestinal: Cont tube feeds No acute issues Hematology: No acute issues Endocrine: No acute issues Renal: NS at 50cc/hr Monitor labs Infectious Disease: Leukocytosis secondary to likely pneumonia Sputum culture sent Follow cultures Continue cefepime and vanc GI Prophylaxis: Pepcid DVT Prophylaxis: Lovenox <Mingo Ibarra - Last Filed: 09/01/16 16:29> CCU Objective - Vital Signs / Intake & Output Vital Signs (Last 4 hours): Vital Signs Pulse Resp BP Pulse Ox 09/01/16 14:52 18 99 09/01/16 14:04 74 18 104/45 L 99 09/01/16 12:56 78 17 109/49 L 100 Intake and Output (Last 8hrs): Intake & Output 09/01/16 09/01/16 09/01/16 06:59 14:59 22:59 Intake Total 728.2 928.4 Output Total 475 400 Balance 253.2 528.4 Weight 158 lb 11.725 oz Intake: IV 41.2 Intake, IV Amount 432.0 488.4 Left Forearm 32.0 38.4 Right Port-A-Cath 350 450 Rt Port-A-Cath 50 Oral 0 120 Tube Feeding 255 320 Output: Urine 475 400 Urethral (Stahl) 475 400 Other: # Bowel Movements 0 - Medications Active Medications: Active Medications Generic Name Dose Route Start Last Admin Trade Name Freq PRN Reason Stop Dose Admin Acetaminophen 650 mg 08/31/16 12:50 08/31/16 13:06 Tylenol 650mg/20.3ml Solution Ud PO 650 mg Q4H PRN Administration Fever >100.4 F Albuterol/Ipratropium 3 ml 08/31/16 14:00 09/01/16 14:24 Duoneb 3 Mg/0.5 Mg (3 Ml) Ud INH 3 ml RQ6 MINA Administration Baclofen 10 mg 08/25/16 18:00 09/01/16 09:51 Lioresal PO 10 mg BID MINA Administration Enoxaparin Sodium 40 mg 08/25/16 10:00 09/01/16 09:50 Lovenox SC 40 mg DAILY [facility] Administration Famotidine 20 mg 08/31/16 10:00 09/01/16 09:51 Pepcid IVP 20 mg Q12 [facility] Administration Vancomycin HCl 1 gm/ Sodium 250 mls @ 166.7 mls/hr 08/27/16 22:15 08/31/16 22 :45 Chloride IVPB 166.7 mls/hr Q24H [facility] Administration Cefepime HCl 1 gm in 50 mls @ 100 mls/hr 08/31/16 03:00 09/01/16 11:58 Maxipime Iv 1 Gm Premix IVPB 100 mls/hr Q8H [facility] Administration Sodium Chloride 1,000 mls @ 50 mls/hr 08/31/16 09:30 09/01/16 11:59 Sodium Chloride 0.9% IV 50 mls/hr .Q20H [facility] Administration Dexmedetomidine HCl 200 mcg/ 50 mls @ 3.17 mls/hr 08/31/16 09:27 09/01/16 06: 00 Sodium Chloride IV 0.3 mcg/kg/hr TITR PRN 4.8 mls/hr Sedation Administration Protocol 0.2 MCG/KG/HR Insulin Aspart 0 unit 09/01/16 11:30 09/01/16 11:57 Novolog SC 2 unit ACHS [facility] Administration Protocol Methylprednisolone 40 mg 09/01/16 18:00 Solu-Medrol IVP Q6 [facility] Morphine Sulfate 2 mg 08/31/16 12:50 08/31/16 13:08 Morphine IVP 2 mg Q6 PRN Administration Pain, moderate (4-7) - Patient Studies Lab Studies: Microbiology Studies 08/31/16 12:08 Blood Culture - Preliminary Blood-Venous NO GROWTH AFTER 24 HOURS 08/31/16 12:08 Blood Culture - Preliminary Blood-Venous NO GROWTH AFTER 24 HOURS 08/30/16 21:00 Blood Culture - Preliminary Blood-Venous NO GROWTH AFTER 24 HOURS 08/28/16 18:19 Blood Culture - Preliminary Blood-Venous NO GROWTH AFTER 3 DAYS 08/28/16 16:00 Blood Culture - Preliminary Blood-Venous NO GROWTH AFTER 3 DAYS 08/31/16 11:39 Gram Stain - Final Trachasp 08/31/16 02:55 Gram Stain - Final Sputum Induced Lab Studies 09/01/16 09/01/16 09/01/16 Range/Units 14:34 11:28 10:34 WBC (4.8-10.8) K/uL RBC (4.40-5.90) Mil/uL Hgb (12.0-18.0) g/dL Hct (35.0-51.0) % MCV (80.0-94.0) fL MCH (27.0-31.0) pg MCHC (33.0-37.0) g/dL RDW (11.5-14.5) % Plt Count (130-400) K/uL MPV (7.2-11.7) fL Neut % (Auto) (50.0-75.0) % Lymph % (Auto) (20.0-40.0) % Garfield % (Auto) (0.0-10.0) % Eos % (Auto) (0.0-4.0) % Baso % (Auto) (0.0-2.0) % Neut # (1.8-7.0) K/uL Lymph # (1.0-4.3) K/uL Garfield # (0.0-0.8) K/uL Eos # (0.0-0.7) K/uL Baso # (0.0-0.2) K/uL Neutrophils % (Manual) (50-75) % Band Neutrophils % (0-2) % Lymphocytes % (Manual) (20-40) % Monocytes % (Manual) (0-10) % Platelet Estimate (NORMAL) Polychromasia Hypochromasia (manual) Anisocytosis (manual) Tear Drop Cells Puncture Site pCO2 (35-45) mm/Hg pO2 (80-100) mm/Hg HCO3 (21-28) mmol/L ABG pH (7.35-7.45) ABG Total CO2 (22-28) mmol/L ABG O2 Saturation (95-98) % ABG Base Excess (-2.0-3.0) mmol/L ABG Hemoglobin (11.7-17.4) g/dL ABG Carboxyhemoglobin (0.5-1.5) % POC ABG HHb (Measured) (0.0-5.0) % ABG Methemoglobin (0.0-3.0) % Jerad Test A-a O2 Difference mm/Hg Respiratory Index Hgb O2 Saturation (95.0-98.0) % Mechanical Rate FiO2 % Tidal Volume PEEP Sodium (132-148) mmol/L Potassium (3.6-5.2) mmol/L Chloride (98-107) mmol/L Carbon Dioxide (22-30) mmol/L Anion Gap (10-20) BUN (9-20) mg/dL Creatinine (0.8-1.5) MG/DL Est GFR ( Amer) Est GFR (Non-Af Amer) POC Glucose (mg/dL) 224 H (65-110) mg/dL Random Glucose (75-110) mg/dL Calcium (8.6-10.4) mg/dl Phosphorus (2.5-4.5) mg/dL Magnesium (1.6-2.3) mg/dL Total Bilirubin (0.2-1.3) mg/dL AST (17-59) U/L ALT (21-72) U/L Alkaline Phosphatase (38-126) U/L Total Protein (6.3-8.3) g/dL Albumin (3.5-5.0) g/dL Globulin (2.2-3.9) gm/dL Albumin/Globulin Ratio (1.0-2.1) Fluid Source Pleural Fluid Appearance Cloudy (CLEAR) Fluid WBC 22457.0 H (0.0-300.0) /mm3 Fluid RBC 53993.0 H (0.0-0.0) /mm3 Fluid Tot Cell Count 100 H (0-0) Fluid Neutrophils 90.0 H (0-0) % Fluid Lymphocytes 5.0 H (0-0) % Fld Monocyte/Macrophag 5 H (0-0) % Fluid Comment Ur L.pneumophila Ag Negative (NEGATIVE) Mycoplasma pneumon IgM Negative (NEGATIVE) 09/01/16 09/01/16 09/01/16 Range/Units 06:29 06:29 04:20 WBC 10.6 (4.8-10.8) K/uL RBC 3.38 L (4.40-5.90) Mil/uL Hgb 9.1 L (12.0-18.0) g/dL Hct 28.4 L (35.0-51.0) % MCV 84.1 (80.0-94.0) fL MCH 27.0 (27.0-31.0) pg MCHC 32.1 L (33.0-37.0) g/dL RDW 17.5 H (11.5-14.5) % Plt Count 324 (130-400) K/uL MPV 8.1 (7.2-11.7) fL Neut % (Auto) 90.1 H (50.0-75.0) % Lymph % (Auto) 6.1 L (20.0-40.0) % Garfield % (Auto) 3.6 (0.0-10.0) % Eos % (Auto) 0.0 (0.0-4.0) % Baso % (Auto) 0.2 (0.0-2.0) % Neut # 9.5 H (1.8-7.0) K/uL Lymph # 0.6 L (1.0-4.3) K/uL Garfield # 0.4 (0.0-0.8) K/uL Eos # 0.0 (0.0-0.7) K/uL Baso # 0.0 (0.0-0.2) K/uL Neutrophils % (Manual) 95 H (50-75) % Band Neutrophils % 1 (0-2) % Lymphocytes % (Manual) 2 L (20-40) % Monocytes % (Manual) 2 (0-10) % Platelet Estimate Normal (NORMAL) Polychromasia Slight Hypochromasia (manual) Slight Anisocytosis (manual) Slight Tear Drop Cells Slight Puncture Site Rr pCO2 29 L (35-45) mm/Hg pO2 88 (80-100) mm/Hg HCO3 20.1 L (21-28) mmol/L ABG pH 7.39 (7.35-7.45) ABG Total CO2 18.5 L (22-28) mmol/L ABG O2 Saturation 98.6 H (95-98) % ABG Base Excess -6.2 L (-2.0-3.0) mmol/L ABG Hemoglobin 11.8 (11.7-17.4) g/dL ABG Carboxyhemoglobin 1.8 H (0.5-1.5) % POC ABG HHb (Measured) 1.4 (0.0-5.0) % ABG Methemoglobin 0.9 (0.0-3.0) % Jerad Test Pos A-a O2 Difference 232.0 mm/Hg Respiratory Index 2.6 Hgb O2 Saturation 95.8 (95.0-98.0) % Mechanical Rate 15 FiO2 50.0 % Tidal Volume 450 PEEP 5 Sodium 134 (132-148) mmol/L Potassium 4.1 (3.6-5.2) mmol/L Chloride 107 (98-107) mmol/L Carbon Dioxide 21 L (22-30) mmol/L Anion Gap 10 (10-20) BUN 25 H (9-20) mg/dL Creatinine 0.8 (0.8-1.5) MG/DL Est GFR ( Amer) > 60 Est GFR (Non-Af Amer) > 60 POC Glucose (mg/dL) (65-110) mg/dL Random Glucose 232 H (75-110) mg/dL Calcium 8.5 L (8.6-10.4) mg/dl Phosphorus 3.9 (2.5-4.5) mg/dL Magnesium 2.0 (1.6-2.3) mg/dL Total Bilirubin 0.5 (0.2-1.3) mg/dL AST 31 (17-59) U/L ALT 11 L (21-72) U/L Alkaline Phosphatase 84 (38-126) U/L Total Protein 6.8 (6.3-8.3) g/dL Albumin 2.1 L (3.5-5.0) g/dL Globulin 4.7 H (2.2-3.9) gm/dL Albumin/Globulin Ratio 0.4 L (1.0-2.1) Fluid Source Fluid Appearance (CLEAR) Fluid WBC (0.0-300.0) /mm3 Fluid RBC (0.0-0.0) /mm3 Fluid Tot Cell Count (0-0) Fluid Neutrophils (0-0) % Fluid Lymphocytes (0-0) % Fld Monocyte/Macrophag (0-0) % Fluid Comment Ur L.pneumophila Ag (NEGATIVE) Mycoplasma pneumon IgM (NEGATIVE) Laboratory Results - last 24 hr 09/01/16 09/01/16 09/01/16 04:20 06:29 06:29 WBC 10.6 RBC 3.38 L Hgb 9.1 L Hct 28.4 L MCV 84.1 MCH 27.0 MCHC 32.1 L RDW 17.5 H Plt Count 324 MPV 8.1 Neut % (Auto) 90.1 H Lymph % (Auto) 6.1 L Garfield % (Auto) 3.6 Eos % (Auto) 0.0 Baso % (Auto) 0.2 Neut # 9.5 H Lymph # 0.6 L Garfield # 0.4 Eos # 0.0 Baso # 0.0 Neutrophils % (Manual) 95 H Band Neutrophils % 1 Lymphocytes % (Manual) 2 L Monocytes % (Manual) 2 Platelet Estimate Normal Polychromasia Slight Hypochromasia (manual) Slight Anisocytosis (manual) Slight Tear Drop Cells Slight Puncture Site Rr pCO2 29 L pO2 88 HCO3 20.1 L ABG pH 7.39 ABG Total CO2 18.5 L ABG O2 Saturation 98.6 H ABG Base Excess -6.2 L ABG Hemoglobin 11.8 ABG Carboxyhemoglobin 1.8 H POC ABG HHb (Measured) 1.4 ABG Methemoglobin 0.9 Jerad Test Pos A-a O2 Difference 232.0 Respiratory Index 2.6 Hgb O2 Saturation 95.8 Mechanical Rate 15 FiO2 50.0 Tidal Volume 450 PEEP 5 Sodium 134 Potassium 4.1 Chloride 107 Carbon Dioxide 21 L Anion Gap 10 BUN 25 H Creatinine 0.8 Est GFR ( Amer) > 60 Est GFR (Non-Af Amer) > 60 POC Glucose (mg/dL) Random Glucose 232 H Calcium 8.5 L Phosphorus 3.9 Magnesium 2.0 Total Bilirubin 0.5 AST 31 ALT 11 L Alkaline Phosphatase 84 Total Protein 6.8 Albumin 2.1 L Globulin 4.7 H Albumin/Globulin Ratio 0.4 L Fluid Source Fluid Appearance Fluid WBC Fluid RBC Fluid Tot Cell Count Fluid Neutrophils Fluid Lymphocytes Fld Monocyte/Macrophag Fluid Comment Ur L.pneumophila Ag Mycoplasma pneumon IgM 09/01/16 09/01/16 09/01/16 10:34 11:28 14:34 WBC RBC Hgb Hct MCV MCH MCHC RDW Plt Count MPV Neut % (Auto) Lymph % (Auto) Garfield % (Auto) Eos % (Auto) Baso % (Auto) Neut # Lymph # Garfield # Eos # Baso # Neutrophils % (Manual) Band Neutrophils % Lymphocytes % (Manual) Monocytes % (Manual) Platelet Estimate Polychromasia Hypochromasia (manual) Anisocytosis (manual) Tear Drop Cells Puncture Site pCO2 pO2 HCO3 ABG pH ABG Total CO2 ABG O2 Saturation ABG Base Excess ABG Hemoglobin ABG Carboxyhemoglobin POC ABG HHb (Measured) ABG Methemoglobin Jerad Test A-a O2 Difference Respiratory Index Hgb O2 Saturation Mechanical Rate FiO2 Tidal Volume PEEP Sodium Potassium Chloride Carbon Dioxide Anion Gap BUN Creatinine Est GFR ( Amer) Est GFR (Non-Af Amer) POC Glucose (mg/dL) 224 H Random Glucose Calcium Phosphorus Magnesium Total Bilirubin AST ALT Alkaline Phosphatase Total Protein Albumin Globulin Albumin/Globulin Ratio Fluid Source Pleural Fluid Appearance Cloudy Fluid WBC 93424.0 H Fluid RBC 05817.0 H Fluid Tot Cell Count 100 H Fluid Neutrophils 90.0 H Fluid Lymphocytes 5.0 H Fld Monocyte/Macrophag 5 H Fluid Comment Ur L.pneumophila Ag Negative Mycoplasma pneumon IgM Negative Critical Care Progress Note - Nutrition Nutrition: Nutrition Category Date Time Status NPO Diet [DIET] Diets 08/31/16 Breakfast Active Attending/Attestation - Attestation I have personally seen and examined this patient.: Yes I have fully participated in the care of the patient.: Yes I have reviewed all pertinent clinical information: Yes Notes (Text): 09/01/16 16:21 Patient seen and examined in the intensive care unit. Case discussed with staff in the morning rounds. Remains intubated on ventilatory support Status post pigtail catheter insertion under ultrasound on the right side, 1100 mL of straw-colored fluid drained Continue antibiotics taper of sedation Started on high-dose steroids
[2016-09-01 11:24] LABS: LEGIONELLA AG URINE NEGATIVE (NEGATIVE)
[2016-09-01] MEDS: (Novolog) Insulin Aspart, Recombinant 100 u/ml 10 ml vial SC SCH ×2 (11:57→18:26)
[2016-09-01] MEDS ORDERED: MethylPREDNISolone 40 mg Vial IVP SCH (12:00)
[2016-09-01] MEDS ORDERED: Lidocaine 2% Inj (20ml) ONE (13:25)
[2016-09-01] MEDS ORDERED: Midazolam 2 MG/2 ML VIAL ONE (13:29)
[2016-09-01] MEDS ORDERED: Midazolam 2 MG/2 ML VIAL IVP ONE (13:52)
[2016-09-01] MEDS ORDERED: Lidocaine 2% Inj (20ml) INFIL ONE (13:52)
[2016-09-01 14:36] LABS: BODY FLUID TYPE PLEURAL
--- NOTE | 2016-09-01 15:21 | RAD ---
HISTORY: s/p chest tube/pigtail placement COMPARISON: 09/01/2016 FINDINGS: LUNGS: Interval insertion of a right pigtail catheter at the right lung base. Improved now small right pleural effusion. Patchy airspace opacities in the mid to lower lung zones bilaterally. Diffuse increased interstitial lung markings. Biapical pleural thickening with upper lobe granulomatous changes. Other lines and tubes stable position. PLEURA: As above. CARDIOVASCULAR: Cardiomegaly. Left-sided pacemaker. OSSEOUS STRUCTURES: Degenerative changes in the spine and shoulders. VISUALIZED UPPER ABDOMEN: Normal. OTHER FINDINGS: None. IMPRESSION: Interval insertion of a right pigtail catheter. No evidence of gross postprocedure pneumothorax.
[2016-09-01 15:27] LABS: BF GROSS APPEARANCE CLOUDY (CLEAR)
[2016-09-01 15:28] LABS: BODY FLUID TOTAL COUNT 100 (0-0)
[2016-09-01] MEDS: MethylPREDNISolone 40 mg Vial IVP SCH (18:26)
--- NOTE | 2016-09-01 19:04 | PN ---
DATE: 09/01/2016 The patient is in the intensive care unit. Was transferred because of aspiration pneumonia, sepsis with hypoxia and was intubated and placed on respirator and is on ventilatory supportive. PHYSICAL EXAMINATION: VITAL SIGNS: He is now afebrile with blood pressure of 104/44, pulse rate 78, respirations 17, while on the respirator and hemoglobin oxygen saturation of 100 %. GENERAL: He is under sedation and has a right chest tube in place for drainage of the right pleural effusion. HEART: Regular. There is no gallop rhythm. Has pacemaker in the chest wall. ABDOMEN: Soft. Colostomy bag present with signs of prior surgery. Legs no edema. LABORATORY DATA: White count 10,600, hemoglobin 9.1, platelet count 324,000. His arterial blood gases show pH of 7.39, pCO2 of 29, pO2 of 88 with a bicarb of 20. Hemoglobin oxygen saturation of 99% on FIO2 of 50%, tidal volume 450, PRBC 15 and peep of 5. Chest x-ray continues to show bilateral interstitial pattern. Pleural effusion is decreased and there is possible basal atelectasis. Serum sodium 134, potassium 4.1, chloride 107, carbon dioxide 21, BUN 25, creatinine 0.8, glucose 232, magnesium 2. Serum albumin 2.1. Pleural fluid revealed lots of RBCs and 90% of neutrophils and lymphocytes of 5%._. Vancomycin trough level was reported at 11.5, which is high. Serology showed mycoplasma IgM negative, Legionella antigen negative. IMPRESSION: Respiratory failure, sepsis, pneumonia, pleural effusion, interstitial pneumonitis, cardiomyopathy, status post cardiac pacemaker insertion, remote resection of carcinoma of the colon, status post colostomy, prostatic mass and urosepsis. PLAN: To continue with the current medications including bronchodilators and antibiotics and I recommend to continue with urology, GI, renal and infectious disease followup as well as endocrinology followup. We will continue with ventilatory supportive with ventilatory changes as necessity and as dictated by the patient's condition. The patient condition discussed with Dr. Escobar, who had placed the chest tube in the right chest for drainage of right pleural effusion. Alessandro Hayes MD cc: [id number] TT: 09/01/2016 19:04:02 Confirmation # [id number] Dictation # [id number] [facility]
--- NOTE | 2016-09-01 21:22 | US ---
Limited right hemithorax ultrasound History: Pleural effusion. Comparison: X-ray dated 09/01/2016 Findings: Limited ultrasound through the right carol thorax which demonstrates a prominent right pleural effusion. This was marked for pleural drain placement. Impression: Limited ultrasound through the right carol thorax which demonstrates a prominent right pleural effusion. This was marked for pleural drain placement.
--- NOTE | 2016-09-01 22:49 | CP.PCM.PN ---
Subjective - Date & Time of Evaluation Date of Evaluation: 09/01/16 Time of Evaluation: 13:20 - Subjective Subjective: Patient still intubated. chest xray reveals loculated effusion of the right lung with diffused bilateral fibrosis. Dr Aguila to insert chest tube. Continue vancomycin IV. Objective - Vital Signs/Intake and Output Vital Signs (last 24 hours): Temp Pulse Resp BP Pulse Ox 100.1 F H 80 18 106/49 L 100 09/01/16 20:00 09/01/16 22:04 09/01/16 22:04 09/01/16 22:04 09/01/16 22:04 Intake and Output: 09/01/16 09/02/16 18:59 06:59 Intake Total 1437.6 496.2 Output Total 1700 225 Balance -262.4 271.2 - Medications Medications: Current Medications Acetaminophen (Tylenol 650mg/20.3ml Solution Ud) 650 mg PO Q4H PRN PRN Reason: Fever >100.4 F Last Admin: 08/31/16 13:06 Dose: 650 mg Albuterol/Ipratropium (Duoneb 3 Mg/0.5 Mg (3 Ml) Ud) 3 ml INH RQ6 [facility] Last Admin: 09/01/16 19:36 Dose: 3 ml Baclofen (Lioresal) 10 mg PO BID [facility] Last Admin: 09/01/16 17:08 Dose: 10 mg Enoxaparin Sodium (Lovenox) 40 mg SC DAILY [facility] Last Admin: 09/01/16 09:50 Dose: 40 mg Famotidine (Pepcid) 20 mg IVP Q12 [facility] Last Admin: 09/01/16 21:12 Dose: 20 mg Vancomycin HCl 1 gm/ Sodium (Chloride) 250 mls @ 166.7 mls/hr IVPB Q24H [facility] Last Admin: 09/01/16 21:16 Dose: 166.7 mls/hr Cefepime HCl (Maxipime Iv 1 Gm Premix) 1 gm in 50 mls @ 100 mls/hr IVPB Q8H [facility] Last Admin: 09/01/16 18:26 Dose: 100 mls/hr Sodium Chloride (Sodium Chloride 0.9%) 1,000 mls @ 50 mls/hr IV .Q20H [facility] Last Admin: 09/01/16 11:59 Dose: 50 mls/hr Dexmedetomidine HCl 200 mcg/ (Sodium Chloride) 50 mls @ 3.17 mls/hr IV TITR PRN ; Protocol; 0.2 MCG/KG/HR PRN Reason: Sedation Last Admin: 09/01/16 17:08 Dose: 0.3 mcg/kg/hr, 4.8 mls/hr Insulin Aspart (Novolog) 0 unit SC Q6 [facility] PRN Reason: Protocol Methylprednisolone (Solu-Medrol) 40 mg IVP Q6 [facility] Last Admin: 09/01/16 18:26 Dose: 40 mg Morphine Sulfate (Morphine) 2 mg IVP Q6 PRN PRN Reason: Pain, moderate (4-7) Last Admin: 09/01/16 22:37 Dose: 2 mg - Labs Labs: 09/01/16 06:29 09/01/16 06:29 PT 17.6 SECONDS (9.7-12.2) H 08/31/16 02:36 INR 1.5 08/31/16 02:36 APTT 34 SECONDS (21-34) 08/31/16 02:36 - Constitutional Appears: Chronically Ill - Head Exam Head Exam: NORMAL INSPECTION - Eye Exam Eye Exam: Normal appearance Pupil Exam: NORMAL ACCOMODATION - Neck Exam Neck Exam: Tenderness - Respiratory Exam Respiratory Exam: Decreased Breath Sounds - Cardiovascular Exam Cardiovascular Exam: REGULAR RHYTHM - GI/Abdominal Exam GI & Abdominal Exam: Hyperactive Bowel Sounds - Rectal Exam Rectal Exam: Deferred - Exam Exam: NORMAL INSPECTION - Extremities Exam Extremities Exam: Pedal Edema - Neurological Exam Neurological Exam: Altered - Skin Skin Exam: Dry Assessment and Plan (1) Dehydration Status: Acute (2) Altered mental status, unspecified Status: Acute (3) Hydrocephalus Status: Acute (4) Chronic obstructive airway disease Status: Acute (5) Psoriatic arthritis Status: Acute (6) Endotracheally intubated Status: Acute (7) Pacemaker Status: Acute
[2016-09-02] MEDS: MethylPREDNISolone 40 mg Vial IVP SCH ×4 (00:36→18:11)
[2016-09-02] MEDS: (Novolog) Insulin Aspart, Recombinant 100 u/ml 10 ml vial SC SCH ×4 (00:57→18:13)
[2016-09-02] MEDS: Albuterol-Ipratrop 3 mg / 0.5 (3 ml) UD INH SCH ×4 (01:21→19:41)
[2016-09-02] MEDS: Sodium Chloride 0.9% 1,000 ML IV SCH ×3 (01:49→22:26)
[2016-09-02] MEDS: Dexmedetomidine Hydrochloride 200 MCG in Sodium Chloride 0.9% 48 ML IV PRN (01:49)
[2016-09-02] MEDS: Cefepime IV 1 gm in Dextrose 1 GM/50 ML BAG IVPB SCH ×3 (03:00→18:11)
[2016-09-02 05:41] LABS: ABG ALLEN TEST POS; ABG MECHANICAL RATE 15; ARTERIAL BLOOD HGB O2 SAT 97.4 % (95.0-98.0); ATERIAL BLOOD GAS PEEP 5; CARBOXYHEMOGLOBIN 1.3 % (0.5-1.5); DRAW SITE RR; HHB 0.2 % (0.0-5.0)
[2016-09-02 06:22] LABS: BASO % 0.1 % (0.0-2.0); HEMATOCRIT 24.9 % (35.0-51.0); LYMPH # 0.6 K/uL (1.0-4.3); MEAN CELL VOLUME 83.9 fL (80.0-94.0); MEAN CORPUSCULAR HEMOGLOBIN 27.3 pg (27.0-31.0); MEAN CORPUSCULAR HGB CONC 32.5 g/dL (33.0-37.0); MEAN PLATELET VOLUME 7.9 fL (7.2-11.7); MONO # 0.3 K/uL (0.0-0.8); MONO % 4.1 % (0.0-10.0); PLATELET COUNT 267 K/uL (130-400); RED CELL DISTRIBUTION WIDTH 17.7 % (11.5-14.5); WHITE BLOOD COUNT 6.6 K/uL (4.8-10.8)
[2016-09-02 06:41] LABS: CHLORIDE 113 mmol/L (98-107)
[2016-09-02 06:42] LABS: POTASSIUM 3.2 mmol/L (3.6-5.2); SODIUM 138 mmol/L (132-148)
[2016-09-02 06:44] LABS: GFR AFRICAN-AMERICAN > 60
[2016-09-02 06:45] LABS: ALB/GLOB RATIO 0.4 (1.0-2.1); ALKALINE PHOSPHATASE 62 U/L (38-126); ALT/SGPT 13 U/L (21-72); AST/SGOT 24 U/L (17-59); BILIRUBIN,TOTAL 0.4 mg/dL (0.2-1.3); BLOOD UREA NITROGEN 25 mg/dL (9-20); CARBON DIOXIDE 19 mmol/L (22-30); GLUCOSE,RANDOM 199 mg/dL (75-110); PHOSPHOROUS 2.9 mg/dL (2.5-4.5); TOTAL PROTEIN 5.9 g/dL (6.3-8.3)
[2016-09-02 06:46] LABS: CALCIUM 6.8 mg/dl (8.6-10.4); MAGNESIUM 2.1 mg/dL (1.6-2.3)
[2016-09-02] MEDS ORDERED: Potassium Chloride 20 mEq/15 ml LIQ UD PO ONE (07:45)
[2016-09-02 08:18] LABS: NEUTROPHIL 88 % (50-75); TOTAL CELLS COUNTED 100
--- NOTE | 2016-09-02 08:37 | RAD ---
HISTORY: follow up post chest tube yesterday COMPARISON: 09/01/2016 FINDINGS: LUNGS: Lines and tubes stable position. Diffuse ill-defined confluent airspace opacities projecting over the lateral aspect of the right lung zone as well as the bilateral lung bases. Diffuse chronic interstitial lung markings. Biapical pleural thickening with upper lobe granulomatous changes. Prominent emphysematous bleb at the left lung apex. PLEURA: As above. CARDIOVASCULAR: Cardiomegaly. Left-sided pacemaker. OSSEOUS STRUCTURES: Degenerative changes in the spine and shoulders. VISUALIZED UPPER ABDOMEN: Normal. OTHER FINDINGS: None. IMPRESSION: Lines and tubes stable position. Diffuse ill-defined confluent airspace opacities projecting over the lateral aspect of the right lung zone as well as the bilateral lung bases. Diffuse chronic interstitial lung markings. Biapical pleural thickening with upper lobe granulomatous changes. Prominent emphysematous bleb at the left lung apex.
[2016-09-02] MEDS: Enoxaparin 40 mg Syringe SC SCH (09:58)
--- NOTE | 2016-09-02 10:11 | CP.CCUPN ---
<Taras Mejia - Last Filed: 09/02/16 10:08> CCU Subjective - Physician Review Subjective (Free Text): 09/02/16 10:08 PGY-1 ICU progress note Pt seen and examined at bedside. No overnight issues. Pt still intubated and sedated. Critical Care Time Spent (in minutes): 35 CCU Objective - Vital Signs / Intake & Output Vital Signs (Last 4 hours): Vital Signs Pulse Resp BP Pulse Ox 09/02/16 07:01 72 15 121/55 L 100 Intake and Output (Last 8hrs): Intake & Output 09/01/16 09/02/16 09/02/16 22:59 06:59 14:59 Intake Total 1005.4 951.4 99.8 Output Total 1525 655 60 Balance -519.6 296.4 39.8 Weight 158 lb 1.6 oz Intake: IV 50 50 Intake, IV Amount 605.4 546.4 54.8 Left Forearm 38.4 38.4 4.8 Right Port-A-Cath 567 508 50 Oral 30 Tube Feeding 320 355 45 Output: Chest Tube Drainage 1100 80 Right Posterior Chest 1100 80 Urine 425 575 60 Urethral (Stahl) 425 575 60 Other: # Bowel Movements 0 - Physical Exam Head: Positive for: Atraumatic, Normocephalic Respiratory/Chest: Positive for: Clear to Auscultation, Good Air Exchange, Other (initubated) Cardiovascular: Positive for: Normal S1, S2 Abdomen: Positive for: Normal Bowel Sounds. Negative for: Distention Lower Extremity: Positive for: NORMAL PULSES Neurological: Positive for: Other (intubated) Skin: Positive for: Warm, Dry Psychiatric: Positive for: Other (sedated) - Medications Active Medications: Active Medications Generic Name Dose Route Start Last Admin Trade Name Freq PRN Reason Stop Dose Admin Acetaminophen 650 mg 08/31/16 12:50 08/31/16 13:06 Tylenol 650mg/20.3ml Solution Ud PO 650 mg Q4H PRN Administration Fever >100.4 F Albuterol/Ipratropium 3 ml 08/31/16 14:00 09/02/16 08:06 Duoneb 3 Mg/0.5 Mg (3 Ml) Ud INH 3 ml RQ6 [facility] Administration Baclofen 10 mg 08/25/16 18:00 09/02/16 09:58 Lioresal PO 10 mg BID [facility] Administration Enoxaparin Sodium 40 mg 08/25/16 10:00 09/02/16 09:58 Lovenox SC 40 mg DAILY [facility] Administration Famotidine 20 mg 08/31/16 10:00 09/02/16 09:58 Pepcid IVP 20 mg Q12 [facility] Administration Vancomycin HCl 1 gm/ Sodium 250 mls @ 166.7 mls/hr 08/27/16 22:15 09/01/16 21 :16 Chloride IVPB 166.7 mls/hr Q24H [facility] Administration Cefepime HCl 1 gm in 50 mls @ 100 mls/hr 08/31/16 03:00 09/02/16 09:59 Maxipime Iv 1 Gm Premix IVPB 100 mls/hr Q8H [facility] Administration Sodium Chloride 1,000 mls @ 50 mls/hr 08/31/16 09:30 09/02/16 08:08 Sodium Chloride 0.9% IV 50 mls/hr .Q20H [facility] Administration Dexmedetomidine HCl 200 mcg/ 50 mls @ 3.17 mls/hr 08/31/16 09:27 09/02/16 01: 49 Sodium Chloride IV 0.3 mcg/kg/hr TITR PRN 4.8 mls/hr Sedation Administration Protocol 0.2 MCG/KG/HR Albumin Human 50 mls @ 1 mls/min 09/02/16 09:15 Albumin Human 25% (12.5 Gm/50 Ml) IVPB 09/03/16 10:04 Q8H [facility] Insulin Aspart 0 unit 09/02/16 09:09 Novolog SC Q6 [facility] Protocol Methylprednisolone 40 mg 09/01/16 18:00 09/02/16 05:22 Solu-Medrol IVP 40 mg Q6 [facility] Administration Morphine Sulfate 2 mg 08/31/16 12:50 09/01/16 22:37 Morphine IVP 2 mg Q6 PRN Administration Pain, moderate (4-7) - Patient Studies Lab Studies: Microbiology Studies 08/30/16 21:00 Blood Culture - Preliminary Blood-Venous NO GROWTH AFTER 48 HOURS 09/01/16 13:48 Gram Stain - Final Pleural Fluid 08/28/16 18:19 Blood Culture - Preliminary Blood-Venous NO GROWTH AFTER 4 DAYS 08/28/16 16:00 Blood Culture - Preliminary Blood-Venous NO GROWTH AFTER 4 DAYS 08/31/16 12:08 Blood Culture - Preliminary Blood-Venous NO GROWTH AFTER 24 HOURS 08/31/16 12:08 Blood Culture - Preliminary Blood-Venous NO GROWTH AFTER 24 HOURS Lab Studies 09/02/16 09/02/16 09/02/16 Range/Units 06:17 06:17 05:20 WBC 6.6 (4.8-10.8) K/uL RBC 2.97 L (4.40-5.90) Mil/uL Hgb 8.1 L (12.0-18.0) g/dL Hct 24.9 L (35.0-51.0) % MCV 83.9 (80.0-94.0) fL MCH 27.3 (27.0-31.0) pg MCHC 32.5 L (33.0-37.0) g/dL RDW 17.7 H (11.5-14.5) % Plt Count 267 (130-400) K/uL MPV 7.9 (7.2-11.7) fL Neut % (Auto) 86.8 H (50.0-75.0) % Lymph % (Auto) 9.0 L (20.0-40.0) % [place] % (Auto) 4.1 (0.0-10.0) % Eos % (Auto) 0.0 (0.0-4.0) % Baso % (Auto) 0.1 (0.0-2.0) % Neut # 5.7 (1.8-7.0) K/uL Lymph # 0.6 L (1.0-4.3) K/uL [place] # 0.3 (0.0-0.8) K/uL Eos # 0.0 (0.0-0.7) K/uL Baso # 0.0 (0.0-0.2) K/uL Neutrophils % (Manual) 88 H (50-75) % Band Neutrophils % 1 (0-2) % Lymphocytes % (Manual) 6 L (20-40) % Monocytes % (Manual) 5 (0-10) % Platelet Estimate Normal (NORMAL) Anisocytosis (manual) Slight Puncture Site Rr pCO2 30 L (35-45) mm/Hg pO2 233 H (80-100) mm/Hg HCO3 21.7 (21-28) mmol/L ABG pH 7.42 (7.35-7.45) ABG Total CO2 20.4 L (22-28) mmol/L ABG O2 Saturation 99.8 H (95-98) % ABG Base Excess -4.2 L (-2.0-3.0) mmol/L ABG Hemoglobin 9.4 L (11.7-17.4) g/dL ABG Carboxyhemoglobin 1.3 (0.5-1.5) % POC ABG HHb (Measured) 0.2 (0.0-5.0) % ABG Methemoglobin 1.0 (0.0-3.0) % Jerad Test Pos A-a O2 Difference 86.0 mm/Hg Respiratory Index 0.4 Hgb O2 Saturation 97.4 (95.0-98.0) % Mechanical Rate 15 FiO2 50.0 % Tidal Volume 450 PEEP 5 Sodium 138 (132-148) mmol/L Potassium 3.2 L (3.6-5.2) mmol/L Chloride 113 H (98-107) mmol/L Carbon Dioxide 19 L (22-30) mmol/L Anion Gap 9 L (10-20) BUN 25 H (9-20) mg/dL Creatinine 0.7 L (0.8-1.5) MG/DL Est GFR ( Amer) > 60 Est GFR (Non-Af Amer) > 60 POC Glucose (mg/dL) (65-110) mg/dL Random Glucose 199 H (75-110) mg/dL Calcium 6.8 L (8.6-10.4) mg/dl Phosphorus 2.9 (2.5-4.5) mg/dL Magnesium 2.1 (1.6-2.3) mg/dL Total Bilirubin 0.4 (0.2-1.3) mg/dL AST 24 (17-59) U/L ALT 13 L (21-72) U/L Alkaline Phosphatase 62 (38-126) U/L Total Protein 5.9 L (6.3-8.3) g/dL Albumin 1.7 L (3.5-5.0) g/dL Globulin 4.2 H (2.2-3.9) gm/dL Albumin/Globulin Ratio 0.4 L (1.0-2.1) Fluid Source Fluid Appearance (CLEAR) Fluid WBC (0.0-300.0) /mm3 Fluid RBC (0.0-0.0) /mm3 Fluid Tot Cell Count (0-0) Fluid Neutrophils (0-0) % Fluid Lymphocytes (0-0) % Fld Monocyte/Macrophag (0-0) % Fluid Comment Ur L.pneumophila Ag (NEGATIVE) Mycoplasma pneumon IgM (NEGATIVE) 09/02/16 09/02/16 09/01/16 Range/Units 05:17 00:54 17:48 WBC (4.8-10.8) K/uL RBC (4.40-5.90) Mil/uL Hgb (12.0-18.0) g/dL Hct (35.0-51.0) % MCV (80.0-94.0) fL MCH (27.0-31.0) pg MCHC (33.0-37.0) g/dL RDW (11.5-14.5) % Plt Count (130-400) K/uL MPV (7.2-11.7) fL Neut % (Auto) (50.0-75.0) % Lymph % (Auto) (20.0-40.0) % [place] % (Auto) (0.0-10.0) % Eos % (Auto) (0.0-4.0) % Baso % (Auto) (0.0-2.0) % Neut # (1.8-7.0) K/uL Lymph # (1.0-4.3) K/uL [place] # (0.0-0.8) K/uL Eos # (0.0-0.7) K/uL Baso # (0.0-0.2) K/uL Neutrophils % (Manual) (50-75) % Band Neutrophils % (0-2) % Lymphocytes % (Manual) (20-40) % Monocytes % (Manual) (0-10) % Platelet Estimate (NORMAL) Anisocytosis (manual) Puncture Site pCO2 (35-45) mm/Hg pO2 (80-100) mm/Hg HCO3 (21-28) mmol/L ABG pH (7.35-7.45) ABG Total CO2 (22-28) mmol/L ABG O2 Saturation (95-98) % ABG Base Excess (-2.0-3.0) mmol/L ABG Hemoglobin (11.7-17.4) g/dL ABG Carboxyhemoglobin (0.5-1.5) % POC ABG HHb (Measured) (0.0-5.0) % ABG Methemoglobin (0.0-3.0) % Jerad Test A-a O2 Difference mm/Hg Respiratory Index Hgb O2 Saturation (95.0-98.0) % Mechanical Rate FiO2 % Tidal Volume PEEP Sodium (132-148) mmol/L Potassium (3.6-5.2) mmol/L Chloride (98-107) mmol/L Carbon Dioxide (22-30) mmol/L Anion Gap (10-20) BUN (9-20) mg/dL Creatinine (0.8-1.5) MG/DL Est GFR ( Amer) Est GFR (Non-Af Amer) POC Glucose (mg/dL) 242 H 246 H 231 H (65-110) mg/dL Random Glucose (75-110) mg/dL Calcium (8.6-10.4) mg/dl Phosphorus (2.5-4.5) mg/dL Magnesium (1.6-2.3) mg/dL Total Bilirubin (0.2-1.3) mg/dL AST (17-59) U/L ALT (21-72) U/L Alkaline Phosphatase (38-126) U/L Total Protein (6.3-8.3) g/dL Albumin (3.5-5.0) g/dL Globulin (2.2-3.9) gm/dL Albumin/Globulin Ratio (1.0-2.1) Fluid Source Fluid Appearance (CLEAR) Fluid WBC (0.0-300.0) /mm3 Fluid RBC (0.0-0.0) /mm3 Fluid Tot Cell Count (0-0) Fluid Neutrophils (0-0) % Fluid Lymphocytes (0-0) % Fld Monocyte/Macrophag (0-0) % Fluid Comment Ur L.pneumophila Ag (NEGATIVE) Mycoplasma pneumon IgM (NEGATIVE) 09/01/16 09/01/16 09/01/16 Range/Units 14:34 11:28 10:34 WBC (4.8-10.8) K/uL RBC (4.40-5.90) Mil/uL Hgb (12.0-18.0) g/dL Hct (35.0-51.0) % MCV (80.0-94.0) fL MCH (27.0-31.0) pg MCHC (33.0-37.0) g/dL RDW (11.5-14.5) % Plt Count (130-400) K/uL MPV (7.2-11.7) fL Neut % (Auto) (50.0-75.0) % Lymph % (Auto) (20.0-40.0) % [place] % (Auto) (0.0-10.0) % Eos % (Auto) (0.0-4.0) % Baso % (Auto) (0.0-2.0) % Neut # (1.8-7.0) K/uL Lymph # (1.0-4.3) K/uL [place] # (0.0-0.8) K/uL Eos # (0.0-0.7) K/uL Baso # (0.0-0.2) K/uL Neutrophils % (Manual) (50-75) % Band Neutrophils % (0-2) % Lymphocytes % (Manual) (20-40) % Monocytes % (Manual) (0-10) % Platelet Estimate (NORMAL) Anisocytosis (manual) Puncture Site pCO2 (35-45) mm/Hg pO2 (80-100) mm/Hg HCO3 (21-28) mmol/L ABG pH (7.35-7.45) ABG Total CO2 (22-28) mmol/L ABG O2 Saturation (95-98) % ABG Base Excess (-2.0-3.0) mmol/L ABG Hemoglobin (11.7-17.4) g/dL ABG Carboxyhemoglobin (0.5-1.5) % POC ABG HHb (Measured) (0.0-5.0) % ABG Methemoglobin (0.0-3.0) % Jerad Test A-a O2 Difference mm/Hg Respiratory Index Hgb O2 Saturation (95.0-98.0) % Mechanical Rate FiO2 % Tidal Volume PEEP Sodium (132-148) mmol/L Potassium (3.6-5.2) mmol/L Chloride (98-107) mmol/L Carbon Dioxide (22-30) mmol/L Anion Gap (10-20) BUN (9-20) mg/dL Creatinine (0.8-1.5) MG/DL Est GFR ( Amer) Est GFR (Non-Af Amer) POC Glucose (mg/dL) 224 H (65-110) mg/dL Random Glucose (75-110) mg/dL Calcium (8.6-10.4) mg/dl Phosphorus (2.5-4.5) mg/dL Magnesium (1.6-2.3) mg/dL Total Bilirubin (0.2-1.3) mg/dL AST (17-59) U/L ALT (21-72) U/L Alkaline Phosphatase (38-126) U/L Total Protein (6.3-8.3) g/dL Albumin (3.5-5.0) g/dL Globulin (2.2-3.9) gm/dL Albumin/Globulin Ratio (1.0-2.1) Fluid Source Pleural Fluid Appearance Cloudy (CLEAR) Fluid WBC 63594.0 H (0.0-300.0) /mm3 Fluid RBC 82209.0 H (0.0-0.0) /mm3 Fluid Tot Cell Count 100 H (0-0) Fluid Neutrophils 90.0 H (0-0) % Fluid Lymphocytes 5.0 H (0-0) % Fld Monocyte/Macrophag 5 H (0-0) % Fluid Comment Ur L.pneumophila Ag Negative (NEGATIVE) Mycoplasma pneumon IgM Negative (NEGATIVE) Laboratory Results - last 24 hr 09/01/16 09/01/16 09/01/16 10:34 11:28 14:34 WBC RBC Hgb Hct MCV MCH MCHC RDW Plt Count MPV Neut % (Auto) Lymph % (Auto) [place] % (Auto) Eos % (Auto) Baso % (Auto) Neut # Lymph # [place] # Eos # Baso # Neutrophils % (Manual) Band Neutrophils % Lymphocytes % (Manual) Monocytes % (Manual) Platelet Estimate Anisocytosis (manual) Puncture Site pCO2 pO2 HCO3 ABG pH ABG Total CO2 ABG O2 Saturation ABG Base Excess ABG Hemoglobin ABG Carboxyhemoglobin POC ABG HHb (Measured) ABG Methemoglobin Jerad Test A-a O2 Difference Respiratory Index Hgb O2 Saturation Mechanical Rate FiO2 Tidal Volume PEEP Sodium Potassium Chloride Carbon Dioxide Anion Gap BUN Creatinine Est GFR ( Amer) Est GFR (Non-Af Amer) POC Glucose (mg/dL) 224 H Random Glucose Calcium Phosphorus Magnesium Total Bilirubin AST ALT Alkaline Phosphatase Total Protein Albumin Globulin Albumin/Globulin Ratio Fluid Source Pleural Fluid Appearance Cloudy Fluid WBC 12825.0 H Fluid RBC 04438.0 H Fluid Tot Cell Count 100 H Fluid Neutrophils 90.0 H Fluid Lymphocytes 5.0 H Fld Monocyte/Macrophag 5 H Fluid Comment Ur L.pneumophila Ag Negative Mycoplasma pneumon IgM Negative 09/01/16 09/02/16 09/02/16 17:48 00:54 05:17 WBC RBC Hgb Hct MCV MCH MCHC RDW Plt Count MPV Neut % (Auto) Lymph % (Auto) [place] % (Auto) Eos % (Auto) Baso % (Auto) Neut # Lymph # [place] # Eos # Baso # Neutrophils % (Manual) Band Neutrophils % Lymphocytes % (Manual) Monocytes % (Manual) Platelet Estimate Anisocytosis (manual) Puncture Site pCO2 pO2 HCO3 ABG pH ABG Total CO2 ABG O2 Saturation ABG Base Excess ABG Hemoglobin ABG Carboxyhemoglobin POC ABG HHb (Measured) ABG Methemoglobin Jerad Test A-a O2 Difference Respiratory Index Hgb O2 Saturation Mechanical Rate FiO2 Tidal Volume PEEP Sodium Potassium Chloride Carbon Dioxide Anion Gap BUN Creatinine Est GFR ( Amer) Est GFR (Non-Af Amer) POC Glucose (mg/dL) 231 H 246 H 242 H Random Glucose Calcium Phosphorus Magnesium Total Bilirubin AST ALT Alkaline Phosphatase Total Protein Albumin Globulin Albumin/Globulin Ratio Fluid Source Fluid Appearance Fluid WBC Fluid RBC Fluid Tot Cell Count Fluid Neutrophils Fluid Lymphocytes Fld Monocyte/Macrophag Fluid Comment Ur L.pneumophila Ag Mycoplasma pneumon IgM 09/02/16 09/02/16 09/02/16 05:20 06:17 06:17 WBC 6.6 RBC 2.97 L Hgb 8.1 L Hct 24.9 L MCV 83.9 MCH 27.3 MCHC 32.5 L RDW 17.7 H Plt Count 267 MPV 7.9 Neut % (Auto) 86.8 H Lymph % (Auto) 9.0 L [place] % (Auto) 4.1 Eos % (Auto) 0.0 Baso % (Auto) 0.1 Neut # 5.7 Lymph # 0.6 L [place] # 0.3 Eos # 0.0 Baso # 0.0 Neutrophils % (Manual) 88 H Band Neutrophils % 1 Lymphocytes % (Manual) 6 L Monocytes % (Manual) 5 Platelet Estimate Normal Anisocytosis (manual) Slight Puncture Site Rr pCO2 30 L pO2 233 H HCO3 21.7 ABG pH 7.42 ABG Total CO2 20.4 L ABG O2 Saturation 99.8 H ABG Base Excess -4.2 L ABG Hemoglobin 9.4 L ABG Carboxyhemoglobin 1.3 POC ABG HHb (Measured) 0.2 ABG Methemoglobin 1.0 Jerad Test Pos A-a O2 Difference 86.0 Respiratory Index 0.4 Hgb O2 Saturation 97.4 Mechanical Rate 15 FiO2 50.0 Tidal Volume 450 PEEP 5 Sodium 138 Potassium 3.2 L Chloride 113 H Carbon Dioxide 19 L Anion Gap 9 L BUN 25 H Creatinine 0.7 L Est GFR ( Amer) > 60 Est GFR (Non-Af Amer) > 60 POC Glucose (mg/dL) Random Glucose 199 H Calcium 6.8 L Phosphorus 2.9 Magnesium 2.1 Total Bilirubin 0.4 AST 24 ALT 13 L Alkaline Phosphatase 62 Total Protein 5.9 L Albumin 1.7 L Globulin 4.2 H Albumin/Globulin Ratio 0.4 L Fluid Source Fluid Appearance Fluid WBC Fluid RBC Fluid Tot Cell Count Fluid Neutrophils Fluid Lymphocytes Fld Monocyte/Macrophag Fluid Comment Ur L.pneumophila Ag Mycoplasma pneumon IgM Fingerstick Blood Sugar Results: 242 Review of Systems - Review of Systems Systems not reviewed;Unavailable: Intubated Critical Care Progress Note - Nutrition Nutrition: Nutrition Category Date Time Status NPO Diet [DIET] Diets 08/31/16 Breakfast Active Assessment/Plan - Assessment and Plan (Free Text) Assessment: This is a 75 yo M with hypoxemic respiratory failure secondary to likely aspiration pneumonia, now intubated and sedated. Improved respiratory status s/ p chest tube placement and removal of >1 L pleural fluid Plan: Neuro: intubated/sedated Cardiovascular: Slightly hypotensive but stable NS at 50 cc/hr Pulmonary: Hypoxemic respiratory failure - intubated and sedated S/P chest tube/pigtail placement and 1200cc of pleural drainage Follow up on Pleural fluid studies Serial ABGs Continue Cefepime and vanc Continue duonebs and IV steroids CPAP and begin to wean sedation Gastrointestinal: Cont tube feeds Hypoalbuminema, will supplement Hematology: No acute issues Endocrine: Increased sliding scale coverage Renal: NS at 50cc/hr Monitor labs Infectious Disease: Leukosytosis resolved, afebrile Pleural cultures pending Sputum culture pending Follow cultures Continue cefepime and vanc GI Prophylaxis: Pepcid DVT Prophylaxis: Lovenox <Mingo Ibarra - Last Filed: 09/02/16 17:55> CCU Objective - Vital Signs / Intake & Output Intake and Output (Last 8hrs): Intake & Output 09/02/16 09/02/16 09/02/16 06:59 14:59 22:59 Intake Total 951.4 776.0 150 Output Total 655 590 110 Balance 296.4 186.0 40 Weight 158 lb 1.6 oz Intake: IV 50 35 Intake, IV Amount 546.4 516.0 100 Left Forearm 38.4 66.0 Right Port-A-Cath 508 450 100 Oral 50 Tube Feeding 355 225 0 Output: Chest Tube Drainage 80 0 0 Right Posterior Chest 80 0 0 Urine 575 590 110 Urethral (Stahl) 575 590 110 - Medications Active Medications: Active Medications Generic Name Dose Route Start Last Admin Trade Name Freq PRN Reason Stop Dose Admin Acetaminophen 650 mg 08/31/16 12:50 08/31/16 13:06 Tylenol 650mg/20.3ml Solution Ud PO 650 mg Q4H PRN Administration Fever >100.4 F Albuterol/Ipratropium 3 ml 08/31/16 14:00 09/02/16 13:28 Duoneb 3 Mg/0.5 Mg (3 Ml) Ud INH 3 ml RQ6 [facility]A Administration Baclofen 10 mg 08/25/16 18:00 09/02/16 09:58 Lioresal PO 10 mg BID [facility]A Administration Enoxaparin Sodium 40 mg 08/25/16 10:00 09/02/16 09:58 Lovenox SC 40 mg DAILY [facility] Administration Famotidine 20 mg 08/31/16 10:00 09/02/16 09:58 Pepcid IVP 20 mg Q12 [facility] Administration Vancomycin HCl 1 gm/ Sodium 250 mls @ 166.7 mls/hr 08/27/16 22:15 09/01/16 21 :16 Chloride IVPB 166.7 mls/hr Q24H [facility] Administration Cefepime HCl 1 gm in 50 mls @ 100 mls/hr 08/31/16 03:00 09/02/16 09:59 Maxipime Iv 1 Gm Premix IVPB 100 mls/hr Q8H [facility] Administration Sodium Chloride 1,000 mls @ 50 mls/hr 08/31/16 09:30 09/02/16 08:08 Sodium Chloride 0.9% IV 50 mls/hr .Q20H [facility] Administration Dexmedetomidine HCl 200 mcg/ 50 mls @ 3.17 mls/hr 08/31/16 09:27 09/02/16 12: 31 Sodium Chloride IV 0 mcg/kg/hr TITR PRN 0 mls/hr Sedation Titration Protocol 0.2 MCG/KG/HR Albumin Human 50 mls @ 1 mls/min 09/02/16 11:00 09/02/16 12:30 Albumin Human 25% (12.5 Gm/50 Ml) IVPB 09/03/16 11:49 1 mls/min Q8H [facility] Administration Insulin Aspart 0 unit 09/02/16 09:09 09/02/16 12:30 Novolog SC 3 unit Q6 [facility] Administration Protocol Methylprednisolone 40 mg 09/01/16 18:00 09/02/16 12:30 Solu-Medrol IVP 40 mg Q6 [facility] Administration Morphine Sulfate 2 mg 08/31/16 12:50 09/02/16 15:00 Morphine IVP 2 mg Q6 PRN Administration Pain, moderate (4-7) - Patient Studies Lab Studies: Microbiology Studies 08/28/16 16:00 Blood Culture - Final Blood-Venous NO GROWTH AFTER 5 DAYS Gram Stain - Final TEST NOT PERFORMED 08/31/16 12:08 Blood Culture - Preliminary Blood-Venous NO GROWTH AFTER 48 HOURS 08/31/16 12:08 Blood Culture - Preliminary Blood-Venous NO GROWTH AFTER 48 HOURS 08/31/16 11:39 Gram Stain - Final Trachasp Sputum Culture - Preliminary Staphylococcus Aureus 08/31/16 02:55 Gram Stain - Final Sputum Induced Sputum Culture - Preliminary Staphylococcus Aureus 09/01/16 13:48 Gram Stain - Final Pleural Fluid Body Fluid Culture - Preliminary NO GROWTH AFTER 24 HOURS 08/30/16 21:00 Blood Culture - Preliminary Blood-Venous NO GROWTH AFTER 48 HOURS 08/28/16 18:19 Blood Culture - Preliminary Blood-Venous NO GROWTH AFTER 4 DAYS Lab Studies 09/02/16 09/02/16 09/02/16 Range/Units 12:06 06:17 06:17 WBC 6.6 (4.8-10.8) K/uL RBC 2.97 L (4.40-5.90) Mil/uL Hgb 8.1 L (12.0-18.0) g/dL Hct 24.9 L (35.0-51.0) % MCV 83.9 (80.0-94.0) fL MCH 27.3 (27.0-31.0) pg MCHC 32.5 L (33.0-37.0) g/dL RDW 17.7 H (11.5-14.5) % Plt Count 267 (130-400) K/uL MPV 7.9 (7.2-11.7) fL Neut % (Auto) 86.8 H (50.0-75.0) % Lymph % (Auto) 9.0 L (20.0-40.0) % [place] % (Auto) 4.1 (0.0-10.0) % Eos % (Auto) 0.0 (0.0-4.0) % Baso % (Auto) 0.1 (0.0-2.0) % Neut # 5.7 (1.8-7.0) K/uL Lymph # 0.6 L (1.0-4.3) K/uL [place] # 0.3 (0.0-0.8) K/uL Eos # 0.0 (0.0-0.7) K/uL Baso # 0.0 (0.0-0.2) K/uL Neutrophils % (Manual) 88 H (50-75) % Band Neutrophils % 1 (0-2) % Lymphocytes % (Manual) 6 L (20-40) % Monocytes % (Manual) 5 (0-10) % Platelet Estimate Normal (NORMAL) Anisocytosis (manual) Slight Puncture Site pCO2 (35-45) mm/Hg pO2 (80-100) mm/Hg HCO3 (21-28) mmol/L ABG pH (7.35-7.45) ABG Total CO2 (22-28) mmol/L ABG O2 Saturation (95-98) % ABG Base Excess (-2.0-3.0) mmol/L ABG Hemoglobin (11.7-17.4) g/dL ABG Carboxyhemoglobin (0.5-1.5) % POC ABG HHb (Measured) (0.0-5.0) % ABG Methemoglobin (0.0-3.0) % Jerad Test A-a O2 Difference mm/Hg Respiratory Index Hgb O2 Saturation (95.0-98.0) % Mechanical Rate FiO2 % Tidal Volume PEEP Sodium 138 (132-148) mmol/L Potassium 3.2 L (3.6-5.2) mmol/L Chloride 113 H (98-107) mmol/L Carbon Dioxide 19 L (22-30) mmol/L Anion Gap 9 L (10-20) BUN 25 H (9-20) mg/dL Creatinine 0.7 L (0.8-1.5) MG/DL Est GFR ( Amer) > 60 Est GFR (Non-Af Amer) > 60 POC Glucose (mg/dL) 232 H (65-110) mg/dL Random Glucose 199 H (75-110) mg/dL Calcium 6.8 L (8.6-10.4) mg/dl Phosphorus 2.9 (2.5-4.5) mg/dL Magnesium 2.1 (1.6-2.3) mg/dL Total Bilirubin 0.4 (0.2-1.3) mg/dL AST 24 (17-59) U/L ALT 13 L (21-72) U/L Alkaline Phosphatase 62 (38-126) U/L Total Protein 5.9 L (6.3-8.3) g/dL Albumin 1.7 L (3.5-5.0) g/dL Globulin 4.2 H (2.2-3.9) gm/dL Albumin/Globulin Ratio 0.4 L (1.0-2.1) 09/02/16 09/02/16 09/02/16 Range/Units 05:20 05:17 00:54 WBC (4.8-10.8) K/uL RBC (4.40-5.90) Mil/uL Hgb (12.0-18.0) g/dL Hct (35.0-51.0) % MCV (80.0-94.0) fL MCH (27.0-31.0) pg MCHC (33.0-37.0) g/dL RDW (11.5-14.5) % Plt Count (130-400) K/uL MPV (7.2-11.7) fL Neut % (Auto) (50.0-75.0) % Lymph % (Auto) (20.0-40.0) % [place] % (Auto) (0.0-10.0) % Eos % (Auto) (0.0-4.0) % Baso % (Auto) (0.0-2.0) % Neut # (1.8-7.0) K/uL Lymph # (1.0-4.3) K/uL [place] # (0.0-0.8) K/uL Eos # (0.0-0.7) K/uL Baso # (0.0-0.2) K/uL Neutrophils % (Manual) (50-75) % Band Neutrophils % (0-2) % Lymphocytes % (Manual) (20-40) % Monocytes % (Manual) (0-10) % Platelet Estimate (NORMAL) Anisocytosis (manual) Puncture Site Rr pCO2 30 L (35-45) mm/Hg pO2 233 H (80-100) mm/Hg HCO3 21.7 (21-28) mmol/L ABG pH 7.42 (7.35-7.45) ABG Total CO2 20.4 L (22-28) mmol/L ABG O2 Saturation 99.8 H (95-98) % ABG Base Excess -4.2 L (-2.0-3.0) mmol/L ABG Hemoglobin 9.4 L (11.7-17.4) g/dL ABG Carboxyhemoglobin 1.3 (0.5-1.5) % POC ABG HHb (Measured) 0.2 (0.0-5.0) % ABG Methemoglobin 1.0 (0.0-3.0) % Jerad Test Pos A-a O2 Difference 86.0 mm/Hg Respiratory Index 0.4 Hgb O2 Saturation 97.4 (95.0-98.0) % Mechanical Rate 15 FiO2 50.0 % Tidal Volume 450 PEEP 5 Sodium (132-148) mmol/L Potassium (3.6-5.2) mmol/L Chloride (98-107) mmol/L Carbon Dioxide (22-30) mmol/L Anion Gap (10-20) BUN (9-20) mg/dL Creatinine (0.8-1.5) MG/DL Est GFR ( Amer) Est GFR (Non-Af Amer) POC Glucose (mg/dL) 242 H 246 H (65-110) mg/dL Random Glucose (75-110) mg/dL Calcium (8.6-10.4) mg/dl Phosphorus (2.5-4.5) mg/dL Magnesium (1.6-2.3) mg/dL Total Bilirubin (0.2-1.3) mg/dL AST (17-59) U/L ALT (21-72) U/L Alkaline Phosphatase (38-126) U/L Total Protein (6.3-8.3) g/dL Albumin (3.5-5.0) g/dL Globulin (2.2-3.9) gm/dL Albumin/Globulin Ratio (1.0-2.1) 09/01/16 Range/Units 17:48 WBC (4.8-10.8) K/uL RBC (4.40-5.90) Mil/uL Hgb (12.0-18.0) g/dL Hct (35.0-51.0) % MCV (80.0-94.0) fL MCH (27.0-31.0) pg MCHC (33.0-37.0) g/dL RDW (11.5-14.5) % Plt Count (130-400) K/uL MPV (7.2-11.7) fL Neut % (Auto) (50.0-75.0) % Lymph % (Auto) (20.0-40.0) % [place] % (Auto) (0.0-10.0) % Eos % (Auto) (0.0-4.0) % Baso % (Auto) (0.0-2.0) % Neut # (1.8-7.0) K/uL Lymph # (1.0-4.3) K/uL [place] # (0.0-0.8) K/uL Eos # (0.0-0.7) K/uL Baso # (0.0-0.2) K/uL Neutrophils % (Manual) (50-75) % Band Neutrophils % (0-2) % Lymphocytes % (Manual) (20-40) % Monocytes % (Manual) (0-10) % Platelet Estimate (NORMAL) Anisocytosis (manual) Puncture Site pCO2 (35-45) mm/Hg pO2 (80-100) mm/Hg HCO3 (21-28) mmol/L ABG pH (7.35-7.45) ABG Total CO2 (22-28) mmol/L ABG O2 Saturation (95-98) % ABG Base Excess (-2.0-3.0) mmol/L ABG Hemoglobin (11.7-17.4) g/dL ABG Carboxyhemoglobin (0.5-1.5) % POC ABG HHb (Measured) (0.0-5.0) % ABG Methemoglobin (0.0-3.0) % Jerad Test A-a O2 Difference mm/Hg Respiratory Index Hgb O2 Saturation (95.0-98.0) % Mechanical Rate FiO2 % Tidal Volume PEEP Sodium (132-148) mmol/L Potassium (3.6-5.2) mmol/L Chloride (98-107) mmol/L Carbon Dioxide (22-30) mmol/L Anion Gap (10-20) BUN (9-20) mg/dL Creatinine (0.8-1.5) MG/DL Est GFR ( Amer) Est GFR (Non-Af Amer) POC Glucose (mg/dL) 231 H (65-110) mg/dL Random Glucose (75-110) mg/dL Calcium (8.6-10.4) mg/dl Phosphorus (2.5-4.5) mg/dL Magnesium (1.6-2.3) mg/dL Total Bilirubin (0.2-1.3) mg/dL AST (17-59) U/L ALT (21-72) U/L Alkaline Phosphatase (38-126) U/L Total Protein (6.3-8.3) g/dL Albumin (3.5-5.0) g/dL Globulin (2.2-3.9) gm/dL Albumin/Globulin Ratio (1.0-2.1) Laboratory Results - last 24 hr 09/01/16 09/02/16 09/02/16 17:48 00:54 05:17 WBC RBC Hgb Hct MCV MCH MCHC RDW Plt Count MPV Neut % (Auto) Lymph % (Auto) [place] % (Auto) Eos % (Auto) Baso % (Auto) Neut # Lymph # [place] # Eos # Baso # Neutrophils % (Manual) Band Neutrophils % Lymphocytes % (Manual) Monocytes % (Manual) Platelet Estimate Anisocytosis (manual) Puncture Site pCO2 pO2 HCO3 ABG pH ABG Total CO2 ABG O2 Saturation ABG Base Excess ABG Hemoglobin ABG Carboxyhemoglobin POC ABG HHb (Measured) ABG Methemoglobin Jerad Test A-a O2 Difference Respiratory Index Hgb O2 Saturation Mechanical Rate FiO2 Tidal Volume PEEP Sodium Potassium Chloride Carbon Dioxide Anion Gap BUN Creatinine Est GFR ( Amer) Est GFR (Non-Af Amer) POC Glucose (mg/dL) 231 H 246 H 242 H Random Glucose Calcium Phosphorus Magnesium Total Bilirubin AST ALT Alkaline Phosphatase Total Protein Albumin Globulin Albumin/Globulin Ratio 09/02/16 09/02/16 09/02/16 05:20 06:17 06:17 WBC 6.6 RBC 2.97 L Hgb 8.1 L Hct 24.9 L MCV 83.9 MCH 27.3 MCHC 32.5 L RDW 17.7 H Plt Count 267 MPV 7.9 Neut % (Auto) 86.8 H Lymph % (Auto) 9.0 L [place] % (Auto) 4.1 Eos % (Auto) 0.0 Baso % (Auto) 0.1 Neut # 5.7 Lymph # 0.6 L [place] # 0.3 Eos # 0.0 Baso # 0.0 Neutrophils % (Manual) 88 H Band Neutrophils % 1 Lymphocytes % (Manual) 6 L Monocytes % (Manual) 5 Platelet Estimate Normal Anisocytosis (manual) Slight Puncture Site Rr pCO2 30 L pO2 233 H HCO3 21.7 ABG pH 7.42 ABG Total CO2 20.4 L ABG O2 Saturation 99.8 H ABG Base Excess -4.2 L ABG Hemoglobin 9.4 L ABG Carboxyhemoglobin 1.3 POC ABG HHb (Measured) 0.2 ABG Methemoglobin 1.0 Jerad Test Pos A-a O2 Difference 86.0 Respiratory Index 0.4 Hgb O2 Saturation 97.4 Mechanical Rate 15 FiO2 50.0 Tidal Volume 450 PEEP 5 Sodium 138 Potassium 3.2 L Chloride 113 H Carbon Dioxide 19 L Anion Gap 9 L BUN 25 H Creatinine 0.7 L Est GFR ( Amer) > 60 Est GFR (Non-Af Amer) > 60 POC Glucose (mg/dL) Random Glucose 199 H Calcium 6.8 L Phosphorus 2.9 Magnesium 2.1 Total Bilirubin 0.4 AST 24 ALT 13 L Alkaline Phosphatase 62 Total Protein 5.9 L Albumin 1.7 L Globulin 4.2 H Albumin/Globulin Ratio 0.4 L 09/02/16 12:06 WBC RBC Hgb Hct MCV MCH MCHC RDW Plt Count MPV Neut % (Auto) Lymph % (Auto) [place] % (Auto) Eos % (Auto) Baso % (Auto) Neut # Lymph # [place] # Eos # Baso # Neutrophils % (Manual) Band Neutrophils % Lymphocytes % (Manual) Monocytes % (Manual) Platelet Estimate Anisocytosis (manual) Puncture Site pCO2 pO2 HCO3 ABG pH ABG Total CO2 ABG O2 Saturation ABG Base Excess ABG Hemoglobin ABG Carboxyhemoglobin POC ABG HHb (Measured) ABG Methemoglobin Jerad Test A-a O2 Difference Respiratory Index Hgb O2 Saturation Mechanical Rate FiO2 Tidal Volume PEEP Sodium Potassium Chloride Carbon Dioxide Anion Gap BUN Creatinine Est GFR ( Amer) Est GFR (Non-Af Amer) POC Glucose (mg/dL) 232 H Random Glucose Calcium Phosphorus Magnesium Total Bilirubin AST ALT Alkaline Phosphatase Total Protein Albumin Globulin Albumin/Globulin Ratio Critical Care Progress Note - Nutrition Nutrition: Nutrition Category Date Time Status NPO Diet [DIET] Diets 08/31/16 Breakfast Active Attending/Attestation - Attestation I have personally seen and examined this patient.: Yes I have fully participated in the care of the patient.: Yes I have reviewed all pertinent clinical information: Yes Notes (Text): 09/02/16 17:54 Patient seen and examined in the intensive care unit. Case discussed with house staff in the morning rounds. Patient extubated after weaning trial Minimal drainage from a right pigtail catheter Continue antibiotics, IV steroids Swallowing eval
--- NOTE | 2016-09-02 12:17 | PN ---
DATE: 09/02/2016 LOCATION: ICU 1. This 75-year-old male seen and examined in rounds today without significant clinical changes, is stil l intubated on vent and sedated without reported active bleeding. NG tube is in place. Entire chart is reviewed, including but not limited to most recent lab and radiology study results, current and p revious medication list, current and the previous medical events were evaluated and the case discusse d with the staff in the intensive care unit. LABORATORY DATA: Today's lab results showed drop of hemoglobin to 8.1 with hematocrit 24.9 with norm al platelet count as well as abnormal ABG with low potassium of 3.2, low CO2 content to 19 indicative of metabolic acidosis with increased BUN 25, low creatinine 0.7 and low calcium 6.8 with very low al bumin 1.7 and low total protein of 5.9. Pleural effusion results seen. The patient had a chest x-ray this morning, report and films are seen. PHYSICAL EXAMINATION: GENERAL: A 75-year-old male. VITAL SIGNS: Afebrile with pulse of 80, blood pressure 120/48. HEENT: Showed pale, dry oral mucoid membrane. Nonicteric sclerae. LUNGS: Few scattered crepitation, decreased air entry at bases. HEART: Positive S1 and S2. ABDOMEN: Soft. Bowel sounds are present but hypoactive. EXTREMITIES: Mild edematous changes. No clubbing or cyanosis. NEUROLOGIC: No reported new neurological deficits, sensory or motor. IMPRESSION: 1. Malnutrition. 2. Pneumonia, pleural effusion with respiratory failure. 3. Septicemia, on antibiotics. 4. Metabolic acidosis secondary to above. 5. Known history of psoriatic arthritis. 6. Known history of chronic obstructive pulmonary disease. 7. Reexacerbation of peptic ulcer disease. 8. Recent history of lower extremity cellulitis, ____antibiotic. 9. Anemia secondary to above. SUGGESTION: 1. Continue current management. 2. Due to patient's severe hypoalbuminemia, albumin IV is suggested. 3. PEG insertion is to be kept in mind if there is no significant clinical improvement. Roger Mcclure MD cc: 14 TT: 09/02/2016 12:16:46 Confirmation # [id number] Dictation # [id number]
--- NOTE | 2016-09-02 17:30 | CP.PCM.CON ---
History of Present Illness - History of Present Illness History of Present Illness: 75 yo man with history of colorectal cancer with functioning colostomy, currently intubated and sedated. Found to have a rectosigmoid infiltrative mass, extending into posterior prostatic region with increased CEA. At this time no details of cancer diagnosis or surgery are available. When stable , the patient will need a sigmoidoscopy( through the colostomy)to evaluate the lesion and biopsy if possible. At this time the CAT scans don't show any other masses that can be biopsied Past Patient History - Infectious Disease Hx of Infectious Diseases: None - Tetanus Immunizations Tetanus Immunization: Up to Date, >10 years Ago - Past Medical History & Family History Past Medical History?: Yes - Past Social History Smoking Status: Former Smoker Chewing Tobacco Use: No Cigar Use: No Alcohol: None Drugs: Denies Home Situation {Lives}: With Family Domestic Violence: Negative - CARDIAC Hx Cardiac Disorders: Yes Hx Hypertension: Yes - PULMONARY Hx Chronic Obstructive Pulmonary Disease (COPD): Yes - NEUROLOGICAL Hx Neurological Disorder: Yes Hx Dementia: Yes Hx Dizziness: Yes - HEENT Hx HEENT Problems: Yes Hx Sinusitis: Yes - RENAL Hx Chronic Kidney Disease: No Hx Kidney Stones: Yes - ENDOCRINE/METABOLIC Hx Endocrine Disorders: No Hx Hypothyroidism: No - HEMATOLOGICAL/ONCOLOGICAL Hx Blood Disorders: Yes Hx Blood Transfusions: Yes Hx Cancer: Yes (COLON) Hx Chemotherapy: Yes Other/Comment: has left colostomy - INTEGUMENTARY Hx Dermatological Problems: Yes Hx Psoriasis: Yes - MUSCULOSKELETAL/RHEUMATOLOGICAL Hx Arthritis: Yes Hx Rheumatoid Arthritis: Yes - GASTROINTESTINAL Hx Gastrointestinal Disorders: Yes Hx Bowel Surgery: Yes (2003;2005) Hx Colostomy: Yes Other/Comment: COLON CA 2003 - GENITOURINARY/GYNECOLOGICAL Hx Genitourinary Disorders: No Hx Incontinence: Yes - PSYCHIATRIC Hx Psychophysiologic Disorder: Yes Hx Depression: Yes Hx Sexual Abuse: No Hx Substance Use: No - SURGICAL HISTORY Hx Surgeries: Yes Other/Comment: pacemaker. colostomy - ANESTHESIA Hx Anesthesia: Yes Hx Anesthesia Reactions: No Hx Malignant Hyperthermia: No Has any member of the family had a problem w/ anesthesia?: No Meds Allergies/Adverse Reactions: Allergies Allergy/AdvReac Type Severity Reaction Status Date / Time No Known Allergies Allergy Verified 07/30/16 19:23 - Medications Medications: Current Medications Acetaminophen (Tylenol 650mg/20.3ml Solution Ud) 650 mg PO Q4H PRN PRN Reason: Fever >100.4 F Last Admin: 08/31/16 13:06 Dose: 650 mg Albuterol/Ipratropium (Duoneb 3 Mg/0.5 Mg (3 Ml) Ud) 3 ml INH RQ6 [facility] Last Admin: 09/02/16 13:28 Dose: 3 ml Baclofen (Lioresal) 10 mg PO BID [facility] Last Admin: 09/02/16 09:58 Dose: 10 mg Enoxaparin Sodium (Lovenox) 40 mg SC DAILY [facility] Last Admin: 09/02/16 09:58 Dose: 40 mg Famotidine (Pepcid) 20 mg IVP Q12 [facility] Last Admin: 09/02/16 09:58 Dose: 20 mg Vancomycin HCl 1 gm/ Sodium (Chloride) 250 mls @ 166.7 mls/hr IVPB Q24H [facility] Last Admin: 09/01/16 21:16 Dose: 166.7 mls/hr Cefepime HCl (Maxipime Iv 1 Gm Premix) 1 gm in 50 mls @ 100 mls/hr IVPB Q8H [facility] Last Admin: 09/02/16 09:59 Dose: 100 mls/hr Sodium Chloride (Sodium Chloride 0.9%) 1,000 mls @ 50 mls/hr IV .Q20H [facility] Last Admin: 09/02/16 08:08 Dose: 50 mls/hr Dexmedetomidine HCl 200 mcg/ (Sodium Chloride) 50 mls @ 3.17 mls/hr IV TITR PRN ; Protocol; 0.2 MCG/KG/HR PRN Reason: Sedation Last Titration: 09/02/16 12:31 Dose: 0 mcg/kg/hr, 0 mls/hr Albumin Human (Albumin Human 25% (12.5 Gm/50 Ml)) 50 mls @ 1 mls/min IVPB Q8H [facility] Stop: 09/03/16 11:49 Last Admin: 09/02/16 12:30 Dose: 1 mls/min Insulin Aspart (Novolog) 0 unit SC Q6 [facility] PRN Reason: Protocol Last Admin: 09/02/16 12:30 Dose: 3 unit Methylprednisolone (Solu-Medrol) 40 mg IVP Q6 [facility] Last Admin: 09/02/16 12:30 Dose: 40 mg Morphine Sulfate (Morphine) 2 mg IVP Q6 PRN PRN Reason: Pain, moderate (4-7) Last Admin: 09/02/16 15:00 Dose: 2 mg Results - Vital Signs Recent Vital Signs: Last Vital Signs Temp 98.6 F 09/02/16 08:00 Pulse 75 09/02/16 12:31 Resp 21 09/02/16 12:31 BP 113/53 L 09/02/16 12:31 Pulse Ox 100 09/02/16 12:31 - Labs Result Diagrams: 09/02/16 06:17 09/02/16 06:17 Labs: Laboratory Results - last 24 hr 09/01/16 09/02/16 09/02/16 17:48 00:54 05:17 WBC RBC Hgb Hct MCV MCH MCHC RDW Plt Count MPV Neut % (Auto) Lymph % (Auto) [place] % (Auto) Eos % (Auto) Baso % (Auto) Neut # Lymph # [place] # Eos # Baso # Neutrophils % (Manual) Band Neutrophils % Lymphocytes % (Manual) Monocytes % (Manual) Platelet Estimate Anisocytosis (manual) Puncture Site pCO2 pO2 HCO3 ABG pH ABG Total CO2 ABG O2 Saturation ABG Base Excess ABG Hemoglobin ABG Carboxyhemoglobin POC ABG HHb (Measured) ABG Methemoglobin Jerad Test A-a O2 Difference Respiratory Index Hgb O2 Saturation Mechanical Rate FiO2 Tidal Volume PEEP Sodium Potassium Chloride Carbon Dioxide Anion Gap BUN Creatinine Est GFR ( Amer) Est GFR (Non-Af Amer) POC Glucose (mg/dL) 231 H 246 H 242 H Random Glucose Calcium Phosphorus Magnesium Total Bilirubin AST ALT Alkaline Phosphatase Total Protein Albumin Globulin Albumin/Globulin Ratio 09/02/16 09/02/16 09/02/16 05:20 06:17 06:17 WBC 6.6 RBC 2.97 L Hgb 8.1 L Hct 24.9 L MCV 83.9 MCH 27.3 MCHC 32.5 L RDW 17.7 H Plt Count 267 MPV 7.9 Neut % (Auto) 86.8 H Lymph % (Auto) 9.0 L [place] % (Auto) 4.1 Eos % (Auto) 0.0 Baso % (Auto) 0.1 Neut # 5.7 Lymph # 0.6 L [place] # 0.3 Eos # 0.0 Baso # 0.0 Neutrophils % (Manual) 88 H Band Neutrophils % 1 Lymphocytes % (Manual) 6 L Monocytes % (Manual) 5 Platelet Estimate Normal Anisocytosis (manual) Slight Puncture Site Rr pCO2 30 L pO2 233 H HCO3 21.7 ABG pH 7.42 ABG Total CO2 20.4 L ABG O2 Saturation 99.8 H ABG Base Excess -4.2 L ABG Hemoglobin 9.4 L ABG Carboxyhemoglobin 1.3 POC ABG HHb (Measured) 0.2 ABG Methemoglobin 1.0 Jerad Test Pos A-a O2 Difference 86.0 Respiratory Index 0.4 Hgb O2 Saturation 97.4 Mechanical Rate 15 FiO2 50.0 Tidal Volume 450 PEEP 5 Sodium 138 Potassium 3.2 L Chloride 113 H Carbon Dioxide 19 L Anion Gap 9 L BUN 25 H Creatinine 0.7 L Est GFR ( Amer) > 60 Est GFR (Non-Af Amer) > 60 POC Glucose (mg/dL) Random Glucose 199 H Calcium 6.8 L Phosphorus 2.9 Magnesium 2.1 Total Bilirubin 0.4 AST 24 ALT 13 L Alkaline Phosphatase 62 Total Protein 5.9 L Albumin 1.7 L Globulin 4.2 H Albumin/Globulin Ratio 0.4 L 09/02/16 12:06 WBC RBC Hgb Hct MCV MCH MCHC RDW Plt Count MPV Neut % (Auto) Lymph % (Auto) [place] % (Auto) Eos % (Auto) Baso % (Auto) Neut # Lymph # [place] # Eos # Baso # Neutrophils % (Manual) Band Neutrophils % Lymphocytes % (Manual) Monocytes % (Manual) Platelet Estimate Anisocytosis (manual) Puncture Site pCO2 pO2 HCO3 ABG pH ABG Total CO2 ABG O2 Saturation ABG Base Excess ABG Hemoglobin ABG Carboxyhemoglobin POC ABG HHb (Measured) ABG Methemoglobin Jerad Test A-a O2 Difference Respiratory Index Hgb O2 Saturation Mechanical Rate FiO2 Tidal Volume PEEP Sodium Potassium Chloride Carbon Dioxide Anion Gap BUN Creatinine Est GFR ( Amer) Est GFR (Non-Af Amer) POC Glucose (mg/dL) 232 H Random Glucose Calcium Phosphorus Magnesium Total Bilirubin AST ALT Alkaline Phosphatase Total Protein Albumin Globulin Albumin/Globulin Ratio
--- NOTE | 2016-09-02 18:21 | PN ---
DATE: 09/02/2016 The patient has been extubated. He is alert, oriented. He is febrile with temperature of 100.1, blood pressure 112/56, pulse 75, respirations 21, hemoglobin oxygen saturation of 100% on an FIO2 of 40%. His dyspnea has decreased. His right chest has been removed. His chest x-ray has improved. PHYSICAL EXAMINATION: HEART: Regular, no gallop rhythm. LUNGS: Diminished breath sounds over lung bases. Rhonchi decreased. ABDOMEN: Soft. EXTREMITIES: Legs no edema. IMPRESSION: Respiratory insufficiency, pneumonitis, sepsis, hypertensive cardiovascular disease, dyspepsia, prostate tumor, status post dissection of the colon carcinoma and colonoscopy. PLAN: To continue with the current regimen and follow up with renal specialist consultants. Continue with bronchodilators, vasodilators, antibiotics and chemotherapy as regulated by oncologist. Alessandro Hayes MD cc: [id number] TT: 09/02/2016 18:20:16 Confirmation # [id number] Dictation # [id number] MTDD
--- NOTE | 2016-09-02 18:43 | CP.PCM.PN ---
Subjective - Date & Time of Evaluation Date of Evaluation: 09/02/16 Time of Evaluation: 09:00 - Subjective Subjective: s/p chest tube Possible MRSA ? await culture report consider echo Objective - Vital Signs/Intake and Output Vital Signs (last 24 hours): Temp Pulse Resp BP Pulse Ox 98.6 F 81 16 111/59 L 99 09/02/16 08:00 09/02/16 18:01 09/02/16 18:01 09/02/16 18:01 09/02/16 18:01 Intake and Output: 09/02/16 09/02/16 06:59 18:59 Intake Total 1447.6 926.0 Output Total 880 700 Balance 567.6 226.0 - Medications Medications: Current Medications Acetaminophen (Tylenol 650mg/20.3ml Solution Ud) 650 mg PO Q4H PRN PRN Reason: Fever >100.4 F Last Admin: 08/31/16 13:06 Dose: 650 mg Albuterol/Ipratropium (Duoneb 3 Mg/0.5 Mg (3 Ml) Ud) 3 ml INH RQ6 [facility] Last Admin: 09/02/16 13:28 Dose: 3 ml Baclofen (Lioresal) 10 mg PO BID [facility] Last Admin: 09/02/16 18:11 Dose: 10 mg Enoxaparin Sodium (Lovenox) 40 mg SC DAILY [facility] Last Admin: 09/02/16 09:58 Dose: 40 mg Famotidine (Pepcid) 20 mg IVP Q12 [facility] Last Admin: 09/02/16 09:58 Dose: 20 mg Vancomycin HCl 1 gm/ Sodium (Chloride) 250 mls @ 166.7 mls/hr IVPB Q24H [facility] Last Admin: 09/01/16 21:16 Dose: 166.7 mls/hr Cefepime HCl (Maxipime Iv 1 Gm Premix) 1 gm in 50 mls @ 100 mls/hr IVPB Q8H [facility] Last Admin: 09/02/16 18:11 Dose: 100 mls/hr Sodium Chloride (Sodium Chloride 0.9%) 1,000 mls @ 50 mls/hr IV .Q20H [facility] Last Admin: 09/02/16 08:08 Dose: 50 mls/hr Dexmedetomidine HCl 200 mcg/ (Sodium Chloride) 50 mls @ 3.17 mls/hr IV TITR PRN ; Protocol; 0.2 MCG/KG/HR PRN Reason: Sedation Last Titration: 09/02/16 12:31 Dose: 0 mcg/kg/hr, 0 mls/hr Albumin Human (Albumin Human 25% (12.5 Gm/50 Ml)) 50 mls @ 1 mls/min IVPB Q8H [facility] Stop: 09/03/16 11:49 Last Admin: 09/02/16 18:11 Dose: 1 mls/min Insulin Aspart (Novolog) 0 unit SC Q6 [facility] PRN Reason: Protocol Last Admin: 09/02/16 18:13 Dose: 2 unit Methylprednisolone (Solu-Medrol) 40 mg IVP Q6 [facility] Last Admin: 09/02/16 18:11 Dose: 40 mg Morphine Sulfate (Morphine) 2 mg IVP Q6 PRN PRN Reason: Pain, moderate (4-7) Last Admin: 09/02/16 15:00 Dose: 2 mg - Labs Labs: 09/02/16 06:17 09/02/16 06:17 PT 17.6 SECONDS (9.7-12.2) H 08/31/16 02:36 INR 1.5 08/31/16 02:36 APTT 34 SECONDS (21-34) 08/31/16 02:36 - Constitutional Appears: Toxic, Confused, Cachectic, Chronically Ill - Head Exam Head Exam: ATRAUMATIC, NORMAL INSPECTION, NORMOCEPHALIC - Eye Exam Eye Exam: PERRL. absent: Scleral icterus - ENT Exam ENT Exam: Mucous Membranes Dry, Normal External Ear Exam - Neck Exam Neck Exam: absent: Lymphadenopathy - Respiratory Exam Respiratory Exam: Decreased Breath Sounds, Rhonchi - Cardiovascular Exam Cardiovascular Exam: REGULAR RHYTHM, +S1, +S2 - GI/Abdominal Exam GI & Abdominal Exam: Distended, Soft. absent: Tenderness - Rectal Exam Rectal Exam: Deferred - Exam Exam: NORMAL INSPECTION - Extremities Exam Extremities Exam: absent: Pedal Edema - Back Exam Back Exam: NORMAL INSPECTION. absent: CVA tenderness (L), CVA tenderness (R) - Neurological Exam Neurological Exam: Alert, Awake, Oriented x3 - Psychiatric Exam Psychiatric exam: Normal Mood - Skin Skin Exam: Dry Assessment and Plan (1) Altered mental status, unspecified Status: Acute (2) Arthritis Status: Acute (3) Dehydration Status: Acute (4) Pacemaker Status: Acute (5) Psoriatic arthritis Status: Acute
--- NOTE | 2016-09-02 22:56 | CP.PCM.PN ---
Subjective - Date & Time of Evaluation Date of Evaluation: 09/02/16 Time of Evaluation: 13:25 - Subjective Subjective: Patient was extubated today. He is much more comfortable following insertion of chest tube. Presently, he is much more responsive. Cultures drawn and Dr Kyle following patient's progress. Objective - Vital Signs/Intake and Output Vital Signs (last 24 hours): Temp Pulse Resp BP Pulse Ox 98.6 F 87 17 116/57 L 99 09/02/16 20:00 09/02/16 22:01 09/02/16 22:01 09/02/16 22:01 09/02/16 22:01 Intake and Output: 09/02/16 09/03/16 18:59 06:59 Intake Total 1176.0 200 Output Total 920 290 Balance 256.0 -90 - Medications Medications: Current Medications Acetaminophen (Tylenol 650mg/20.3ml Solution Ud) 650 mg PO Q4H PRN PRN Reason: Fever >100.4 F Last Admin: 08/31/16 13:06 Dose: 650 mg Albuterol/Ipratropium (Duoneb 3 Mg/0.5 Mg (3 Ml) Ud) 3 ml INH RQ6 [facility] Last Admin: 09/02/16 19:41 Dose: 3 ml Baclofen (Lioresal) 10 mg PO BID [facility] Last Admin: 09/02/16 18:11 Dose: 10 mg Enoxaparin Sodium (Lovenox) 40 mg SC DAILY [facility] Last Admin: 09/02/16 09:58 Dose: 40 mg Famotidine (Pepcid) 20 mg IVP Q12 [facility] Last Admin: 09/02/16 22:26 Dose: 20 mg Vancomycin HCl 1 gm/ Sodium (Chloride) 250 mls @ 166.7 mls/hr IVPB Q24H [facility] Last Admin: 09/02/16 22:22 Dose: 166.7 mls/hr Cefepime HCl (Maxipime Iv 1 Gm Premix) 1 gm in 50 mls @ 100 mls/hr IVPB Q8H [facility] Last Admin: 09/02/16 18:11 Dose: 100 mls/hr Sodium Chloride (Sodium Chloride 0.9%) 1,000 mls @ 50 mls/hr IV .Q20H [facility] Last Admin: 09/02/16 22:26 Dose: Not Given Dexmedetomidine HCl 200 mcg/ (Sodium Chloride) 50 mls @ 3.17 mls/hr IV TITR PRN ; Protocol; 0.2 MCG/KG/HR PRN Reason: Sedation Last Titration: 09/02/16 12:31 Dose: 0 mcg/kg/hr, 0 mls/hr Albumin Human (Albumin Human 25% (12.5 Gm/50 Ml)) 50 mls @ 1 mls/min IVPB Q8H [facility] Stop: 09/03/16 11:49 Last Admin: 09/02/16 18:11 Dose: 1 mls/min Insulin Aspart (Novolog) 0 unit SC Q6 [facility] PRN Reason: Protocol Last Admin: 09/02/16 18:13 Dose: 2 unit Methylprednisolone (Solu-Medrol) 40 mg IVP Q6 [facility] Last Admin: 09/02/16 18:11 Dose: 40 mg Morphine Sulfate (Morphine) 2 mg IVP Q6 PRN PRN Reason: Pain, moderate (4-7) Last Admin: 09/02/16 15:00 Dose: 2 mg - Labs Labs: 09/02/16 06:17 09/02/16 06:17 PT 17.6 SECONDS (9.7-12.2) H 08/31/16 02:36 INR 1.5 08/31/16 02:36 APTT 34 SECONDS (21-34) 08/31/16 02:36 - Constitutional Appears: No Acute Distress - Head Exam Head Exam: NORMAL INSPECTION - Eye Exam Eye Exam: Normal appearance - ENT Exam ENT Exam: Normal Exam - Neck Exam Neck Exam: Normal Inspection - Respiratory Exam Respiratory Exam: Decreased Breath Sounds - Cardiovascular Exam Cardiovascular Exam: REGULAR RHYTHM - GI/Abdominal Exam GI & Abdominal Exam: Normal Bowel Sounds - Rectal Exam Rectal Exam: Deferred - Exam Exam: NORMAL INSPECTION - Extremities Exam Extremities Exam: Tenderness - Back Exam Back Exam: NORMAL INSPECTION - Neurological Exam Neurological Exam: Altered - Psychiatric Exam Psychiatric exam: Depressed - Skin Skin Exam: Dry Assessment and Plan (1) Dehydration Status: Acute (2) Altered mental status, unspecified Status: Acute (3) Hydrocephalus Status: Acute (4) Chronic obstructive airway disease Status: Acute (5) Psoriatic arthritis Status: Acute (6) Endotracheally intubated Status: Resolved (7) Pacemaker Status: Acute
[2016-09-03] MEDS: (Novolog) Insulin Aspart, Recombinant 100 u/ml 10 ml vial SC SCH ×4 (00:25→18:17)
[2016-09-03] MEDS: MethylPREDNISolone 40 mg Vial IVP SCH ×4 (00:27→22:57)
[2016-09-03] MEDS: Albuterol-Ipratrop 3 mg / 0.5 (3 ml) UD INH SCH ×4 (01:12→19:20)
[2016-09-03] MEDS: Cefepime IV 1 gm in Dextrose 1 GM/50 ML BAG IVPB SCH ×3 (02:32→18:17)
[2016-09-03] MEDS: Sodium Chloride 0.9% 1,000 ML IV SCH (05:24)
[2016-09-03 06:19] LABS: BASO % 0.2 % (0.0-2.0); HEMATOCRIT 25.5 % (35.0-51.0); LYMPH # 0.7 K/uL (1.0-4.3); LYMPH % 11.1 % (20.0-40.0); MEAN CORPUSCULAR HEMOGLOBIN 27.1 pg (27.0-31.0); MEAN CORPUSCULAR HGB CONC 32.3 g/dL (33.0-37.0); MEAN PLATELET VOLUME 7.9 fL (7.2-11.7); MONO # 0.2 K/uL (0.0-0.8); MONO % 3.4 % (0.0-10.0); WHITE BLOOD COUNT 6.6 K/uL (4.8-10.8)
[2016-09-03 06:37] LABS: CHLORIDE 111 mmol/L (98-107); SODIUM 138 mmol/L (132-148)
[2016-09-03 06:38] LABS: POTASSIUM 3.1 mmol/L (3.6-5.2)
[2016-09-03 06:40] LABS: ALB/GLOB RATIO 0.5 (1.0-2.1); ALKALINE PHOSPHATASE 66 U/L (38-126); ALT/SGPT 27 U/L (21-72); AST/SGOT 37 U/L (17-59); BILIRUBIN,TOTAL 0.6 mg/dL (0.2-1.3); BLOOD UREA NITROGEN 28 mg/dL (9-20); CARBON DIOXIDE 21 mmol/L (22-30); GFR AFRICAN-AMERICAN > 60; GLUCOSE,RANDOM 188 mg/dL (75-110); TOTAL PROTEIN 6.6 g/dL (6.3-8.3)
[2016-09-03 06:41] LABS: CALCIUM 8.1 mg/dl (8.6-10.4); MAGNESIUM 2.3 mg/dL (1.6-2.3); PHOSPHOROUS 2.7 mg/dL (2.5-4.5)
--- NOTE | 2016-09-03 08:20 | PN ---
DATE: 09/03/2016 LOCATION: ICU 1. This is a 75-year-old male seen in rounds today with the staff in the intensive care unit with status post right chest tube insertion associated with pain. Had been on morphine injections. The patient is still intubated, on NG tube feeding. The entire chart is reviewed including, but not limited to, the most recent lab and radiology study r esults, current and previous medication lists, current and the previous medical events, and the patie nt still has low hemoglobin of 8.2, hematocrit low at 25.5 with normal platelet count with low potass ium 3.1, low CO2 content 21 indicative of metabolic acidosis, with BUN elevated at 28 but low creatin ine, with blood glucose level 226 with low calcium of 8.1 and low albumin of 2.3, still on vancomycin IV. Today's chest x-ray is still pending. PHYSICAL EXAMINATION: GENERAL: A 75-year-old male. VITAL SIGNS: Afebrile with a pulse of 80, blood pressure of 112/66. HEENT: Showed pale, dry oral mucoid membrane. Nonicteric sclerae. LUNGS: Scattered crepitation, decreased air entry at bases. HEART: Positive S1 and S2. ABDOMEN: Soft. Bowel sounds are present with slight distention. No mass or organomegaly, positive for mild distention. EXTREMITIES: With edematous changes. NEUROLOGIC: No reported new neurological deficits, sensory or motor. IMPRESSION: 1. Pleural effusion, pneumonia with status post chest tube insertion. 2. Respiratory failure, intubated. 3. Malnutrition. 4. Hypoalbuminemia, hypoproteinemia. 5. Anemia, most likely secondary to above. 6. Metabolic acidosis secondary to above. 7. Clinical septicemia, still on antibiotics. 8. Known history of psoriatic arthritis. 9. Known history of chronic obstructive pulmonary disease. 10. Evidence of recent history of lower extremity cellulitis. SUGGESTION: 1. Agree with your plan. 2. Albumin IV. 3. Central hyperal. 4. The patient is a candidate for PEG insertion. That to be discussed with staff as well as the fam loulou members. Further recommendation to follow. Roger Mcclure MD cc: 14 TT: 09/03/2016 08:19:37 Confirmation # [id number] Dictation # [id number] mn
[2016-09-03] MEDS: Enoxaparin 40 mg Syringe SC SCH (10:29)
--- NOTE | 2016-09-03 10:55 | RAD ---
HISTORY: with chest tube COMPARISON: No prior. FINDINGS: LUNGS: Tendinitis a screw at night to line diffuse bilateral interstitial prominence. Possible patchy confluent opacity at left base representing interval change from prior examination. PLEURA: Right basilar pigtail pleural catheter. No pneumothorax. No pleural effusion. CARDIOVASCULAR: Normal heart size. Mild congestive change. Permanent pacemaker. Right central venous infusion port. OSSEOUS STRUCTURES: No significant abnormalities. VISUALIZED UPPER ABDOMEN: Normal. OTHER FINDINGS: None. IMPRESSION: Nonspecific interstitial infiltrate with pulmonary vascular congestion and left basilar opacity not evident previously. Right pleural pigtail catheter unchanged, without pneumothorax.
--- NOTE | 2016-09-03 14:11 | CP.CCUPN ---
<Taras Mejia - Last Filed: 09/03/16 14:08> CCU Subjective - Physician Review Subjective (Free Text): 09/03/16 14:08 PGY-1 ICU progress note Pt seen and examined at bedside. Pt did well overnight with no acute events. Pt has no complaints. Denies any fevers, chills, chest pain, sob, nausea or vomiting. Critical Care Time Spent (in minutes): 35 CCU Objective - Vital Signs / Intake & Output Intake and Output (Last 8hrs): Intake & Output 09/02/16 09/03/16 09/03/16 22:59 06:59 14:59 Intake Total 600 550 50 Output Total 620 695 100 Balance -20 -145 -50 Weight 160 lb Intake: Intake, IV Amount 500 550 50 Left Forearm 50 Right Port-A-Cath 450 550 50 Oral 100 Tube Feeding 0 Output: Chest Tube Drainage 20 50 Right Posterior Chest 20 50 Urine 600 695 50 Urethral (Stahl) 600 695 50 - Physical Exam Head: Positive for: Atraumatic, Normocephalic Respiratory/Chest: Positive for: Clear to Auscultation, Good Air Exchange, Other (initubated) Cardiovascular: Positive for: Normal S1, S2 Abdomen: Positive for: Normal Bowel Sounds. Negative for: Distention Lower Extremity: Positive for: NORMAL PULSES Neurological: Positive for: Speech Normal, Motor Func Grossly Intact Skin: Positive for: Warm, Dry Psychiatric: Positive for: Alert, Oriented x 3 - Medications Active Medications: Active Medications Generic Name Dose Route Start Last Admin Trade Name Freq PRN Reason Stop Dose Admin Acetaminophen 650 mg 08/31/16 12:50 08/31/16 13:06 Tylenol 650mg/20.3ml Solution Ud PO 650 mg Q4H PRN Administration Fever >100.4 F Albuterol/Ipratropium 3 ml 08/31/16 14:00 09/03/16 07:55 Duoneb 3 Mg/0.5 Mg (3 Ml) Ud INH 3 ml RQ6 [facility] Administration Baclofen 10 mg 08/25/16 18:00 09/03/16 10:29 Lioresal PO 10 mg BID [facility] Administration Enoxaparin Sodium 40 mg 08/25/16 10:00 09/03/16 10:29 Lovenox SC 40 mg DAILY [facility] Administration Famotidine 20 mg 09/03/16 10:00 09/03/16 10:29 Pepcid PO 20 mg BID [facility] Administration Vancomycin HCl 1 gm/ Sodium 250 mls @ 166.7 mls/hr 08/27/16 22:15 09/02/16 22 :22 Chloride IVPB 166.7 mls/hr Q24H [facility] Administration Cefepime HCl 1 gm in 50 mls @ 100 mls/hr 08/31/16 03:00 09/03/16 10:28 Maxipime Iv 1 Gm Premix IVPB 100 mls/hr Q8H [facility] Administration Insulin Aspart 0 unit 09/02/16 09:09 09/03/16 05:51 Novolog SC Not Given Q6 [facility] Protocol Methylprednisolone 40 mg 09/03/16 14:00 Solu-Medrol IVP Q8 [facility] Oxycodone/Acetaminophen 1 tab 09/03/16 09:40 Percocet 5/325 Mg Tab PO 09/06/16 09:41 Q6H PRN Pain, moderate (4-7) - Patient Studies Lab Studies: Microbiology Studies 08/31/16 12:08 Blood Culture - Preliminary Blood-Venous NO GROWTH AFTER 3 DAYS 08/31/16 12:08 Blood Culture - Preliminary Blood-Venous NO GROWTH AFTER 3 DAYS 08/31/16 11:39 Gram Stain - Final Trachasp Sputum Culture - Final Staphylococcus Aureus 08/31/16 02:55 Gram Stain - Final Sputum Induced Sputum Culture - Final Staphylococcus Aureus 08/30/16 21:00 Blood Culture - Preliminary Blood-Venous NO GROWTH AFTER 3 DAYS 08/28/16 18:19 Blood Culture - Final Blood-Venous NO GROWTH AFTER 5 DAYS Gram Stain - Final TEST NOT PERFORMED 08/28/16 16:00 Blood Culture - Final Blood-Venous NO GROWTH AFTER 5 DAYS Gram Stain - Final TEST NOT PERFORMED 09/01/16 13:48 Gram Stain - Final Pleural Fluid Body Fluid Culture - Preliminary NO GROWTH AFTER 24 HOURS Lab Studies 09/03/16 09/03/16 09/03/16 Range/Units 12:29 06:09 06:09 WBC (4.8-10.8) K/uL RBC (4.40-5.90) Mil/uL Hgb (12.0-18.0) g/dL Hct (35.0-51.0) % MCV (80.0-94.0) fL MCH (27.0-31.0) pg MCHC (33.0-37.0) g/dL RDW (11.5-14.5) % Plt Count (130-400) K/uL MPV (7.2-11.7) fL Neut % (Auto) (50.0-75.0) % Lymph % (Auto) (20.0-40.0) % [place] % (Auto) (0.0-10.0) % Eos % (Auto) (0.0-4.0) % Baso % (Auto) (0.0-2.0) % Neut # (1.8-7.0) K/uL Lymph # (1.0-4.3) K/uL [place] # (0.0-0.8) K/uL Eos # (0.0-0.7) K/uL Baso # (0.0-0.2) K/uL Sodium 138 (132-148) mmol/L Potassium 3.1 L (3.6-5.2) mmol/L Chloride 111 H (98-107) mmol/L Carbon Dioxide 21 L (22-30) mmol/L Anion Gap 9 L (10-20) BUN 28 H (9-20) mg/dL Creatinine 0.6 L (0.8-1.5) MG/DL Est GFR ( Amer) > 60 Est GFR (Non-Af Amer) > 60 POC Glucose (mg/dL) 228 H (65-110) mg/dL Random Glucose 188 H (75-110) mg/dL Calcium 8.1 L (8.6-10.4) mg/dl Phosphorus 2.7 (2.5-4.5) mg/dL Magnesium 2.3 (1.6-2.3) mg/dL Total Bilirubin 0.6 (0.2-1.3) mg/dL AST 37 (17-59) U/L ALT 27 (21-72) U/L Alkaline Phosphatase 66 (38-126) U/L Total Protein 6.6 (6.3-8.3) g/dL Albumin 2.3 L D (3.5-5.0) g/dL Globulin 4.3 H (2.2-3.9) gm/dL Albumin/Globulin Ratio 0.5 L (1.0-2.1) Vancomycin Trough 15.0 H (5.0-10.0) ug/mL 09/03/16 09/03/16 09/02/16 Range/Units 06:09 05:41 23:56 WBC 6.6 (4.8-10.8) K/uL RBC 3.03 L (4.40-5.90) Mil/uL Hgb 8.2 L (12.0-18.0) g/dL Hct 25.5 L (35.0-51.0) % MCV 84.0 (80.0-94.0) fL MCH 27.1 (27.0-31.0) pg MCHC 32.3 L (33.0-37.0) g/dL RDW 18.0 H (11.5-14.5) % Plt Count 287 (130-400) K/uL MPV 7.9 (7.2-11.7) fL Neut % (Auto) 85.3 H (50.0-75.0) % Lymph % (Auto) 11.1 L (20.0-40.0) % [place] % (Auto) 3.4 (0.0-10.0) % Eos % (Auto) 0.0 (0.0-4.0) % Baso % (Auto) 0.2 (0.0-2.0) % Neut # 5.6 (1.8-7.0) K/uL Lymph # 0.7 L (1.0-4.3) K/uL [place] # 0.2 (0.0-0.8) K/uL Eos # 0.0 (0.0-0.7) K/uL Baso # 0.0 (0.0-0.2) K/uL Sodium (132-148) mmol/L Potassium (3.6-5.2) mmol/L Chloride (98-107) mmol/L Carbon Dioxide (22-30) mmol/L Anion Gap (10-20) BUN (9-20) mg/dL Creatinine (0.8-1.5) MG/DL Est GFR ( Amer) Est GFR (Non-Af Amer) POC Glucose (mg/dL) 226 H 228 H (65-110) mg/dL Random Glucose (75-110) mg/dL Calcium (8.6-10.4) mg/dl Phosphorus (2.5-4.5) mg/dL Magnesium (1.6-2.3) mg/dL Total Bilirubin (0.2-1.3) mg/dL AST (17-59) U/L ALT (21-72) U/L Alkaline Phosphatase (38-126) U/L Total Protein (6.3-8.3) g/dL Albumin (3.5-5.0) g/dL Globulin (2.2-3.9) gm/dL Albumin/Globulin Ratio (1.0-2.1) Vancomycin Trough (5.0-10.0) ug/mL 09/02/16 Range/Units 18:05 WBC (4.8-10.8) K/uL RBC (4.40-5.90) Mil/uL Hgb (12.0-18.0) g/dL Hct (35.0-51.0) % MCV (80.0-94.0) fL MCH (27.0-31.0) pg MCHC (33.0-37.0) g/dL RDW (11.5-14.5) % Plt Count (130-400) K/uL MPV (7.2-11.7) fL Neut % (Auto) (50.0-75.0) % Lymph % (Auto) (20.0-40.0) % [place] % (Auto) (0.0-10.0) % Eos % (Auto) (0.0-4.0) % Baso % (Auto) (0.0-2.0) % Neut # (1.8-7.0) K/uL Lymph # (1.0-4.3) K/uL [place] # (0.0-0.8) K/uL Eos # (0.0-0.7) K/uL Baso # (0.0-0.2) K/uL Sodium (132-148) mmol/L Potassium (3.6-5.2) mmol/L Chloride (98-107) mmol/L Carbon Dioxide (22-30) mmol/L Anion Gap (10-20) BUN (9-20) mg/dL Creatinine (0.8-1.5) MG/DL Est GFR ( Amer) Est GFR (Non-Af Amer) POC Glucose (mg/dL) 187 H (65-110) mg/dL Random Glucose (75-110) mg/dL Calcium (8.6-10.4) mg/dl Phosphorus (2.5-4.5) mg/dL Magnesium (1.6-2.3) mg/dL Total Bilirubin (0.2-1.3) mg/dL AST (17-59) U/L ALT (21-72) U/L Alkaline Phosphatase (38-126) U/L Total Protein (6.3-8.3) g/dL Albumin (3.5-5.0) g/dL Globulin (2.2-3.9) gm/dL Albumin/Globulin Ratio (1.0-2.1) Vancomycin Trough (5.0-10.0) ug/mL Laboratory Results - last 24 hr 09/02/16 09/02/16 09/03/16 18:05 23:56 05:41 WBC RBC Hgb Hct MCV MCH MCHC RDW Plt Count MPV Neut % (Auto) Lymph % (Auto) [place] % (Auto) Eos % (Auto) Baso % (Auto) Neut # Lymph # [place] # Eos # Baso # Sodium Potassium Chloride Carbon Dioxide Anion Gap BUN Creatinine Est GFR ( Amer) Est GFR (Non-Af Amer) POC Glucose (mg/dL) 187 H 228 H 226 H Random Glucose Calcium Phosphorus Magnesium Total Bilirubin AST ALT Alkaline Phosphatase Total Protein Albumin Globulin Albumin/Globulin Ratio Vancomycin Trough 09/03/16 09/03/16 09/03/16 06:09 06:09 06:09 WBC 6.6 RBC 3.03 L Hgb 8.2 L Hct 25.5 L MCV 84.0 MCH 27.1 MCHC 32.3 L RDW 18.0 H Plt Count 287 MPV 7.9 Neut % (Auto) 85.3 H Lymph % (Auto) 11.1 L [place] % (Auto) 3.4 Eos % (Auto) 0.0 Baso % (Auto) 0.2 Neut # 5.6 Lymph # 0.7 L [place] # 0.2 Eos # 0.0 Baso # 0.0 Sodium 138 Potassium 3.1 L Chloride 111 H Carbon Dioxide 21 L Anion Gap 9 L BUN 28 H Creatinine 0.6 L Est GFR ( Amer) > 60 Est GFR (Non-Af Amer) > 60 POC Glucose (mg/dL) Random Glucose 188 H Calcium 8.1 L Phosphorus 2.7 Magnesium 2.3 Total Bilirubin 0.6 AST 37 ALT 27 Alkaline Phosphatase 66 Total Protein 6.6 Albumin 2.3 L D Globulin 4.3 H Albumin/Globulin Ratio 0.5 L Vancomycin Trough 15.0 H 09/03/16 12:29 WBC RBC Hgb Hct MCV MCH MCHC RDW Plt Count MPV Neut % (Auto) Lymph % (Auto) [place] % (Auto) Eos % (Auto) Baso % (Auto) Neut # Lymph # [place] # Eos # Baso # Sodium Potassium Chloride Carbon Dioxide Anion Gap BUN Creatinine Est GFR ( Amer) Est GFR (Non-Af Amer) POC Glucose (mg/dL) 228 H Random Glucose Calcium Phosphorus Magnesium Total Bilirubin AST ALT Alkaline Phosphatase Total Protein Albumin Globulin Albumin/Globulin Ratio Vancomycin Trough Fingerstick Blood Sugar Results: 228 Review of Systems - Review of Systems All systems: reviewed and no additional remarkable complaints except (where noted in HPI) Critical Care Progress Note - Nutrition Nutrition: Nutrition Category Date Time Status NPO Diet [DIET] Diets 08/31/16 Breakfast Active Assessment/Plan - Assessment and Plan (Free Text) Assessment: This is a 75 yo M s/p hypoxemic respiratory failure secondary to likely aspiration pneumonia, now extubated and saturating well on NC. Plan: Neuro: Extubated. AAOx3 Monitor Cardiovascular: Slightly hypotensive but stable NS at 50 cc/hr Pulmonary: Extubated, tolerating NC well. S/P chest tube/pigtail placement and 1200cc of pleural drainage Follow up on Pleural fluid studies Serial ABGs Continue Cefepime and vanc Continue duonebs and IV steroids Gastrointestinal: Swallow eval completed Will start puree diet Hematology: No acute issues Endocrine: Sliding scale coverage Renal: D/C IVF Monitor labs Infectious Disease: Leukosytosis resolved, afebrile Pleural cultures - no growth after 2 days Sputum culture - Staph a pansensitive except to penicillin Continue cefepime and vanc GI Prophylaxis: Pepcid DVT Prophylaxis: Lovenox <Frankie Cano - Last Filed: 09/03/16 17:45> CCU Objective - Vital Signs / Intake & Output Intake and Output (Last 8hrs): Intake & Output 09/03/16 09/03/16 09/03/16 06:59 14:59 22:59 Intake Total 550 50 Output Total 695 100 Balance -145 -50 Weight 160 lb Intake: Intake, IV Amount 550 50 Right Port-A-Cath 550 50 Output: Chest Tube Drainage 50 Right Posterior Chest 50 Urine 695 50 Urethral (Stahl) 695 50 - Medications Active Medications: Active Medications Generic Name Dose Route Start Last Admin Trade Name Freq PRN Reason Stop Dose Admin Acetaminophen 650 mg 08/31/16 12:50 08/31/16 13:06 Tylenol 650mg/20.3ml Solution Ud PO 650 mg Q4H PRN Administration Fever >100.4 F Albuterol/Ipratropium 3 ml 08/31/16 14:00 09/03/16 14:39 Duoneb 3 Mg/0.5 Mg (3 Ml) Ud INH 3 ml RQ6 [facility] Administration Baclofen 10 mg 08/25/16 18:00 09/03/16 10:29 Lioresal PO 10 mg BID [facility] Administration Enoxaparin Sodium 40 mg 08/25/16 10:00 09/03/16 10:29 Lovenox SC 40 mg DAILY [facility] Administration Famotidine 20 mg 09/03/16 10:00 09/03/16 10:29 Pepcid PO 20 mg BID [facility] Administration Vancomycin HCl 1 gm/ Sodium 250 mls @ 166.7 mls/hr 08/27/16 22:15 09/02/16 22 :22 Chloride IVPB 166.7 mls/hr Q24H [facility] Administration Cefepime HCl 1 gm in 50 mls @ 100 mls/hr 08/31/16 03:00 09/03/16 10:28 Maxipime Iv 1 Gm Premix IVPB 100 mls/hr Q8H [facility] Administration Insulin Aspart 0 unit 09/02/16 09:09 09/03/16 15:42 Novolog SC Not Given Q6 [facility] Protocol Methylprednisolone 40 mg 09/03/16 14:00 Solu-Medrol IVP Q8 [facility] Oxycodone/Acetaminophen 1 tab 09/03/16 09:40 Percocet 5/325 Mg Tab PO 09/06/16 09:41 Q6H PRN Pain, moderate (4-7) - Patient Studies Lab Studies: Microbiology Studies 09/01/16 13:48 Gram Stain - Final Pleural Fluid Body Fluid Culture - Preliminary NO GROWTH AFTER 2 DAYS 08/31/16 12:08 Blood Culture - Preliminary Blood-Venous NO GROWTH AFTER 3 DAYS 08/31/16 12:08 Blood Culture - Preliminary Blood-Venous NO GROWTH AFTER 3 DAYS 08/31/16 11:39 Gram Stain - Final Trachasp Sputum Culture - Final Staphylococcus Aureus 08/31/16 02:55 Gram Stain - Final Sputum Induced Sputum Culture - Final Staphylococcus Aureus 08/30/16 21:00 Blood Culture - Preliminary Blood-Venous NO GROWTH AFTER 3 DAYS 08/28/16 18:19 Blood Culture - Final Blood-Venous NO GROWTH AFTER 5 DAYS Gram Stain - Final TEST NOT PERFORMED 08/28/16 16:00 Blood Culture - Final Blood-Venous NO GROWTH AFTER 5 DAYS Gram Stain - Final TEST NOT PERFORMED Lab Studies 09/03/16 09/03/16 09/03/16 Range/Units 12:29 06:09 06:09 WBC (4.8-10.8) K/uL RBC (4.40-5.90) Mil/uL Hgb (12.0-18.0) g/dL Hct (35.0-51.0) % MCV (80.0-94.0) fL MCH (27.0-31.0) pg MCHC (33.0-37.0) g/dL RDW (11.5-14.5) % Plt Count (130-400) K/uL MPV (7.2-11.7) fL Neut % (Auto) (50.0-75.0) % Lymph % (Auto) (20.0-40.0) % [place] % (Auto) (0.0-10.0) % Eos % (Auto) (0.0-4.0) % Baso % (Auto) (0.0-2.0) % Neut # (1.8-7.0) K/uL Lymph # (1.0-4.3) K/uL [place] # (0.0-0.8) K/uL Eos # (0.0-0.7) K/uL Baso # (0.0-0.2) K/uL Sodium 138 (132-148) mmol/L Potassium 3.1 L (3.6-5.2) mmol/L Chloride 111 H (98-107) mmol/L Carbon Dioxide 21 L (22-30) mmol/L Anion Gap 9 L (10-20) BUN 28 H (9-20) mg/dL Creatinine 0.6 L (0.8-1.5) MG/DL Est GFR ( Amer) > 60 Est GFR (Non-Af Amer) > 60 POC Glucose (mg/dL) 228 H (65-110) mg/dL Random Glucose 188 H (75-110) mg/dL Calcium 8.1 L (8.6-10.4) mg/dl Phosphorus 2.7 (2.5-4.5) mg/dL Magnesium 2.3 (1.6-2.3) mg/dL Total Bilirubin 0.6 (0.2-1.3) mg/dL AST 37 (17-59) U/L ALT 27 (21-72) U/L Alkaline Phosphatase 66 (38-126) U/L Total Protein 6.6 (6.3-8.3) g/dL Albumin 2.3 L D (3.5-5.0) g/dL Globulin 4.3 H (2.2-3.9) gm/dL Albumin/Globulin Ratio 0.5 L (1.0-2.1) Vancomycin Trough 15.0 H (5.0-10.0) ug/mL 09/03/16 09/03/16 09/02/16 Range/Units 06:09 05:41 23:56 WBC 6.6 (4.8-10.8) K/uL RBC 3.03 L (4.40-5.90) Mil/uL Hgb 8.2 L (12.0-18.0) g/dL Hct 25.5 L (35.0-51.0) % MCV 84.0 (80.0-94.0) fL MCH 27.1 (27.0-31.0) pg MCHC 32.3 L (33.0-37.0) g/dL RDW 18.0 H (11.5-14.5) % Plt Count 287 (130-400) K/uL MPV 7.9 (7.2-11.7) fL Neut % (Auto) 85.3 H (50.0-75.0) % Lymph % (Auto) 11.1 L (20.0-40.0) % [place] % (Auto) 3.4 (0.0-10.0) % Eos % (Auto) 0.0 (0.0-4.0) % Baso % (Auto) 0.2 (0.0-2.0) % Neut # 5.6 (1.8-7.0) K/uL Lymph # 0.7 L (1.0-4.3) K/uL [place] # 0.2 (0.0-0.8) K/uL Eos # 0.0 (0.0-0.7) K/uL Baso # 0.0 (0.0-0.2) K/uL Sodium (132-148) mmol/L Potassium (3.6-5.2) mmol/L Chloride (98-107) mmol/L Carbon Dioxide (22-30) mmol/L Anion Gap (10-20) BUN (9-20) mg/dL Creatinine (0.8-1.5) MG/DL Est GFR ( Amer) Est GFR (Non-Af Amer) POC Glucose (mg/dL) 226 H 228 H (65-110) mg/dL Random Glucose (75-110) mg/dL Calcium (8.6-10.4) mg/dl Phosphorus (2.5-4.5) mg/dL Magnesium (1.6-2.3) mg/dL Total Bilirubin (0.2-1.3) mg/dL AST (17-59) U/L ALT (21-72) U/L Alkaline Phosphatase (38-126) U/L Total Protein (6.3-8.3) g/dL Albumin (3.5-5.0) g/dL Globulin (2.2-3.9) gm/dL Albumin/Globulin Ratio (1.0-2.1) Vancomycin Trough (5.0-10.0) ug/mL 09/02/16 Range/Units 18:05 WBC (4.8-10.8) K/uL RBC (4.40-5.90) Mil/uL Hgb (12.0-18.0) g/dL Hct (35.0-51.0) % MCV (80.0-94.0) fL MCH (27.0-31.0) pg MCHC (33.0-37.0) g/dL RDW (11.5-14.5) % Plt Count (130-400) K/uL MPV (7.2-11.7) fL Neut % (Auto) (50.0-75.0) % Lymph % (Auto) (20.0-40.0) % [place] % (Auto) (0.0-10.0) % Eos % (Auto) (0.0-4.0) % Baso % (Auto) (0.0-2.0) % Neut # (1.8-7.0) K/uL Lymph # (1.0-4.3) K/uL [place] # (0.0-0.8) K/uL Eos # (0.0-0.7) K/uL Baso # (0.0-0.2) K/uL Sodium (132-148) mmol/L Potassium (3.6-5.2) mmol/L Chloride (98-107) mmol/L Carbon Dioxide (22-30) mmol/L Anion Gap (10-20) BUN (9-20) mg/dL Creatinine (0.8-1.5) MG/DL Est GFR ( Amer) Est GFR (Non-Af Amer) POC Glucose (mg/dL) 187 H (65-110) mg/dL Random Glucose (75-110) mg/dL Calcium (8.6-10.4) mg/dl Phosphorus (2.5-4.5) mg/dL Magnesium (1.6-2.3) mg/dL Total Bilirubin (0.2-1.3) mg/dL AST (17-59) U/L ALT (21-72) U/L Alkaline Phosphatase (38-126) U/L Total Protein (6.3-8.3) g/dL Albumin (3.5-5.0) g/dL Globulin (2.2-3.9) gm/dL Albumin/Globulin Ratio (1.0-2.1) Vancomycin Trough (5.0-10.0) ug/mL Laboratory Results - last 24 hr 09/02/16 09/02/16 09/03/16 18:05 23:56 05:41 WBC RBC Hgb Hct MCV MCH MCHC RDW Plt Count MPV Neut % (Auto) Lymph % (Auto) [place] % (Auto) Eos % (Auto) Baso % (Auto) Neut # Lymph # [place] # Eos # Baso # Sodium Potassium Chloride Carbon Dioxide Anion Gap BUN Creatinine Est GFR ( Amer) Est GFR (Non-Af Amer) POC Glucose (mg/dL) 187 H 228 H 226 H Random Glucose Calcium Phosphorus Magnesium Total Bilirubin AST ALT Alkaline Phosphatase Total Protein Albumin Globulin Albumin/Globulin Ratio Vancomycin Trough 09/03/16 09/03/16 09/03/16 06:09 06:09 06:09 WBC 6.6 RBC 3.03 L Hgb 8.2 L Hct 25.5 L MCV 84.0 MCH 27.1 MCHC 32.3 L RDW 18.0 H Plt Count 287 MPV 7.9 Neut % (Auto) 85.3 H Lymph % (Auto) 11.1 L [place] % (Auto) 3.4 Eos % (Auto) 0.0 Baso % (Auto) 0.2 Neut # 5.6 Lymph # 0.7 L [place] # 0.2 Eos # 0.0 Baso # 0.0 Sodium 138 Potassium 3.1 L Chloride 111 H Carbon Dioxide 21 L Anion Gap 9 L BUN 28 H Creatinine 0.6 L Est GFR ( Amer) > 60 Est GFR (Non-Af Amer) > 60 POC Glucose (mg/dL) Random Glucose 188 H Calcium 8.1 L Phosphorus 2.7 Magnesium 2.3 Total Bilirubin 0.6 AST 37 ALT 27 Alkaline Phosphatase 66 Total Protein 6.6 Albumin 2.3 L D Globulin 4.3 H Albumin/Globulin Ratio 0.5 L Vancomycin Trough 15.0 H 09/03/16 12:29 WBC RBC Hgb Hct MCV MCH MCHC RDW Plt Count MPV Neut % (Auto) Lymph % (Auto) [place] % (Auto) Eos % (Auto) Baso % (Auto) Neut # Lymph # [place] # Eos # Baso # Sodium Potassium Chloride Carbon Dioxide Anion Gap BUN Creatinine Est GFR ( Amer) Est GFR (Non-Af Amer) POC Glucose (mg/dL) 228 H Random Glucose Calcium Phosphorus Magnesium Total Bilirubin AST ALT Alkaline Phosphatase Total Protein Albumin Globulin Albumin/Globulin Ratio Vancomycin Trough Critical Care Progress Note - Nutrition Nutrition: Nutrition Category Date Time Status Modified [Dysphagia/Modified Consistency Diet] [DIET] Diets 09/03/16 Dinner Active Attending/Attestation - Attestation I have personally seen and examined this patient.: Yes I have fully participated in the care of the patient.: Yes I have reviewed all pertinent clinical information: Yes Notes (Text): 09/03/16 17:45 Today: August The Patient was seen and examined at the bedside, Medical records reviewed, all clinical/lab/hemodynamic/radiographic data were reviewed and management issues were discussed and formulated, Events reviewed Pain issues, skin care, head of the bed elevation, glycemic control were addressed. Agree with above treatment plans as transcribed in Dr. Mejia note
--- NOTE | 2016-09-03 15:40 | PN ---
DATE: 09/03/2016 PHYSICAL EXAMINATION: GENERAL: The patient is alert, oriented. He is in wheelchair this morning. VITAL SIGNS: His blood pressure is stable at 118/64, pulse is 77, respirations 17, hemoglobin oxygen saturation of 97%. His temperature is subsiding, and he is on antibiotic for sepsis. His dyspnea is easier. Cough is easier. HEART: Regular with no gallop rhythm. LUNGS: Diminished breath sounds over lung bases. Rhonchi decreased. ABDOMEN: Soft. LEGS: No edema. Right chest wall ____ Port-A-Cath is in place. Right chest tube is in place. Right chest catheter draining is not much decreased. LABORATORY DATA: His white count is now 6600, hemoglobin 8.2, platelet count is 287,000. Serum sodium is 138, serum potassium 3.1. BUN is 28, creatinine 0.6. 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 Pleural fluid was reported to be cloudy with lots of white cells at 19,000, neutrophils were 90%, lymphocytes 5%, macrophages 5. Microbiology of pleural fluid - report is yet to be received. The antibiotics are being regulated by the infectious disease consult. Alessandro Hayes MD cc: [id number] TT: 09/03/2016 15:40:04 Confirmation # [id number] Dictation # [id number] mary TOMAS
--- NOTE | 2016-09-03 17:20 | CP.PCM.PN ---
Subjective - Date & Time of Evaluation Date of Evaluation: 09/03/16 Time of Evaluation: 07:00 - Subjective Subjective: GREW MSSA IN SPUTUM OK TO D/C VANCO Objective - Vital Signs/Intake and Output Vital Signs (last 24 hours): Temp Pulse Resp BP Pulse Ox 98 F 77 17 118/64 97 09/03/16 04:00 09/03/16 07:31 09/03/16 07:31 09/03/16 07:31 09/03/16 07:31 Intake and Output: 09/03/16 09/03/16 06:59 18:59 Intake Total 750 50 Output Total 985 100 Balance -235 -50 - Medications Medications: Current Medications Acetaminophen (Tylenol 650mg/20.3ml Solution Ud) 650 mg PO Q4H PRN PRN Reason: Fever >100.4 F Last Admin: 08/31/16 13:06 Dose: 650 mg Albuterol/Ipratropium (Duoneb 3 Mg/0.5 Mg (3 Ml) Ud) 3 ml INH RQ6 [facility] Last Admin: 09/03/16 14:39 Dose: 3 ml Baclofen (Lioresal) 10 mg PO BID [facility] Last Admin: 09/03/16 10:29 Dose: 10 mg Enoxaparin Sodium (Lovenox) 40 mg SC DAILY [facility] Last Admin: 09/03/16 10:29 Dose: 40 mg Famotidine (Pepcid) 20 mg PO BID [facility] Last Admin: 09/03/16 10:29 Dose: 20 mg Vancomycin HCl 1 gm/ Sodium (Chloride) 250 mls @ 166.7 mls/hr IVPB Q24H [facility] Last Admin: 09/02/16 22:22 Dose: 166.7 mls/hr Cefepime HCl (Maxipime Iv 1 Gm Premix) 1 gm in 50 mls @ 100 mls/hr IVPB Q8H [facility] Last Admin: 09/03/16 10:28 Dose: 100 mls/hr Insulin Aspart (Novolog) 0 unit SC Q6 [facility] PRN Reason: Protocol Last Admin: 09/03/16 15:42 Dose: Not Given Methylprednisolone (Solu-Medrol) 40 mg IVP Q8 [facility] Oxycodone/Acetaminophen (Percocet 5/325 Mg Tab) 1 tab PO Q6H PRN PRN Reason: Pain, moderate (4-7) Stop: 09/06/16 09:41 - Labs Labs: 09/03/16 06:09 09/03/16 06:09 PT 17.6 SECONDS (9.7-12.2) H 08/31/16 02:36 INR 1.5 08/31/16 02:36 APTT 34 SECONDS (21-34) 08/31/16 02:36 - Constitutional Appears: Non-toxic, Cachectic, Chronically Ill - Head Exam Head Exam: NORMOCEPHALIC - Eye Exam Eye Exam: PERRL. absent: Scleral icterus - ENT Exam ENT Exam: Mucous Membranes Dry - Neck Exam Neck Exam: absent: Lymphadenopathy - Respiratory Exam Respiratory Exam: Decreased Breath Sounds, Clear to Ausculation Bilateral - Cardiovascular Exam Cardiovascular Exam: REGULAR RHYTHM, +S1, +S2 - GI/Abdominal Exam GI & Abdominal Exam: Distended, Soft. absent: Tenderness - Rectal Exam Rectal Exam: Deferred - Exam Exam: NORMAL INSPECTION - Extremities Exam Extremities Exam: absent: Pedal Edema - Back Exam Back Exam: absent: CVA tenderness (L), CVA tenderness (R) - Neurological Exam Neurological Exam: Alert, Awake, Oriented x3 Assessment and Plan (1) Altered mental status, unspecified Status: Acute (2) Arthritis Status: Acute (3) Dehydration Status: Acute (4) Pacemaker Status: Acute (5) Psoriatic arthritis Status: Acute
[2016-09-03 18:40] LABS: GLUCOSE PLEURAL FLUID 129 mg/dL; LDH PLEURAL FLUID 3218 U/L
--- NOTE | 2016-09-03 23:17 | CP.PCM.PN ---
Subjective - Date & Time of Evaluation Date of Evaluation: 09/03/16 Time of Evaluation: 13:20 - Subjective Subjective: Continues to improve. More responsive and comfortable after extubation. ! 200 cc of fluid removed . Continue repiratory treatments and antibiotics. Objective - Vital Signs/Intake and Output Vital Signs (last 24 hours): Temp Pulse Resp BP Pulse Ox 98 F 85 19 116/66 93 L 09/03/16 04:00 09/03/16 18:31 09/03/16 18:31 09/03/16 18:31 09/03/16 18:31 Intake and Output: 09/03/16 09/04/16 18:59 06:59 Intake Total 425 Output Total 940 Balance -515 - Medications Medications: Current Medications Acetaminophen (Tylenol 650mg/20.3ml Solution Ud) 650 mg PO Q4H PRN PRN Reason: Fever >100.4 F Last Admin: 08/31/16 13:06 Dose: 650 mg Albuterol/Ipratropium (Duoneb 3 Mg/0.5 Mg (3 Ml) Ud) 3 ml INH RQ6 [facility] Last Admin: 09/03/16 19:20 Dose: 3 ml Baclofen (Lioresal) 10 mg PO BID [facility] Last Admin: 09/03/16 18:17 Dose: 10 mg Enoxaparin Sodium (Lovenox) 40 mg SC DAILY [facility] Last Admin: 09/03/16 10:29 Dose: 40 mg Famotidine (Pepcid) 20 mg PO BID [facility] Last Admin: 09/03/16 18:17 Dose: 20 mg Vancomycin HCl 1 gm/ Sodium (Chloride) 250 mls @ 166.7 mls/hr IVPB Q24H [facility] Last Admin: 09/03/16 22:58 Dose: 166.7 mls/hr Cefepime HCl (Maxipime Iv 1 Gm Premix) 1 gm in 50 mls @ 100 mls/hr IVPB Q8H [facility] Last Admin: 09/03/16 18:17 Dose: 100 mls/hr Insulin Aspart (Novolog) 0 unit SC Q6 [facility] PRN Reason: Protocol Last Admin: 09/03/16 18:17 Dose: Not Given Methylprednisolone (Solu-Medrol) 40 mg IVP Q8 [facility] Last Admin: 09/03/16 22:57 Dose: 40 mg Oxycodone/Acetaminophen (Percocet 5/325 Mg Tab) 1 tab PO Q6H PRN PRN Reason: Pain, moderate (4-7) Stop: 09/06/16 09:41 - Labs Labs: 09/03/16 06:09 09/03/16 06:09 PT 17.6 SECONDS (9.7-12.2) H 08/31/16 02:36 INR 1.5 08/31/16 02:36 APTT 34 SECONDS (21-34) 08/31/16 02:36 - Constitutional Appears: No Acute Distress - Head Exam Head Exam: NORMAL INSPECTION - Eye Exam Eye Exam: Normal appearance Pupil Exam: NORMAL ACCOMODATION - ENT Exam ENT Exam: Normal Exam - Neck Exam Neck Exam: Normal Inspection - Respiratory Exam Respiratory Exam: Decreased Breath Sounds - Cardiovascular Exam Cardiovascular Exam: REGULAR RHYTHM - GI/Abdominal Exam GI & Abdominal Exam: Normal Bowel Sounds - Rectal Exam Rectal Exam: Deferred - Exam Exam: NORMAL INSPECTION - Extremities Exam Extremities Exam: Joint Swelling - Back Exam Back Exam: paraspinal tenderness - Neurological Exam Neurological Exam: Oriented x3 - Psychiatric Exam Psychiatric exam: Depressed - Skin Skin Exam: Dry Assessment and Plan (1) Dehydration Status: Acute (2) Altered mental status, unspecified Status: Acute (3) Hydrocephalus Status: Acute (4) Chronic obstructive airway disease Status: Acute (5) Psoriatic arthritis Status: Acute (6) Endotracheally intubated Status: Resolved (7) Pacemaker Status: Acute
[2016-09-04] MEDS: Oxycodone/Acetaminophen 5/325 mg Tab PO PRN (00:06)
[2016-09-04] MEDS: Albuterol-Ipratrop 3 mg / 0.5 (3 ml) UD INH SCH ×2 (01:06→07:54)
[2016-09-04] MEDS: (Novolog) Insulin Aspart, Recombinant 100 u/ml 10 ml vial SC SCH ×5 (01:22→22:16)
[2016-09-04] MEDS: Cefepime IV 1 gm in Dextrose 1 GM/50 ML BAG IVPB SCH ×3 (03:55→19:08)
[2016-09-04] MEDS: MethylPREDNISolone 40 mg Vial IVP SCH (06:15)
[2016-09-04 06:28] LABS: HEMATOCRIT 27.4 % (35.0-51.0); LYMPH # 0.7 K/uL (1.0-4.3); LYMPH % 10.1 % (20.0-40.0); MEAN CELL VOLUME 83.9 fL (80.0-94.0); MEAN CORPUSCULAR HEMOGLOBIN 26.5 pg (27.0-31.0); MEAN CORPUSCULAR HGB CONC 31.6 g/dL (33.0-37.0); MEAN PLATELET VOLUME 7.8 fL (7.2-11.7); MONO # 0.3 K/uL (0.0-0.8); MONO % 3.5 % (0.0-10.0); RED CELL DISTRIBUTION WIDTH 18.1 % (11.5-14.5); WHITE BLOOD COUNT 7.4 K/uL (4.8-10.8)
[2016-09-04 06:44] LABS: CHLORIDE 111 mmol/L (98-107); POTASSIUM 3.7 mmol/L (3.6-5.2); SODIUM 140 mmol/L (132-148)
[2016-09-04 06:46] LABS: AST/SGOT 76 U/L (17-59); BILIRUBIN,TOTAL 0.7 mg/dL (0.2-1.3); CARBON DIOXIDE 21 mmol/L (22-30); GFR AFRICAN-AMERICAN > 60
[2016-09-04 06:47] LABS: ALB/GLOB RATIO 0.6 (1.0-2.1); ALKALINE PHOSPHATASE 69 U/L (38-126); ALT/SGPT 53 U/L (21-72); BLOOD UREA NITROGEN 29 mg/dL (9-20); CALCIUM 8.4 mg/dl (8.6-10.4); GLUCOSE,RANDOM 179 mg/dL (75-110); PHOSPHOROUS 2.9 mg/dL (2.5-4.5); TOTAL PROTEIN 6.6 g/dL (6.3-8.3)
[2016-09-04 06:48] LABS: MAGNESIUM 2.4 mg/dL (1.6-2.3)
[2016-09-04] MEDS ORDERED: Albuterol-Ipratrop 3 mg / 0.5 (3 ml) UD INH PRN (09:29)
[2016-09-04] MEDS: Enoxaparin 40 mg Syringe SC SCH (10:44)
--- NOTE | 2016-09-04 11:52 | CP.CCUPN ---
<Taras Mejia - Last Filed: 09/04/16 11:49> CCU Subjective - Physician Review Subjective (Free Text): 09/04/16 11:49 PGY-1 ICU progress note Pt seen and examined at bedside. There were no acute issues overnight. Pt states breathing is better. Denies any other complaints. Critical Care Time Spent (in minutes): 35 CCU Objective - Vital Signs / Intake & Output Vital Signs (Last 4 hours): Vital Signs Temp Pulse Ox 09/04/16 08:00 87.6 F L 98 Intake and Output (Last 8hrs): Intake & Output 09/03/16 09/04/16 09/04/16 22:59 06:59 14:59 Intake Total 575 300 270 Output Total 840 160 Balance -265 140 270 Weight 173 lb 11.588 oz Intake: Intake, IV Amount 0 300 50 Left Forearm 300 Right Port-A-Cath 0 Right Wrist 50 Oral 575 0 220 Output: Chest Tube Drainage 40 120 Right Posterior Chest 40 120 Urine 800 Urethral (Stahl) 800 Stool 40 Other: # Voids Urethral (Stahl) 1 # Bowel Movements 0 - Physical Exam Head: Positive for: Atraumatic, Normocephalic Respiratory/Chest: Positive for: Clear to Auscultation, Good Air Exchange, Other (pigtail cath in place, 150cc overnight) Cardiovascular: Positive for: Normal S1, S2 Abdomen: Positive for: Normal Bowel Sounds. Negative for: Distention Upper Extremity: Positive for: NORMAL PULSES Lower Extremity: Positive for: NORMAL PULSES Neurological: Positive for: Speech Normal, Motor Func Grossly Intact Skin: Positive for: Warm, Dry Psychiatric: Positive for: Alert, Oriented x 3 - Medications Active Medications: Active Medications Generic Name Dose Route Start Last Admin Trade Name Freq PRN Reason Stop Dose Admin Acetaminophen 650 mg 08/31/16 12:50 08/31/16 13:06 Tylenol 650mg/20.3ml Solution Ud PO 650 mg Q4H PRN Administration Fever >100.4 F Albuterol/Ipratropium 3 ml 09/04/16 09:29 Duoneb 3 Mg/0.5 Mg (3 Ml) Ud INH RQ6 PRN Shortness of Breath Baclofen 10 mg 08/25/16 18:00 09/04/16 10:31 Lioresal PO 10 mg BID [facility] Administration Enoxaparin Sodium 40 mg 08/25/16 10:00 09/04/16 10:44 Lovenox SC 40 mg DAILY [facility] Administration Famotidine 20 mg 09/03/16 10:00 09/04/16 10:31 Pepcid PO 20 mg BID [facility] Administration Cefepime HCl 1 gm in 50 mls @ 100 mls/hr 08/31/16 03:00 09/04/16 10:33 Maxipime Iv 1 Gm Premix IVPB 100 mls/hr Q8H [facility] Administration Insulin Aspart 0 unit 09/04/16 11:30 Novolog SC ACHS [facility] Protocol Oxycodone/Acetaminophen 1 tab 09/03/16 09:40 09/04/16 00:06 Percocet 5/325 Mg Tab PO 09/06/16 09:41 1 tab Q6H PRN Administration Pain, moderate (4-7) Prednisone 60 mg 09/04/16 10:00 09/04/16 10:45 Prednisone Tab PO 60 mg DAILY [facility] Administration - Patient Studies Lab Studies: Microbiology Studies 09/01/16 13:48 Gram Stain - Final Pleural Fluid Body Fluid Culture - Preliminary NO GROWTH AFTER 3 DAYS 08/30/16 21:00 Blood Culture - Preliminary Blood-Venous NO GROWTH AFTER 4 DAYS 08/31/16 12:08 Blood Culture - Preliminary Blood-Venous NO GROWTH AFTER 3 DAYS 08/31/16 12:08 Blood Culture - Preliminary Blood-Venous NO GROWTH AFTER 3 DAYS 08/31/16 11:39 Gram Stain - Final Trachasp Sputum Culture - Final Staphylococcus Aureus 08/31/16 02:55 Gram Stain - Final Sputum Induced Sputum Culture - Final Staphylococcus Aureus Lab Studies 09/04/16 09/04/16 09/04/16 Range/Units 06:22 06:22 06:12 WBC 7.4 (4.8-10.8) K/uL RBC 3.26 L (4.40-5.90) Mil/uL Hgb 8.6 L (12.0-18.0) g/dL Hct 27.4 L (35.0-51.0) % MCV 83.9 (80.0-94.0) fL MCH 26.5 L (27.0-31.0) pg MCHC 31.6 L (33.0-37.0) g/dL RDW 18.1 H (11.5-14.5) % Plt Count 318 (130-400) K/uL MPV 7.8 (7.2-11.7) fL Neut % (Auto) 86.4 H (50.0-75.0) % Lymph % (Auto) 10.1 L (20.0-40.0) % [place] % (Auto) 3.5 (0.0-10.0) % Eos % (Auto) 0.0 (0.0-4.0) % Baso % (Auto) 0.0 (0.0-2.0) % Neut # 6.4 (1.8-7.0) K/uL Lymph # 0.7 L (1.0-4.3) K/uL [place] # 0.3 (0.0-0.8) K/uL Eos # 0.0 (0.0-0.7) K/uL Baso # 0.0 (0.0-0.2) K/uL Sodium 140 (132-148) mmol/L Potassium 3.7 (3.6-5.2) mmol/L Chloride 111 H (98-107) mmol/L Carbon Dioxide 21 L (22-30) mmol/L Anion Gap 12 (10-20) BUN 29 H (9-20) mg/dL Creatinine 0.7 L (0.8-1.5) MG/DL Est GFR ( Amer) > 60 Est GFR (Non-Af Amer) > 60 POC Glucose (mg/dL) 201 H (65-110) mg/dL Random Glucose 179 H (75-110) mg/dL Calcium 8.4 L (8.6-10.4) mg/dl Phosphorus 2.9 (2.5-4.5) mg/dL Magnesium 2.4 H (1.6-2.3) mg/dL Total Bilirubin 0.7 (0.2-1.3) mg/dL AST 76 H D (17-59) U/L ALT 53 (21-72) U/L Alkaline Phosphatase 69 (38-126) U/L Total Protein 6.6 (6.3-8.3) g/dL Albumin 2.4 L (3.5-5.0) g/dL Globulin 4.2 H (2.2-3.9) gm/dL Albumin/Globulin Ratio 0.6 L (1.0-2.1) Pleural Total Protein g/dL Pleural LDH U/L Pleural Glucose mg/dL 09/04/16 09/03/16 09/01/16 Range/Units 01:19 12:29 14:34 WBC (4.8-10.8) K/uL RBC (4.40-5.90) Mil/uL Hgb (12.0-18.0) g/dL Hct (35.0-51.0) % MCV (80.0-94.0) fL MCH (27.0-31.0) pg MCHC (33.0-37.0) g/dL RDW (11.5-14.5) % Plt Count (130-400) K/uL MPV (7.2-11.7) fL Neut % (Auto) (50.0-75.0) % Lymph % (Auto) (20.0-40.0) % [place] % (Auto) (0.0-10.0) % Eos % (Auto) (0.0-4.0) % Baso % (Auto) (0.0-2.0) % Neut # (1.8-7.0) K/uL Lymph # (1.0-4.3) K/uL [place] # (0.0-0.8) K/uL Eos # (0.0-0.7) K/uL Baso # (0.0-0.2) K/uL Sodium (132-148) mmol/L Potassium (3.6-5.2) mmol/L Chloride (98-107) mmol/L Carbon Dioxide (22-30) mmol/L Anion Gap (10-20) BUN (9-20) mg/dL Creatinine (0.8-1.5) MG/DL Est GFR ( Amer) Est GFR (Non-Af Amer) POC Glucose (mg/dL) 187 H 228 H (65-110) mg/dL Random Glucose (75-110) mg/dL Calcium (8.6-10.4) mg/dl Phosphorus (2.5-4.5) mg/dL Magnesium (1.6-2.3) mg/dL Total Bilirubin (0.2-1.3) mg/dL AST (17-59) U/L ALT (21-72) U/L Alkaline Phosphatase (38-126) U/L Total Protein (6.3-8.3) g/dL Albumin (3.5-5.0) g/dL Globulin (2.2-3.9) gm/dL Albumin/Globulin Ratio (1.0-2.1) Pleural Total Protein <3.0 g/dL Pleural LDH 3218 U/L Pleural Glucose 129 mg/dL Laboratory Results - last 24 hr 09/01/16 09/03/16 09/04/16 14:34 12:29 01:19 WBC RBC Hgb Hct MCV MCH MCHC RDW Plt Count MPV Neut % (Auto) Lymph % (Auto) [place] % (Auto) Eos % (Auto) Baso % (Auto) Neut # Lymph # [place] # Eos # Baso # Sodium Potassium Chloride Carbon Dioxide Anion Gap BUN Creatinine Est GFR ( Amer) Est GFR (Non-Af Amer) POC Glucose (mg/dL) 228 H 187 H Random Glucose Calcium Phosphorus Magnesium Total Bilirubin AST ALT Alkaline Phosphatase Total Protein Albumin Globulin Albumin/Globulin Ratio Pleural Total Protein <3.0 Pleural LDH 3218 Pleural Glucose 129 09/04/16 09/04/16 09/04/16 06:12 06:22 06:22 WBC 7.4 RBC 3.26 L Hgb 8.6 L Hct 27.4 L MCV 83.9 MCH 26.5 L MCHC 31.6 L RDW 18.1 H Plt Count 318 MPV 7.8 Neut % (Auto) 86.4 H Lymph % (Auto) 10.1 L [place] % (Auto) 3.5 Eos % (Auto) 0.0 Baso % (Auto) 0.0 Neut # 6.4 Lymph # 0.7 L [place] # 0.3 Eos # 0.0 Baso # 0.0 Sodium 140 Potassium 3.7 Chloride 111 H Carbon Dioxide 21 L Anion Gap 12 BUN 29 H Creatinine 0.7 L Est GFR ( Amer) > 60 Est GFR (Non-Af Amer) > 60 POC Glucose (mg/dL) 201 H Random Glucose 179 H Calcium 8.4 L Phosphorus 2.9 Magnesium 2.4 H Total Bilirubin 0.7 AST 76 H D ALT 53 Alkaline Phosphatase 69 Total Protein 6.6 Albumin 2.4 L Globulin 4.2 H Albumin/Globulin Ratio 0.6 L Pleural Total Protein Pleural LDH Pleural Glucose Fingerstick Blood Sugar Results: 187 Review of Systems - Review of Systems All systems: reviewed and no additional remarkable complaints except (where noted in HPI) Critical Care Progress Note - Nutrition Nutrition: Nutrition Category Date Time Status Modified [Dysphagia/Modified Consistency Diet] [DIET] Diets 09/03/16 Dinner Active Assessment/Plan - Assessment and Plan (Free Text) Assessment: This is a 75 yo M s/p hypoxemic respiratory failure secondary to likely aspiration pneumonia, now extubated and saturating well on NC. Plan: Neuro: Extubated. AAOx3 Monitor Cardiovascular: Vital signs stable D/C IVF Pulmonary: Extubated, tolerating NC well. S/P chest tube/pigtail placement and 350 cc over last 24 hr Continue Cefepime and discontinue vanc Continue duonebs and IV steroids, now 60mg daily Gastrointestinal: Tolerating puree diet No acute issues Hematology: No acute issues Endocrine: Sliding scale coverage Renal: D/C IVF Monitor labs Infectious Disease: Leukosytosis resolved, afebrile Pleural cultures - no growth after 2 days Sputum culture - Staph a pansensitive except to penicillin Continue cefepime GI Prophylaxis: Pepcid DVT Prophylaxis: Lovenox Dispo - transfer to med/surg <Octaviano,Darrel - Last Filed: 09/04/16 13:36> CCU Objective - Vital Signs / Intake & Output Intake and Output (Last 8hrs): Intake & Output 09/03/16 09/04/16 09/04/16 22:59 06:59 14:59 Intake Total 575 300 270 Output Total 840 160 Balance -265 140 270 Weight 173 lb 11.588 oz Intake: Intake, IV Amount 0 300 50 Left Forearm 300 Right Port-A-Cath 0 Right Wrist 50 Oral 575 0 220 Output: Chest Tube Drainage 40 120 Right Posterior Chest 40 120 Urine 800 Urethral (Stahl) 800 Stool 40 Other: # Voids Urethral (Stahl) 1 # Bowel Movements 0 - Medications Active Medications: Active Medications Generic Name Dose Route Start Last Admin Trade Name Freq PRN Reason Stop Dose Admin Acetaminophen 650 mg 08/31/16 12:50 08/31/16 13:06 Tylenol 650mg/20.3ml Solution Ud PO 650 mg Q4H PRN Administration Fever >100.4 F Albuterol/Ipratropium 3 ml 05/26/17 09:29 Duoneb 3 Mg/0.5 Mg (3 Ml) Ud INH RQ6 PRN Shortness of Breath Baclofen 10 mg 08/25/16 18:00 09/04/16 10:31 Lioresal PO 10 mg BID [facility] Administration Enoxaparin Sodium 40 mg 08/25/16 10:00 09/04/16 10:44 Lovenox SC 40 mg DAILY [facility] Administration Famotidine 20 mg 09/03/16 10:00 09/04/16 10:31 Pepcid PO 20 mg BID [facility] Administration Cefepime HCl 1 gm in 50 mls @ 100 mls/hr 08/31/16 03:00 09/04/16 10:33 Maxipime Iv 1 Gm Premix IVPB 100 mls/hr Q8H [facility] Administration Insulin Aspart 0 unit 09/04/16 11:30 09/04/16 12:44 Novolog SC 2 unit ACHS [facility] Administration Protocol Oxycodone/Acetaminophen 1 tab 09/03/16 09:40 09/04/16 00:06 Percocet 5/325 Mg Tab PO 09/06/16 09:41 1 tab Q6H PRN Administration Pain, moderate (4-7) Prednisone 60 mg 09/04/16 10:00 09/04/16 10:45 Prednisone Tab PO 60 mg DAILY [facility] Administration - Patient Studies Lab Studies: Microbiology Studies 08/31/16 12:08 Blood Culture - Preliminary Blood-Venous NO GROWTH AFTER 4 DAYS 08/31/16 12:08 Blood Culture - Preliminary Blood-Venous NO GROWTH AFTER 4 DAYS 09/01/16 13:48 Gram Stain - Final Pleural Fluid Body Fluid Culture - Preliminary NO GROWTH AFTER 3 DAYS 08/30/16 21:00 Blood Culture - Preliminary Blood-Venous NO GROWTH AFTER 4 DAYS 08/31/16 11:39 Gram Stain - Final Trachasp Sputum Culture - Final Staphylococcus Aureus 08/31/16 02:55 Gram Stain - Final Sputum Induced Sputum Culture - Final Staphylococcus Aureus Lab Studies 09/04/16 09/04/16 09/04/16 Range/Units 12:15 06:22 06:22 WBC 7.4 (4.8-10.8) K/uL RBC 3.26 L (4.40-5.90) Mil/uL Hgb 8.6 L (12.0-18.0) g/dL Hct 27.4 L (35.0-51.0) % MCV 83.9 (80.0-94.0) fL MCH 26.5 L (27.0-31.0) pg MCHC 31.6 L (33.0-37.0) g/dL RDW 18.1 H (11.5-14.5) % Plt Count 318 (130-400) K/uL MPV 7.8 (7.2-11.7) fL Neut % (Auto) 86.4 H (50.0-75.0) % Lymph % (Auto) 10.1 L (20.0-40.0) % [place] % (Auto) 3.5 (0.0-10.0) % Eos % (Auto) 0.0 (0.0-4.0) % Baso % (Auto) 0.0 (0.0-2.0) % Neut # 6.4 (1.8-7.0) K/uL Lymph # 0.7 L (1.0-4.3) K/uL [place] # 0.3 (0.0-0.8) K/uL Eos # 0.0 (0.0-0.7) K/uL Baso # 0.0 (0.0-0.2) K/uL Sodium 140 (132-148) mmol/L Potassium 3.7 (3.6-5.2) mmol/L Chloride 111 H (98-107) mmol/L Carbon Dioxide 21 L (22-30) mmol/L Anion Gap 12 (10-20) BUN 29 H (9-20) mg/dL Creatinine 0.7 L (0.8-1.5) MG/DL Est GFR ( Amer) > 60 Est GFR (Non-Af Amer) > 60 POC Glucose (mg/dL) 191 H (65-110) mg/dL Random Glucose 179 H (75-110) mg/dL Calcium 8.4 L (8.6-10.4) mg/dl Phosphorus 2.9 (2.5-4.5) mg/dL Magnesium 2.4 H (1.6-2.3) mg/dL Total Bilirubin 0.7 (0.2-1.3) mg/dL AST 76 H D (17-59) U/L ALT 53 (21-72) U/L Alkaline Phosphatase 69 (38-126) U/L Total Protein 6.6 (6.3-8.3) g/dL Albumin 2.4 L (3.5-5.0) g/dL Globulin 4.2 H (2.2-3.9) gm/dL Albumin/Globulin Ratio 0.6 L (1.0-2.1) Pleural Total Protein g/dL Pleural LDH U/L Pleural Glucose mg/dL 09/04/16 09/04/16 09/01/16 Range/Units 06:12 01:19 14:34 WBC (4.8-10.8) K/uL RBC (4.40-5.90) Mil/uL Hgb (12.0-18.0) g/dL Hct (35.0-51.0) % MCV (80.0-94.0) fL MCH (27.0-31.0) pg MCHC (33.0-37.0) g/dL RDW (11.5-14.5) % Plt Count (130-400) K/uL MPV (7.2-11.7) fL Neut % (Auto) (50.0-75.0) % Lymph % (Auto) (20.0-40.0) % [place] % (Auto) (0.0-10.0) % Eos % (Auto) (0.0-4.0) % Baso % (Auto) (0.0-2.0) % Neut # (1.8-7.0) K/uL Lymph # (1.0-4.3) K/uL [place] # (0.0-0.8) K/uL Eos # (0.0-0.7) K/uL Baso # (0.0-0.2) K/uL Sodium (132-148) mmol/L Potassium (3.6-5.2) mmol/L Chloride (98-107) mmol/L Carbon Dioxide (22-30) mmol/L Anion Gap (10-20) BUN (9-20) mg/dL Creatinine (0.8-1.5) MG/DL Est GFR ( Amer) Est GFR (Non-Af Amer) POC Glucose (mg/dL) 201 H 187 H (65-110) mg/dL Random Glucose (75-110) mg/dL Calcium (8.6-10.4) mg/dl Phosphorus (2.5-4.5) mg/dL Magnesium (1.6-2.3) mg/dL Total Bilirubin (0.2-1.3) mg/dL AST (17-59) U/L ALT (21-72) U/L Alkaline Phosphatase (38-126) U/L Total Protein (6.3-8.3) g/dL Albumin (3.5-5.0) g/dL Globulin (2.2-3.9) gm/dL Albumin/Globulin Ratio (1.0-2.1) Pleural Total Protein <3.0 g/dL Pleural LDH 3218 U/L Pleural Glucose 129 mg/dL Laboratory Results - last 24 hr 09/01/16 09/04/16 09/04/16 14:34 01:19 06:12 WBC RBC Hgb Hct MCV MCH MCHC RDW Plt Count MPV Neut % (Auto) Lymph % (Auto) [place] % (Auto) Eos % (Auto) Baso % (Auto) Neut # Lymph # [place] # Eos # Baso # Sodium Potassium Chloride Carbon Dioxide Anion Gap BUN Creatinine Est GFR ( Amer) Est GFR (Non-Af Amer) POC Glucose (mg/dL) 187 H 201 H Random Glucose Calcium Phosphorus Magnesium Total Bilirubin AST ALT Alkaline Phosphatase Total Protein Albumin Globulin Albumin/Globulin Ratio Pleural Total Protein <3.0 Pleural LDH 3218 Pleural Glucose 129 09/04/16 09/04/16 09/04/16 06:22 06:22 12:15 WBC 7.4 RBC 3.26 L Hgb 8.6 L Hct 27.4 L MCV 83.9 MCH 26.5 L MCHC 31.6 L RDW 18.1 H Plt Count 318 MPV 7.8 Neut % (Auto) 86.4 H Lymph % (Auto) 10.1 L [place] % (Auto) 3.5 Eos % (Auto) 0.0 Baso % (Auto) 0.0 Neut # 6.4 Lymph # 0.7 L [place] # 0.3 Eos # 0.0 Baso # 0.0 Sodium 140 Potassium 3.7 Chloride 111 H Carbon Dioxide 21 L Anion Gap 12 BUN 29 H Creatinine 0.7 L Est GFR ( Amer) > 60 Est GFR (Non-Af Amer) > 60 POC Glucose (mg/dL) 191 H Random Glucose 179 H Calcium 8.4 L Phosphorus 2.9 Magnesium 2.4 H Total Bilirubin 0.7 AST 76 H D ALT 53 Alkaline Phosphatase 69 Total Protein 6.6 Albumin 2.4 L Globulin 4.2 H Albumin/Globulin Ratio 0.6 L Pleural Total Protein Pleural LDH Pleural Glucose Critical Care Progress Note - Nutrition Nutrition: Nutrition Category Date Time Status Modified [Dysphagia/Modified Consistency Diet] [DIET] Diets 09/03/16 Dinner Active Attending/Attestation - Attestation I have personally seen and examined this patient.: Yes I have fully participated in the care of the patient.: Yes I have reviewed all pertinent clinical information: Yes Notes (Text): 09/04/16 13:34 Pt seen and examined on rounds with ICU staff. All pertinent PN/labs/meds/ imaging reviewed and discussed with involved consultants. Showing improvement will clamp R Pigtail and d/c if no accumulation OOB/PT eval transfer to med/surg Darrel Brumfield MD
--- NOTE | 2016-09-04 12:46 | PN ---
DATE: 09/04/2016 LOCATION: ICU 1. This is a 75-year-old male seen and examined on rounds today, status post chest tube insertion. NG tu be is in place. The patient had been intubated and sedated. The entire chart is reviewed, including but not limited to most recent lab and radiology study results, current and previous medication list s, current and the previous medical events, discussed with the staff at length. The most recent lab results showed hemoglobin of 8.6, hematocrit 27.4 with normal white blood cells and normal platelet c ount with CO2 content of 21 indicative of metabolic acidosis with increased BUN 29, but normal to low creatinine with blood glucose level of 201, AST 76 with low albumin 2.4. PHYSICAL EXAMINATION: GENERAL: A 75-year-old male. VITAL SIGNS: Afebrile with pulse of 92, blood pressure of 112/78. HEENT: Showed pale, dry oral mucoid membrane. Nonicteric sclerae. LUNGS: A few scattered crepitation, decreased air entry at bases. HEART: Positive S1 and S2 with increased rate. ABDOMEN: generalized tenderness. No mass or organomegaly. Bowel sounds are present. EXTREMITIES: Lower extremity edematous changes. No clubbing or cyanosis. IMPRESSION: 1. Aspiration pneumonia with respiratory failure, had been on nasal cannula very recently. 2. Pleural effusion with status post chest tube insertion. 3. Malnutrition with hypoalbuminemia. 4. Anemia, most likely secondary to above. 5. Clinica septicemia, on antibiotics. 6. Known history of psoriatic arthritis. 7. Known history of chronic obstructive pulmonary disease. 8. Lower extremity cellulitis by recent history. SUGGESTION: 1. Continue current management. 2. Proton pump inhibitors. 3. Endoscopic evaluation of the upper GI tract only when the patient is more stable clinically. Roger Mcclure MD cc: [id number] TT: 09/04/2016 12:45:30 Confirmation # [id number] Dictation # [id number] estefania
--- NOTE | 2016-09-04 13:46 | PN ---
DATE: 09/04/2016 The patient is alert, in bed. PHYSICAL EXAMINATION: VITAL SIGNS: He is afebrile this morning. His blood pressure 118/80, pulse rate 88, respiration 15, hemoglobin oxygen saturation of 98%. GENERAL: His dyspnea has decreased. HEART: Regular. There is no gallop rhythm. LUNGS: Diminished breath sounds over lung bases. Rhonchi decreased. ABDOMEN: Soft. EXTREMITIES: Legs, no edema. His chest tube has been clamped in anticipation for removal of the chest tube. He is gradually impro ving. 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 PLAN: To continue with the current regimen and follow with the respective specialists. Alessandro Hayes MD cc: [id number] TT: 09/04/2016 13:45:38 Confirmation # [id number] Dictation # [id number] en
[2016-09-04] MEDS ORDERED: MethylPREDNISolone 40 mg Vial IVP SCH (14:00)
--- NOTE | 2016-09-04 14:00 | RAD ---
HISTORY: f/u pigtail cath insertion COMPARISON: 09/03/2016 FINDINGS: LUNGS: Opacity at left base. Possible pneumonia. Diffuse interstitial prominence. PLEURA: No significant pleural effusion identified, no pneumothorax apparent. CARDIOVASCULAR: Normal heart size. No congestive change. Right basilar pleural pigtail catheter. Right central venous infusion port. Permanent pacemaker. OSSEOUS STRUCTURES: No significant abnormalities. VISUALIZED UPPER ABDOMEN: Normal. OTHER FINDINGS: None. IMPRESSION: Right pleural pigtail catheter. No pneumothorax. Left basilar opacity suspicious for developing pneumonia. Diffuse interstitial infiltrate.
--- NOTE | 2016-09-04 14:22 | CP.PCM.PN ---
Subjective - Date & Time of Evaluation Date of Evaluation: 09/04/16 Time of Evaluation: 08:00 - Subjective Subjective: seen on rounds in ICU awake alert NAD Objective - Vital Signs/Intake and Output Vital Signs (last 24 hours): Temp Pulse Resp BP Pulse Ox 87.6 F L 88 15 119/80 98 09/04/16 08:00 09/04/16 06:01 09/04/16 06:01 09/04/16 06:01 09/04/16 08:00 Intake and Output: 09/04/16 09/04/16 06:59 18:59 Intake Total 500 270 Output Total 160 Balance 340 270 - Medications Medications: Current Medications Acetaminophen (Tylenol 650mg/20.3ml Solution Ud) 650 mg PO Q4H PRN PRN Reason: Fever >100.4 F Last Admin: 08/31/16 13:06 Dose: 650 mg Albuterol/Ipratropium (Duoneb 3 Mg/0.5 Mg (3 Ml) Ud) 3 ml INH RQ6 PRN PRN Reason: Shortness of Breath Last Admin: 09/04/16 14:04 Dose: 3 ml Baclofen (Lioresal) 10 mg PO BID [facility] Last Admin: 09/04/16 10:31 Dose: 10 mg Enoxaparin Sodium (Lovenox) 40 mg SC DAILY [facility] Last Admin: 09/04/16 10:44 Dose: 40 mg Famotidine (Pepcid) 20 mg PO BID [facility] Last Admin: 09/04/16 10:31 Dose: 20 mg Cefepime HCl (Maxipime Iv 1 Gm Premix) 1 gm in 50 mls @ 100 mls/hr IVPB Q8H [facility] Last Admin: 09/04/16 10:33 Dose: 100 mls/hr Insulin Aspart (Novolog) 0 unit SC ACHS [facility] PRN Reason: Protocol Last Admin: 09/04/16 12:44 Dose: 2 unit Oxycodone/Acetaminophen (Percocet 5/325 Mg Tab) 1 tab PO Q6H PRN PRN Reason: Pain, moderate (4-7) Stop: 09/06/16 09:41 Last Admin: 09/04/16 00:06 Dose: 1 tab Prednisone (Prednisone Tab) 60 mg PO DAILY [facility] Last Admin: 09/04/16 10:45 Dose: 60 mg - Labs Labs: 09/04/16 06:22 09/04/16 06:22 PT 17.6 SECONDS (9.7-12.2) H 08/31/16 02:36 INR 1.5 08/31/16 02:36 APTT 34 SECONDS (21-34) 08/31/16 02:36 - Constitutional Appears: Confused, Cachectic, Chronically Ill - Head Exam Head Exam: NORMOCEPHALIC - Eye Exam Eye Exam: PERRL. absent: Scleral icterus - ENT Exam ENT Exam: Mucous Membranes Dry, Normal External Ear Exam - Neck Exam Neck Exam: absent: Lymphadenopathy - Respiratory Exam Respiratory Exam: Decreased Breath Sounds, Prolonged Expiratory Phase, Rhonchi - Cardiovascular Exam Cardiovascular Exam: Tachycardia, REGULAR RHYTHM, +S1, +S2 - GI/Abdominal Exam GI & Abdominal Exam: Distended, Soft. absent: Tenderness - Rectal Exam Rectal Exam: Deferred - Exam Exam: NORMAL INSPECTION - Extremities Exam Extremities Exam: absent: Calf Tenderness, Pedal Edema - Back Exam Back Exam: absent: CVA tenderness (L), CVA tenderness (R) - Neurological Exam Neurological Exam: Alert, Awake, Oriented x3 - Psychiatric Exam Psychiatric exam: Normal Mood - Skin Skin Exam: Dry, Intact Assessment and Plan (1) Altered mental status, unspecified Status: Acute (2) Arthritis Status: Acute (3) Dehydration Status: Acute (4) Pacemaker Status: Acute (5) Psoriatic arthritis Status: Acute
--- NOTE | 2016-09-04 22:43 | CP.PCM.PN ---
Subjective - Date & Time of Evaluation Date of Evaluation: 09/04/16 Time of Evaluation: 14:40 - Subjective Subjective: Patient breathing better but confused. Hct 27 and MRSA only in sputum. Mr Almonte will be transferred to the floor. Will ask Dr Green to evaluate mass behind prostate. Objective - Vital Signs/Intake and Output Vital Signs (last 24 hours): Temp Pulse Resp BP Pulse Ox 97.1 F L 84 18 119/48 L 98 09/04/16 16:00 09/04/16 16:00 09/04/16 16:00 09/04/16 16:00 09/04/16 16:00 Intake and Output: 09/04/16 09/05/16 18:59 06:59 Intake Total 320 Output Total 320 Balance 0 - Medications Medications: Current Medications Acetaminophen (Tylenol 650mg/20.3ml Solution Ud) 650 mg PO Q4H PRN PRN Reason: Fever >100.4 F Last Admin: 08/31/16 13:06 Dose: 650 mg Albuterol/Ipratropium (Duoneb 3 Mg/0.5 Mg (3 Ml) Ud) 3 ml INH RQ6 PRN PRN Reason: Shortness of Breath Last Admin: 09/04/16 14:04 Dose: 3 ml Baclofen (Lioresal) 10 mg PO BID [facility] Last Admin: 09/04/16 17:26 Dose: 10 mg Enoxaparin Sodium (Lovenox) 40 mg SC DAILY [facility] Last Admin: 09/04/16 10:44 Dose: 40 mg Famotidine (Pepcid) 20 mg PO BID [facility] Last Admin: 09/04/16 17:26 Dose: 20 mg Cefepime HCl (Maxipime Iv 1 Gm Premix) 1 gm in 50 mls @ 100 mls/hr IVPB Q8H [facility] Last Admin: 09/04/16 19:08 Dose: 100 mls/hr Insulin Aspart (Novolog) 0 unit SC ACHS [facility] PRN Reason: Protocol Last Admin: 09/04/16 22:16 Dose: Not Given Oxycodone/Acetaminophen (Percocet 5/325 Mg Tab) 1 tab PO Q6H PRN PRN Reason: Pain, moderate (4-7) Stop: 09/06/16 09:41 Last Admin: 09/04/16 00:06 Dose: 1 tab Prednisone (Prednisone Tab) 60 mg PO DAILY [facility] Last Admin: 09/04/16 10:45 Dose: 60 mg - Labs Labs: 09/04/16 06:22 09/04/16 06:22 PT 17.6 SECONDS (9.7-12.2) H 08/31/16 02:36 INR 1.5 08/31/16 02:36 APTT 34 SECONDS (21-34) 08/31/16 02:36 - Constitutional Appears: No Acute Distress - Head Exam Head Exam: NORMAL INSPECTION - Eye Exam Eye Exam: Normal appearance Pupil Exam: NORMAL ACCOMODATION - ENT Exam ENT Exam: Mucous Membranes Dry - Neck Exam Neck Exam: Normal Inspection - Respiratory Exam Respiratory Exam: Decreased Breath Sounds - Cardiovascular Exam Cardiovascular Exam: REGULAR RHYTHM - GI/Abdominal Exam GI & Abdominal Exam: Normal Bowel Sounds - Rectal Exam Rectal Exam: Deferred - Exam Exam: NORMAL INSPECTION - Extremities Exam Extremities Exam: Tenderness - Back Exam Back Exam: NORMAL INSPECTION - Neurological Exam Neurological Exam: Oriented x3 - Psychiatric Exam Psychiatric exam: Depressed - Skin Skin Exam: Dry Assessment and Plan (1) Dehydration Status: Acute (2) Altered mental status, unspecified Status: Acute (3) Hydrocephalus Status: Acute (4) Chronic obstructive airway disease Status: Acute (5) Psoriatic arthritis Status: Acute (6) Endotracheally intubated Status: Resolved (7) Pacemaker Status: Acute
[2016-09-05] MEDS: Oxycodone/Acetaminophen 5/325 mg Tab PO PRN (01:50)
[2016-09-05] MEDS: Cefepime IV 1 gm in Dextrose 1 GM/50 ML BAG IVPB SCH ×3 (02:30→19:21)
[2016-09-05 07:39] LABS: BASO % 0.1 % (0.0-2.0); HEMATOCRIT 26.1 % (35.0-51.0); LYMPH # 1.2 K/uL (1.0-4.3); LYMPH % 18.9 % (20.0-40.0); MEAN CELL VOLUME 83.7 fL (80.0-94.0); MEAN CORPUSCULAR HEMOGLOBIN 27.2 pg (27.0-31.0); MEAN CORPUSCULAR HGB CONC 32.5 g/dL (33.0-37.0); MEAN PLATELET VOLUME 7.9 fL (7.2-11.7); MONO # 0.4 K/uL (0.0-0.8); MONO % 6.3 % (0.0-10.0); RED CELL DISTRIBUTION WIDTH 18.1 % (11.5-14.5); WHITE BLOOD COUNT 6.3 K/uL (4.8-10.8)
[2016-09-05] MEDS: (Novolog) Insulin Aspart, Recombinant 100 u/ml 10 ml vial SC SCH ×4 (07:46→21:50)
[2016-09-05] MEDS: Enoxaparin 40 mg Syringe SC SCH (10:29)
--- NOTE | 2016-09-05 11:33 | PN ---
DATE: 09/05/2016 LOCATION: 359, bed B. This is a 75-year-old male seen outside the intensive care unit, appeared to be with much less shortn ess of breath, with thoracic catheter pulled out yesterday. The patient appears to be more awake, al ert, oriented, on O2 supplement. No reported active bleeding and oral intake had been improving grad ually; however, the patient appears to be semi-confused with low hemoglobin and hematocrit and report ed to have MRSA infection in sputum. Most recent lab results, as well as the entire chart including also radiology study results, current and previous medication lists, current and the previous medical events were evaluated and today's hem oglobin is 8.5, hematocrit 26.1 with normal platelet count with increased blood glucose level to 146, but low calcium, low albumin, with mildly elevated AST of 76. PHYSICAL EXAMINATION: GENERAL: A 75-year-old male. VITAL SIGNS: Afebrile with heart rate of 86, respiratory rate of 20-22, blood pressure of 126/64. HEENT: Showed pale, dry oral mucoid membrane. Nonicteric sclerae. LUNGS: Few scattered crepitation, decreased air entry at bases. HEART: Positive S1 and S2. ABDOMEN: Soft. Bowel sounds are present. No mass or organomegaly. EXTREMITIES: With slight lower extremity edematous changes. No clubbing or cyanosis. NEUROLOGIC: No new reported neurological deficits, sensory or motor. IMPRESSION: 1. Malnutrition. 2. Hypoalbuminemia. 3. Diffuse interstitial infiltrate as reported by the radiology study results done yesterday. 4. Anemia secondary to chronic disease versus gastrointestinal blood loss. 5. Clinical septicemia, still on antibiotics. 6. Known history of psoriatic arthritis. 7. Known history of chronic obstructive pulmonary disease. 8. Lower extremity cellulitis. 9. Reported possible periprostatic mass lesion. 10. Status post pacemaker insertion. 11. Recent mental status changes. SUGGESTION: 1. Continue current management. 2. Guaiac all the stools daily x 3. 3. Follow up on cancer markers. 4. Further evaluation to follow when the patient is more stable clinically. Roger Mcclure MD cc: 14 TT: 09/05/2016 11:32:24 Confirmation # [id number] Dictation # [id number] rn
--- NOTE | 2016-09-05 21:12 | PN ---
DATE: 09/05/2016 The patient is alert and oriented in bed. PHYSICAL EXAMINATION: VITAL SIGNS: Afebrile with a blood pressure 122/62, pulse 71, respiration 23 and hemoglobin oxygen s aturation of 95%. GENERAL: His dyspnea has decreased. HEART: Regular, no gallop rhythm. LUNGS: Diminished breath sounds over lung bases. Rhonchi decreased. CHEST: His chest tube has been removed and a dressing at the site is intact. ABDOMEN: Soft. EXTREMITIES: Legs no edema. LABORATORY DATA: His white count is 6300, hemoglobin 8.5 and platelet count 287,000. His blood suga r is 141. 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 PLAN: To continue with the current medications and follow up with infectious disease, neurology, uro logy and hem/onc. We will reduce prednisone dosage. Continue with other medications. Alessandro Hayes MD cc: [id number] TT: 09/05/2016 21:11:45 Confirmation # [id number] Dictation # [id number] [place]
--- NOTE | 2016-09-05 22:26 | CP.PCM.PN ---
Subjective - Date & Time of Evaluation Date of Evaluation: 09/05/16 Time of Evaluation: 17:15 - Subjective Subjective: Patient is still confused. His breathing continues to improve. Urology followup as an outpatient. Objective - Vital Signs/Intake and Output Vital Signs (last 24 hours): Temp Pulse Resp BP Pulse Ox 97.4 F L 71 23 122/63 95 09/05/16 15:52 09/05/16 15:52 09/05/16 15:52 09/05/16 15:52 09/05/16 15:52 Intake and Output: 09/05/16 09/06/16 18:59 06:59 Intake Total 450 Balance 450 - Medications Medications: Current Medications Acetaminophen (Tylenol 650mg/20.3ml Solution Ud) 650 mg PO Q4H PRN PRN Reason: Fever >100.4 F Last Admin: 08/31/16 13:06 Dose: 650 mg Albuterol/Ipratropium (Duoneb 3 Mg/0.5 Mg (3 Ml) Ud) 3 ml INH RQ6 PRN PRN Reason: Shortness of Breath Last Admin: 09/04/16 14:04 Dose: 3 ml Baclofen (Lioresal) 10 mg PO BID [facility] Last Admin: 09/05/16 17:18 Dose: 10 mg Enoxaparin Sodium (Lovenox) 40 mg SC DAILY [facility] Last Admin: 09/05/16 10:29 Dose: 40 mg Famotidine (Pepcid) 20 mg PO BID [facility] Last Admin: 09/05/16 17:18 Dose: 20 mg Cefepime HCl (Maxipime Iv 1 Gm Premix) 1 gm in 50 mls @ 100 mls/hr IVPB Q8H [facility] Last Admin: 09/05/16 19:21 Dose: 100 mls/hr Insulin Aspart (Novolog) 0 unit SC ACHS [facility] PRN Reason: Protocol Last Admin: 09/05/16 21:50 Dose: Not Given Oxycodone/Acetaminophen (Percocet 5/325 Mg Tab) 1 tab PO Q6H PRN PRN Reason: Pain, moderate (4-7) Stop: 09/06/16 09:41 Last Admin: 09/05/16 01:50 Dose: 1 tab Prednisone (Prednisone Tab) 40 mg PO DAILY [facility] - Labs Labs: 09/05/16 07:15 09/04/16 06:22 PT 17.6 SECONDS (9.7-12.2) H 08/31/16 02:36 INR 1.5 08/31/16 02:36 APTT 34 SECONDS (21-34) 08/31/16 02:36 - Constitutional Appears: No Acute Distress - Head Exam Head Exam: ATRAUMATIC - Eye Exam Eye Exam: Normal appearance Pupil Exam: NORMAL ACCOMODATION - ENT Exam ENT Exam: Normal Exam - Neck Exam Neck Exam: Normal Inspection - Respiratory Exam Respiratory Exam: Decreased Breath Sounds - GI/Abdominal Exam GI & Abdominal Exam: Normal Bowel Sounds - Rectal Exam Rectal Exam: Deferred - Exam Exam: NORMAL INSPECTION - Extremities Exam Extremities Exam: Tenderness - Back Exam Back Exam: NORMAL INSPECTION - Neurological Exam Neurological Exam: Altered - Psychiatric Exam Psychiatric exam: Depressed - Skin Skin Exam: Dry Assessment and Plan (1) Dehydration Status: Acute (2) Altered mental status, unspecified Status: Acute (3) Hydrocephalus Status: Acute (4) Chronic obstructive airway disease Status: Acute (5) Psoriatic arthritis Status: Acute (6) Endotracheally intubated Status: Resolved (7) Pacemaker Status: Acute
[2016-09-06] MEDS: Cefepime IV 1 gm in Dextrose 1 GM/50 ML BAG IVPB SCH ×2 (03:30→10:45)
--- NOTE | 2016-09-06 07:11 | PCM.URO ---
Urology Progress Note - Objective Lab Results Last 24 Hours: Laboratory Results - last 24 hr 09/05/16 09/05/16 09/05/16 07:11 07:15 11:37 WBC 6.3 RBC 3.11 L Hgb 8.5 L Hct 26.1 L MCV 83.7 MCH 27.2 MCHC 32.5 L RDW 18.1 H Plt Count 287 MPV 7.9 Neut % (Auto) 74.7 Lymph % (Auto) 18.9 L [place] % (Auto) 6.3 Eos % (Auto) 0.0 Baso % (Auto) 0.1 Neut # 4.7 Lymph # 1.2 [place] # 0.4 Eos # 0.0 Baso # 0.0 POC Glucose (mg/dL) 146 H 141 H 09/05/16 09/05/16 16:32 21:34 WBC RBC Hgb Hct MCV MCH MCHC RDW Plt Count MPV Neut % (Auto) Lymph % (Auto) [place] % (Auto) Eos % (Auto) Baso % (Auto) Neut # Lymph # [place] # Eos # Baso # POC Glucose (mg/dL) 169 H 166 H Intake & Output: Intake & Output 09/05/16 09/06/16 09/06/16 18:59 06:59 18:59 Intake Total 450 550 Output Total 300 Balance 450 250 Intake: Intake, IV Amount 50 100 Right Wrist 50 100 Oral 400 450 Output: Urine 300 Condom 300 Other: # Bowel Movements 1 Vital Signs: Vital Signs - 24 hr 09/05/16 09/05/16 09/05/16 09:00 15:52 23:33 Temperature 97.5 F L 97.4 F L 97.9 F Pulse Rate 68 71 70 Respiratory 20 23 20 Rate Blood Pressure 123/63 122/63 133/70 O2 Sat by Pulse 98 95 96 Oximetry
[2016-09-06] MEDS: (Novolog) Insulin Aspart, Recombinant 100 u/ml 10 ml vial SC SCH ×4 (08:06→21:49)
[2016-09-06] MEDS: Enoxaparin 40 mg Syringe SC SCH (10:31)
--- NOTE | 2016-09-06 16:08 | CP.PCM.PN ---
Subjective - Date & Time of Evaluation Date of Evaluation: 09/06/16 Time of Evaluation: 09:00 - Subjective Subjective: awake alert afebrile iiv rx renewed Objective - Vital Signs/Intake and Output Vital Signs (last 24 hours): Temp Pulse Resp BP Pulse Ox 97.4 F L 77 20 126/45 L 97 09/06/16 15:26 09/06/16 15:26 09/06/16 15:26 09/06/16 15:26 09/06/16 07:21 Intake and Output: 09/06/16 09/06/16 06:59 18:59 Intake Total 550 200 Output Total 300 300 Balance 250 -100 - Medications Medications: Current Medications Acetaminophen (Tylenol 650mg/20.3ml Solution Ud) 650 mg PO Q4H PRN PRN Reason: Fever >100.4 F Last Admin: 08/31/16 13:06 Dose: 650 mg Albuterol/Ipratropium (Duoneb 3 Mg/0.5 Mg (3 Ml) Ud) 3 ml INH RQ6 PRN PRN Reason: Shortness of Breath Last Admin: 09/04/16 14:04 Dose: 3 ml Baclofen (Lioresal) 10 mg PO BID [facility] Last Admin: 09/06/16 10:31 Dose: 10 mg Enoxaparin Sodium (Lovenox) 40 mg SC DAILY [facility] Last Admin: 09/06/16 10:31 Dose: 40 mg Famotidine (Pepcid) 20 mg PO BID [facility] Last Admin: 09/06/16 10:31 Dose: 20 mg Cefepime HCl (Maxipime Iv 1 Gm Premix) 1 gm in 50 mls @ 100 mls/hr IVPB Q8H [facility] Last Admin: 09/06/16 10:45 Dose: 100 mls/hr Insulin Aspart (Novolog) 0 unit SC ACHS [facility] PRN Reason: Protocol Last Admin: 09/06/16 11:55 Dose: Not Given Prednisone (Prednisone Tab) 40 mg PO DAILY [facility] Last Admin: 09/06/16 10:31 Dose: 40 mg - Labs Labs: 09/05/16 07:15 09/04/16 06:22 PT 17.6 SECONDS (9.7-12.2) H 08/31/16 02:36 INR 1.5 08/31/16 02:36 APTT 34 SECONDS (21-34) 08/31/16 02:36 - Constitutional Appears: Non-toxic, Confused, Chronically Ill - Head Exam Head Exam: NORMOCEPHALIC - Eye Exam Eye Exam: PERRL. absent: Scleral icterus - ENT Exam ENT Exam: Mucous Membranes Dry - Neck Exam Neck Exam: absent: Lymphadenopathy - Respiratory Exam Respiratory Exam: Decreased Breath Sounds, Rhonchi - Cardiovascular Exam Cardiovascular Exam: REGULAR RHYTHM, +S1, +S2 - GI/Abdominal Exam GI & Abdominal Exam: Distended, Soft - Rectal Exam Rectal Exam: Deferred - Exam Exam: NORMAL INSPECTION - Extremities Exam Extremities Exam: absent: Pedal Edema - Back Exam Back Exam: absent: CVA tenderness (L), CVA tenderness (R) Assessment and Plan (1) Altered mental status, unspecified Status: Acute (2) Arthritis Status: Acute (3) Dehydration Status: Acute (4) Pacemaker Status: Acute (5) Psoriatic arthritis Status: Acute
[2016-09-07] MEDS: (Novolog) Insulin Aspart, Recombinant 100 u/ml 10 ml vial SC SCH ×4 (08:02→21:51)
--- NOTE | 2016-09-07 10:06 | PN ---
DATE: 09/07/2016 LOCATION: [address]. This 75-year-old male seen and examined at rounds without significant clinical changes, but with poor oral intake recently. Again, no reported active bleeding. The entire chart is reviewed, including but not limited to the most recent lab and radiology study re sults, current and the previous medication list, current and the previous medical events, as well as all the available urology and the nursing notes. Case discussed at length with the staff on the floo r, and the most recent lab results showed blood glucose level of 104. The patient still has low hemo globin of 8.5, hematocrit 26.1, as per 09/05/16, but normal platelet count was reported before low alb umin. PHYSICAL EXAMINATION: GENERAL: A 75-year-old male. VITAL SIGNS: Afebrile, awake, alert with pulse of 68, respiratory rate 20-22, blood pressure of 124/ 62. HEENT: Showed pale, dry mucoid membrane. Nonicteric sclerae. LUNGS: Few scattered crepitations, decreased air entry at bases. HEART: Positive S1 and S2. ABDOMEN: Soft. Bowel sounds are present. No mass or organomegaly. No rebound tenderness or guardi ng. EXTREMITIES: With mild lower extremities edematous changes. IMPRESSION: 1. Malnutrition, hypoalbuminemia, hypoproteinemia. 2. Change of mental status of unclear etiology. 3. Bilateral pneumonia, as per radiology study results, as reported recently. 4. Clinical septicemia. 5. Known history of osteoarthritis. 6. Known history of chronic obstructive pulmonary disease. 7. Lower extremity cellulitis, improving clinically. 8. Anemia, most likely secondary to above versus gastrointestinal blood loss, upper versus lower. 9. Status post pacemaker insertion by history. SUGGESTION: 1. Continue current management. 2. Follow up on cancer markers. 3. Guaiac all the stools daily x 3. 4. Further recommendation to follow, and the patient may need endoscopic evaluation of the upper and lower GI tract when the patient is more stable clinically - that to be discussed with Dr. Holland. Roger Mcclure MD cc: 14 TT: 09/07/2016 10:05:55 Confirmation # [id number] Dictation # [id number] jn
[2016-09-07] MEDS: Enoxaparin 40 mg Syringe SC SCH (10:14)
--- NOTE | 2016-09-07 21:18 | CP.PCM.PN ---
Subjective - Date & Time of Evaluation Date of Evaluation: 09/07/16 Time of Evaluation: 17:10 - Subjective Subjective: Patient still confused. Breathing has improvedbut he is not eating. Boost supplement ordered. Will repeat labs. Objective - Vital Signs/Intake and Output Vital Signs (last 24 hours): Temp Pulse Resp BP Pulse Ox 97.5 F L 79 18 120/68 96 09/07/16 16:00 09/07/16 16:00 09/07/16 16:00 09/07/16 16:00 09/07/16 16:00 Intake and Output: 09/07/16 09/08/16 18:59 06:59 Output Total 300 Balance -300 - Medications Medications: Current Medications Acetaminophen (Tylenol 650mg/20.3ml Solution Ud) 650 mg PO Q4H PRN PRN Reason: Fever >100.4 F Last Admin: 08/31/16 13:06 Dose: 650 mg Albuterol/Ipratropium (Duoneb 3 Mg/0.5 Mg (3 Ml) Ud) 3 ml INH RQ6 PRN PRN Reason: Shortness of Breath Last Admin: 09/04/16 14:04 Dose: 3 ml Baclofen (Lioresal) [address] [facility] Last Admin: 09/07/16 17:55 Dose: 10 mg Famotidine (Pepcid) [address] [facility] Last Admin: 09/07/16 17:55 Dose: 20 mg Cefazolin Sodium 2,000 mg/ (Sodium Chloride) 50 mls @ 100 mls/hr IVPB Q8H [facility] Last Admin: 09/07/16 17:54 Dose: 100 mls/hr Insulin Aspart (Novolog) [address] [facility] PRN Reason: Protocol Last Admin: 09/07/16 17:55 Dose: 2 unit Prednisone (Prednisone Tab) [address] [facility] Last Admin: 09/07/16 10:15 Dose: 40 mg - Labs Labs: 09/05/16 07:15 09/04/16 06:22 PT 17.6 SECONDS (9.7-12.2) H 08/31/16 02:36 INR 1.5 08/31/16 02:36 APTT 34 SECONDS (21-34) 08/31/16 02:36 - Constitutional Appears: Confused - Head Exam Head Exam: NORMAL INSPECTION - Eye Exam Eye Exam: Normal appearance Pupil Exam: NORMAL ACCOMODATION - ENT Exam ENT Exam: Normal Oropharynx - Neck Exam Neck Exam: Normal Inspection - Respiratory Exam Respiratory Exam: Decreased Breath Sounds - Cardiovascular Exam Cardiovascular Exam: REGULAR RHYTHM - GI/Abdominal Exam GI & Abdominal Exam: Hyperactive Bowel Sounds - Rectal Exam Rectal Exam: Deferred - Exam Exam: NORMAL INSPECTION - Extremities Exam Extremities Exam: Tenderness - Back Exam Back Exam: paraspinal tenderness - Neurological Exam Neurological Exam: Altered - Psychiatric Exam Psychiatric exam: Depressed - Skin Skin Exam: Dry Assessment and Plan (1) Dehydration Status: Acute (2) Altered mental status, unspecified Status: Acute (3) Hydrocephalus Status: Acute (4) Chronic obstructive airway disease Status: Acute (5) Psoriatic arthritis Status: Acute (6) Endotracheally intubated Status: Resolved (7) Pacemaker Status: Acute
[2016-09-08] MEDS ORDERED: Phytonadione 10 mg/ml Inj (Adult) SC ONE (08:00)
[2016-09-08 08:24] LABS: EOS # 0.2 K/uL (0.0-0.7); EOS % 2.1 % (0.0-4.0); HEMATOCRIT 31.2 % (35.0-51.0); LYMPH # 2.5 K/uL (1.0-4.3); LYMPH % 26.4 % (20.0-40.0); MEAN CELL VOLUME 83.4 fL (80.0-94.0); MEAN CORPUSCULAR HEMOGLOBIN 27.2 pg (27.0-31.0); MEAN CORPUSCULAR HGB CONC 32.6 g/dL (33.0-37.0); MEAN PLATELET VOLUME 7.8 fL (7.2-11.7); MONO # 0.6 K/uL (0.0-0.8); MONO % 6.7 % (0.0-10.0); NRBC % 0.1 % (0.0-2.0); RED CELL DISTRIBUTION WIDTH 18.2 % (11.5-14.5)
[2016-09-08] MEDS: (Novolog) Insulin Aspart, Recombinant 100 u/ml 10 ml vial SC SCH ×4 (08:24→21:23)
--- NOTE | 2016-09-08 08:24 | PN ---
DATE: 09/08/2016 LOCATION: [address], bed B. This is a 75-year-old male, seen and examined in rounds early today without significant clinical saez ges or reported active bleeding. Appeared to be more awake and alert, but still confused at times wi th very poor oral intake to near none within the last several hours since he was intubated before. The entire chart is reviewed including, but not limited to, the most recent lab and radiology study r esults, current and previous medication lists, current and previous medical events, the latest blood glucose level is 160. PHYSICAL EXAMINATION: GENERAL: A 75-year-old male. VITAL SIGNS: Afebrile with heart rate of 64, respiratory rate 20-22, blood pressure of 128/74. HEENT: Showed pale, dry oral mucoid membrane. Nonicteric sclerae. LUNGS: Few scattered crepitation, decreased air entry at bases. HEART: Positive S1 and S2. ABDOMEN: Soft. Bowel sounds are present with mild generalized tenderness. No mass or organomegaly. No rebound tenderness or guarding. RECTAL: The patient refused. EXTREMITIES: Without significant clubbing, cyanosis or edema. NEUROLOGIC: No reported new neurological deficits, sensory or motor. IMPRESSION: 1. Poor oral intake with intermittent periods of dysphagia. 2. Malnutrition with hypoalbuminemia, hypoproteinemia. 3. Change of mental status of unclear etiology. 4. Bilateral pneumonia by radiology study results with clinical septicemia. 5. History of osteoarthritis. 6. Known history of chronic obstructive pulmonary disease. 7. Recent history of lower extremity cellulitis, gradually improving. 8. Anemia, secondary to above. 9. Cardiac arrhythmias with status post pacemaker insertion by history. SUGGESTION: 1. Continue current management. 2. Blood transfusion as needed to keep hemoglobin around 10 gram percent. 3. Neurology evaluation. 4. Endoscopic evaluation of the gastrointestinal tract and possible percutaneous endoscopic gastrost snehal insertion as needed if the patient's symptoms persist and/or subsequent drop of hemoglobin and he matocrit. That to be discussed with Dr. Holland as well as the family members. Roger Mcclure MD cc: 14 TT: 09/08/2016 08:24:01 Confirmation # [id number] Dictation # [id number]
[2016-09-08 08:25] LABS: WHITE BLOOD COUNT 9.6 K/uL (4.8-10.8)
--- NOTE | 2016-09-08 15:04 | PCM.URO ---
Urology Progress Note - Objective Lab Results Last 24 Hours: Laboratory Results - last 24 hr 09/07/16 09/07/16 09/08/16 16:12 21:16 07:44 WBC RBC Hgb Hct MCV MCH MCHC RDW Plt Count MPV Neut % (Auto) Lymph % (Auto) [place] % (Auto) Eos % (Auto) Baso % (Auto) Neut # Lymph # [place] # Eos # Baso # POC Glucose (mg/dL) 152 H 160 H 91 09/08/16 09/08/16 08:07 11:08 WBC 9.6 D RBC 3.74 L Hgb 10.2 L Hct 31.2 L MCV 83.4 MCH 27.2 MCHC 32.6 L RDW 18.2 H Plt Count 317 MPV 7.8 Neut % (Auto) 64.8 Lymph % (Auto) 26.4 [place] % (Auto) 6.7 Eos % (Auto) 2.1 Baso % (Auto) 0.0 Neut # 6.2 Lymph # 2.5 [place] # 0.6 Eos # 0.2 Baso # 0.0 POC Glucose (mg/dL) 131 H Intake & Output: Intake & Output 09/07/16 09/08/16 09/08/16 18:59 06:59 18:59 Intake Total 350 Output Total 300 300 Balance -300 50 Intake: Intake, IV Amount 100 Right Wrist 100 Oral 250 Output: Urine 300 300 Condom 300 300 Stool 0 0 Other: # Voids Condom 100 # Bowel Movements 1 Vital Signs: Vital Signs - 24 hr 09/07/16 09/07/16 09/08/16 16:00 23:35 07:00 Temperature 97.5 F L 96.6 F L 96.8 F L Pulse Rate 79 61 65 Respiratory 18 18 20 Rate Blood Pressure 120/68 121/78 122/75 O2 Sat by Pulse 96 97 97 Oximetry
--- NOTE | 2016-09-08 22:21 | CP.PCM.PN ---
Subjective - Date & Time of Evaluation Date of Evaluation: 09/08/16 Time of Evaluation: 13:25 - Subjective Subjective: Patient still confused. He is not eating any of his meals. Mr Almonte is scheduled for EGD in AM by Dr Mcclure. Objective - Vital Signs/Intake and Output Vital Signs (last 24 hours): Temp Pulse Resp BP Pulse Ox 97.0 F L 62 20 120/62 94 L 09/08/16 15:00 09/08/16 15:00 09/08/16 15:00 09/08/16 15:00 09/08/16 15:00 - Medications Medications: Current Medications Acetaminophen (Tylenol 650mg/20.3ml Solution Ud) 650 mg PO Q4H PRN PRN Reason: Fever >100.4 F Last Admin: 08/31/16 13:06 Dose: 650 mg Albuterol/Ipratropium (Duoneb 3 Mg/0.5 Mg (3 Ml) Ud) 3 ml INH RQ6 PRN PRN Reason: Shortness of Breath Last Admin: 09/04/16 14:04 Dose: 3 ml Baclofen (Lioresal) 10 mg PO BID [facility] Last Admin: 09/08/16 17:22 Dose: 10 mg Famotidine (Pepcid) 20 mg PO BID [facility] Last Admin: 09/08/16 17:23 Dose: 20 mg Cefazolin Sodium 2,000 mg/ (Sodium Chloride) 50 mls @ 100 mls/hr IVPB Q8H [facility] Last Admin: 09/08/16 17:21 Dose: 100 mls/hr Insulin Aspart (Novolog) 0 unit SC ACHS [facility] PRN Reason: Protocol Last Admin: 09/08/16 21:23 Dose: Not Given Prednisone (Prednisone Tab) 40 mg PO DAILY [facility] Last Admin: 09/08/16 12:16 Dose: 40 mg - Labs Labs: 09/08/16 08:07 09/04/16 06:22 PT 17.6 SECONDS (9.7-12.2) H 08/31/16 02:36 INR 1.5 08/31/16 02:36 APTT 34 SECONDS (21-34) 08/31/16 02:36 - Constitutional Appears: No Acute Distress - Head Exam Head Exam: NORMAL INSPECTION - Eye Exam Eye Exam: Normal appearance - ENT Exam ENT Exam: Normal Exam - Neck Exam Neck Exam: Normal Inspection - Respiratory Exam Respiratory Exam: Decreased Breath Sounds - Cardiovascular Exam Cardiovascular Exam: REGULAR RHYTHM - GI/Abdominal Exam GI & Abdominal Exam: Hyperactive Bowel Sounds - Rectal Exam Rectal Exam: Deferred - Exam Exam: NORMAL INSPECTION - Extremities Exam Extremities Exam: Joint Swelling - Back Exam Back Exam: NORMAL INSPECTION - Neurological Exam Neurological Exam: Altered - Psychiatric Exam Psychiatric exam: Depressed - Skin Skin Exam: Dry Assessment and Plan (1) Dehydration Status: Acute (2) Altered mental status, unspecified Status: Acute (3) Hydrocephalus Status: Acute (4) Chronic obstructive airway disease Status: Acute (5) Psoriatic arthritis Status: Acute (6) Endotracheally intubated Status: Resolved (7) Pacemaker Status: Acute
--- NOTE | 2016-09-09 07:57 | PN ---
DATE: 09/08/2016 PHYSICAL EXAMINATION: VITAL SIGNS: The patient is afebrile ____ blood pressure ____, pulse 65, respirations 20 and hemoglo bin oxygen ____ no acute distress. Her dyspnea has improved. HEART: Regular, no gallop rhythm. LUNGS: Diminished breath sounds, bilateral basal rhonchi. ABDOMEN: Soft. EXTREMITIES: Legs no edema. LABORATORY DATA: ____ platelet count ____. IMPRESSION: . Alessandro Hayes MD cc: [id number] TT: 09/08/2016 14:29:49 Confirmation # [id number] Dictation # [id number] estefania
[2016-09-09] MEDS: (Novolog) Insulin Aspart, Recombinant 100 u/ml 10 ml vial SC SCH ×4 (07:59→22:07)
[2016-09-09] MEDS ORDERED: Propofol 10 mg/ml Inj (20 ML) ONE (12:12)
[2016-09-09] MEDS ORDERED: Lactated Ringer's 500 ML IV SCH (12:15)
[2016-09-09 16:10] VITALS: RESP 20
--- NOTE | 2016-09-09 16:47 | PN ---
DATE: 09/09/2016 SUBJECTIVE: The patient is alert, in bed. PHYSICAL EXAMINATION: VITAL SIGNS: He is afebrile with blood pressure 116/60, pulse 69, respirations 17, hemoglobin oxygen saturation of 100%. GENERAL: His dyspnea is decreased. There is no chest pain. HEART: Regular with no gallop rhythm. LUNGS: Diminished breath sounds over lung bases. Rhonchi decreased. ABDOMEN: Soft. EXTREMITIES: Legs, no edema. LABORATORY DATA: White count is 9600, hemoglobin 10.2, platelet count 317,000, blood sugar of 97 today. IMPRESSION: Respiratory insufficiency, sepsis, atherosclerotic heart disease, resolving pneumonitis, benign prostatic hypertrophy, myelopathy, prostatic growth, status post resection of the colon carcinoma and colostomy. PLAN: To continue with the current management including follow up with the neurologist, used car manager, hematology/oncologist and urologist. The prednisone has been reduced. Continue with the current management. Alessandro Hayes MD cc: [id number] TT: 09/09/2016 16:47:06 Confirmation # [id number] Dictation # [id number] mary TOMAS
[2016-09-09] MEDS: Albuterol 0.042% Inhal Sol (1.25 mg/3 mL) UD INH SCH (19:52)
[2016-09-09] MEDS: Sucralfate 1 gm/10 ml Oral Susp UD PO SCH (22:07)
--- NOTE | 2016-09-09 23:14 | CP.PCM.PN ---
Subjective - Date & Time of Evaluation Date of Evaluation: 09/09/16 Time of Evaluation: 13:30 - Subjective Subjective: Patient lethargic in his room following EGD this AM. Results pending from Dr Mcclure. Continue supportive measures. Objective - Vital Signs/Intake and Output Vital Signs (last 24 hours): Temp Pulse Resp BP Pulse Ox 98 F 62 20 133/65 96 09/09/16 16:00 09/09/16 16:00 09/09/16 16:00 09/09/16 16:00 09/09/16 16:00 Intake and Output: 09/09/16 09/10/16 18:59 06:59 Intake Total 100 350 Output Total 150 Balance 100 200 - Medications Medications: Current Medications Acetaminophen (Tylenol 650mg/20.3ml Solution Ud) 650 mg PO Q4H PRN PRN Reason: Fever >100.4 F Last Admin: 08/31/16 13:06 Dose: 650 mg Albuterol Sulfate (Albuterol 0.042% Inhal Azul (1.25mg/3ml) Ud) 1.25 mg INH RTID [facility] Last Admin: 09/09/16 19:52 Dose: 1.25 mg Famotidine (Pepcid) 20 mg PO BID [facility] Last Admin: 09/09/16 17:42 Dose: 20 mg Cefazolin Sodium 2,000 mg/ (Sodium Chloride) 50 mls @ 100 mls/hr IVPB Q8H [facility] Last Admin: 09/09/16 17:41 Dose: 100 mls/hr Insulin Aspart (Novolog) 0 unit SC ACHS [facility] PRN Reason: Protocol Last Admin: 09/09/16 22:07 Dose: Not Given Prednisone (Prednisone Tab) 30 mg PO DAILY [facility] Last Admin: 09/09/16 17:34 Dose: 30 mg Sucralfate (Carafate Oral Susp) 1 gm PO ACBHS [facility] Last Admin: 09/09/16 22:07 Dose: 1 gm - Labs Labs: 09/08/16 08:07 09/04/16 06:22 PT 17.6 SECONDS (9.7-12.2) H 08/31/16 02:36 INR 1.5 08/31/16 02:36 APTT 34 SECONDS (21-34) 08/31/16 02:36 - Constitutional Appears: No Acute Distress - Head Exam Head Exam: NORMOCEPHALIC - Eye Exam Eye Exam: Normal appearance - ENT Exam ENT Exam: Normal Oropharynx - Neck Exam Neck Exam: Normal Inspection - Respiratory Exam Respiratory Exam: Decreased Breath Sounds - Cardiovascular Exam Cardiovascular Exam: REGULAR RHYTHM - GI/Abdominal Exam GI & Abdominal Exam: Normal Bowel Sounds - Rectal Exam Rectal Exam: Deferred - Exam Exam: Circumcision - Extremities Exam Extremities Exam: Normal Capillary Refill - Back Exam Back Exam: NORMAL INSPECTION - Neurological Exam Neurological Exam: Altered - Psychiatric Exam Psychiatric exam: Depressed - Skin Skin Exam: Dry Assessment and Plan (1) Dehydration Status: Acute (2) Altered mental status, unspecified Status: Acute (3) Hydrocephalus Status: Acute (4) Chronic obstructive airway disease Status: Acute (5) Psoriatic arthritis Status: Acute (6) Endotracheally intubated Status: Resolved (7) Pacemaker Status: Acute
[2016-09-10] MEDS: Albuterol 0.042% Inhal Sol (1.25 mg/3 mL) UD INH SCH ×2 (08:04→13:52)
[2016-09-10] MEDS: (Novolog) Insulin Aspart, Recombinant 100 u/ml 10 ml vial SC SCH ×3 (10:31→17:41)
[2016-09-10] MEDS: Sucralfate 1 gm/10 ml Oral Susp UD PO SCH (10:34)
--- NOTE | 2016-09-10 12:37 | CP.PCM.PN ---
Subjective - Date & Time of Evaluation Date of Evaluation: 09/10/16 Time of Evaluation: 12:00 - Subjective Subjective: Pt seen and examined at bedside alert, awake, Pt states breathing is better. Denies any other complaints, tolerating diet There were no acute issues overnight reported by rn s/p EGD yesterday - Acute gastritis, erythamatous duodenopathy ( see full report for details ) Objective - Vital Signs/Intake and Output Vital Signs (last 24 hours): Temp Pulse Resp BP Pulse Ox 97.6 F 78 20 126/57 L 98 09/10/16 08:00 09/10/16 08:00 09/10/16 08:00 09/10/16 08:00 09/10/16 08:00 Intake and Output: 09/10/16 09/10/16 06:59 18:59 Intake Total 350 50 Output Total 150 250 Balance 200 -200 - Medications Medications: Current Medications Acetaminophen (Tylenol 650mg/20.3ml Solution Ud) 650 mg PO Q4H PRN PRN Reason: Fever >100.4 F Last Admin: 08/31/16 13:06 Dose: 650 mg Albuterol Sulfate (Albuterol 0.042% Inhal Zaul (1.25mg/3ml) Ud) 1.25 mg INH RTID [facility] Last Admin: 09/10/16 08:04 Dose: 1.25 mg Famotidine (Pepcid) 20 mg PO BID [facility] Last Admin: 09/10/16 10:35 Dose: 20 mg Cefazolin Sodium 2,000 mg/ (Sodium Chloride) 50 mls @ 100 mls/hr IVPB Q8H [facility]PL[facility] Last Admin: 09/10/16 10:37 Dose: 100 mls/hr Insulin Aspart (Novolog) 0 unit SC ACHS [facility] PRN Reason: Protocol Last Admin: 09/10/16 12:23 Dose: 2 unit Prednisone (Prednisone Tab) 30 mg PO DAILY [facility] Last Admin: 09/10/16 10:35 Dose: 30 mg Sucralfate (Carafate Oral Susp) 1 gm PO ACBHS [facility]PLAC[facility] Last Admin: 09/10/16 10:34 Dose: 1 gm - Labs Labs: 09/08/16 08:07 09/04/16 06:22 PT 17.6 SECONDS (9.7-12.2) H 05/22/17 02:36 INR 1.5 08/31/16 02:36 APTT 34 SECONDS (21-34) 08/31/16 02:36 - Constitutional Appears: Well, No Acute Distress - Neck Exam Neck Exam: Full ROM - Respiratory Exam Respiratory Exam: Decreased Breath Sounds, Rhonchi (positive ), NORMAL BREATHING PATTERN - Cardiovascular Exam Cardiovascular Exam: REGULAR RHYTHM - GI/Abdominal Exam GI & Abdominal Exam: Soft, Normal Bowel Sounds - Neurological Exam Neurological Exam: Abnormal Gait, Alert, Awake (unsteady ) Assessment and Plan - Assessment and Plan (Free Text) Assessment: a/p 75 YR old male with PMHX Dilan COPD,rheumatoid arthritis, hydrocephalus ,left sided colostomy for a colon lesion, and a pacemaker admitted for dyspnea, AMS , dehydration s/p hypoxemic respiratory failure secondary to l aspiration pneumonia, intubated and extubated now on nasal canula 2lit/min s/p EGD yesterday vss -stable hgb - stable PT eval done today , pt is maximum assist with ADL Patient require hospital bed, COPD/ secondary to recurrent aspiration pneumonia and frequent position changes to prevent decubitus , HOB needs to be elevated during feeding time and after to prevent further aspiration pneumonia Broderick above plan discussed with Dr. Holland and agrees
[2016-09-10 12:45] VITALS: O2SAT 95
--- NOTE | 2016-09-10 14:35 | PN ---
DATE: 09/10/2016 The patient is alert, oriented, in bed. His family is by his side. The patient is not in acute dist ress. PHYSICAL EXAMINATION: VITAL SIGNS: He is afebrile. Blood pressure 126/56, pulse 78, respiration 20, hemoglobin oxygen sat uration of 95%. HEART: Regular, no gallop rhythm. LUNGS: Diminished breath sounds over the lung bases, rhonchi improved. ABDOMEN: Soft. EXTREMITIES: Legs, no edema. His blood sugar is 177. IMPRESSION: Respiratory insufficiency, resolved sepsis, resolved pneumonia and urosepsis, benign pro static hypertrophy, myelopathy, prostatic mass, status post resection of carcinoma of the colon and c olostomy, chronic obstructive pulmonary disease with bronchitis. PLAN: To continue with the current management and follow up with hematology/oncology, neurology and urology. Discussed with PMD. Alessandro Hayes MD cc: [id number] TT: 09/10/2016 14:34:38 Confirmation # [id number] Dictation # [id number]
[2016-09-10 15:29] VITALS: BP 111/62; PULSE 75; TEMP 97.7
[2016-09-10 16:08] LABS: BASO % 0.1 % (0.0-2.0); EOS % 0.1 % (0.0-4.0); HEMATOCRIT 31.5 % (35.0-51.0); LYMPH # 0.7 K/uL (1.0-4.3); LYMPH % 8.9 % (20.0-40.0); MEAN CELL VOLUME 83.4 fL (80.0-94.0); MEAN CORPUSCULAR HEMOGLOBIN 26.9 pg (27.0-31.0); MEAN CORPUSCULAR HGB CONC 32.3 g/dL (33.0-37.0); MEAN PLATELET VOLUME 7.5 fL (7.2-11.7); MONO # 0.3 K/uL (0.0-0.8); MONO % 4.1 % (0.0-10.0); PLATELET COUNT 291 K/uL (130-400); RED CELL DISTRIBUTION WIDTH 18.2 % (11.5-14.5); WHITE BLOOD COUNT 8.1 K/uL (4.8-10.8)
[2016-09-10 16:13] LABS: CHLORIDE 105 mmol/L (98-107)
[2016-09-10 16:14] LABS: SODIUM 138 mmol/L (132-148)
[2016-09-10 16:16] LABS: GFR AFRICAN-AMERICAN > 60
[2016-09-10 16:17] LABS: BLOOD UREA NITROGEN 14 mg/dL (9-20); CALCIUM 7.6 mg/dl (8.6-10.4); CARBON DIOXIDE 28 mmol/L (22-30); GLUCOSE,RANDOM 154 mg/dL (75-110)
[2016-09-10 16:45] LABS: NEUTROPHIL 96 % (50-75); TOTAL CELLS COUNTED 100
--- NOTE | 2016-09-22 12:18 | CARD ---
APPROVED REPORT EKG Measurement Heart [id number] <Conclusion> Atrial-sensed ventricular-paced rhythm Abnormal ECG
--- NOTE | 2016-10-01 12:52 | PN ---
DATE: 08/30/2016 . LABORATORY DATA: platelet count . Alessandro Hayes MD cc: [phone] TT: 08/30/2016 20:47:06 Confirmation # [id number] Dictation # [id number] mn
--- NOTE | 2016-10-05 21:11 | CP.PCM.DIS ---
Provider - Provider Date of Admission: 08/24/16 22:16 Attending physician: Hever Holland MD Time Spent in preparation of Discharge (in minutes): 26 Diagnosis - Discharge Diagnosis (1) Dehydration Status: Acute (2) Altered mental status, unspecified Status: Acute Priority: Medium (3) Hydrocephalus Status: Acute Priority: Medium (4) Chronic obstructive airway disease Status: Acute Priority: Medium (5) Psoriatic arthritis Status: Acute Priority: Medium (6) Pacemaker Status: Acute Priority: Low Hospital Course - Lab Results Lab Results: Micro Results 09/04/16 14:43 Nose MRSA Culture - Final MRSA NOT DETECTED 08/31/16 12:08 Blood-Venous Blood Culture - Final NO GROWTH AFTER 5 DAYS 08/31/16 12:08 Blood-Venous Gram Stain - Final TEST NOT PERFORMED 08/31/16 12:08 Blood-Venous Blood Culture - Final NO GROWTH AFTER 5 DAYS 08/31/16 12:08 Blood-Venous Gram Stain - Final TEST NOT PERFORMED 09/01/16 13:48 Pleural Fluid Gram Stain - Final 09/01/16 13:48 Pleural Fluid Body Fluid Culture - Final No growth. 08/30/16 21:00 Blood-Venous Blood Culture - Final NO GROWTH AFTER 5 DAYS 08/30/16 21:00 Blood-Venous Gram Stain - Final TEST NOT PERFORMED 08/31/16 11:39 Trachasp Gram Stain - Final 08/31/16 11:39 Trachasp Sputum Culture - Final Staphylococcus Aureus 08/31/16 02:55 Sputum Induced Gram Stain - Final 08/31/16 02:55 Sputum Induced Sputum Culture - Final Staphylococcus Aureus 08/28/16 18:19 Blood-Venous Blood Culture - Final NO GROWTH AFTER 5 DAYS 08/28/16 18:19 Blood-Venous Gram Stain - Final TEST NOT PERFORMED 08/28/16 16:00 Blood-Venous Blood Culture - Final NO GROWTH AFTER 5 DAYS 08/28/16 16:00 Blood-Venous Gram Stain - Final TEST NOT PERFORMED 08/25/16 21:54 Urine Urine Culture - Final No Growth (<1,000 CFU/ML) Most Recent Lab Values WBC 8.1 K/uL (4.8-10.8) 09/10/16 15:53 RBC 3.77 Mil/uL (4.40-5.90) L 09/10/16 15:53 Hgb 10.2 g/dL (12.0-18.0) L 09/10/16 15:53 Hct 31.5 % (35.0-51.0) L 09/10/16 15:53 MCV 83.4 fL (80.0-94.0) 09/10/16 15:53 MCH 26.9 pg (27.0-31.0) L 09/10/16 15:53 MCHC 32.3 g/dL (33.0-37.0) L 09/10/16 15:53 RDW 18.2 % (11.5-14.5) H 09/10/16 15:53 Plt Count 291 K/uL (130-400) 09/10/16 15:53 MPV 7.5 fL (7.2-11.7) 09/10/16 15:53 Neut % (Auto) 86.8 % (50.0-75.0) H 09/10/16 15:53 Lymph % (Auto) 8.9 % (20.0-40.0) L 09/10/16 15:53 [place] % (Auto) 4.1 % (0.0-10.0) 09/10/16 15:53 Eos % (Auto) 0.1 % (0.0-4.0) 09/10/16 15:53 Baso % (Auto) 0.1 % (0.0-2.0) 09/10/16 15:53 Neut # 7.1 K/uL (1.8-7.0) H 09/10/16 15:53 Lymph # 0.7 K/uL (1.0-4.3) L 09/10/16 15:53 [place] # 0.3 K/uL (0.0-0.8) 09/10/16 15:53 Eos # 0.0 K/uL (0.0-0.7) 09/10/16 15:53 Baso # 0.0 K/uL (0.0-0.2) 09/10/16 15:53 Neutrophils % (Manual) 96 % (50-75) H 09/10/16 15:53 Band Neutrophils % 1 % (0-2) 09/02/16 06:17 Lymphocytes % (Manual) 3 % (20-40) L 09/10/16 15:53 Monocytes % (Manual) 1 % (0-10) 09/10/16 15:53 Eosinophils % (Manual) 4 % (0-4) 08/31/16 02:36 Platelet Estimate Normal (NORMAL) 09/10/16 15:53 Giant Platelets Present 08/31/16 02:36 Polychromasia Slight 09/01/16 06:29 Hypochromasia (manual) Slight 09/10/16 15:53 Anisocytosis (manual) Slight 09/10/16 15:53 Target Cells Slight 08/29/16 08:32 Tear Drop Cells Slight 09/01/16 06:29 ESR 138 mm/hr (0-15) H 08/26/16 11:30 PT 17.6 SECONDS (9.7-12.2) H 08/31/16 02:36 INR 1.5 08/31/16 02:36 APTT 34 SECONDS (21-34) 08/31/16 02:36 Puncture Site Rr 09/02/16 05:20 pCO2 30 mm/Hg (35-45) L 09/02/16 05:20 pO2 233 mm/Hg (80-100) H 09/02/16 05:20 HCO3 21.7 mmol/L (21-28) 09/02/16 05:20 ABG pH 7.42 (7.35-7.45) 09/02/16 05:20 ABG Total CO2 20.4 mmol/L (22-28) L 09/02/16 05:20 ABG O2 Saturation 99.8 % (95-98) H 09/02/16 05:20 ABG Base Excess -4.2 mmol/L (-2.0-3.0) L 09/02/16 05:20 ABG Hemoglobin 9.4 g/dL (11.7-17.4) L 09/02/16 05:20 ABG Carboxyhemoglobin 1.3 % (0.5-1.5) 09/02/16 05:20 POC ABG HHb (Measured) 0.2 % (0.0-5.0) 09/02/16 05:20 ABG Methemoglobin 1.0 % (0.0-3.0) 09/02/16 05:20 Jerad Test Pos 09/02/16 05:20 ABG Potassium 3.4 mmol/L (3.6-5.2) L 08/31/16 02:45 A-a O2 Difference 86.0 mm/Hg 09/02/16 05:20 Respiratory Index 0.4 09/02/16 05:20 Hgb O2 Saturation 97.4 % (95.0-98.0) 09/02/16 05:20 Sodium 137.0 mmol/l (132-148) 08/31/16 02:45 Chloride 112.0 mmol/L (98-107) H 08/31/16 02:45 Glucose 109 mg/dl (75-110) 08/31/16 02:45 Lactate 1.4 mmol/L (0.7-2.1) 08/31/16 02:45 Liter Flow 15.0 08/31/16 01:02 Mechanical Rate 15 09/02/16 05:20 FiO2 50.0 % 09/02/16 05:20 Tidal Volume 450 09/02/16 05:20 PEEP 5 09/02/16 05:20 Crit Value Called To Md tamia harp 08/31/16 01:02 Crit Value Called By R alert histopath tech 08/31/16 01:02 Crit Value Read Back Y 08/31/16 01:02 Blood Gas Notified Time 110 08/31/16 01:02 Sodium 138 mmol/L (132-148) 09/10/16 15:53 Potassium 3.0 mmol/L (3.6-5.2) L 09/10/16 15:53 Chloride 105 mmol/L (98-107) 09/10/16 15:53 Carbon Dioxide 28 mmol/L (22-30) 09/10/16 15:53 Anion Gap 8 (10-20) L 09/10/16 15:53 BUN 14 mg/dL (9-20) 09/10/16 15:53 Creatinine 0.5 MG/DL (0.8-1.5) L 09/10/16 15:53 Est GFR ( Amer) > 60 09/10/16 15:53 Est GFR (Non-Af Amer) > 60 09/10/16 15:53 POC Glucose (mg/dL) 190 mg/dL (65-110) H 09/10/16 16:11 Random Glucose 154 mg/dL (75-110) H 09/10/16 15:53 Hemoglobin A1c 5.7 % (4.2-6.5) 08/25/16 07:17 Calcium 7.6 mg/dl (8.6-10.4) L 09/10/16 15:53 Phosphorus 2.9 mg/dL (2.5-4.5) 09/04/16 06:22 Magnesium 2.4 mg/dL (1.6-2.3) H 09/04/16 06:22 Total Bilirubin 0.7 mg/dL (0.2-1.3) 09/04/16 06:22 Direct Bilirubin 0.5 mg/dL (0.0-0.4) H 08/25/16 07:17 AST 76 U/L (17-59) H D 09/04/16 06:22 ALT 53 U/L (21-72) 09/04/16 06:22 Alkaline Phosphatase 69 U/L (38-126) 09/04/16 06:22 Ammonia < 9 umol/L (9-33) L 08/25/16 07:17 C-React Prot High Sens > 15.00 mg/L (1.00-3.00) H 08/25/16 07:17 Total Protein 6.6 g/dL (6.3-8.3) 09/04/16 06:22 Albumin 2.4 g/dL (3.5-5.0) L 09/04/16 06:22 Globulin 4.2 gm/dL (2.2-3.9) H 09/04/16 06:22 Albumin/Globulin Ratio 0.6 (1.0-2.1) L 09/04/16 06:22 Carcinoembryonic Ag 11.4 ng/mL (0-3.0) H 08/28/16 18:19 CA 19-9 Antigen 30.8 U/mL (0-37) 08/28/16 18:19 Prostate Specific Ag 0.297 ng/mL (0.00-4.0) 08/28/16 09:01 Vitamin B12 > 1000 pg/mL (239-931) H 08/25/16 07:17 Arterial Blood Potassium 3.4 mmol/L (3.6-5.2) L 08/31/16 02:45 Urine Color Yellow (YELLOW) 08/25/16 05:52 Urine Clarity Clear (Clear) 08/25/16 05:52 Urine pH 5.0 (5.0-8.0) 08/25/16 05:52 Ur Specific [place] 1.021 (1.003-1.030) 08/25/16 05:52 Urine Protein Negative mg/dL (NEGATIVE) 08/25/16 05:52 Urine Glucose (UA) Normal mg/dL (Normal) 08/25/16 05:52 Urine Ketones Negative mg/dL (NEGATIVE) 08/25/16 05:52 Urine Blood Negative (NEGATIVE) 08/25/16 05:52 Urine Nitrate Negative (NEGATIVE) 08/25/16 05:52 Urine Bilirubin Negative (NEGATIVE) 08/25/16 05:52 Urine Urobilinogen 2.0 mg/dL (0.2-1.0) 08/25/16 05:52 Ur Leukocyte Esterase Neg Yuriy/uL (Negative) 08/25/16 05:52 Urine WBC (Auto) 2 /hpf (0-5) 08/25/16 05:52 Urine RBC (Auto) 1 /hpf (0-3) 08/25/16 05:52 Urine Bacteria Rare (<OCC) 08/25/16 05:52 Hyaline Casts 3-5 /lpf (0-2) H 08/25/16 05:52 Fluid Source Pleural 09/01/16 14:34 Fluid Appearance Cloudy (CLEAR) 09/01/16 14:34 Fluid WBC 77214.0 /mm3 (0.0-300.0) H 09/01/16 14:34 Fluid RBC 46970.0 /mm3 (0.0-0.0) H 09/01/16 14:34 Fluid Tot Cell Count 100 (0-0) H 09/01/16 14:34 Fluid Neutrophils 90.0 % (0-0) H 09/01/16 14:34 Fluid Lymphocytes 5.0 % (0-0) H 09/01/16 14:34 Fld Monocyte/Macrophag 5 % (0-0) H 09/01/16 14:34 Fluid Comment 09/01/16 14:34 Pleural Total Protein <3.0 g/dL 09/01/16 14:34 Pleural LDH 3218 U/L 09/01/16 14:34 Pleural Glucose 129 mg/dL 09/01/16 14:34 Stool Occult Blood Negative (NEGATIVE) 08/29/16 07:34 Vancomycin Trough 15.0 ug/mL (5.0-10.0) H 09/03/16 06:09 Rheum Arthritis Panel Positive (NEGATIVE) H 08/26/16 07:07 Cycl Citrul Peptide IgG >250 Units (<20) H 08/26/16 07:07 ELVIA 6 Profile Positive (NEGATIVE) H 08/25/16 16:42 ELVIA Titer 1:160 H 08/25/16 16:42 ELVIA Pattern Speckled H 08/25/16 16:42 [employer] Antibody <1.0 AI (<1.0) 08/26/16 07:07 [employer] Antibody Interp Negative (Negative) 08/26/16 07:07 RPR Nonreactive (NONREACTIVE) 08/25/16 07:17 C. difficile Ag & Toxin Negative (NEGATIVE) 08/26/16 Unknown Ur L.pneumophila Ag Negative (NEGATIVE) 09/01/16 10:34 Mycoplasma pneumon IgM Negative (NEGATIVE) 09/01/16 10:34 Anti-Staphylolysin O Negative (NEGATIVE) 08/25/16 16:42 Blood Type A NEGATIVE 08/28/16 16:48 Antibody Screen Negative 08/28/16 16:48 Discharge Exam - Head Exam Head Exam: NORMOCEPHALIC - Eye Exam Eye Exam: Normal appearance Pupil Exam: NORMAL ACCOMODATION - ENT Exam ENT Exam: Normal Exam - Neck Exam Neck exam: Normal Inspection - Respiratory Exam Respiratory Exam: Decreased Breath Sounds - Cardiovascular Exam Cardiovascular Exam: REGULAR RHYTHM - GI/Abdominal Exam GI & Abdominal Exam: Normal Bowel Sounds - Rectal Exam Rectal Exam: Deferred - Exam Exam: NORMAL INSPECTION - Extremities Exam Extremities exam: joint swelling - Back Exam Back exam: NORMAL INSPECTION - Neurological Exam Neurological exam: Altered - Psychiatric Exam Psychiatric exam: Depressed - Skin Skin Exam: Dry Discharge Plan - Discharge Medications Prescriptions: Famotidine [Pepcid] 20 mg PO BID #30 tab Albuterol HFA [Ventolin HFA 90 mcg/actuation (8 g)] 0.09 mg IH Q6 PRN #2 puff PRN Reason: Wheezing - Follow Up Plan Condition: FAIR Disposition: HOME/ ROUTINE Instructions: Famotidine (By mouth), Albuterol (By breathing), Prednisone (By mouth), Dehydration (DC), Hydrocephalus (DC), Altered Mental Status (GEN) Additional Instructions: f/u with Dr. Holland office in 1 week Continue all home medication [facility] service for home care and home PT Referrals: Hever Holland MD [Staff Provider] -
== END 2016-09-10 19:15 | disposition home or self-care (01) | DRG 208 ==
LOC: C.ER 20:04 → C.9E 22:16 → C.3T 08-25 05:20 → C.9I 08-31 02:22 → C.3T 09-04 15:29
PROVIDERS: ADMIT Internal Medicine; ATTEND Internal Medicine
PROC: 30233N1 Transfusion of Nonautologous Red Blood Cells into Peripheral Vein, Percutaneous Approach (ICD-10-PCS; 2016-08-28)
PROC: 0BH17EZ Insertion of Endotracheal Airway into Trachea, Via Natural or Artificial Opening (ICD-10-PCS; principal; 2016-08-31)
PROC: 5A1945Z Respiratory Ventilation, 24-96 Consecutive Hours (ICD-10-PCS; 2016-08-31)
PROC: 0W9930Z Drainage of Right Pleural Cavity with Drainage Device, Percutaneous Approach (ICD-10-PCS; 2016-09-01)
PROC: 0DB78ZX Excision of Stomach, Pylorus, Via Natural or Artificial Opening Endoscopic, Diagnostic (ICD-10-PCS; 2016-09-09)
DX: J44.0 Chronic obstructive pulmonary disease with (acute) lower respiratory infection (principal); J69.0 Pneumonitis due to inhalation of food and vomit; J96.01 Acute respiratory failure with hypoxia; R65.20 Severe sepsis without septic shock; A41.9 Sepsis, unspecified organism; I47.2 Ventricular tachycardia; R64 Cachexia; E87.2 Acidosis; J90 Pleural effusion, not elsewhere classified; G91.9 Hydrocephalus, unspecified; G95.9 Disease of spinal cord, unspecified; E46 Unspecified protein-calorie malnutrition; I42.9 Cardiomyopathy, unspecified; J98.2 Interstitial emphysema; K26.9 Duodenal ulcer, unspecified as acute or chronic, without hemorrhage or perforation; F03.90 Unspecified dementia, unspecified severity, without behavioral disturbance, psychotic disturbance, mood disturbance, and anxiety; G62.9 Polyneuropathy, unspecified; E86.0 Dehydration; L40.50 Arthropathic psoriasis, unspecified; M06.9 Rheumatoid arthritis, unspecified; F32.9 Major depressive disorder, single episode, unspecified; Z95.0 Presence of cardiac pacemaker; R41.82 Altered mental status, unspecified; Z93.3 Colostomy status; Z86.73 Personal history of transient ischemic attack (TIA), and cerebral infarction without residual deficits; R32 Unspecified urinary incontinence; Z85.038 Personal history of other malignant neoplasm of large intestine; F17.210 Nicotine dependence, cigarettes, uncomplicated; D47.3 Essential (hemorrhagic) thrombocythemia; D63.0 Anemia in neoplastic disease; K29.00 Acute gastritis without bleeding; I99.8 Other disorder of circulatory system

== ENCOUNTER 2016-09-21 20:18 | Inpatient (IN) | payer MEDICARE ==
[2016-09-21 20:19] VITALS: BMI 21.1
[2016-09-21 21:26] LABS: CHLORIDE 103 mmol/L (98-107); SODIUM 133 mmol/L (132-148)
[2016-09-21 21:27] LABS: POTASSIUM 4.2 mmol/L (3.6-5.2)
[2016-09-21 21:28] LABS: AST/SGOT 152 U/L (17-59); BILIRUBIN,TOTAL 0.9 mg/dL (0.2-1.3); CARBON DIOXIDE 23 mmol/L (22-30); GFR AFRICAN-AMERICAN > 60
[2016-09-21 21:29] LABS: ALB/GLOB RATIO 0.6 (1.0-2.1); ALKALINE PHOSPHATASE 113 U/L (38-126); ALT/SGPT 50 U/L (21-72); BLOOD UREA NITROGEN 14 mg/dL (9-20); CALCIUM 7.5 mg/dl (8.6-10.4); GLUCOSE,RANDOM 154 mg/dL (75-110)
[2016-09-21 21:31] LABS: BASO % 0.4 % (0.0-2.0); EOS # 0.5 K/uL (0.0-0.7); EOS % 7.5 % (0.0-4.0); HEMATOCRIT 25.8 % (35.0-51.0); LYMPH # 0.9 K/uL (1.0-4.3); LYMPH % 12.9 % (20.0-40.0); MEAN CELL VOLUME 85.8 fL (80.0-94.0); MEAN CORPUSCULAR HGB CONC 31.5 g/dL (33.0-37.0); MONO # 0.3 K/uL (0.0-0.8); MONO % 4.2 % (0.0-10.0); RED CELL DISTRIBUTION WIDTH 21.3 % (11.5-14.5); WHITE BLOOD COUNT 6.9 K/uL (4.8-10.8)
--- NOTE | 2016-09-21 21:43 | C.PDOC ---
History Of Present Illness Patient presents to the ER with a complaint of SOB since Wednesday. Patient reports feeling not well and feeling weak; family noticed his breathing was off 911 was called. Patient was put placed on O2 by EMS which made him feel better. Denies fever, chills, nausea, vomiting, chest pain or palpitations. Time Seen by Provider: 09/21/16 21:42 Chief Complaint (Nursing): Shortness Of Breath History Per: Patient History/Exam Limitations: no limitations Onset/Duration Of Symptoms: Days (Since Wednesday) Current Symptoms Are (Timing): Still Present Initiating Event: Other (Not known) Current Respiratory Medications: None Severity: None Pain Scale Rating Of: 0 Associated Symptoms: denies: Fever, Chills, Chest Pain, Other (Nausea, Vomiting , Palpitations) Recent travel outside of the [place]: No Past Medical History Reviewed: Historical Data, Nursing Documentation, Vital Signs Vital Signs: Last Vital Signs Temp 98.0 F 09/21/16 20:23 Pulse 80 09/21/16 22:15 Resp 22 09/21/16 22:15 BP 106/47 L 09/21/16 22:15 Pulse Ox 96 09/21/16 23:46 - Medical History PMH: Arthritis, Asthma, Cardia Arrhythmia, COPD, Dementia, Depression, Emphysema , HTN, Kidney Stones, Malignancy (COLON CANCER), Rheumatoid Arthritis Surgical History: Pacemaker (03/15/2015) - [facility] Procedures DRAINAGE OF L LOW LEG SUBCU/FASCIA, OPEN APPROACH, DIAGN (02/24/16) DRAINAGE OF R PLEURAL CAV WITH DRAIN DEV, PERC APPROACH (08/24/16) ENDOSCOPIC BRONCHIAL BX (05/01/14) EXCISION OF L LOW LEG SUBCU/FASCIA, OPEN APPROACH (02/24/16) EXCISION OF STOMACH, PYLORUS, ENDO, DIAGN (08/24/16) INITIAL INSERT TRANS LEADS INTO [facility] (03/14/14) INITIAL INSERTION OF DUAL-CHAMBER DEVICE (03/14/14) INJECT/INFUSE NEC (05/18/13) INSERTION OF ENDOTRACHEAL AIRWAY INTO TRACHEA, VIA OPENING (08/24/16) RESPIRATORY VENTILATION, 24-96 CONSECUTIVE HOURS (08/24/16) TRANSFUSE NONAUT RED BLOOD CELLS IN PERIPH VEIN, PERC (08/24/16) Family History: States: No Known Family Hx - Social History Hx Tobacco Use: Yes Hx Alcohol Use: No Hx Substance Use: No - Immunization History Hx Tetanus Toxoid Vaccination: No Hx Influenza Vaccination: Yes Hx Pneumococcal Vaccination: Yes Review Of Systems Constitutional: Negative for: Fever, Chills Cardiovascular: Negative for: Chest Pain, Palpitations Respiratory: Positive for: Shortness of Breath Gastrointestinal: Negative for: Nausea, Vomiting Physical Exam - Physical Exam Appears: Non-toxic Skin: Warm, Dry Head: Normacephalic Oral Mucosa: Moist Teeth: Edentulous Neck: Supple Chest: No Deformity, No Tenderness, Other (Port on right side) Cardiovascular: Rhythm Regular, No Murmur Respiratory: Rales (Diffuse at bases), No Rhonchi, No Wheezing Gastrointestinal/Abdominal: Bowel Sounds (Good), Soft, No Tenderness, Other ( colostomy left) Back: No CVA Tenderness Extremity: No Pedal Edema Extremity: Bilateral: Atraumatic Neurological/Psych: Oriented x3 Gait: Unable To Assess ED Course And Treatment - Laboratory Results Result Diagrams: 09/21/16 21:13 09/21/16 21:13 ECG: Interpreted By Me, Viewed By Me ECG Rhythm: Sinus Rhythm (90), Nonspecific Changes (ventricular paced rhythm) O2 Sat by Pulse Oximetry: 96 (Room air) Pulse Ox Interpretation: Normal - Radiology CXR: Interpreted by Me, Viewed By Me CXR Interpretation: Yes: Infiltrates, Cardiomegaly, Other (pacer left, r port, worse from 08/26). No: Fracture Progress Note: Blood work and CXR ordered. Nebulizer treatment and lasix ordered. Disposition Discussed With DrAngélica: Hever Holland Comment: accepted the pt on his service and took over the care at 11:43 pm Doctor Will See Patient In The: Hospital Counseled Patient/Family Regarding: Studies Performed, Diagnosis - Disposition Disposition: HOSPITALIZED Disposition Time: 21:42 Condition: FAIR - POA Present On Arrival: Poor Glycemic Control - Clinical Impression Clinical Impression: Dyspnea - Scribe Statement The provider has reviewed the documentation as recorded by the Scribe Tolu Slade All medical record entries made by the Scribe were at my direction and personally dictated by me. I have reviewed the chart and agree that the record accurately reflects my personal performance of the history, physical exam, medical decision making, and the department course for this patient. I have also personally directed, reviewed, and agree with the discharge instructions and disposition. Decision To Admit - Pt Status Changed To: Hospital Disposition Of: Inpatient - Admit Certification Admit to Inpatient:: After my assessment, the patient will require hospitalization for at least two midnights. This is because of the severity of symptoms shown, intensity of services needed, and/or the medical risk in this patient being treated as an outpatient. - InPatient: Physician Admission Certification: I certify that this patient requires 2 or more midnights of care for the following reason:: After my assessment, the patient will require hospitalization for at least two midnights. This is because of the severity of symptoms shown, intensity of services needed, and/or the medical risk in this patient being treated as an outpatient. - . Bed Request Type: Telemetry Admitting Physician: Hever Holland Patient Diagnosis: Dyspnea
[2016-09-21] MEDS ORDERED: Albuterol-Ipratrop 3 mg / 0.5 (3 ml) UD ONE ×3 (21:57→22:33)
[2016-09-21] MEDS: Albuterol-Ipratrop 3 mg / 0.5 (3 ml) UD IH SCH ×3 (22:10→22:35)
[2016-09-21 22:48] LABS: TROPONIN I 0.017 ng/mL (0.00-0.120)
[2016-09-21] MEDS ORDERED: Albuterol HFA 90 mcg/actuation (8 g) IH PRN (23:51)
[2016-09-22] MEDS ORDERED: Belladonna-Phenobarbital PO STA (09:08)
--- NOTE | 2016-09-22 09:48 | CARD ---
APPROVED REPORT EKG Measurement Heart [id number] SD P45 [id number] <Conclusion> Technically Poor Probably normal sinus Demand Ventricular-paced rhythm Non specific st changes Abnormal ECG
[2016-09-22] MEDS ORDERED: Albuterol HFA 90 mcg/actuation (8 g) IH PRN (11:06)
[2016-09-22 11:36] LABS: HEMATOCRIT 24.3 % (35.0-51.0); MEAN CORPUSCULAR HEMOGLOBIN 27.5 pg (27.0-31.0); MEAN CORPUSCULAR HGB CONC 32.4 g/dL (33.0-37.0); MEAN PLATELET VOLUME 8.2 fL (7.2-11.7); RED CELL DISTRIBUTION WIDTH 20.6 % (11.5-14.5); WHITE BLOOD COUNT 5.9 K/uL (4.8-10.8)
[2016-09-22 11:51] LABS: CHLORIDE 104 mmol/L (98-107)
[2016-09-22 11:52] LABS: POTASSIUM 2.8 mmol/L (3.6-5.2); SODIUM 136 mmol/L (132-148)
[2016-09-22 11:54] LABS: GFR AFRICAN-AMERICAN > 60
[2016-09-22 11:55] LABS: ALB/GLOB RATIO 0.6 (1.0-2.1); ALKALINE PHOSPHATASE 121 U/L (38-126); ALT/SGPT 56 U/L (21-72); AST/SGOT 94 U/L (17-59); BILIRUBIN,TOTAL 0.5 mg/dL (0.2-1.3); BLOOD UREA NITROGEN 12 mg/dL (9-20); CALCIUM 7.5 mg/dl (8.6-10.4); CARBON DIOXIDE 24 mmol/L (22-30); GLUCOSE,RANDOM 125 mg/dL (75-110); TOTAL PROTEIN 5.5 g/dL (6.3-8.3)
--- NOTE | 2016-09-22 12:03 | RAD ---
PROCEDURE: CHEST RADIOGRAPH, 1 VIEW HISTORY: sob COMPARISON: None available. FINDINGS: LUNGS: Diffuse interstitial disease - fibrosis with what could represent superimposed pulmonary vascular congestion or pneumonia. Apical and upper lung field blebs and bullous changes are also present. PLEURA: Questionable tiny effusions. CARDIOVASCULAR: Heart appears enlarged. No change bipolar pacemaker. OSSEOUS STRUCTURES: No significant abnormalities. VISUALIZED UPPER ABDOMEN: Normal. OTHER FINDINGS: None. IMPRESSION: Diffuse interstitial disease - fibrosis with what could represent superimposed pulmonary vascular congestion or pneumonia. Apical and upper lung field blebs and bullous changes are also present. Questionable tiny effusions.
[2016-09-22 12:23] LABS: CARCINOEMBRYONIC ANTIGEN 3.5 ng/mL (0-3.0)
[2016-09-22 12:27] LABS: CA 19-9 16.3 U/mL (0-37)
--- NOTE | 2016-09-22 14:33 | CON ---
DATE: 09/22/2016 LOCATION: 670. From Dr. Roger Mcclure to Dr. Holland. I was called for GI consultation by the admitting MD. The patient seen and fully examined on 017 as requested by the admitting MD. HISTORY OF PRESENT ILLNESS: This is a 75-year-old male who was admitted to the hospital due to gener alized weakness and malaise, shortness of breath. Was found to have subsequent drop of hemoglobin an d hematocrit at the time of the admission with reported hemoglobin of 8.1, hematocrit 25.8 with incre ased blood glucose level of 154, low calcium 7.5 with low total protein of 6 and low albumin 2.2. No reported active bleeding, but shortness of breath. IMPRESSION: 1. Anemia. 2. to rule out gastrointestinal bleeding, upper versus lower. 3. Known history of, but not limited to, reported colon cancer, rheumatoid arthritis, chronic obstru ctive pulmonary disease, cardiac arrhythmias, hypertension with renal stones. SUGGESTION: 1. Repeat cancer markers. 2. Blood transfusion to keep hemoglobin around 10 g%. 3. Guaiac all the stool daily x 3. 4. Carafate p.o. due to the patient's known history of peptic ulcer disease. 5. If there is any significant and subsequent drop of hemoglobin and hematocrit, then patient may co nsider endoscopic evaluation of the GI tract. However, it has to be mentioned that on 09/09/2016 david obando had upper endoscopy by myself indicative of acute gastritis with duodenal large ulcer and duoden itis, which could be a reason for his anemia in large part. 6. The patient may need a colonoscopy due to his reported known history of colon CA; that to be disc ussed with admitting MD. 7. Further recommendation to follow. 8. Full consultation to be followed. Roger Mcclure MD cc: [id number] TT: 09/22/2016 14:32:18 Confirmation # [id number] Dictation # [id number] mn
--- NOTE | 2016-09-22 14:38 | CON ---
DATE: 09/22/2016 REASON FOR CONSULTATION: Abnormal CAT scan consistent with possible normal pressure hydrocephalus in the past. The patient was admitted with shortness of breath for the last 3 days and the family noted that he was not doing well as before. From the neurological point , I was called in to evaluate him for his neuro status to compare with his previous radiological findings. HISTORY OF PRESENT ILLNESS: The patient is a 75-year-old right-handed male presenting with shortness and generalized weakness, been admitted with some abnormal CAT scan from his previous admission. PAST MEDICAL HISTORY: COPD, hypertension, dyslipidemia, hydrocephalus. MEDICATIONS: Carafate, metronidazole, Lasix, Pepcid, prednisone, albuterol. PHYSICAL EXAMINATION: VITAL SIGNS: Blood pressure 194/53, mean arterial pressure of 66, respiratory rate 16, temperature afebrile. NECK: Supple. No carotid bruit. HEART: Sounds regular. CHEST: Fair air entry. EXTREMITIES: No edema in legs. NEUROLOGIC EXAMINATION: MENTAL STATUS EXAMINATION: He is lethargic. He is communicable by his name. He moves the right side more than his left side. Left leg externally rotated and he was not able to move it himself. Speech is mildly dysarthric; however, patient has no teeth and no dentures. CRANIAL NERVE EXAMINATION: Responds to visual threat. Pupils react to light. Extraocular movements markedly depressed in all directions. No nystagmus. Tongue seems to be moist. MOTOR EXAMINATION: Left hemiparesis which is new. DEEP TENDON REFLEXES: The left plantars are upgoing, right side is also upgoing. SENSORY: Responds to pain, more on the right than his left side. CONCLUSION: 1. The patient is presenting with left hemiparesis without affecting his cranial nerves. History of possible cervical pathology. This could be a myelopathy from his previous examination. This finding is some what new from previous exam RECOMMENDATIONS: The patient should have MRI of the cervical spine to assess his clinical presentation. I doubt his normal pressure hydrocephalus which does not meet the criteria of his clinical presentation. The patient will be followed closely with you. Ghulam Harper MD cc: [id number] TT: 09/22/2016 14:38:07 Confirmation # [id number] Dictation # [id number] [place]
--- NOTE | 2016-09-22 14:45 | CP.PCM.CON ---
History of Present Illness - History of Present Illness History of Present Illness: 75 yo male complaining of increasing SOB last night. Brought by ambulance to the ED, he was found to be in CHF, was put on O2 and give Lasix IV with improvement. He is known to have a pulmonary fibrosis, a HPTN, a cardiomyopathy, a permanent pacemaker since 03/2014, a colon cancer with a permanent colostomy, he was also found to have a Hgb: 7.8, a K+: 2.8. He denies any chest pain, any fever. He was recently discharged for a cellulitis. An echocardiogram in 2013 revealed a dilated LV with slightly depressed LVEF, moderated TR, MR and pulmonary hypertension. Review of Systems - Cardiovascular Cardiovascular: Dyspnea - Respiratory Respiratory: Dyspnea Past Patient History - Infectious Disease Hx of Infectious Diseases: None - Tetanus Immunizations Tetanus Immunization: Up to Date, >10 years Ago - Past Medical History & Family History Past Medical History?: Yes - Past Social History Smoking Status: Former Smoker Alcohol: Other Drugs: Denies Home Situation {Lives}: With Family Domestic Violence: Negative - CARDIAC Hx Cardia Arrhythmia: Yes Hx Hypertension: Yes Hx Pacemaker: Yes (03/15/2015) - PULMONARY Hx Asthma: Yes Hx Chronic Obstructive Pulmonary Disease (COPD): Yes Hx Emphysema: Yes - NEUROLOGICAL Hx Neurological Disorder: Yes Hx Dementia: Yes - HEENT Hx HEENT Problems: Yes - RENAL Hx Chronic Kidney Disease: No Hx Kidney Stones: Yes - ENDOCRINE/METABOLIC Hx Endocrine Disorders: No Hx Hypothyroidism: No - HEMATOLOGICAL/ONCOLOGICAL Hx Blood Disorders: Yes Hx Blood Transfusions: Yes Hx Cancer: Yes (COLON) Hx Chemotherapy: Yes Other/Comment: has left colostomy - INTEGUMENTARY Hx Dermatological Problems: Yes Hx Psoriasis: Yes - MUSCULOSKELETAL/RHEUMATOLOGICAL Hx Arthritis: Yes Hx Falls: No Hx Rheumatoid Arthritis: Yes - GASTROINTESTINAL Hx Gastrointestinal Disorders: Yes Hx Bowel Surgery: Yes (2003;2005) Hx Colostomy: Yes Other/Comment: COLON CA 2003 - GENITOURINARY/GYNECOLOGICAL Hx Genitourinary Disorders: No Hx Incontinence: Yes - PSYCHIATRIC Hx Depression: Yes Hx Substance Use: No - SURGICAL HISTORY Hx Surgeries: Yes Other/Comment: pacemaker. colostomy - ANESTHESIA Hx Anesthesia: Yes Hx Anesthesia Reactions: No Hx Malignant Hyperthermia: No Meds Allergies/Adverse Reactions: Allergies Allergy/AdvReac Type Severity Reaction Status Date / Time No Known Allergies Allergy Verified 09/21/16 20:25 - Medications Medications: Current Medications Albuterol (Ventolin Hfa 90 Mcg/Actuation (8 G)) 1 puff IH Q6 PRN PRN Reason: Wheezing Famotidine (Pepcid) 20 mg PO BID [facility] Last Admin: 09/22/16 09:46 Dose: 20 mg Furosemide (Lasix) 20 mg PO DAILY [facility] Heparin Sodium (Porcine) (Heparin) 5,000 units SC Q12 [facility] Last Admin: 09/22/16 10:50 Dose: 5,000 units Metronidazole (Flagyl) 500 mg in 100 mls @ 100 mls/hr IVPB Q8H [facility] Prednisone (Prednisone Tab) 30 mg PO DAILY [facility] Last Admin: 09/22/16 09:46 Dose: 30 mg Sucralfate (Carafate Oral Susp) 1 gm PO ACBD [facility] Tramadol HCl (Ultram) 50 mg PO Q8 PRN PRN Reason: Pain, moderate (4-7) Last Admin: 09/22/16 00:35 Dose: 50 mg Physical Exam - Constitutional Appears: No Acute Distress, Chronically Ill - Head Exam Head Exam: NORMAL INSPECTION - Eye Exam Eye Exam: Normal appearance - ENT Exam ENT Exam: Normal Exam - Neck Exam Neck exam: Positive for: Normal Inspection - Respiratory Exam Additional comments: Rales heard at both bases. - Cardiovascular Exam Cardiovascular Exam: REGULAR RHYTHM, Systolic Murmur - GI/Abdominal Exam GI & Abdominal Exam: Normal Bowel Sounds, Soft Additional comments: Permanent colostomy working well. - Exam Exam: NORMAL INSPECTION - Extremities Exam Extremities exam: Positive for: normal inspection - Back Exam Back exam: NORMAL INSPECTION - Neurological Exam Neurological exam: Alert, Oriented x3 - Psychiatric Exam Psychiatric exam: Anxious - Skin Skin Exam: Dry, Intact, Normal Color, Warm Results - Vital Signs Recent Vital Signs: Last Vital Signs Temp 98.4 F 09/22/16 07:00 Pulse 92 H 09/22/16 13:53 Resp 20 09/22/16 07:00 BP 99/53 L 09/22/16 13:53 Pulse Ox 94 L 09/22/16 07:00 - Labs Result Diagrams: 09/22/16 11:24 09/22/16 11:24 Labs: Laboratory Results - last 24 hr 09/22/16 09/22/16 09/22/16 08:25 11:24 11:24 WBC 5.9 RBC 2.86 L Hgb 7.9 L Hct 24.3 L MCV 85.0 MCH 27.5 MCHC 32.4 L RDW 20.6 H Plt Count 298 MPV 8.2 Sodium 136 Potassium 2.8 L Chloride 104 Carbon Dioxide 24 Anion Gap 11 BUN 12 Creatinine 0.6 L Est GFR ( Amer) > 60 Est GFR (Non-Af Amer) > 60 Random Glucose 125 H Calcium 7.5 L Total Bilirubin 0.5 AST 94 H D ALT 56 Alkaline Phosphatase 121 C-React Prot High Sens Total Protein 5.5 L Albumin 2.0 L Globulin 3.5 Albumin/Globulin Ratio 0.6 L Carcinoembryonic Ag 3.5 H CA 19-9 Antigen 16.3 Prolactin 30.4 H 09/22/16 11:24 WBC RBC Hgb Hct MCV MCH MCHC RDW Plt Count MPV Sodium Potassium Chloride Carbon Dioxide Anion Gap BUN Creatinine Est GFR ( Amer) Est GFR (Non-Af Amer) Random Glucose Calcium Total Bilirubin AST ALT Alkaline Phosphatase C-React Prot High Sens > 15.00 H Total Protein Albumin Globulin Albumin/Globulin Ratio Carcinoembryonic Ag CA 19-9 Antigen Prolactin Assessment & Plan (1) Acute on chronic systolic (congestive) heart failure Assessment and Plan: To continue Lasix IV. Order an echocardiogram to assess LV and valves. Status: Acute (2) Pulmonary fibrosis Assessment and Plan: As per Dr Hayes. Status: Acute (3) Anemia Status: Acute (4) Anemia Assessment and Plan: check stools for OB. Status: Acute
[2016-09-22] MEDS ORDERED: Potassium Chloride 20 mEq ER Tab PO STA (15:01)
[2016-09-22] MEDS: metroNIDAZOLE IV 500 mg/100 ml 500 MG/100 ML BAG IVPB SCH ×2 (15:16→20:13)
[2016-09-22] MEDS: Sucralfate 1 gm/10 ml Oral Susp UD PO SCH (18:10)
[2016-09-22] MEDS: Pantoprazole 40 mg EC Tab PO SCH (18:10)
[2016-09-22] MEDS: Albuterol 0.042% Inhal Sol (1.25 mg/3 mL) UD INH SCH (19:17)
--- NOTE | 2016-09-22 22:35 | EEG ---
DATE: 09/22/2016 This is a 16-channel electroencephalogram of awake and lethargic adult. During the study, photic sti mulation was performed. Hyperventilation was not performed. FINDINGS: The resting electroencephalogram shows high amplitude diffuse delta activities superimpose d with some persistent muscle artifact that contaminated the background rhythm. The photic stimulati on did not evoke driving response noted at 2-20 Hz. EKG shows multiple PVCs. There is evidence of hard block seen. The photic stimulation did not evoke driving response noted at 2-20 Hz. IMPRESSION: This is abnormal electroencephalogram because of persistent slowing throughout the recor d suggestive of bilateral cerebral dysfunction. This is probably secondary to metabolic vascular deg enerative process. During the study, the patient showed persistent muscle artifact with EKG abnormal rhythm noted. Please correlate the finding with the neurological and radiological studies. Ghulam Harper MD cc: [id number] TT: 09/22/2016 22:34:46 Confirmation # [id number] Dictation # [id number] mary
--- NOTE | 2016-09-22 22:42 | CP.PCM.HP ---
History of Present Illness - History of Present Illness History of Present Illness: 75 year old male who developed shortness of breath at home was taken to the [facility] ER. Following evaluation,patient was admitted for treatment. Patient was discharged 4 weeks ago following antibiotic treatment for cellulitis..Past history includes colon cancer, pacemaker insertion, COPD, rheumatoid arthritis, and congestive heart failure. Present on Admission - Present on Admission Any Indicators Present on Admission: No History of DVT/PE: No History of Uncontrolled Diabetes: No Urinary Catheter: No Decubitus Ulcer Present: No History Surgical Site Infection Following: None Review of Systems - Review of Systems Systems not reviewed;Unavailable: Altered Mental Status - Constitutional Constitutional: Fatigue - EENT Ears: Tinnitus Nose/Mouth/Throat: Sinus Pain - Cardiovascular Cardiovascular: Dyspnea on Exertion, Paroxysmal Nocturnal Dyspnea - Respiratory Respiratory: Dyspnea on Exertion - Musculoskeletal Musculoskeletal: Arthralgias - Integumentary Integumentary: Dry Skin - Neurological Neurological: Confusion - Psychiatric Psychiatric: Depression Past Patient History - Infectious Disease Hx of Infectious Diseases: None - Tetanus Immunizations Tetanus Immunization: Up to Date, >10 years Ago - Past Medical History & Family History Past Medical History?: Yes - Past Social History Smoking Status: Former Smoker Chewing Tobacco Use: No Cigar Use: No Alcohol: Other Drugs: Denies Home Situation {Lives}: With Family Domestic Violence: Negative - CARDIAC Hx Cardiac Disorders: Yes Hx Hypertension: Yes - PULMONARY Hx Chronic Obstructive Pulmonary Disease (COPD): Yes (Emphysema,) - NEUROLOGICAL Hx Neurological Disorder: Yes Hx Dementia: Yes - HEENT Hx HEENT Problems: Yes - RENAL Hx Chronic Kidney Disease: No Hx Kidney Stones: Yes - ENDOCRINE/METABOLIC Hx Hypothyroidism: No - HEMATOLOGICAL/ONCOLOGICAL Hx Blood Disorders: Yes Hx Blood Transfusions: Yes Hx Cancer: Yes (COLON) Hx Chemotherapy: Yes Other/Comment: has left colostomy - INTEGUMENTARY Hx Dermatological Problems: Yes Hx Psoriasis: Yes - MUSCULOSKELETAL/RHEUMATOLOGICAL Hx Arthritis: Yes Hx Rheumatoid Arthritis: Yes - GASTROINTESTINAL Hx Gastrointestinal Disorders: Yes Hx Bowel Surgery: Yes (2003;2005) Hx Colostomy: Yes Other/Comment: COLON CA 2003 - GENITOURINARY/GYNECOLOGICAL Hx Genitourinary Disorders: No Hx Incontinence: Yes - PSYCHIATRIC Hx Depression: Yes Hx Substance Use: No - SURGICAL HISTORY Hx Surgeries: Yes Other/Comment: pacemaker. colostomy - ANESTHESIA Hx Anesthesia: Yes Hx Anesthesia Reactions: No Hx Malignant Hyperthermia: No Meds Allergies/Adverse Reactions: Allergies Allergy/AdvReac Type Severity Reaction Status Date / Time No Known Allergies Allergy Verified 09/21/16 20:25 Physical Exam - Constitutional Appears: Chronically Ill - Head Exam Head Exam: NORMAL INSPECTION - Eye Exam Eye Exam: Normal appearance Pupil Exam: NORMAL ACCOMODATION - ENT Exam ENT Exam: Normal Oropharynx - Neck Exam Neck exam: Positive for: Normal Inspection - Respiratory Exam Respiratory Exam: Decreased Breath Sounds - Cardiovascular Exam Cardiovascular Exam: Irregular Rhythm - GI/Abdominal Exam GI & Abdominal Exam: Normal Bowel Sounds - Rectal Exam Rectal Exam: Deferred - Exam Exam: NORMAL INSPECTION - Extremities Exam Extremities exam: Positive for: tenderness - Back Exam Back exam: NORMAL INSPECTION - Neurological Exam Neurological exam: Altered - Psychiatric Exam Psychiatric exam: Depressed - Skin Skin Exam: Dry Results - Vital Signs Recent Vital Signs: Last Vital Signs Temp 98 F 09/22/16 16:01 Pulse 90 09/22/16 16:56 Resp 20 09/22/16 16:01 BP 101/64 09/22/16 16:03 Pulse Ox 96 09/22/16 16:56 - Labs Result Diagrams: 09/22/16 11:24 09/22/16 11:24 Labs: Laboratory Results - last 24 hr 09/22/16 09/22/16 09/22/16 08:25 11:24 11:24 WBC 5.9 RBC 2.86 L Hgb 7.9 L Hct 24.3 L MCV 85.0 MCH 27.5 MCHC 32.4 L RDW 20.6 H Plt Count 298 MPV 8.2 Sodium 136 Potassium 2.8 L Chloride 104 Carbon Dioxide 24 Anion Gap 11 BUN 12 Creatinine 0.6 L Est GFR ( Amer) > 60 Est GFR (Non-Af Amer) > 60 Random Glucose 125 H Calcium 7.5 L Total Bilirubin 0.5 AST 94 H D ALT 56 Alkaline Phosphatase 121 C-React Prot High Sens Total Protein 5.5 L Albumin 2.0 L Globulin 3.5 Albumin/Globulin Ratio 0.6 L Carcinoembryonic Ag 3.5 H CA 19-9 Antigen 16.3 Prolactin 30.4 H 09/22/16 11:24 WBC RBC Hgb Hct MCV MCH MCHC RDW Plt Count MPV Sodium Potassium Chloride Carbon Dioxide Anion Gap BUN Creatinine Est GFR ( Amer) Est GFR (Non-Af Amer) Random Glucose Calcium Total Bilirubin AST ALT Alkaline Phosphatase C-React Prot High Sens > 15.00 H Total Protein Albumin Globulin Albumin/Globulin Ratio Carcinoembryonic Ag CA 19-9 Antigen Prolactin Assessment & Plan (1) Acute on chronic systolic (congestive) heart failure Status: Acute (2) Anemia Status: Acute (3) Pulmonary fibrosis Status: Acute (4) Altered mental status, unspecified Status: Acute Priority: Medium (5) Arthritis Status: Acute Priority: Medium
--- NOTE | 2016-09-23 00:15 | CON ---
DATE: 09/22/[address] Roger Mcclure to Dr. Holland. I was called for GI consultation by the admitting MD. The patient is seen and fully examined on 09/10 as requested by the admitting medical team. The entire chart is reviewed, including, but not limited to, most recent lab and radiology study results, current and previous medication list, curren t and the previous medical events, as well as allergies to medication list, and all the available cur rent and the previous medical record. Case discussed at length with the admitting medical team. HISTORY OF PRESENT ILLNESS: This is a 75-year-old male who was admitted to the hospital with main co mplaint of, but not limited to, generalized weakness, malaise, shortness of breath, with recent poor oral intake with dyspepsia. No reported chest pain, palpitation, or evidence of active bleeding. With the patient's symptoms, EMS was called and the patient was transferred to the Emergency Room. PAST MEDICAL HISTORY: Including but not limited to: 1. COPD. 2. Reported dementia. 3. Cardiac arrhythmia. 4. Osteoarthritis. 5. Depression. The patient has a history of renal stones, as well as colon CA, with reported rheumatoid arthritis. The patient also has recent history of thoracocentesis due to pleural effusion. History of peptic ulcer disease diagnosed by endoscopy about 3 weeks ago. FAMILY HISTORY: Unknown. SOCIAL HISTORY: Positive for cigarette smoking, but no alcohol intake. CURRENT MEDICATIONS: Medication list was reviewed. ALLERGY TO MEDICATION: Unclear. After being admitted to hospital, the patient was found to have hemoglobin of 8.1, hematocrit 25.8, w ith increased blood glucose level to 154, and low creatinine 0.5. Due to above report of guaiac positive stool, I was called for a GI consultation. PHYSICAL EXAMINATION: GENERAL: A 75-year-old male seen and examined in the presence of the staff on the floor. VITAL SIGNS: Afebrile with pulse of 84, respiratory rate 20-24, blood pressure 112/52. HEENT: Showed pale, dry mucous membrane. Nonicteric sclerae. LYMPH NODES: No lymphadenitis or lymphadenopathy. LUNGS: Few scattered crepitation, decreased air entry at bases. HEART: Positive S1 and S2. ABDOMEN: Soft with slight generalized tenderness. No mass or organomegaly. No rebound tenderness o r guarding. RECTAL: The patient refused. EXTREMITIES: With lower mild extremities edematous changes. No clubbing or cyanosis. NEUROLOGIC: No reported neurological deficit, sensory or motor. IMPRESSION: 1. Anemia, to rule out gastrointestinal bleeding, upper versus lower. 2. Reported history of colon carcinoma. 3. Past medical history including, but not limited to, chronic obstructive pulmonary disease, with r e-exacerbation of it, depression, dementia, hypertension, renal stone, as well as rheumatoid arthriti s. SUGGESTION: 1. Agree with your plan. 2. Sectional abdominal and pelvic CAT scan. 3. Add Carafate p.o. Antireflux measures. Blood transfusion to keep hemoglobin around 10 gram%. P PI IV. 4. Cancer markers, including CEA. 5. The patient may need lower endoscopy and there is evidence of positive lower GI blood loss with g uaiac positive stool and subsequent drop of hemoglobin and hematocrit furthermore. 6. The patient also needs oncology/hematology consult. Thank you for letting me participate in your patient's case management. Further recommendation and e valuation to follow. Roger Mcclure MD cc:Roger Mcclure MD 14 TT: 09/23/2016 00:14:52 Confirmation # [id number] Dictation # [id number] dn
[2016-09-23] MEDS: Albuterol 0.042% Inhal Sol (1.25 mg/3 mL) UD INH SCH ×4 (01:11→20:00)
[2016-09-23] MEDS: metroNIDAZOLE IV 500 mg/100 ml 500 MG/100 ML BAG IVPB SCH ×3 (02:48→19:22)
[2016-09-23] MEDS: Sucralfate 1 gm/10 ml Oral Susp UD PO SCH ×2 (06:41→19:02)
[2016-09-23 09:38] LABS: ABG ALLEN TEST PO; ARTERIAL BLOOD HGB O2 SAT 94.2 % (95.0-98.0); CARBOXYHEMOGLOBIN 2.5 % (0.5-1.5); DRAW SITE RRA; HHB 2.2 % (0.0-5.0)
[2016-09-23] MEDS: Potassium Chloride 10 mEq ER Tab PO SCH (09:50)
[2016-09-23] MEDS: Pantoprazole 40 mg EC Tab PO SCH (09:51)
--- NOTE | 2016-09-23 11:27 | PN ---
DATE: 09/23/2016 LOCATION: 670, bed A. This is a 75-year-old male seen and examined today in the presence of the family at the bedside witho ut reported active bleeding. The entire chart is reviewed including, but not limited to, the most re cent lab and radiology study results, current and previous medication lists, current and the previous medical events. Despite the patient's low hemoglobin of 7.9 with hematocrit 24.3, no blood transfus ion so far is done, and the patient still has abnormal ABGs as per today with reported increased prol actin level to 30.4 and increased CEA to 3.5 with low albumin and low total protein, and gradually im proved AST with elevated blood glucose level. The entire chart is reviewed including, but not limited to, the most recent lab and radiology study r esults, current and previous medication lists, current and the previous medical events. Case discuss ed with the staff on the floor. The patient appeared to be awake and alert. PHYSICAL EXAMINATION: GENERAL: A 75-year-old male. VITAL SIGNS: Afebrile with pulse of 74, respiratory rate 20-22, blood pressure 118/66. HEENT: Showed pale, dry oral mucoid membrane. Nonicteric sclerae. LUNGS: A few scattered crepitations. Decreased air entry at bases. HEART: Positive S1 and S2. ABDOMEN: Soft with mild generalized tenderness. No mass or organomegaly. No rebound tenderness or guarding. RECTAL: The patient refused. EXTREMITIES: Without significant clubbing, cyanosis or edema. IMPRESSION: 1. Anemia. To rule out gastrointestinal blood loss, upper versus lower, versus anemia secondary to chronic disease. 2. Elevated CEA level. To rule out colon cancer, primary versus secondary. 3. Known history of, but not limited to, cardiac arrhythmias, osteoarthritis, depression, chronic ob structive pulmonary disease as well as reported dementia. 4. Known history of rheumatoid arthritis. SUGGESTION: 1. Agree with your plan. 2. Cardiac full evaluation before any aggressive GI workup to be done. 3. Abnormal chest x-ray. Chest CAT scan to be scheduled. 4. Bone scan. 5. The patient may need endoscopic evaluation of the GI tract when he is more stable clinically. 6. Further recommendation to follow. 7. The case to be discussed with Dr. Holland. Roger Mcclure MD cc: [id number] TT: 09/23/2016 11:26:23 Confirmation # [id number] Dictation # [id number] mn
[2016-09-23 12:57] LABS: BASO % 0.5 % (0.0-2.0); EOS # 0.1 K/uL (0.0-0.7); EOS % 2.7 % (0.0-4.0); HEMATOCRIT 27.4 % (35.0-51.0); LYMPH # 0.8 K/uL (1.0-4.3); LYMPH % 17.5 % (20.0-40.0); MEAN CELL VOLUME 85.9 fL (80.0-94.0); MEAN CORPUSCULAR HEMOGLOBIN 27.4 pg (27.0-31.0); MEAN CORPUSCULAR HGB CONC 31.8 g/dL (33.0-37.0); MEAN PLATELET VOLUME 8.2 fL (7.2-11.7); MONO # 0.3 K/uL (0.0-0.8); MONO % 6.8 % (0.0-10.0); NRBC % 0.1 % (0.0-2.0); RED CELL DISTRIBUTION WIDTH 21.2 % (11.5-14.5); WHITE BLOOD COUNT 4.5 K/uL (4.8-10.8)
[2016-09-23 13:23] LABS: CHLORIDE 102 mmol/L (98-107); POTASSIUM 3.3 mmol/L (3.6-5.2); SODIUM 135 mmol/L (132-148)
[2016-09-23 13:25] LABS: ALB/GLOB RATIO 0.6 (1.0-2.1); AST/SGOT 51 U/L (17-59); BILIRUBIN,TOTAL 0.5 mg/dL (0.2-1.3); BLOOD UREA NITROGEN 13 mg/dL (9-20); CARBON DIOXIDE 24 mmol/L (22-30); GFR AFRICAN-AMERICAN > 60
[2016-09-23 13:26] LABS: ALKALINE PHOSPHATASE 131 U/L (38-126); ALT/SGPT 40 U/L (21-72); CALCIUM 7.9 mg/dl (8.6-10.4); GLUCOSE,RANDOM 126 mg/dL (75-110)
[2016-09-23 13:45] LABS: IRON 48 ug/dL (49-181)
--- NOTE | 2016-09-23 16:22 | PN ---
DATE: 09/23/2016 SUBJECTIVE: The patient is alert, in bed. He is oriented. Family by his bedside. His dyspnea is d ecreased. There is no chest pain. PHYSICAL EXAMINATION: HEART: Irregular. No gallop rhythm. LUNGS: Diminished breath sounds over lung bases. Rhonchi decreased. ABDOMEN: Soft. EXTREMITIES: There is no leg edema. LABORATORY DATA: White count 4500, hemoglobin 8.7, platelet count 346,000. ABGs on room air show pH of 7.48, pCO2 of 32, pO2 of 67. Hemoglobin oxygen saturation of 94%. Bicarbonate 25, sodium is 135 , potassium 3.3, BUN 13, creatinine 0.6. Serum albumin 2.2. Chest x-ray shows congestive changes. IMPRESSION: Respiratory insufficiency, chronic obstructive pulmonary disease, bronchitis, hypertensi ve cardiovascular disease, cardiomyopathy, cardiac arrhythmias, congestive heart failure, status post resection of carcinoma of the colon and colostomy, prostatic mass. PLAN: Continue with the current medication and cardiology followup. Alessandro Hayes MD cc: [id number] TT: 09/23/2016 16:22:20 Confirmation # [id number] Dictation # [id number] mn
--- NOTE | 2016-09-23 18:21 | PN ---
DATE: 09/23/2016 TIME OF EVALUATION: 6:05 a.m. Blood pressure 113/63, mean arterial pressure of 79, respiratory rate 18, temperature 97.2, pulse rat e 79 and regular. The patient is more awake, alert today. He was able to move his left side, which he was not able to move yesterday; however, he was able to move today, better than yesterday with strength of 3-4/5, arm more than his leg. The rest of the examination is unchanged. The clinical presentation seems to be the cervical pathology. On reviewing his previous CAT scan, I recommended him to have a follow up CT of the head to compare with the previous exam to rule out any myelopathy. The patient should get out of the bed and physical therapy should be started. The patient will be followed closely with you. Ghulam Harper MD cc: [id number] TT: 09/23/2016 18:20:31 Confirmation # [id number] Dictation # [id number] [place]bey
[2016-09-23] MEDS ORDERED: Potassium Chloride 20 mEq ER Tab PO STA (20:32)
--- NOTE | 2016-09-23 22:37 | CP.PCM.PN ---
Subjective - Date & Time of Evaluation Date of Evaluation: 09/23/16 Time of Evaluation: 13:30 - Subjective Subjective: Patient more responsive today. Hct 26. He was evaluated by Dr Harper who suggests repeat CT of the head. Objective - Vital Signs/Intake and Output Vital Signs (last 24 hours): Temp Pulse Resp BP Pulse Ox 97.2 F L 74 20 115/71 97 09/23/16 15:48 09/23/16 15:48 09/23/16 15:48 09/23/16 15:48 09/23/16 15:48 Intake and Output: 09/23/16 09/24/16 18:59 06:59 Intake Total 720 Output Total 300 Balance 420 - Medications Medications: Current Medications Albuterol Sulfate (Albuterol 0.042% Inhal Azul (1.25mg/3ml) Ud) 1.25 mg INH RQ6 [facility] Last Admin: 09/23/16 20:00 Dose: 1.25 mg Famotidine (Pepcid) 20 mg PO BID [facility] Last Admin: 09/23/16 19:02 Dose: 20 mg Furosemide (Lasix) 20 mg IVP DAILY [facility] Last Admin: 09/23/16 09:51 Dose: 20 mg Heparin Sodium (Porcine) (Heparin) 5,000 units SC Q12 [facility] Last Admin: 09/23/16 21:39 Dose: 5,000 units Metronidazole (Flagyl) 500 mg in 100 mls @ 100 mls/hr IVPB Q8H [facility] Last Admin: 09/23/16 19:22 Dose: 100 mls/hr Pantoprazole Sodium (Protonix Ec Tab) 40 mg PO DAILY [facility] Last Admin: 09/23/16 09:51 Dose: 40 mg Potassium Chloride (Klor-Con 10) 10 meq PO DAILY [facility] Last Admin: 09/23/16 09:50 Dose: 10 meq Prednisone (Prednisone Tab) 30 mg PO DAILY [facility] Last Admin: 09/23/16 09:51 Dose: 30 mg Sucralfate (Carafate Oral Susp) 1 gm PO ACBD [facility] Last Admin: 09/23/16 19:02 Dose: 1 gm Tramadol HCl (Ultram) 50 mg PO Q8 PRN PRN Reason: Pain, moderate (4-7) Last Admin: 09/22/16 00:35 Dose: 50 mg - Labs Labs: 09/23/16 12:52 09/23/16 12:52 - Constitutional Appears: No Acute Distress - Head Exam Head Exam: NORMAL INSPECTION - Eye Exam Eye Exam: Normal appearance Pupil Exam: NORMAL ACCOMODATION - ENT Exam ENT Exam: Normal Exam - Neck Exam Neck Exam: Normal Inspection - Respiratory Exam Respiratory Exam: Decreased Breath Sounds - Cardiovascular Exam Cardiovascular Exam: REGULAR RHYTHM - GI/Abdominal Exam GI & Abdominal Exam: Diminished Bowel Sounds - Rectal Exam Rectal Exam: Deferred - Exam Exam: NORMAL INSPECTION - Extremities Exam Extremities Exam: Tenderness - Back Exam Back Exam: NORMAL INSPECTION - Neurological Exam Neurological Exam: Oriented x3 - Psychiatric Exam Psychiatric exam: Depressed - Skin Skin Exam: Dry Assessment and Plan (1) Acute on chronic systolic (congestive) heart failure Status: Acute (2) Anemia Status: Acute (3) Pulmonary fibrosis Status: Acute (4) Altered mental status, unspecified Status: Acute (5) Arthritis Status: Acute
--- NOTE | 2016-09-23 23:21 | CP.PCM.PN ---
Subjective - Date & Time of Evaluation Date of Evaluation: 09/23/16 Time of Evaluation: 20:30 - Subjective Subjective: Patient much less SOB. K+:3.3 Hgb: 8.7 Stools for OB: negative Ferritin : Normal. ECHO : pending. Objective - Vital Signs/Intake and Output Vital Signs (last 24 hours): Temp Pulse Resp BP Pulse Ox 97.2 F L 74 20 115/71 97 09/23/16 15:48 09/23/16 15:48 09/23/16 15:48 09/23/16 15:48 09/23/16 15:48 Intake and Output: 09/23/16 09/24/16 18:59 06:59 Intake Total 720 Output Total 300 1400 Balance 420 -1400 - Medications Medications: Current Medications Albuterol Sulfate (Albuterol 0.042% Inhal Azul (1.25mg/3ml) Ud) 1.25 mg INH RQ6 [facility]PL[facility]ED BY [facility] Last Admin: 09/23/16 20:00 Dose: 1.25 mg Famotidine (Pepcid) 20 mg PO BID REPLACED BY [facility] Last Admin: 09/23/16 19:02 Dose: 20 mg Furosemide (Lasix) 20 mg IVP DAILY REPLACED BY [facility] Last Admin: 09/23/16 09:51 Dose: 20 mg Heparin Sodium (Porcine) (Heparin) 5,000 units SC Q12 REPLACED BY [facility] Last Admin: 09/23/16 21:39 Dose: 5,000 units Metronidazole (Flagyl) 500 mg in 100 mls @ 100 mls/hr IVPB Q8H REPLACED BY [facility] Last Admin: 09/23/16 19:22 Dose: 100 mls/hr Pantoprazole Sodium (Protonix Ec Tab) 40 mg PO DAILY REPLACED BY [facility] Last Admin: 09/23/16 09:51 Dose: 40 mg Potassium Chloride (Klor-Con 10) 10 meq PO DAILY REPLACED BY [facility] Last Admin: 09/23/16 09:50 Dose: 10 meq Prednisone (Prednisone Tab) 30 mg PO DAILY REPLACED BY [facility] Last Admin: 09/23/16 09:51 Dose: 30 mg Sucralfate (Carafate Oral Susp) 1 gm PO ACBD REPLACED BY [facility] Last Admin: 09/23/16 19:02 Dose: 1 gm Tramadol HCl (Ultram) 50 mg PO Q8 PRN PRN Reason: Pain, moderate (4-7) Last Admin: 09/22/16 00:35 Dose: 50 mg - Labs Labs: 09/23/16 12:52 09/23/16 12:52 - Constitutional Appears: No Acute Distress, Chronically Ill - Head Exam Head Exam: NORMAL INSPECTION - Eye Exam Eye Exam: Normal appearance - ENT Exam ENT Exam: Normal Exam - Neck Exam Neck Exam: Normal Inspection - Respiratory Exam Respiratory Exam: Rales Additional comments: Rales heard at both bases. - Cardiovascular Exam Cardiovascular Exam: REGULAR RHYTHM - GI/Abdominal Exam GI & Abdominal Exam: Soft, Normal Bowel Sounds - Rectal Exam Rectal Exam: Deferred - Exam Exam: NORMAL INSPECTION - Extremities Exam Extremities Exam: Normal Inspection - Back Exam Back Exam: NORMAL INSPECTION - Neurological Exam Neurological Exam: Alert, Awake, Oriented x3 - Psychiatric Exam Psychiatric exam: Anxious - Skin Skin Exam: Dry, Intact, Normal Color, Warm Assessment and Plan (1) Acute on chronic systolic (congestive) heart failure Assessment & Plan: To continue Lasix. Status: Acute (2) Pulmonary fibrosis Status: Acute (3) Anemia Status: Acute (4) Anemia Status: Acute
[2016-09-24] MEDS: Albuterol 0.042% Inhal Sol (1.25 mg/3 mL) UD INH SCH ×4 (01:09→20:30)
[2016-09-24] MEDS: metroNIDAZOLE IV 500 mg/100 ml 500 MG/100 ML BAG IVPB SCH ×3 (02:22→19:30)
[2016-09-24] MEDS: Sucralfate 1 gm/10 ml Oral Susp UD PO SCH ×2 (06:36→17:11)
--- NOTE | 2016-09-24 08:43 | PN ---
DATE: 09/24/2016 TIME OF EVALUATION: 7:10 a.m. NEUROLOGICAL PROBLEM: Cervical myelopathy with left hemiparesis. PHYSICAL EXAMINATION: VITAL SIGNS: Blood pressure 124/60, mean arterial pressure of 82, respiratory rate 18, temperature 9 7.3, pulse rate 73. NEUROLOGIC: The patient is awake, alert, oriented to person, place and time. He follows commands. Left-sided hemiparesis, leg more than his arm, is noted, some movement; and voluntary as well as pass juan carlos movement are painful at his knee. Recommended testings are pending including CT of the neck and skeletal survey. The patient can be mo natalie out of the bed and physical therapy started with DVT prophylaxis. The patient will be followed closely with you. Ghulam Harper MD cc: [id number] TT: 09/24/2016 08:42:38 Confirmation # [id number] Dictation # [id number] mn
[2016-09-24] MEDS: Pantoprazole 40 mg EC Tab PO SCH (09:52)
[2016-09-24] MEDS: Potassium Chloride 10 mEq ER Tab PO SCH (09:52)
[2016-09-24 11:41] LABS: BASO % 0.4 % (0.0-2.0); EOS # 0.1 K/uL (0.0-0.7); EOS % 1.2 % (0.0-4.0); HEMATOCRIT 25.1 % (35.0-51.0); LYMPH # 1.3 K/uL (1.0-4.3); LYMPH % 25.1 % (20.0-40.0); MEAN CELL VOLUME 85.8 fL (80.0-94.0); MEAN CORPUSCULAR HEMOGLOBIN 28.1 pg (27.0-31.0); MEAN CORPUSCULAR HGB CONC 32.7 g/dL (33.0-37.0); MEAN PLATELET VOLUME 7.9 fL (7.2-11.7); MONO # 0.4 K/uL (0.0-0.8); MONO % 8.7 % (0.0-10.0); NRBC % 0.1 % (0.0-2.0); RED CELL DISTRIBUTION WIDTH 21.1 % (11.5-14.5)
[2016-09-24 11:47] LABS: CCP IGG >250 Units (<20)
[2016-09-24 12:08] LABS: CHLORIDE 103 mmol/L (98-107)
[2016-09-24 12:09] LABS: POTASSIUM 3.5 mmol/L (3.6-5.2); SODIUM 137 mmol/L (132-148)
--- NOTE | 2016-09-24 12:09 | PN ---
DATE: 09/24/2016 LOCATION: 670, bed A. This is a 75-year-old male who was admitted to the hospital initially with shortness of breath, which is improving gradually with intermittent periods of abdominal pain, as well as known history of CA o f the colon. The entire chart is reviewed, including but not limited to, most recent lab and radiology study resul ts, current and the previous medication list, current and the previous medical events. Case was disc ussed at length with the staff on the floor, and the patient is still complaining of generalized weak ness and malaise. LABORATORY DATA: Most recent lab results showed low hemoglobin of 8.7 with hematocrit 27.4 - low, bu t normal platelet count with abnormal ABGs and low potassium 3.3, glucose level 126, low calcium 7.9 with low albumin, as well as low total protein, with low iron study. PHYSICAL EXAMINATION: GENERAL: A 75-year-old male. VITAL SIGNS: Afebrile with heart rate of 80, respiratory rate 20-22, blood pressure of 120/54. HEENT: Showed pale, dry oral mucoid membrane. Nonicteric sclerae. LUNGS: Few scattered crepitations, decreased air entry at bases. HEART: Positive S1 and S2. ABDOMEN: Soft. Bowel sounds are present. No mass or organomegaly. No rebound tenderness or guardi ng. EXTREMITIES: Evidence of left-sided hemiparesis. The patient was seen by the neurology distributor sales consultant. IMPRESSION: 1. Anemia with reexacerbation of peptic ulcer disease. 2. Known history of colon carcinoma. 3. Left-sided hemiparesis due to neck disorder. 4. Elevated CEA level. 5. Known history of, but not limited to, depression, chronic obstructive pulmonary disease, cardiac arrhythmia, osteoarthritis as well as questionable dementia. 6. Known history of rheumatoid arthritis. SUGGESTION: 1. Continue current management. 2. The patient will need colonoscopy due to the elevated CEA level when he is more stable clinically that is to be discussed with neurology, pulmonary, and multi skilled operator on the case. We will follow up closely with you. Roger Mcclure MD cc: [id number] TT: 09/24/2016 12:09:41 Confirmation # [id number] Dictation # [id number]
[2016-09-24 12:11] LABS: ALB/GLOB RATIO 0.5 (1.0-2.1); ALKALINE PHOSPHATASE 112 U/L (38-126); ALT/SGPT 37 U/L (21-72); AST/SGOT 32 U/L (17-59); BILIRUBIN,TOTAL 0.3 mg/dL (0.2-1.3); BLOOD UREA NITROGEN 12 mg/dL (9-20); CARBON DIOXIDE 25 mmol/L (22-30); GFR AFRICAN-AMERICAN > 60; TOTAL PROTEIN 5.8 g/dL (6.3-8.3)
[2016-09-24 12:12] LABS: CALCIUM 7.9 mg/dl (8.6-10.4); GLUCOSE,RANDOM 112 mg/dL (75-110); MAGNESIUM 1.6 mg/dL (1.6-2.3)
--- NOTE | 2016-09-24 14:59 | RAD ---
PROCEDURE: HISTORY: Colon Ca, left hemipharesis COMPARISON: CT sagittal 08/26/2016 images TECHNIQUE: Skull, cervical spine lumbar spine, thoracic spine, pelvis femurs and humerus anatomical areas of interest evaluated FINDINGS: wedge compression fracture at L1. punched with the 08/26/2016 CT sagittal image Thoracolumbar spondylosis. No lytic lesions appreciated. Sensitivity is limited given the generalized osteopenia and patient's limited ability to cooperate and extensive superimposed bowel gas IMPRESSION: L1 vertebral body wedge compression fracture unchanged with the CT sagittal image from 08/26/2016. Other senescent changes Generalized osteopenia. Limiting evaluation for lytic lesions
--- NOTE | 2016-09-24 15:33 | CT ---
PROCEDURE: CT HEAD WITHOUT CONTRAST. HISTORY: history of hydrocephalus COMPARISON: Noncontrast head CT performed 08/24/16 and 06/25/16 TECHNIQUE: Axial computed tomography images were obtained through the head/brain without intravenous contrast. Radiation dose: Total exam DLP = 1133.65 mGy-cm. This CT exam was performed using one or more of the following dose reduction techniques: Automated exposure control, adjustment of the mA and/or kV according to patient size, and/or use of iterative reconstruction technique. FINDINGS: HEMORRHAGE: No intracranial hemorrhage. BRAIN: Ventricular prominence remains out of proportion to sulcal size and may be seen in the setting of NPH. Diffuse atrophy. No mass effect or edema. Right temporal encephalomalacia imaged with compensatory dilatation of the right temporal horn. Scattered periventricular and subcortical white matter hypodensities, which are nonspecific, but often seen with chronic microvascular ischemic disease. Please note that MRI with diffusion imaging is more sensitive in the detection of acute ischemic event. VENTRICLES: See above. CALVARIUM: Unremarkable. PARANASAL SINUSES: Mucosal thickening of the ethmoid air cells. MASTOID AIR CELLS: Unremarkable as visualized. No inflammatory changes. OTHER FINDINGS: None. IMPRESSION: Ventricular prominence remains out of proportion to sulcal size and may be seen in the setting of NPH; correlate clinically. Clinical correlation recommended. Generalized atrophy and small vessel disease as well as chronic right temporal infarct.
--- NOTE | 2016-09-24 15:47 | CP.PCM.CON ---
History of Present Illness - History of Present Illness History of Present Illness: Palliative consult Requested by Amalia NEGRON Reason: Goals of care discussion Patient is a 75 yo male admitted from home with SOB and weakness. SOB has improved with o2. CXR was significant for fibrosis and vascular congestion. patient was worked up for his generalized weakness and the EEG was significant for B/L cerebral dysfunction. Doctor Leroy was consulted and MRI of cervical spine recommended. Patient already has a left hemiparesis. GI consult called; Hx of colon cancer and colostomy creation in 2003. Flagyl Iv, Lasix and Prednisione initiated. CT chest completed, result pending. PMH: arthritis, asthma, colon CA, dementia, depression, recently discharged with PO antibiotics for treatment of cellulitis Soc. Hx: , lives at home Fam. Hx: unknown Review of Systems - Review of Systems Systems not reviewed;Unavailable: Dementia Past Patient History - Infectious Disease Hx of Infectious Diseases: None - Tetanus Immunizations Tetanus Immunization: Up to Date, >10 years Ago - Past Medical History & Family History Past Medical History?: Yes - Past Social History Smoking Status: Former Smoker Chewing Tobacco Use: No Cigar Use: No Alcohol: Other Drugs: Denies Home Situation {Lives}: With Family Domestic Violence: Negative - CARDIAC Hx Cardiac Disorders: Yes Hx Hypertension: Yes - PULMONARY Hx Chronic Obstructive Pulmonary Disease (COPD): Yes (Emphysema,) - NEUROLOGICAL Hx Neurological Disorder: Yes Hx Dementia: Yes - HEENT Hx HEENT Problems: Yes - RENAL Hx Chronic Kidney Disease: No Hx Kidney Stones: Yes - ENDOCRINE/METABOLIC Hx Hypothyroidism: No - HEMATOLOGICAL/ONCOLOGICAL Hx Blood Disorders: Yes Hx Blood Transfusions: Yes Hx Cancer: Yes (COLON) Hx Chemotherapy: Yes Other/Comment: has left colostomy - INTEGUMENTARY Hx Dermatological Problems: Yes Hx Psoriasis: Yes - MUSCULOSKELETAL/RHEUMATOLOGICAL Hx Arthritis: Yes Hx Rheumatoid Arthritis: Yes - GASTROINTESTINAL Hx Gastrointestinal Disorders: Yes Hx Bowel Surgery: Yes (2003;2005) Hx Colostomy: Yes Other/Comment: COLON CA 2003 - GENITOURINARY/GYNECOLOGICAL Hx Genitourinary Disorders: No Hx Incontinence: Yes - PSYCHIATRIC Hx Depression: Yes Hx Substance Use: No - SURGICAL HISTORY Hx Surgeries: Yes Other/Comment: pacemaker. colostomy - ANESTHESIA Hx Anesthesia: Yes Hx Anesthesia Reactions: No Hx Malignant Hyperthermia: No Meds Allergies/Adverse Reactions: Allergies Allergy/AdvReac Type Severity Reaction Status Date / Time No Known Allergies Allergy Verified 09/21/16 20:25 - Medications Medications: Current Medications Albuterol Sulfate (Albuterol 0.042% Inhal Azul (1.25mg/3ml) Ud) 1.25 mg INH RQ6 [facility] Last Admin: 09/24/16 13:36 Dose: 1.25 mg Famotidine (Pepcid) 20 mg PO BID [facility] Last Admin: 09/24/16 09:52 Dose: 20 mg Furosemide (Lasix) 20 mg IVP DAILY [facility] Last Admin: 09/24/16 09:52 Dose: 20 mg Heparin Sodium (Porcine) (Heparin) 5,000 units SC Q12 [facility] Last Admin: 09/24/16 09:53 Dose: 5,000 units Metronidazole (Flagyl) 500 mg in 100 mls @ 100 mls/hr IVPB Q8H [facility] Last Admin: 09/24/16 12:13 Dose: 100 mls/hr Lisinopril (Zestril) 2.5 mg PO DAILY [facility] Last Admin: 09/24/16 09:52 Dose: 2.5 mg Pantoprazole Sodium (Protonix Ec Tab) 40 mg PO DAILY [facility] Last Admin: 09/24/16 09:52 Dose: 40 mg Potassium Chloride (K-Dur 20 Meq Er Tab) 20 meq PO DAILY [facility] Prednisone (Prednisone Tab) 20 mg PO DAILY [facility] Last Admin: 09/24/16 09:52 Dose: 20 mg Sucralfate (Carafate Oral Susp) 1 gm PO ACBD [facility] Last Admin: 09/24/16 06:36 Dose: Not Given Tramadol HCl (Ultram) 50 mg PO Q8 PRN PRN Reason: Pain, moderate (4-7) Last Admin: 09/22/16 00:35 Dose: 50 mg Physical Exam - Constitutional Appears: Chronically Ill - Head Exam Head Exam: ATRAUMATIC, NORMAL INSPECTION, NORMOCEPHALIC - Eye Exam Eye Exam: EOMI, Normal appearance, PERRL Pupil Exam: NORMAL ACCOMODATION, PERRL - ENT Exam ENT Exam: Mucous Membranes Dry - Neck Exam Neck exam: Positive for: Normal Inspection - Respiratory Exam Respiratory Exam: Decreased Breath Sounds, NORMAL BREATHING PATTERN - Cardiovascular Exam Cardiovascular Exam: Tachycardia, REGULAR RHYTHM - GI/Abdominal Exam GI & Abdominal Exam: Normal Bowel Sounds, Soft Additional comments: Colostomy - Rectal Exam Rectal Exam: Deferred - Exam Additional comments: Incontinent urine, [place] catheter - Extremities Exam Extremities exam: Positive for: normal inspection - Back Exam Back exam: NORMAL INSPECTION - Neurological Exam Neurological exam: Alert, Altered - Psychiatric Exam Psychiatric exam: Depressed, Flat Affect - Skin Skin Exam: Pallor Results - Vital Signs Recent Vital Signs: Last Vital Signs Temp 97.3 F L 09/24/16 07:00 Pulse 77 09/24/16 07:00 Resp 20 09/24/16 07:00 BP 116/58 L 09/24/16 09:52 Pulse Ox 95 09/24/16 07:00 - Labs Result Diagrams: 09/24/16 11:27 09/24/16 11:27 Labs: Laboratory Results - last 24 hr 09/22/16 09/24/16 09/24/16 11:24 11:27 11:27 WBC 5.0 RBC 2.92 L Hgb 8.2 L Hct 25.1 L MCV 85.8 MCH 28.1 MCHC 32.7 L RDW 21.1 H Plt Count 405 H MPV 7.9 Neut % (Auto) 64.6 Lymph % (Auto) 25.1 [place] % (Auto) 8.7 Eos % (Auto) 1.2 Baso % (Auto) 0.4 Neut # 3.3 Lymph # 1.3 [place] # 0.4 Eos # 0.1 Baso # 0.0 Sodium 137 Potassium 3.5 L Chloride 103 Carbon Dioxide 25 Anion Gap 13 BUN 12 Creatinine 0.6 L Est GFR ( Amer) > 60 Est GFR (Non-Af Amer) > 60 Random Glucose 112 H Calcium 7.9 L Magnesium 1.6 Total Bilirubin 0.3 AST 32 ALT 37 Alkaline Phosphatase 112 Total Protein 5.8 L Albumin 1.9 L Globulin 3.9 Albumin/Globulin Ratio 0.5 L Cycl Citrul Peptide IgG >250 H Assessment & Plan - Assessment and Plan (Free Text) Assessment: Palliative consult Code status Full Code, no advance directive on chart, PPS 20%, ROS not obtained due to acquity and dementia. I reviewed medical records, all diagnostic studies, examined patient in the bed and had very limited interview. ROS obtained form nursing. Patient is alert, looks ill, skin pale. There is left hemiparesis. Patient needs moderate assistance with repositioning in bed. Incontinent. Colostomy is functioning, positive flatus. Patient appears weak , unable to fully participate in goals of care discussion. I reached out to patient's daughter Alyse and we scheduled family meeting for tomorrow. Latest blood work: Hb 8.2, alb 1.9, C Reactive protein 15.00. Diagnostic Colonosopy recommended by Doctor Ren . Impression * This is a chronically ill man with severely impacted quality of life , whose final diagnose on this admission is not yet reached * The noticeable are generalized weakness, left hemiparesis, and need for moderate assistance with ADLs and repositioning * Patient's generalized weakness is most likely directly related to his low Hb; further work up for the source of anemia is in process * It is difficult to say how much patient understands about his condition. His cognition is influenced by current status and dementia * Patient' wishes for the end of life care are not known * Patient's Code status is not defined Suggestion * Assist with ADLs * Promote safety and skin integrity * Family meeting with patient's daughter Alyse scheduled for tomorrow * This will be the opportunity for the daughter and patient to ask questions regarding patient's condition * Goals of care to be discussed Thank you very much for consulting Palliative services
--- NOTE | 2016-09-24 17:02 | CT ---
PROCEDURE: CT scan neck dated 09/24/2016 HISTORY: Possible cervical lesion COMPARISON: Comparison made with CT scan cervical spine 08/25/2016 . . Correlation also made with concurrent CT scan chest which imaged base of the neck TECHNIQUE: CT scan of the neck without intravenous contrast. Coronal and sagittal reformats generated. Note that the study is limited due to the lack of circulating intravenous contrast material. Radiation dose: DLP 372.94 mGy-cm on FINDINGS: Current study reveals no large cervical mass or collection. . No significant cervical adenopathy. Visualized parotid and submandibular glands grossly unremarkable without mass collection or calcification. The thyroid gland is diminutive and somewhat heterogeneous. The partially calcified atherosclerotic plaque seen along the distal common carotid arteries/bifurcations and extending distally into the proximal internal carotid arteries. Consider followup Doppler ultrasound if necessary. The oral cavity structures appear grossly unremarkable. No significant enlargement of the palatine or lingual tonsils. Vallecula is relatively symmetric. Free margin of the epiglottis unremarkable. The aryepiglottic folds and pyriform sinuses are relatively symmetric of. The true vocal cords appear symmetric as well. Airway is midline. No obvious endoluminal lesions. Mild mucosal thickening seen within a few right-sided ethmoid air cells. Partial opacification inferior aspect right mastoid air complex. No acute compression fractures nor retropulsed fragments. . Questionable degenerative partial fusion changes of the C6-C7 and possibly C7 T1 segments. There is slight straightening of the normal cervical lordosis. Vertebral bodies otherwise exhibit normal alignment. Facets normally aligned. Multilevel degenerative spondylosis. Re- demonstrated are biapical blebs and bullous changes with central lobular and paraseptal Impression: There are no large cervical masses or collections. No significant no adenopathy. Multilevel degenerative spondylosis of the cervical spine with possible degenerative partial partial fusion changes of the C6-C7 and questionably C7-T1 levels. See above discussion for additional findings and details.
--- NOTE | 2016-09-24 17:30 | CT ---
CT chest without IV contrast Indication: Colon cancer Technique: Contiguous axial images were obtained through the chest without intravenous contrast enhancement. Sagittal and coronal reconstructions were generated and reviewed. This CT exam was performed using 1 or more of the falling dose reduction techniques: Automated exposure control, adjustment of the MAA and/or kV according to patient size, and/or use of iterative reconstruction technique. Radiation dose (DLP): 789.07 MGy-cm. Comparison: Chest x-ray performed 09/21/16, CT chest without contrast performed 08/31/16 Findings: Right-sided MediPort. Visualized portions of the inferior thyroid gland appear unremarkable. The unenhanced mediastinal and hilar vascular structures appear grossly unremarkable. Dual lead left-sided pacemaker. Cardiomegaly. Dense coronary artery calcifications. Moderate bilateral pleural effusions and associated consolidations. Extensive honeycombing with lower lobe predominance consistent with chronic interstitial fibrosis. Biapical/upper lobe bulla. Limited visualization of the noncontrast upper abdomen demonstrates fatty atrophy of the pancreas. 3 cm low-density left renal lesion measures approximately 17 Hounsfield units, higher than expected for simple cyst. Calcifications within the left kidney may be vascular in etiology rather than nonobstructing calculi. L1 compression fracture deformity and irregularity along the endplate. Degenerative changes of the spine and shoulders. Osseous demineralization. Impression: Right-sided MediPort. Dual lead left-sided pacemaker. Cardiomegaly. Dense coronary artery calcifications. Moderate bilateral pleural effusions and associated consolidations. Extensive honeycombing with lower lobe predominance consistent with chronic interstitial fibrosis. Biapical/upper lobe bulla. L1 compression fracture deformity and irregularity along the endplate. Alternatively, infection cannot be excluded. Age indeterminate but new since 2013. Recommend clinical correlation and MRI without and with IV contrast for further evaluation. Additional findings as above.
--- NOTE | 2016-09-24 22:53 | CP.PCM.PN ---
Subjective - Date & Time of Evaluation Date of Evaluation: 09/24/16 Time of Evaluation: 13:20 - Subjective Subjective: Patient more responsive. Unable to do MRI of the cervical spine because of pacemaker. CT scan ofthe cervical spine requested. Objective - Vital Signs/Intake and Output Vital Signs (last 24 hours): Temp Pulse Resp BP Pulse Ox 97.5 F L 88 20 113/61 96 09/24/16 15:37 09/24/16 15:37 09/24/16 15:37 09/24/16 15:37 09/24/16 15:37 Intake and Output: 09/24/16 09/25/16 18:59 06:59 Intake Total 880 Output Total 150 Balance 730 - Medications Medications: Current Medications Albuterol Sulfate (Albuterol 0.042% Inhal Azul (1.25mg/3ml) Ud) 1.25 mg INH RQ6 [facility] Last Admin: 09/24/16 20:30 Dose: 1.25 mg Famotidine (Pepcid) 20 mg PO BID [facility] Last Admin: 09/24/16 18:05 Dose: Not Given Furosemide (Lasix) 20 mg IVP DAILY [facility] Last Admin: 09/24/16 09:52 Dose: 20 mg Heparin Sodium (Porcine) (Heparin) 5,000 units SC Q12 [facility] Last Admin: 09/24/16 21:56 Dose: 5,000 units Metronidazole (Flagyl) 500 mg in 100 mls @ 100 mls/hr IVPB Q8H [facility] Last Admin: 09/24/16 19:30 Dose: 100 mls/hr Lisinopril (Zestril) 2.5 mg PO DAILY [facility] Last Admin: 09/24/16 09:52 Dose: 2.5 mg Pantoprazole Sodium (Protonix Ec Tab) 40 mg PO DAILY [facility] Last Admin: 09/24/16 09:52 Dose: 40 mg Potassium Chloride (K-Dur 20 Meq Er Tab) 20 meq PO DAILY [facility] Prednisone (Prednisone Tab) 20 mg PO DAILY [facility] Last Admin: 09/24/16 09:52 Dose: 20 mg Sucralfate (Carafate Oral Susp) 1 gm PO ACBD [facility] Last Admin: 09/24/16 17:11 Dose: 1 gm Tramadol HCl (Ultram) 50 mg PO Q8 PRN PRN Reason: Pain, moderate (4-7) Last Admin: 09/22/16 00:35 Dose: 50 mg - Labs Labs: 09/24/16 11:27 09/24/16 11:27 - Constitutional Appears: No Acute Distress - Head Exam Head Exam: NORMAL INSPECTION - Eye Exam Eye Exam: Normal appearance - ENT Exam ENT Exam: Normal Exam - Neck Exam Neck Exam: Normal Inspection - Respiratory Exam Respiratory Exam: Decreased Breath Sounds - Cardiovascular Exam Cardiovascular Exam: Irregular Rhythm - GI/Abdominal Exam GI & Abdominal Exam: Normal Bowel Sounds - Rectal Exam Rectal Exam: Deferred - Exam Exam: NORMAL INSPECTION - Extremities Exam Extremities Exam: Joint Swelling - Back Exam Back Exam: NORMAL INSPECTION - Neurological Exam Neurological Exam: Awake - Psychiatric Exam Psychiatric exam: Depressed - Skin Skin Exam: Dry Assessment and Plan (1) Acute on chronic systolic (congestive) heart failure Status: Acute (2) Anemia Status: Acute (3) Pulmonary fibrosis Status: Acute (4) Altered mental status, unspecified Status: Acute (5) Arthritis Status: Acute
--- NOTE | 2016-09-25 00:51 | CARD ---
APPROVED REPORT EXAM: Two-dimensional and M-mode echocardiogram with Doppler and color Doppler. Other Information Quality : Rhythm : NSR INDICATION Aortic Valve Disease Dyspnea Congestive Heart Failure PLEURAL EFFUSION Surgery/Intervention Pacemaker: M-Mode DIMENSIONS RVDd1.81 (2.1-3.2cm)Left Atrium (MM)4.61 (2.5-4.0cm) IVSd0.55 (0.7-1.1cm)Aortic Root2.73 (2.2-3.7cm) LVDd6.34 (4.0-5.6cm)Aortic Cusp Exc.1.48 (1.5-2.0cm) PWd0.66 (0.7-1.1cm)FS (%) 23 % LVDs4.87 (2.0-3.8cm)LVEF (%)46 (>50%) Aortic Valve AoV Peak Tuvvgxzq082.3cm/Betito Peak GR.8mmHg Mitral Valve MV E Cqmzwjdq61.1cm/sMV A Bwdcwfkq18.4cm/sE/A ratio0.9 TDI E/Lateral E'0.0E/Medial E'0.0 Tricuspid Valve TR Peak Jgfzxmuo178gw/sTR Peak Gr.97ziQnWZZH80hxOm LEFT VENTRICLE The Left Ventricle is mildly dilated. There is normal left ventricular wall thickness. Left ventricle systolic function is mildly impaired. Ejection Fraction is 40-45%. There is mild to moderate hypokinesis in the mid-anteroseptal wall consistent with CAD. Transmitral Doppler flow pattern is abnormal.Grade I-abnormal relaxation pattern. No left ventricle thrombus noted on this study. RIGHT VENTRICLE The right ventricle is normal size. The right ventricular systolic function is normal. There is a pacemaker lead in the right ventricle. ATRIA The left atrium is mildly dilated. The right atrium size is normal. AORTIC VALVE The aortic valve is mildly thickened. The aortic valve is probably trileaflet. No aortic regurgitation is present. There is no aortic valvular stenosis. There is no aortic valvular vegetation. MITRAL VALVE Mitral annular calcification is mild to moderate. There is no evidence of mitral valve prolapse. There is no mitral valve stenosis. Mitral regurgitation is mild to moderate. TRICUSPID VALVE The tricuspid valve is normal in structure. There is trace to mild tricuspid regurgitation. Right ventricular systolic pressure is estimated at 30-40 mmHg. There is no pulmonary hypertension. There is no tricuspid valve prolapse or vegetation. There is no tricuspid valve stenosis. PULMONIC VALVE The pulmonic valve is not well visualized. There is no pulmonic valvular regurgitation. GREAT VESSELS The aortic root is normal in size. The IVC is normal in size and collapses >50% with inspiration. PERICARDIAL EFFUSION There is no pericardial effusion. <Conclusion> The Left Ventricle is mildly dilated. Left ventricle systolic function is mildly impaired. Ejection Fraction is 40-45%. There is mild to moderate hypokinesis in the mid-anteroseptal wall consistent with CAD. Transmitral Doppler flow pattern is abnormal.Grade I-abnormal relaxation pattern. The right ventricular systolic function is normal. The left atrium is mildly dilated. The right ventricle is normal size. The right ventricular systolic function is normal. Mitral regurgitation is mild to moderate. There is trace to mild tricuspid regurgitation.
[2016-09-25] MEDS: Albuterol 0.042% Inhal Sol (1.25 mg/3 mL) UD INH SCH ×4 (01:58→20:24)
[2016-09-25] MEDS: metroNIDAZOLE IV 500 mg/100 ml 500 MG/100 ML BAG IVPB SCH ×3 (02:30→18:26)
--- NOTE | 2016-09-25 07:17 | CP.PCM.CON ---
History of Present Illness - History of Present Illness History of Present Illness: PLEASE SEE DICTATED REPORT. JOB # [id number] THANK YOU. YS Past Patient History - Infectious Disease Hx of Infectious Diseases: None - Tetanus Immunizations Tetanus Immunization: Up to Date, >10 years Ago - Past Medical History & Family History Past Medical History?: Yes - Past Social History Smoking Status: Former Smoker Chewing Tobacco Use: No Cigar Use: No Alcohol: Other Drugs: Denies Home Situation {Lives}: With Family Domestic Violence: Negative - CARDIAC Hx Cardiac Disorders: Yes Hx Hypertension: Yes - PULMONARY Hx Chronic Obstructive Pulmonary Disease (COPD): Yes (Emphysema,) - NEUROLOGICAL Hx Neurological Disorder: Yes Hx Dementia: Yes - HEENT Hx HEENT Problems: Yes - RENAL Hx Chronic Kidney Disease: No Hx Kidney Stones: Yes - ENDOCRINE/METABOLIC Hx Hypothyroidism: No - HEMATOLOGICAL/ONCOLOGICAL Hx Blood Disorders: Yes Hx Blood Transfusions: Yes Hx Cancer: Yes (COLON) Hx Chemotherapy: Yes Other/Comment: has left colostomy - INTEGUMENTARY Hx Dermatological Problems: Yes Hx Psoriasis: Yes - MUSCULOSKELETAL/RHEUMATOLOGICAL Hx Arthritis: Yes Hx Rheumatoid Arthritis: Yes - GASTROINTESTINAL Hx Gastrointestinal Disorders: Yes Hx Bowel Surgery: Yes (2003;2005) Hx Colostomy: Yes Other/Comment: COLON CA 2003 - GENITOURINARY/GYNECOLOGICAL Hx Genitourinary Disorders: No Hx Incontinence: Yes - PSYCHIATRIC Hx Depression: Yes Hx Substance Use: No - SURGICAL HISTORY Hx Surgeries: Yes Other/Comment: pacemaker. colostomy - ANESTHESIA Hx Anesthesia: Yes Hx Anesthesia Reactions: No Hx Malignant Hyperthermia: No Meds Home Medications: Home Medication List Medication Instructions Recorded Confirmed Type Furosemide [Lasix] 20 mg PO DAILY #30 tab 09/26/16 Rx Lisinopril [Zestril] 2.5 mg PO DAILY #30 tab 09/26/16 Rx Potassium Chloride [Klor-Con 10] 10 meq PO DAILY #10 ter 09/26/16 Rx Sucralfate [Carafate Oral Susp] 1 gm PO ACBD #60 09/26/16 Rx predniSONE [Prednisone] 20 mg PO DAILY #30 tab 09/26/16 Rx predniSONE [predniSONE Tab] 20 mg PO DAILY tab 09/26/16 Rx Allergies/Adverse Reactions: Allergies Allergy/AdvReac Type Severity Reaction Status Date / Time No Known Allergies Allergy Verified 09/21/16 20:25 - Medications Medications: Current Medications Albuterol Sulfate (Albuterol 0.042% Inhal Azul (1.25mg/3ml) Ud) 1.25 mg INH RQ6 [facility] Last Admin: 09/25/16 01:58 Dose: Not Given Famotidine (Pepcid) 20 mg PO BID [facility] Last Admin: 09/24/16 18:05 Dose: Not Given Furosemide (Lasix) 20 mg IVP DAILY [facility] Last Admin: 09/24/16 09:52 Dose: 20 mg Heparin Sodium (Porcine) (Heparin) 5,000 units SC Q12 [facility] Last Admin: 09/24/16 21:56 Dose: 5,000 units Metronidazole (Flagyl) 500 mg in 100 mls @ 100 mls/hr IVPB Q8H [facility] Last Admin: 09/25/16 02:30 Dose: 100 mls/hr Lisinopril (Zestril) 2.5 mg PO DAILY [facility] Last Admin: 09/24/16 09:52 Dose: 2.5 mg Pantoprazole Sodium (Protonix Ec Tab) 40 mg PO DAILY [facility] Last Admin: 09/24/16 09:52 Dose: 40 mg Potassium Chloride (K-Dur 20 Meq Er Tab) 20 meq PO DAILY [facility] Prednisone (Prednisone Tab) 20 mg PO DAILY [facility] Last Admin: 09/24/16 09:52 Dose: 20 mg Sucralfate (Carafate Oral Susp) 1 gm PO ACBD [facility] Last Admin: 09/24/16 17:11 Dose: 1 gm Tramadol HCl (Ultram) 50 mg PO Q8 PRN PRN Reason: Pain, moderate (4-7) Last Admin: 09/22/16 00:35 Dose: 50 mg Results - Vital Signs Recent Vital Signs: Last Vital Signs Temp 97.6 F 09/24/16 23:37 Pulse 87 09/25/16 01:00 Resp 20 09/24/16 23:37 BP 129/87 09/24/16 23:37 Pulse Ox 92 L 09/24/16 23:37 - Labs Result Diagrams: 09/26/16 08:33 09/26/16 08:33 Labs: Laboratory Results - last 24 hr 09/22/16 09/24/16 09/24/16 11:24 11:27 11:27 WBC 5.0 RBC 2.92 L Hgb 8.2 L Hct 25.1 L MCV 85.8 MCH 28.1 MCHC 32.7 L RDW 21.1 H Plt Count 405 H MPV 7.9 Neut % (Auto) 64.6 Lymph % (Auto) 25.1 [place] % (Auto) 8.7 Eos % (Auto) 1.2 Baso % (Auto) 0.4 Neut # 3.3 Lymph # 1.3 Ju[place] # 0.4 Eos # 0.1 Baso # 0.0 Sodium 137 Potassium 3.5 L Chloride 103 Carbon Dioxide 25 Anion Gap 13 BUN 12 Creatinine 0.6 L Est GFR ( Amer) > 60 Est GFR (Non-Af Amer) > 60 Random Glucose 112 H Calcium 7.9 L Magnesium 1.6 Total Bilirubin 0.3 AST 32 ALT 37 Alkaline Phosphatase 112 Total Protein 5.8 L Albumin 1.9 L Globulin 3.9 Albumin/Globulin Ratio 0.5 L Cycl Citrul Peptide IgG >250 H Assessment & Plan - Assessment and Plan (Free Text) Assessment: IMP: HX OF PROSTATE MASS CHF - Date & Time Date: 09/25/16 Time: :
[2016-09-25] MEDS: Sucralfate 1 gm/10 ml Oral Susp UD PO SCH ×2 (08:10→18:25)
[2016-09-25] MEDS: Potassium Chloride 20 mEq ER Tab PO SCH (09:42)
[2016-09-25] MEDS: Pantoprazole 40 mg EC Tab PO SCH (09:42)
[2016-09-25 09:44] LABS: CHLORIDE 105 mmol/L (98-107); POTASSIUM 3.3 mmol/L (3.6-5.2); SODIUM 138 mmol/L (132-148)
[2016-09-25 09:47] LABS: BLOOD UREA NITROGEN 9 mg/dL (9-20); CARBON DIOXIDE 25 mmol/L (22-30); GFR AFRICAN-AMERICAN > 60; GLUCOSE,RANDOM 81 mg/dL (75-110)
[2016-09-25 09:48] LABS: CALCIUM 7.9 mg/dl (8.6-10.4)
--- NOTE | 2016-09-25 12:22 | PN ---
DATE: 09/25/2016 The patient is alert, oriented. He is in bed. His dyspnea is decreasing. There is no chest pain, b ut he continues to feel generally weak. PHYSICAL EXAMINATION: HEART: Regular. There is no gallop rhythm. VITAL SIGNS: He is afebrile, pulse is 86, blood pressure 120/66, hemoglobin oxygen saturation is 95% . LUNGS: Reveal diminished breath sounds over lung bases. Rhonchi are decreased. ABDOMEN: Soft. EXTREMITIES: Legs, no edema. LABORATORY DATA: His white count is 5000, hemoglobin 8.2, platelet count 405,000. BUN is 9, creatin ine 0.5. Sodium 138. His potassium is 3.3. Will increase the KCl IMPRESSION: Respiratory insufficiency, hypertensive cardiovascular disease, chronic obstructive pulm onary disease, congestive heart failure, anemia, status post resection of the carcinoma of the colon and colostomy. PLAN: To continue with therapy and add KCl and magnesium because his magnesium is reported to be 1.6 . Alessandro Hayes MD cc: [id number] TT: 09/25/2016 12:22:04 Confirmation # [id number] Dictation # [id number] estefania
--- NOTE | 2016-09-25 13:01 | PN ---
DATE: 09/25/2016 LOCATION: 650, bed A. This 75-year-old male seen and examined at rounds without reported significant clinical changes and t he patient appears to be somewhat agitated, refusing the Port-A-Cath to be inserted apparently. The entire chart is reviewed including, but not limited to the most recent lab and radiology study re sults, current and the previous medication lists, current and the previous medical events. Case disc ussed at length with the staff on the floor and the most recent lab results showed low hemoglobin of 8.2, hematocrit 25.1 with normal white blood cells as well as thrombocytopenia ____ with low potassiu m, low creatinine and low calcium of 7.9 with low albumin 1.9 and low total protein of 5.8. The initial report of the chest CAT scan showed evidence of cardiomegaly with coronary artery disease and moderate bilateral pleural effusion with possible pneumonia as well as evidence of chronic inter stitial fibrosis with biapical upper lobe bulla. PHYSICAL EXAMINATION: GENERAL: A 75-year-old male, appears to be awake, alert, but agitated. VITAL SIGNS: Afebrile with pulse of 80, respiratory rate 20-22, blood pressure of 126/64. HEENT: Showed pale, dry mucoid membrane. Nonicteric sclerae. LUNGS: Few scattered crepitation. Decreased air entry at bases. HEART: Positive S1 and S2. ABDOMEN: Soft with slight generalized tenderness. No mass or organomegaly. No rebound tenderness o r guarding. RECTAL: The patient refused. EXTREMITIES: With mild lower extremities edematous changes. No clubbing or cyanosis. NEUROLOGIC: No reported new neurological deficits, sensory or motor. IMPRESSION: 1. Reexacerbation of peptic ulcer disease. 2. Respiratory insufficiency with abnormal chest CAT scan with possible chronic interstitial pulmona ry fibrosis. 3. Hypertensive disorder. 4. Known history of chronic obstructive pulmonary disease with congestive heart failure. 5. Status post partial colon resection due to cancer of the colon with colostomy tube in place. 6. Electrolyte imbalance. 7. Malnutrition with severe hypoalbuminemia, hypoproteinemia. 8. Known history of rheumatoid arthritis. SUGGESTION: 1. Agree with your plan. 2. Blood transfusion as needed to keep hemoglobin around 10 g%. 3. The patient will need colonoscopy, refused for now. Roger Mcclure MD cc: 14 TT: 09/25/2016 13:00:21 Confirmation # [id number] Dictation # [id number] tn
[2016-09-25] MEDS ORDERED: Potassium Chloride 20 mEq ER Tab PO ONE (16:00)
[2016-09-25 16:06] LABS: ABG ALLEN TEST POS; ARTERIAL BLOOD HGB O2 SAT 92.2 % (95.0-98.0); CARBOXYHEMOGLOBIN 2.2 % (0.5-1.5); DRAW SITE RBA; HHB 4.4 % (0.0-5.0); METHEMOGLOBIN 1.2 % (0.0-3.0)
[2016-09-25] MEDS ORDERED: Potassium Chloride 20 mEq ER Tab PO STA (18:06)
[2016-09-25] MEDS: Magnesium Oxide 400 mg Tab UD PO SCH (18:26)
--- NOTE | 2016-09-25 22:07 | CP.PCM.PN ---
Subjective - Date & Time of Evaluation Date of Evaluation: 09/25/16 Time of Evaluation: 18:15 - Subjective Subjective: Patient less SOB. ECHO: LVEF :45 % with septal hypokinesia. Mild MR and TR. Objective - Vital Signs/Intake and Output Vital Signs (last 24 hours): Temp Pulse Resp BP Pulse Ox 97.5 F L 80 20 103/64 96 09/25/16 16:46 09/25/16 16:46 09/25/16 16:46 09/25/16 16:46 09/25/16 16:46 Intake and Output: 09/25/16 09/26/16 18:59 06:59 Intake Total 460 Output Total 1600 Balance -1140 - Medications Medications: Current Medications Albuterol Sulfate (Albuterol 0.042% Inhal Azul (1.25mg/3ml) Ud) 1.25 mg INH RQ6 [facility] Last Admin: 09/25/16 20:24 Dose: Not Given Famotidine (Pepcid) 20 mg PO BID [facility] Last Admin: 09/25/16 18:26 Dose: 20 mg Furosemide (Lasix) 20 mg IVP DAILY [facility] Last Admin: 09/25/16 09:43 Dose: 20 mg Metronidazole (Flagyl) 500 mg in 100 mls @ 100 mls/hr IVPB Q8H [facility] Last Admin: 09/25/16 18:26 Dose: 100 mls/hr Lisinopril (Zestril) 2.5 mg PO DAILY [facility] Last Admin: 09/25/16 09:42 Dose: 2.5 mg Magnesium Oxide (Mag-Ox) 400 mg PO BID [facility] Last Admin: 09/25/16 18:26 Dose: 400 mg Pantoprazole Sodium (Protonix Ec Tab) 40 mg PO DAILY [facility] Last Admin: 09/25/16 09:42 Dose: 40 mg Potassium Chloride (K-Dur 20 Meq Er Tab) 20 meq PO DAILY [facility] Last Admin: 09/25/16 09:42 Dose: 20 meq Prednisone (Prednisone Tab) 20 mg PO DAILY [facility] Last Admin: 09/25/16 09:42 Dose: 20 mg Sucralfate (Carafate Oral Susp) 1 gm PO ACBD [facility] Last Admin: 09/25/16 18:25 Dose: 1 gm Tramadol HCl (Ultram) 50 mg PO Q8 PRN PRN Reason: Pain, moderate (4-7) Last Admin: 09/22/16 00:35 Dose: 50 mg - Labs Labs: 09/24/16 11:27 09/25/16 08:27 - Constitutional Appears: No Acute Distress, Chronically Ill - Head Exam Head Exam: NORMAL INSPECTION - Eye Exam Eye Exam: Normal appearance - ENT Exam ENT Exam: Normal Exam - Neck Exam Neck Exam: Normal Inspection - Respiratory Exam Additional comments: Rales at both bases. - Cardiovascular Exam Cardiovascular Exam: REGULAR RHYTHM, Murmur - GI/Abdominal Exam GI & Abdominal Exam: Soft, Normal Bowel Sounds - Rectal Exam Rectal Exam: Deferred - Exam Exam: NORMAL INSPECTION - Extremities Exam Extremities Exam: Normal Inspection - Back Exam Back Exam: NORMAL INSPECTION - Neurological Exam Neurological Exam: Alert, Awake, Oriented x3 - Psychiatric Exam Psychiatric exam: Anxious - Skin Skin Exam: Dry, Intact, Normal Color, Warm Assessment and Plan (1) Acute on chronic systolic (congestive) heart failure Assessment & Plan: To continue Lasix, Lisinopril. Status: Acute (2) Pulmonary fibrosis Status: Acute (3) Anemia Status: Acute (4) Anemia Status: Acute
--- NOTE | 2016-09-25 22:44 | CP.PCM.PN ---
Subjective - Date & Time of Evaluation Date of Evaluation: 09/25/16 Time of Evaluation: 13:15 - Subjective Subjective: Patient somewhat confused today. Bone survey reveals lumbar compression fracture. Unable to get CT of the cervical spine because of movement. Patient was also evaluated by urology. Objective - Vital Signs/Intake and Output Vital Signs (last 24 hours): Temp Pulse Resp BP Pulse Ox 97.5 F L 80 20 103/64 96 09/25/16 16:46 09/25/16 16:46 09/25/16 16:46 09/25/16 16:46 09/25/16 16:46 Intake and Output: 09/25/16 09/26/16 18:59 06:59 Intake Total 460 Output Total 1600 Balance -1140 - Medications Medications: Current Medications Albuterol Sulfate (Albuterol 0.042% Inhal Azul (1.25mg/3ml) Ud) 1.25 mg INH RQ6 [facility] Last Admin: 09/25/16 20:24 Dose: Not Given Famotidine (Pepcid) 20 mg PO BID [facility] Last Admin: 09/25/16 18:26 Dose: 20 mg Furosemide (Lasix) 20 mg IVP DAILY [facility] Last Admin: 09/25/16 09:43 Dose: 20 mg Metronidazole (Flagyl) 500 mg in 100 mls @ 100 mls/hr IVPB Q8H [facility] Last Admin: 09/25/16 18:26 Dose: 100 mls/hr Lisinopril (Zestril) 2.5 mg PO DAILY [facility] Last Admin: 09/25/16 09:42 Dose: 2.5 mg Magnesium Oxide (Mag-Ox) 400 mg PO BID [facility] Last Admin: 09/25/16 18:26 Dose: 400 mg Pantoprazole Sodium (Protonix Ec Tab) 40 mg PO DAILY [facility] Last Admin: 09/25/16 09:42 Dose: 40 mg Potassium Chloride (K-Dur 20 Meq Er Tab) 20 meq PO DAILY [facility] Last Admin: 09/25/16 09:42 Dose: 20 meq Prednisone (Prednisone Tab) 20 mg PO DAILY [facility] Last Admin: 09/25/16 09:42 Dose: 20 mg Sucralfate (Carafate Oral Susp) 1 gm PO ACBD [facility] Last Admin: 09/25/16 18:25 Dose: 1 gm Tramadol HCl (Ultram) 50 mg PO Q8 PRN PRN Reason: Pain, moderate (4-7) Last Admin: 09/22/16 00:35 Dose: 50 mg - Labs Labs: 09/24/16 11:27 09/25/16 08:27 - Constitutional Appears: Chronically Ill - Head Exam Head Exam: NORMAL INSPECTION - Eye Exam Eye Exam: Normal appearance Pupil Exam: NORMAL ACCOMODATION - ENT Exam ENT Exam: Normal Exam - Neck Exam Neck Exam: Normal Inspection - Respiratory Exam Respiratory Exam: Decreased Breath Sounds - Cardiovascular Exam Cardiovascular Exam: REGULAR RHYTHM - GI/Abdominal Exam GI & Abdominal Exam: Normal Bowel Sounds - Rectal Exam Rectal Exam: Deferred - Exam Exam: NORMAL INSPECTION - Extremities Exam Extremities Exam: Tenderness - Back Exam Back Exam: NORMAL INSPECTION - Neurological Exam Neurological Exam: Altered - Psychiatric Exam Psychiatric exam: Depressed - Skin Skin Exam: Dry Assessment and Plan (1) Acute on chronic systolic (congestive) heart failure Status: Acute (2) Anemia Status: Acute (3) Pulmonary fibrosis Status: Acute (4) Altered mental status, unspecified Status: Acute (5) Arthritis Status: Acute (6) Lumbar compression fracture Status: Acute (7) Systolic and diastolic CHF, acute on chronic Status: Acute
[2016-09-26] MEDS: metroNIDAZOLE IV 500 mg/100 ml 500 MG/100 ML BAG IVPB SCH ×2 (02:04→10:00)
[2016-09-26] MEDS: Albuterol 0.042% Inhal Sol (1.25 mg/3 mL) UD INH SCH ×3 (02:12→14:04)
[2016-09-26 08:46] LABS: BASO % 0.5 % (0.0-2.0); EOS # 0.4 K/uL (0.0-0.7); EOS % 7.6 % (0.0-4.0); HEMATOCRIT 26.5 % (35.0-51.0); LYMPH # 1.5 K/uL (1.0-4.3); LYMPH % 29.3 % (20.0-40.0); MEAN CELL VOLUME 85.5 fL (80.0-94.0); MEAN CORPUSCULAR HEMOGLOBIN 28.2 pg (27.0-31.0); MEAN PLATELET VOLUME 7.3 fL (7.2-11.7); MONO # 0.5 K/uL (0.0-0.8); RED CELL DISTRIBUTION WIDTH 22.1 % (11.5-14.5); WHITE BLOOD COUNT 5.2 K/uL (4.8-10.8)
[2016-09-26] MEDS: Sucralfate 1 gm/10 ml Oral Susp UD PO SCH (08:58)
[2016-09-26 09:00] LABS: CHLORIDE 109 mmol/L (98-107); POTASSIUM 3.9 mmol/L (3.6-5.2); SODIUM 140 mmol/L (132-148)
[2016-09-26 09:02] LABS: BILIRUBIN,TOTAL 0.4 mg/dL (0.2-1.3); GFR AFRICAN-AMERICAN > 60
[2016-09-26 09:03] VITALS: BP 107/64; PULSE 91; RESP 18; TEMP 97.3; O2SAT 97
[2016-09-26 09:03] LABS: ALB/GLOB RATIO 0.6 (1.0-2.1); ALKALINE PHOSPHATASE 93 U/L (38-126); ALT/SGPT 26 U/L (21-72); AST/SGOT 18 U/L (17-59); BLOOD UREA NITROGEN 8 mg/dL (9-20); CALCIUM 8.1 mg/dl (8.6-10.4); CARBON DIOXIDE 27 mmol/L (22-30); GLUCOSE,RANDOM 81 mg/dL (75-110); TOTAL PROTEIN 5.8 g/dL (6.3-8.3)
[2016-09-26] MEDS: Potassium Chloride 20 mEq ER Tab PO SCH (09:59)
[2016-09-26] MEDS: Pantoprazole 40 mg EC Tab PO SCH (09:59)
[2016-09-26] MEDS: Magnesium Oxide 400 mg Tab UD PO SCH (09:59)
--- NOTE | 2016-09-26 13:35 | PN ---
DATE: 09/26/2016 LOCATION: 670, bed A. This is a 75-year-old male seen and examined at rounds early today without new significant clinical c hanges or complaint, no reported active bleeding. The entire chart is reviewed, including but not limited to most recent lab and radiology study result s, current and previous medication list, current and the previous medical events, the patient had sub sequent decrease of the shortness of breath, no active bleeding, but mild nausea with dyspepsia. The patient had an echo, report seen. LABORATORY DATA: Most recent lab results showed low hemoglobin again of 8.8 with hematocrit 26.5, bu t no reported active bleeding, with still abnormal ABGs, with low BUN and low creatinine as well as l ow calcium of 8.1, low total protein 5.8 and low albumin 2.1. Reports of the chest x-ray as well as CAT scan of just chest were reviewed. The patient still has pl eural effusion. Case discussed at length with the staff on the floor. PHYSICAL EXAMINATION: GENERAL: A 75-year-old male. VITAL SIGNS: Afebrile with pulse of 92, respiratory rate of 20-22 with blood pressure of 116/66. HEENT: Showed pale, dry oral mucoid membrane. Nonicteric sclerae. LUNGS: Few scattered crepitation, decreased air entry at bases. HEART: Positive S1 and S2. ABDOMEN: Soft. Bowel sounds are present with mild generalized tenderness. No mass or organomegaly. No rebound tenderness or guarding. EXTREMITIES: Lower extremities, mild edematous changes. No clubbing or cyanosis. NEUROLOGIC: No new for reported neurologic deficits focal, sensory, or motor. IMPRESSION: 1. Respiratory insufficiency with abnormal chest CAT scan with evidence of chronic interstitial pulm onary fibrosis. 2. Peptic ulcer disease. 3. Hypertensive disorder. 4. Anemia, most likely secondary to above. 5. Known history of chronic obstructive pulmonary disease. 6. Recent history of recurrent congestive heart failure. 7. Status post partial colon resection due to colon carcinoma with colostomy tube in place and funct ioning well with normal colored stool. 8. Electrolyte imbalance. Malnutrition with hypoalbuminemia, ____. SUGGESTION: 1. Continue current management. 2. Albumin IV with peripheral hyperalimentation. 3. The patient will need followup colonoscopy, ____ otherwise close observation to follow. Roger Mcclure MD cc: [id number] TT: 09/26/2016 13:34:02 Confirmation # [id number] Dictation # [id number] jn
--- NOTE | 2016-09-26 17:03 | CP.PCM.PN ---
Subjective - Date & Time of Evaluation Date of Evaluation: 09/26/16 Time of Evaluation: 11:15 - Subjective Subjective: Pt seen an dexamined today awake, more alert , periods of confusion noted, comfortable , NAD denies any abdominal pain, sob, chest pain No overnigh tevents reported by RN spo2 room 92-93% Objective - Vital Signs/Intake and Output Vital Signs (last 24 hours): Temp Pulse Resp BP Pulse Ox 97.3 F L 91 H 18 107/64 97 09/26/16 09:02 09/26/16 09:02 09/26/16 09:02 09/26/16 09:02 09/26/16 09:02 Intake and Output: 09/26/16 09/26/16 06:59 18:59 Intake Total 50 360 Output Total 600 350 Balance -550 10 - Labs Labs: 09/26/16 08:33 09/26/16 08:33 - Constitutional Appears: Well, Non-toxic, No Acute Distress, Confused - Respiratory Exam Respiratory Exam: Decreased Breath Sounds, NORMAL BREATHING PATTERN - Cardiovascular Exam Cardiovascular Exam: REGULAR RHYTHM, +S1, +S2 - GI/Abdominal Exam GI & Abdominal Exam: Soft, Normal Bowel Sounds Assessment and Plan - Assessment and Plan (Free Text) Assessment: A/P 75 yr old male admitted for dyspnea , CHF, AMS ,chronic anemia hgb stable pt clinically improved after diuresis abg done - pt not eligible fo rhome o2 spo2 - 92-93% room air D/W Dr. Holland, cleared for discharge home otday and f/u with his office in 1 week Discharge plan discussed with pt daughter over phone RX given SW will arrange transportation
--- NOTE | 2016-09-26 17:07 | PN ---
DATE: 09/26/2016 The patient is in bed. PHYSICAL EXAMINATION: VITAL SIGNS: Afebrile, blood pressure 106/64, pulse 90 and respiration 18. Hemoglobin oxygen saturat ion of 97%. GENERAL: He is alert. His dyspnea has improved. There is no chest pain. HEART: Regular with no gallop rhythm. LUNGS: Diminished breath sounds over lung bases. ABDOMEN: Soft. LEGS: No edema. LABORATORY DATA: His white count was 5200, hemoglobin 8.8 and platelet count 375,000. His serum pot assium has now improved to 3.9 after treatment with potassium as well as magnesium. IMPRESSION: Respiratory insufficiency, chronic obstructive pulmonary disease, emphysema, hypertensiv e cardiovascular disease, congestive heart failure, prostate mass status post resection of the carcin ester of the colon and colostomy. PLAN: Continue with the current measures. Alessandro Hayes MD cc: [id number] TT: 09/26/2016 17:07:17 Confirmation # [id number] Dictation # [id number]
--- NOTE | 2016-09-26 17:22 | PCM.HF ---
Heart Failure Core Measure - Heart Failure Ejection Fraction: 40 % or Greater ALYSIA Inhibitor Prescribed: Yes Beta-Ashley Prescribed: None Contraindication/Reason for not providing: COPD Angiotensin II Receptor Ashley Prescribed: No Contraindication/Reason for not providinn alysia AnticoagulationTherapy for Atrial Fibrillation/Atrialflutter: No Contraindication/Reason for not providing: no hx of a fib Aldosterone Antagonist Prescribed: No Contraindication/Reason for not providing: ef>45 Hydralazine Nitrate Prescribed: No Contraindication/Reason for not providing: ef>45
--- NOTE | 2016-09-26 22:19 | CP.PCM.DIS ---
Provider - Provider Date of Admission: 09/21/16 23:41 Attending physician: Hever Holland MD Time Spent in preparation of Discharge (in minutes): 26 Diagnosis - Discharge Diagnosis (1) Acute on chronic systolic (congestive) heart failure Status: Acute (2) Anemia Status: Acute (3) Pulmonary fibrosis Status: Acute (4) Altered mental status, unspecified Status: Acute Priority: Medium (5) Arthritis Status: Acute Priority: Medium (6) Lumbar compression fracture Status: Acute (7) Systolic and diastolic CHF, acute on chronic Status: Acute Hospital Course - Lab Results Lab Results: Most Recent Lab Values WBC 5.2 K/uL (4.8-10.8) 09/26/16 08:33 RBC 3.10 Mil/uL (4.40-5.90) L 09/26/16 08:33 Hgb 8.8 g/dL (12.0-18.0) L 09/26/16 08:33 Hct 26.5 % (35.0-51.0) L 09/26/16 08:33 MCV 85.5 fL (80.0-94.0) 09/26/16 08:33 MCH 28.2 pg (27.0-31.0) 09/26/16 08:33 MCHC 33.0 g/dL (33.0-37.0) 09/26/16 08:33 RDW 22.1 % (11.5-14.5) H 09/26/16 08:33 Plt Count 375 K/uL (130-400) 09/26/16 08:33 MPV 7.3 fL (7.2-11.7) 09/26/16 08:33 Neut % (Auto) 53.6 % (50.0-75.0) 09/26/16 08:33 Lymph % (Auto) 29.3 % (20.0-40.0) 09/26/16 08:33 [place] % (Auto) 9.0 % (0.0-10.0) 09/26/16 08:33 Eos % (Auto) 7.6 % (0.0-4.0) H 09/26/16 08:33 Baso % (Auto) 0.5 % (0.0-2.0) 09/26/16 08:33 Neut # 2.8 K/uL (1.8-7.0) 09/26/16 08:33 Lymph # 1.5 K/uL (1.0-4.3) 09/26/16 08:33 Turner # 0.5 K/uL (0.0-0.8) 09/26/16 08:33 Eos # 0.4 K/uL (0.0-0.7) 09/26/16 08:33 Baso # 0.0 K/uL (0.0-0.2) 09/26/16 08:33 Puncture Site Rba 09/25/16 15:55 pCO2 34 mm/Hg (35-45) L 09/25/16 15:55 pO2 67 mm/Hg (80-100) L 09/23/16 09:34 HCO3 28.8 mmol/L (21-28) H 09/25/16 15:55 ABG pH 7.52 (7.35-7.45) H 09/25/16 15:55 ABG Total CO2 28.8 mmol/L (22-28) H 09/25/16 15:55 ABG O2 Saturation 95.4 % (95-98) 09/25/16 15:55 ABG Base Excess 5.2 mmol/L (-2.0-3.0) H 09/25/16 15:55 ABG Hemoglobin 16.2 g/dL (11.7-17.4) 09/25/16 15:55 ABG Carboxyhemoglobin 2.2 % (0.5-1.5) H 09/25/16 15:55 POC ABG HHb (Measured) 4.4 % (0.0-5.0) 09/25/16 15:55 ABG Methemoglobin 1.2 % (0.0-3.0) 09/25/16 15:55 Jerad Test Pos 09/25/16 15:55 A-a O2 Difference 43.0 mm/Hg 09/23/16 09:34 Respiratory Index 0.6 09/23/16 09:34 Hgb O2 Saturation 92.2 % (95.0-98.0) L 09/25/16 15:55 FiO2 21.0 % 09/23/16 09:34 Sodium 140 mmol/L (132-148) 09/26/16 08:33 Potassium 3.9 mmol/L (3.6-5.2) 09/26/16 08:33 Chloride 109 mmol/L (98-107) H 09/26/16 08:33 Carbon Dioxide 27 mmol/L (22-30) 09/26/16 08:33 Anion Gap 7 (10-20) L 09/26/16 08:33 BUN 8 mg/dL (9-20) L 09/26/16 08:33 Creatinine 0.6 MG/DL (0.8-1.5) L 09/26/16 08:33 Est GFR ( Amer) > 60 09/26/16 08:33 Est GFR (Non-Af Amer) > 60 09/26/16 08:33 Random Glucose 81 mg/dL (75-110) 09/26/16 08:33 Calcium 8.1 mg/dl (8.6-10.4) L 09/26/16 08:33 Magnesium 1.6 mg/dL (1.6-2.3) 09/24/16 11:27 Iron 48 ug/dL (49-181) L 09/23/16 12:52 TIBC 175 ug/dL (250-450) L 09/23/16 12:52 % Saturation 27 (20-55) 09/23/16 12:52 Ferritin 894.0 ng/mL 09/23/16 12:52 Total Bilirubin 0.4 mg/dL (0.2-1.3) 09/26/16 08:33 AST 18 U/L (17-59) 09/26/16 08:33 ALT 26 U/L (21-72) 09/26/16 08:33 Alkaline Phosphatase 93 U/L (38-126) 09/26/16 08:33 Troponin I 0.0170 ng/mL (0.00-0.120) 09/21/16 21:58 C-React Prot High Sens > 15.00 mg/L (1.00-3.00) H 09/22/16 11:24 NT-Pro-B Natriuret Pep 4640 pg/mL (0-900) H 09/21/16 21:58 Total Protein 5.8 g/dL (6.3-8.3) L 09/26/16 08:33 Albumin 2.1 g/dL (3.5-5.0) L 09/26/16 08:33 Globulin 3.7 gm/dL (2.2-3.9) 09/26/16 08:33 Albumin/Globulin Ratio 0.6 (1.0-2.1) L 09/26/16 08:33 Carcinoembryonic Ag 3.5 ng/mL (0-3.0) H 09/22/16 11:24 CA 19-9 Antigen 16.3 U/mL (0-37) 09/22/16 11:24 Prolactin 30.4 ng/mL (3.7-17.9) H 09/22/16 08:25 Stool Occult Blood Negative (NEGATIVE) 09/22/16 07:51 Cycl Citrul Peptide IgG >250 Units (<20) H 09/22/16 11:24 Blood Type A NEGATIVE 09/23/16 12:52 Antibody Screen Negative 09/23/16 12:52 Discharge Exam - Head Exam Head Exam: NORMAL INSPECTION - Eye Exam Eye Exam: Normal appearance - ENT Exam ENT Exam: Normal Exam - Neck Exam Neck exam: Normal Inspection - Respiratory Exam Respiratory Exam: Decreased Breath Sounds - Cardiovascular Exam Cardiovascular Exam: REGULAR RHYTHM - GI/Abdominal Exam GI & Abdominal Exam: Normal Bowel Sounds - Rectal Exam Rectal Exam: Deferred - Exam Exam: NORMAL INSPECTION - Extremities Exam Extremities exam: joint swelling - Back Exam Back exam: paraspinal tenderness - Neurological Exam Neurological exam: Altered - Psychiatric Exam Psychiatric exam: Depressed - Skin Skin Exam: Dry Discharge Plan - Discharge Medications Prescriptions: Potassium Chloride [Klor-Con 10] 10 meq PO DAILY #10 ter Furosemide [Lasix] 20 mg PO DAILY #30 tab predniSONE [Prednisone] 20 mg PO DAILY #30 tab - Follow Up Plan Condition: FAIR Disposition: HOME/ ROUTINE Instructions: Furosemide (By mouth), Prednisone (By mouth), Potassium Supplement (By mouth), Heart Failure (DC), Pulmonary Fibrosis (DC), Heart Healthy Diet (DC) Additional Instructions: Activity as tolerated, rest in between. Referrals: Hever Holland MD [Staff Provider] - 1 Week
--- NOTE | 2016-09-28 09:29 | PN ---
DATE: 09/24/2016 SUBJECTIVE: The patient is alert, in bed. PHYSICAL EXAMINATION: VITAL SIGNS: Afebrile with blood pressure 116/58, pulse 77, respirations 20 per minute. Hemoglobin oxygen saturation of 95%. ____ dyspnea has decreased at rest. There is no chest pain. HEART: Regular with no gallop ____. LUNGS: Diminished breath sounds over lung bases. Rhonchi decreased. ABDOMEN: Soft. EXTREMITIES: Legs no edema. LABORATORY DATA: White count 4500, hemoglobin 8.7, platelets ____ . Chest x-ray shows congestive ch anges. 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 IMPRESSION: Respiratory insufficiency, bronchitis, hypertensive cardiovascular disease, cardiomyopat hy, cardiac arrhythmias, congestive heart failure, status post ____, colostomy, ____ PLAN: Continue with the current management. Continue ____ Cardiology, urology ____ Alessandro Hayes MD cc: [id number] TT: 09/24/2016 11:46:29 Confirmation # [id number] Dictation # [id number] tom
--- NOTE | 2016-09-28 09:30 | CON ---
DATE: 09/22/2016 Thank you for the of the patient. I have seen the patient and . Please see detail s of the consultation. Alessandro Hayes MD cc: [phone] TT: 09/22/2016 16:51:12 Confirmation # [id number] Dictation # [id number] mn
--- NOTE | 2016-09-28 11:02 | CON ---
DATE: 09/24/2016 Urology consultation requested by Dr. Hever Holland. Urology consultation filled by Dr. Nat Green . REASON FOR CONSULTATION: History of prostate carcinoma. The patient is a 75-year-old male with history of a prostatic mass. The patient was admitted to the hospital with dyspnea. The patient has history of congestive heart f ailure. The patient has history of colon cancer. The patient has history of anemia. There is history of arthritis, history of COPD, history of dementia, history of cardiac arrhythmia. The patient has history of previous colon resection. The patient is currently being treated in the hospital for congestive heart failure. Previous urology consultation has been obtained. Details are not available at present. There is a h istory of possible prostatic mass. The patient voids with good urinary stream. The patient has no hematuria. There has been incontinen ce of urine. The patient has a history of urolithiasis as well, according to review of the chart. PHYSICAL EXAMINATION: GENERAL: The patient is a well-developed elderly male. The patient is awake. ABDOMEN: Soft, nondistended, nontender. There is a colostomy in place. GENITALIA: Without inflammation. RECTAL: Attempted. The perineum and rectal are probed. The rectum is apparently closed. LABORATORY DATA: Hematocrit 24. BUN 12, creatinine 0.6. White blood count 5900. Total protein on admission 6.0. IMPRESSION: History of prostatic mass, possible history of prostate carcinoma. The patient is urolo gically stable at present. The current admission is for evaluation and treatment of patient's conges tive heart failure. Cardiology consultation has been obtained as well. RECOMMENDATIONS AND PLAN: Recommend serum PSA. Urinalysis, urine culture. Further therapy to follo w according to patient's clinical course. Old chart to be reviewed. Thank you for recommending the patient for urology consultation. Nat Green MD cc: [phone] TT: 09/28/2016 10:22:29 Confirmation # [id number] Dictation # [id number] en
== END 2016-09-26 16:00 | disposition home or self-care (01) | DRG 292 ==
LOC: C.ER 20:18 → C.9E 23:41 → C.6T 09-22 00:12
PROVIDERS: ADMIT Internal Medicine; ATTEND Internal Medicine
DX: I11.0 Hypertensive heart disease with heart failure (principal); E46 Unspecified protein-calorie malnutrition; F03.90 Unspecified dementia, unspecified severity, without behavioral disturbance, psychotic disturbance, mood disturbance, and anxiety; I27.2 Other secondary pulmonary hypertension; J84.112 Idiopathic pulmonary fibrosis; E88.09 Other disorders of plasma-protein metabolism, not elsewhere classified; I69.354 Hemiplegia and hemiparesis following cerebral infarction affecting left non-dominant side; M48.56XA Collapsed vertebra, not elsewhere classified, lumbar region, initial encounter for fracture; J44.9 Chronic obstructive pulmonary disease, unspecified; I50.41 Acute combined systolic (congestive) and diastolic (congestive) heart failure; D64.9 Anemia, unspecified; I42.9 Cardiomyopathy, unspecified; F17.210 Nicotine dependence, cigarettes, uncomplicated; Z85.46 Personal history of malignant neoplasm of prostate; Z95.0 Presence of cardiac pacemaker; Z85.038 Personal history of other malignant neoplasm of large intestine; M06.9 Rheumatoid arthritis, unspecified; K29.80 Duodenitis without bleeding; R32 Unspecified urinary incontinence; M19.90 Unspecified osteoarthritis, unspecified site; I25.10 Atherosclerotic heart disease of native coronary artery without angina pectoris

== ENCOUNTER 2017-02-25 13:06 | Inpatient (IN) | payer MEDICARE ==
[2017-02-25 13:06] VITALS: BMI 21.1
[2017-02-25 14:20] LABS: BASO # 0.1 K/uL (0.0-0.2); BASO % 1.1 % (0.0-2.0); EOS # 0.5 K/uL (0.0-0.7); EOS % 6.6 % (0.0-4.0); HEMATOCRIT 27.7 % (35.0-51.0); LYMPH # 1.3 K/uL (1.0-4.3); LYMPH % 16.2 % (20.0-40.0); MEAN CORPUSCULAR HEMOGLOBIN 29.1 pg (27.0-31.0); MEAN CORPUSCULAR HGB CONC 32.8 g/dL (33.0-37.0); MEAN PLATELET VOLUME 7.5 fL (7.2-11.7); MONO # 0.7 K/uL (0.0-0.8); MONO % 8.5 % (0.0-10.0); RED CELL DISTRIBUTION WIDTH 15.5 % (11.5-14.5); WHITE BLOOD COUNT 7.8 K/uL (4.8-10.8)
--- NOTE | 2017-02-25 14:22 | C.PDOC ---
History Of Present Illness 76 yr old male with PMHx of rheumatoid arthritis, brought in via BLS and accompanied by daughter and , presents to the ER for evaluation of decrease mental status, unresponsive and decrease appetite since 4pm yesterday as per . states the patient has not been much active since sustaining a fall 2 weeks ago and was being admitted for 1 week. As per daughter today she noted patient still had decrease mental status and was brought to ER for evaluation. Upon arrival, patient was alert and awake. Family denies change in medication. Patient denies fever, chest pain, SOB, nausea, vomiting, abdominal pain or headache. Time Seen by Provider: 02/25/17 13:30 Chief Complaint (Nursing): Altered Mental Status History Per: Patient History/Exam Limitations: None Onset/Duration Of Symptoms: Sudden Onset (4pm yesterday) Past Medical History Reviewed: Historical Data, Nursing Documentation, Vital Signs Vital Signs: Last Vital Signs Temp 97.3 F L 03/02/17 15:00 Pulse 97 H 03/02/17 15:00 Resp 20 03/02/17 15:00 BP 124/62 03/02/17 15:00 Pulse Ox 99 03/02/17 09:35 - Medical History PMH: Arthritis, Asthma, Atrial Fibrillation, Cardia Arrhythmia, COPD (Emphysema, ), Dementia, Depression, Emphysema, HTN, Kidney Stones, Malignancy (COLON CANCER ), Rheumatoid Arthritis Surgical History: Pacemaker (03/15/2015) - [facility] Procedures DRAINAGE OF L LOW LEG SUBCU/FASCIA, OPEN APPROACH, DIAGN (02/24/16) DRAINAGE OF R PLEURAL CAV WITH DRAIN DEV, PERC APPROACH (08/24/16) ENDOSCOPIC BRONCHIAL BX (05/01/14) EXCISION OF L LOW LEG SUBCU/FASCIA, OPEN APPROACH (02/24/16) EXCISION OF STOMACH, PYLORUS, ENDO, DIAGN (08/24/16) INITIAL INSERT TRANS LEADS INTO [employer] (03/14/14) INITIAL INSERTION OF DUAL-CHAMBER DEVICE (03/14/14) INJECT/INFUSE NEC (05/18/13) INSERTION OF ENDOTRACHEAL AIRWAY INTO TRACHEA, VIA OPENING (08/24/16) RESPIRATORY VENTILATION, 24-96 CONSECUTIVE HOURS (08/24/16) TRANSFUSE NONAUT RED BLOOD CELLS IN PERIPH VEIN, PERC (08/24/16) Family History: States: No Known Family Hx - Social History Hx Tobacco Use: Yes Hx Alcohol Use: No Hx Substance Use: No - Immunization History Hx Tetanus Toxoid Vaccination: No Hx Influenza Vaccination: No (2016) Hx Pneumococcal Vaccination: Yes Review Of Systems Except As Marked, All Systems Reviewed And Found Negative. Constitutional: Positive for: Other ((+) Decrease appetite.). Negative for: Fever Cardiovascular: Negative for: Chest Pain Respiratory: Negative for: Shortness of Breath Gastrointestinal: Negative for: Nausea, Vomiting, Abdominal Pain Neurological: Positive for: Altered Mental Status. Negative for: Headache Physical Exam - Physical Exam Appears: Non-toxic, No Acute Distress Skin: Warm, Dry, No Rash Head: Atraumatic, Normacephalic Oral Mucosa: Moist Chest: Other ((+) Portacath to the right anterior chest wall) Cardiovascular: Rhythm Regular, No Murmur Respiratory: Normal Breath Sounds, No Rales, No Rhonchi, No Stridor, No Wheezing Gastrointestinal/Abdominal: Soft, No Tenderness, No Guarding, No Rebound, Other (Colostomy bag in place) Extremity: Other ((+) Contracted upper extremities secondary to RA.) Neurological/Psych: Oriented x3, Normal Speech, Normal Motor, Normal Sensation ED Course And Treatment - Laboratory Results Result Diagrams: 03/01/17 06:59 03/01/17 06:59 ECG Rhythm: AV Paced Interpretation Of ECG: Good capture. Rate From EC (BPM) O2 Sat by Pulse Oximetry: 95 (RA) Pulse Ox Interpretation: Normal - Other Rad CXR X-Ray: Viewed By Me, Read By Radiologist Interpretation: PROCEDURE: CHEST RADIOGRAPH, 1 VIEW. HISTORY: chest pain. COMPARISON: 02/17/2017. FINDINGS: LUNGS: Interstitial changes are seen throughout both lungs with probable alveolar changes seen at the lung bases as well, versus advanced fibrosis. In comparison to the prior examination, there has been no significant interval change. PLEURA: Minimal blunting of both costophrenic angles may reflect chronic pleural thickening or very small pleural effusions. No pneumothorax. CARDIOVASCULAR: Normal heart size. Permanent pacemaker. Right central venous Port-A-Cath. OSSEOUS STRUCTURES: No significant abnormalities. VISUALIZED UPPER ABDOMEN: Normal. OTHER FINDINGS: None. IMPRESSION: Interstitial/alveolar changes as described without significant interval change from 02/17/2017. - CT Scan/US CT - Head Other Rad Studies (CT/US): Read By Radiologist, Radiology Report Reviewed CT/US Interpretation: PROCEDURE: CT HEAD WITHOUT CONTRAST. HISTORY: dizziness. COMPARISON: Noncontrast head CT performed 02/11/17 and 09/24/16. TECHNIQUE: Axial computed tomography images were obtained through the head/ brain without intravenous contrast. Radiation dose: Total exam DLP = 881.07 mGy-cm. This CT exam was performed using one or more of the following dose reduction techniques: Automated exposure control, adjustment of the mA and/or kV according to patient size, and/or use of iterative reconstruction technique. FINDINGS: HEMORRHAGE: No intracranial hemorrhage. BRAIN: Diffuse atrophy with prominence of the ventricles and sulci noted. No mass effect or edema. Intracranial atherosclerosis. Right temporal encephalomalacia with compensatory dilatation of the right temporal horn. Scattered periventricular and subcortical white matter hypodensities, which are nonspecific, but often seen with chronic microvascular ischemic disease. Please note that MRI with diffusion imaging is more sensitive in the detection of acute ischemic event. VENTRICLES: No hydrocephalus. CALVARIUM: Unremarkable. PARANASAL SINUSES: Unremarkable as visualized. No significant inflammatory changes. MASTOID AIR CELLS: Small fluid within the right mastoid air cells. The left mastoid air cells appear clear. OTHER FINDINGS: None. IMPRESSION: Generalized atrophy. Nonspecific white matter changes. Right temporal encephalomalacia with compensatory dilatation of the right temporal horn. Small fluid within the right mastoid air cells. Medical Decision Making Medical Decision Making: IMPRESSION: Mental state change PLAN: * CT - Head * CXR * EKG * Troponin * CBC * CMP * BNP * Urinalysis NOTE: * At bedside, patient coughed up coffee ground secretions. * Spoke to DR. Holland regarding patient. * Patient to be admitted to [facility] for change in mental status, failure to thrive and upper GI bleed. Disposition Discussed With : Hever Holland Doctor Will See Patient In The: Hospital - Disposition Disposition: HOSPITALIZED Disposition Time: 18:15 Condition: FAIR - Clinical Impression Clinical Impression: Dehydration, Failure to thrive, Upper GI bleed - Scribe Statement The provider has reviewed the documentation as recorded by the Malikibe Maday Johnson Provider Attestation: All medical record entries made by the Malikibgilmar were at my direction and personally dictated by me. I have reviewed the chart and agree that the record accurately reflects my personal performance of the history, physical exam, medical decision making, and the department course for this patient. I have also personally directed, reviewed, and agree with the discharge instructions and disposition.
[2017-02-25 14:44] LABS: ALKALINE PHOSPHATASE 100 U/L (38-126); ALT/SGPT 17 U/L (21-72); AST/SGOT 22 U/L (17-59); BILIRUBIN,TOTAL 0.8 mg/dL (0.2-1.3); BLOOD UREA NITROGEN 27 mg/dL (9-20); CALCIUM 8.4 mg/dl (8.6-10.4); CARBON DIOXIDE 24 mmol/L (22-30); CHLORIDE 102 mmol/L (98-107); GFR AFRICAN-AMERICAN 55; GLUCOSE,RANDOM 110 mg/dL (75-110); SODIUM 137 mmol/L (132-148); TOTAL PROTEIN 7.5 g/dL (6.3-8.3)
[2017-02-25 14:50] LABS: ALB/GLOB RATIO 0.6 (1.0-2.1)
--- NOTE | 2017-02-25 14:57 | RAD ---
PROCEDURE: CHEST RADIOGRAPH, 1 VIEW HISTORY: chest pain COMPARISON: 02/17/2017 FINDINGS: LUNGS: Interstitial changes are seen throughout both lungs with probable alveolar changes seen at the lung bases as well, versus advanced fibrosis. In comparison to the prior examination, there has been no significant interval change. PLEURA: Minimal blunting of both costophrenic angles may reflect chronic pleural thickening or very small pleural effusions. No pneumothorax. CARDIOVASCULAR: Normal heart size. Permanent pacemaker. Right central venous Port-A-Cath. OSSEOUS STRUCTURES: No significant abnormalities. VISUALIZED UPPER ABDOMEN: Normal. OTHER FINDINGS: None. IMPRESSION: Interstitial/alveolar changes as described without significant interval change from 02/17/2017.
[2017-02-25 15:33] LABS: THYROID STIMULATING HORMONE 2.83 mIU/L (0.46-4.68)
--- NOTE | 2017-02-25 16:18 | CT ---
PROCEDURE: CT HEAD WITHOUT CONTRAST. HISTORY: dizziness COMPARISON: Noncontrast head CT performed 02/11/17 and 09/24/16 TECHNIQUE: Axial computed tomography images were obtained through the head/brain without intravenous contrast. Radiation dose: Total exam DLP = 881.07 mGy-cm. This CT exam was performed using one or more of the following dose reduction techniques: Automated exposure control, adjustment of the mA and/or kV according to patient size, and/or use of iterative reconstruction technique. FINDINGS: HEMORRHAGE: No intracranial hemorrhage. BRAIN: Diffuse atrophy with prominence of the ventricles and sulci noted. No mass effect or edema. Intracranial atherosclerosis. Right temporal encephalomalacia with compensatory dilatation of the right temporal horn. Scattered periventricular and subcortical white matter hypodensities, which are nonspecific, but often seen with chronic microvascular ischemic disease. Please note that MRI with diffusion imaging is more sensitive in the detection of acute ischemic event. VENTRICLES: No hydrocephalus. CALVARIUM: Unremarkable. PARANASAL SINUSES: Unremarkable as visualized. No significant inflammatory changes. MASTOID AIR CELLS: Small fluid within the right mastoid air cells. The left mastoid air cells appear clear. OTHER FINDINGS: None. IMPRESSION: Generalized atrophy. Nonspecific white matter changes. Right temporal encephalomalacia with compensatory dilatation of the right temporal horn. Small fluid within the right mastoid air cells.
[2017-02-25 17:11] LABS: RBC URINE 5 /hpf (0-3); URINE BACTERIA RARE (<OCC); URINE BILIRUBIN NEGATIVE (NEGATIVE); URINE BLOOD 1+ (NEGATIVE); URINE COLOR Yellow (YELLOW); URINE GLUCOSE (UA) NORMAL (Normal); URINE KETONE NEGATIVE (NEGATIVE); URINE LEUKOCYTE ESTERASE NEG Leu/uL (Negative); URINE PROTEIN 1+ mg/dL (NEGATIVE); URINE UROBILINOGEN NORMAL mg/dL (0.2-1.0); WBC URINE 3 /hpf (0-5)
[2017-02-25] MEDS ORDERED: Sodium Chloride 0.9% 1,000 ML IV ONE (18:23)
[2017-02-25] MEDS ORDERED: Sodium Chloride 0.9% 1,000 ML ONE (18:37)
[2017-02-25 23:42] LABS: BASO # 0.1 K/uL (0.0-0.2); BASO % 1.3 % (0.0-2.0); EOS # 0.6 K/uL (0.0-0.7); EOS % 8.1 % (0.0-4.0); HEMATOCRIT 27.6 % (35.0-51.0); LYMPH # 1.1 K/uL (1.0-4.3); MEAN CELL VOLUME 89.2 fL (80.0-94.0); MEAN CORPUSCULAR HEMOGLOBIN 29.1 pg (27.0-31.0); MEAN CORPUSCULAR HGB CONC 32.6 g/dL (33.0-37.0); MEAN PLATELET VOLUME 7.2 fL (7.2-11.7); MONO # 0.6 K/uL (0.0-0.8); MONO % 7.8 % (0.0-10.0); RED CELL DISTRIBUTION WIDTH 15.5 % (11.5-14.5); WHITE BLOOD COUNT 7.4 K/uL (4.8-10.8)
--- NOTE | 2017-02-26 07:17 | CP.PCM.CON ---
History of Present Illness - History of Present Illness History of Present Illness: CONSULT DICTATED SDAT SUPERIMPOSED METABOLIC Vs HYPOXIC ENCEPHALOPATHY Rx ARICEPT CORRECT ELECTORLYTE AND ANEMIA PT Past Patient History - Infectious Disease Hx of Infectious Diseases: None - Tetanus Immunizations Tetanus Immunization: Up to Date, >10 years Ago - Past Medical History & Family History Past Medical History?: Yes - Past Social History Smoking Status: Former Smoker - CARDIAC Hx Cardiac Disorders: Yes Hx Atrial Fibrillation: Yes Hx Cardia Arrhythmia: Yes Hx Hypertension: Yes Hx Pacemaker: Yes (03/15/2015) - PULMONARY Hx Respiratory Disorders: Yes Hx Asthma: Yes Hx Chronic Obstructive Pulmonary Disease (COPD): Yes (Emphysema,) Hx Emphysema: Yes - NEUROLOGICAL Hx Neurological Disorder: Yes Hx Dementia: Yes - HEENT Hx HEENT Problems: No - RENAL Hx Chronic Kidney Disease: Yes Hx Kidney Stones: Yes - ENDOCRINE/METABOLIC Hx Endocrine Disorders: No Hx Hypothyroidism: No - HEMATOLOGICAL/ONCOLOGICAL Hx Blood Disorders: Yes Hx Blood Transfusions: Yes Hx Blood Transfusion Reaction: No Hx Cancer: Yes (COLON,NO TREATMENT) Other/Comment: has left colostomy - INTEGUMENTARY Hx Dermatological Problems: Yes Hx Psoriasis: Yes - MUSCULOSKELETAL/RHEUMATOLOGICAL Hx Musculoskeletal Disorders: Yes Hx Arthritis: Yes Hx Falls: Yes Hx Rheumatoid Arthritis: Yes - GASTROINTESTINAL Hx Gastrointestinal Disorders: Yes Hx Bowel Surgery: Yes (2003;2005) Hx Colostomy: Yes Hx Hemorrhoids: Yes Hx Vomiting: Yes Other/Comment: COLON CA 2003 - GENITOURINARY/GYNECOLOGICAL Hx Genitourinary Disorders: Yes Hx Incontinence: Yes - PSYCHIATRIC Hx Psychophysiologic Disorder: Yes Hx Depression: Yes Hx Substance Use: No - SURGICAL HISTORY Hx Surgeries: Yes Hx Vascular Access Device: Yes (RT PORTOCATH 2003) Other/Comment: pacemaker. colostomy - ANESTHESIA Hx Anesthesia: Yes Hx Anesthesia Reactions: No Hx Malignant Hyperthermia: No Meds Allergies/Adverse Reactions: Allergies Allergy/AdvReac Type Severity Reaction Status Date / Time No Known Allergies Allergy Verified 02/25/17 13:14 - Medications Medications: Current Medications Donepezil HCl (Aricept) 5 mg PO HS MINA Famotidine (Pepcid) 20 mg PO BID [place]A Furosemide (Lasix) 20 mg PO DAILY [place] Potassium Chloride (Klor-Con 10) 10 meq PO DAILY [place]A Sucralfate (Carafate Oral Susp) 1 gm PO ACBD MINA Results - Vital Signs Recent Vital Signs: Last Vital Signs Temp 98.1 F 11/17/17 00:45 Pulse 86 02/26/17 00:45 Resp 20 02/26/17 00:45 BP 112/62 02/26/17 00:45 Pulse Ox 96 02/26/17 00:45 - Labs Result Diagrams: 02/25/17 23:40 02/25/17 14:16 Labs: Laboratory Results - last 24 hr 02/25/17 02/25/17 02/25/17 14:16 14:16 16:51 WBC 7.8 RBC 3.12 L Hgb 9.1 L Hct 27.7 L MCV 89.0 D MCH 29.1 MCHC 32.8 L RDW 15.5 H Plt Count 509 H D MPV 7.5 Neut % (Auto) 67.6 Lymph % (Auto) 16.2 L [place] % (Auto) 8.5 Eos % (Auto) 6.6 H Baso % (Auto) 1.1 Neut # 5.3 Lymph # 1.3 [place] # 0.7 Eos # 0.5 Baso # 0.1 Sodium 137 Potassium 4.0 Chloride 102 Carbon Dioxide 24 Anion Gap 15 BUN 27 H Creatinine 1.5 Est GFR ( Amer) 55 Est GFR (Non-Af Amer) 45 Random Glucose 110 Calcium 8.4 L Total Bilirubin 0.8 AST 22 ALT 17 L Alkaline Phosphatase 100 Troponin I < 0.0120 NT-Pro-B Natriuret Pep 1590 H Total Protein 7.5 Albumin 2.9 L Globulin 4.7 H Albumin/Globulin Ratio 0.6 L Lipase 98 TSH 3rd Generation 2.83 Urine Color Yellow Urine Clarity Clear Urine pH 5.0 Ur Specific [place] 1.018 Urine Protein 1+ H Urine Glucose (UA) Normal Urine Ketones Negative Urine Blood 1+ H Urine Nitrate Negative Urine Bilirubin Negative Urine Urobilinogen Normal Ur Leukocyte Esterase Neg Urine WBC (Auto) 3 Urine RBC (Auto) 5 H Ur Squamous Epith Cells < 1 Urine Bacteria Rare 02/25/17 23:40 WBC 7.4 RBC 3.09 L Hgb 9.0 L Hct 27.6 L MCV 89.2 MCH 29.1 MCHC 32.6 L RDW 15.5 H Plt Count 483 H MPV 7.2 Neut % (Auto) 67.8 Lymph % (Auto) 15.0 L [place] % (Auto) 7.8 Eos % (Auto) 8.1 H Baso % (Auto) 1.3 Neut # 5.0 Lymph # 1.1 Collier # 0.6 Eos # 0.6 Baso # 0.1 Sodium Potassium Chloride Carbon Dioxide Anion Gap BUN Creatinine Est GFR ( Amer) Est GFR (Non-Af Amer) Random Glucose Calcium Total Bilirubin AST ALT Alkaline Phosphatase Troponin I NT-Pro-B Natriuret Pep Total Protein Albumin Globulin Albumin/Globulin Ratio Lipase TSH 3rd Generation Urine Color Urine Clarity Urine pH Ur Specific [place] Urine Protein Urine Glucose (UA) Urine Ketones Urine Blood Urine Nitrate Urine Bilirubin Urine Urobilinogen Ur Leukocyte Esterase Urine WBC (Auto) Urine RBC (Auto) Ur Squamous Epith Cells Urine Bacteria
[2017-02-26] MEDS: Sucralfate 1 gm/10 ml Oral Susp UD PO SCH ×2 (08:20→16:57)
--- NOTE | 2017-02-26 09:11 | CON ---
DATE: 02/26/2017 REASON FOR THE CONSULTATION: Change in mental status. CHIEF COMPLAINT: The patient was brought in by the family members with a history of change in mental status and slurred speech. From a neurological point of view, I was called in to evaluate him for further management. HISTORY OF PRESENT ILLNESS: Mr. Paul Almonte is a 76-year-old right-handed male who is known to me from outpatient as well as inpatient care. I was involved to take care of him for his change in mental status and previous stroke process. Recently, he was admitted and he was sent home. From the history, no history of seizures, no history of fall, no history of trauma. PAST MEDICAL HISTORY: Significant past medical history, arthritis, asthma, atrial fibrillation, cardiac arrhythmias, COPD, dementia, depression, emphysema, hypertension, kidney disease, history of colon cancer, rheumatoid arthritis. The patient has a pacemaker. PERSONAL HISTORY: Denies smoking and alcohol use. ALLERGIES: NO KNOWN ALLERGIES. REVIEW OF SYSTEMS: Twelve-point systems had been reviewed. From neuro, change in mental status. MEDICATIONS: Carafate, potassium supplement, Lasix and Pepcid. PHYSICAL EXAMINATION: VITAL SIGNS: Blood pressure 112/62, mean arterial pressure of 78, respiratory rate 16, temperature afebrile. NECK: Supple. No carotid bruit. HEART: Sounds are regular. CHEST: Fair air entry. EXTREMITIES: No edema in legs. NEUROLOGICAL: Mental status examination: He is awake, alert. Speech is slightly dysarthric. He is communicable. He follows one to two-step command. Cranial nerve examination: Responds to visual threat. Pupils react to light. Extraocular movement normal. No nystagmus. No facial sensory deficit. No facial asymmetry. Hearing is normal. Tongue is midline. Motor examination: Weakness of his both lower extremities noted, which is old. Some tremor noted in both upper extremities and outstretched hand with eyes closed. Deep tendon reflexes are absent. Plantars are upgoing on both sides. Coordination: [id number] test, dysmetria on both sides, which is old as well. WORKUP: CT of the head had been reviewed by me shows significant atrophy, hydrocephalus ex vacuo with periventricular ischemic changes. There is evidence of right temporal encephalomalacia. His electrocardiogram shows pacing with a rate of 88. Blood workup: WBC 7.4, hemoglobin 9.0, hematocrit 27.6, platelet 483. Sodium 137, potassium 4.0, chloride 102, bicarbonate 24, GFR 45, calcium 8.4. Urinalysis shows 1+ proteinuria, 1+ hematuria and 5 rbc's. TSH 2.83. CONCLUSION: Mr. Paul Almonte is presenting with senile dementia of Alzheimer type superimposed with possible metabolic or hypoxic encephalopathy. The patient also showed evidence of bilateral distal symmetric sensorimotor neuropathy. RECOMMENDATION: 1. Antiplatelets for stroke prophylaxis. 2. Cholinesterase inhibitors for senile dementia of Alzheimer type. 3. Correct the electrolytes and anemia. DVT prophylaxis, the patient should be getting physical therapy. The patient will be followed closely with you. Ghulam Harper MD
[2017-02-26] MEDS: Potassium Chloride 10 mEq ER Tab PO SCH (09:54)
--- NOTE | 2017-02-26 10:23 | CARD ---
APPROVED REPORT EKG Measurement Heart [id number] <Conclusion> Atrial-sensed ventricular-paced rhythm Abnormal ECG
[2017-02-26 11:33] LABS: HEMATOCRIT 25.6 % (35.0-51.0); MEAN CELL VOLUME 88.7 fL (80.0-94.0); MEAN CORPUSCULAR HEMOGLOBIN 29.4 pg (27.0-31.0); MEAN CORPUSCULAR HGB CONC 33.1 g/dL (33.0-37.0); MEAN PLATELET VOLUME 7.3 fL (7.2-11.7); RED CELL DISTRIBUTION WIDTH 15.7 % (11.5-14.5); WHITE BLOOD COUNT 6.9 K/uL (4.8-10.8)
[2017-02-26 11:40] LABS: INR 1.5
--- NOTE | 2017-02-26 11:42 | CP.PCM.HP ---
History of Present Illness - History of Present Illness History of Present Illness: 76 year old male who became confused and disoriented at home and refuses food for the past 3 days. Patient past history includes hydrcephalis, psoriatic arthritis, emphysema, congestive heart failure, and dehydration. Hospitalization was advised due to mental confusion and a Hct 27. Present on Admission - Present on Admission Any Indicators Present on Admission: No History of DVT/PE: No History of Uncontrolled Diabetes: No Urinary Catheter: No Decubitus Ulcer Present: No History Surgical Site Infection Following: None Review of Systems - Review of Systems Systems not reviewed;Unavailable: Altered Mental Status - Constitutional Constitutional: Weakness - EENT Eyes: Blurred Vision Ears: Dizziness - Cardiovascular Cardiovascular: Dyspnea on Exertion - Respiratory Respiratory: Dyspnea - Genitourinary Genitourinary: Urinary Frequency - Musculoskeletal Musculoskeletal: Arthralgias - Integumentary Integumentary: Dry Skin Past Patient History - Infectious Disease Hx of Infectious Diseases: None - Tetanus Immunizations Tetanus Immunization: Up to Date, >10 years Ago - Past Medical History & Family History Past Medical History?: Yes - Past Social History Smoking Status: Former Smoker Chewing Tobacco Use: No Cigar Use: No Alcohol: None Drugs: Denies Home Situation {Lives}: With Family Domestic Violence: Negative - CARDIAC Hx Cardiac Disorders: Yes Hx Atrial Fibrillation: Yes Hx Cardia Arrhythmia: Yes Hx Hypertension: Yes Hx Pacemaker: Yes (03/15/2015) - PULMONARY Hx Respiratory Disorders: Yes Hx Asthma: Yes Hx Chronic Obstructive Pulmonary Disease (COPD): Yes (Emphysema,) Hx Emphysema: Yes - NEUROLOGICAL Hx Neurological Disorder: Yes Hx Dementia: Yes - HEENT Hx HEENT Problems: No - RENAL Hx Chronic Kidney Disease: Yes Hx Kidney Stones: Yes - ENDOCRINE/METABOLIC Hx Endocrine Disorders: No Hx Hypothyroidism: No - HEMATOLOGICAL/ONCOLOGICAL Hx Blood Disorders: Yes Hx Blood Transfusions: Yes Hx Blood Transfusion Reaction: No Hx Cancer: Yes (COLON,NO TREATMENT) Other/Comment: has left colostomy - INTEGUMENTARY Hx Dermatological Problems: Yes Hx Psoriasis: Yes - MUSCULOSKELETAL/RHEUMATOLOGICAL Hx Musculoskeletal Disorders: Yes Hx Arthritis: Yes Hx Falls: Yes Hx Rheumatoid Arthritis: Yes - GASTROINTESTINAL Hx Gastrointestinal Disorders: Yes Hx Bowel Surgery: Yes (2003;2005) Hx Colostomy: Yes Hx Hemorrhoids: Yes Hx Vomiting: Yes Other/Comment: COLON CA 2003 - GENITOURINARY/GYNECOLOGICAL Hx Genitourinary Disorders: Yes Hx Incontinence: Yes - PSYCHIATRIC Hx Psychophysiologic Disorder: Yes Hx Depression: Yes Hx Substance Use: No - SURGICAL HISTORY Hx Surgeries: Yes Hx Vascular Access Device: Yes (RT PORTOCATH 2004) Other/Comment: pacemaker. colostomy - ANESTHESIA Hx Anesthesia: Yes Hx Anesthesia Reactions: No Hx Malignant Hyperthermia: No Meds Allergies/Adverse Reactions: Allergies Allergy/AdvReac Type Severity Reaction Status Date / Time No Known Allergies Allergy Verified 02/25/17 13:14 Physical Exam - Constitutional Appears: Chronically Ill - Head Exam Head Exam: NORMOCEPHALIC - Eye Exam Eye Exam: Normal appearance Pupil Exam: NORMAL ACCOMODATION - ENT Exam ENT Exam: Normal Exam - Neck Exam Neck exam: Positive for: Normal Inspection - Respiratory Exam Respiratory Exam: Decreased Breath Sounds - GI/Abdominal Exam GI & Abdominal Exam: Hyperactive Bowel Sounds - Exam Exam: NORMAL INSPECTION - Extremities Exam Extremities exam: Positive for: tenderness - Back Exam Back exam: NORMAL INSPECTION - Neurological Exam Neurological exam: Altered - Psychiatric Exam Psychiatric exam: Depressed Results - Vital Signs Recent Vital Signs: Last Vital Signs Temp 98.4 F 02/26/17 08:21 Pulse 78 02/26/17 08:21 Resp 20 02/26/17 08:21 BP 107/57 L 02/26/17 09:54 Pulse Ox 96 02/26/17 08:21 - Labs Result Diagrams: 02/25/17 23:40 02/25/17 14:16 Labs: Laboratory Results - last 24 hr 02/25/17 02/25/17 02/25/17 14:16 14:16 16:51 WBC 7.8 RBC 3.12 L Hgb 9.1 L Hct 27.7 L MCV 89.0 D MCH 29.1 MCHC 32.8 L RDW 15.5 H Plt Count 509 H D MPV 7.5 Neut % (Auto) 67.6 Lymph % (Auto) 16.2 L [place] % (Auto) 8.5 Eos % (Auto) 6.6 H Baso % (Auto) 1.1 Neut # 5.3 Lymph # 1.3 Amelia # 0.7 Eos # 0.5 Baso # 0.1 Sodium 137 Potassium 4.0 Chloride 102 Carbon Dioxide 24 Anion Gap 15 BUN 27 H Creatinine 1.5 Est GFR ( Amer) 55 Est GFR (Non-Af Amer) 45 Random Glucose 110 Calcium 8.4 L Total Bilirubin 0.8 AST 22 ALT 17 L Alkaline Phosphatase 100 Troponin I < 0.0120 NT-Pro-B Natriuret Pep 1590 H Total Protein 7.5 Albumin 2.9 L Globulin 4.7 H Albumin/Globulin Ratio 0.6 L Lipase 98 TSH 3rd Generation 2.83 Urine Color Yellow Urine Clarity Clear Urine pH 5.0 Ur Specific [place] 1.018 Urine Protein 1+ H Urine Glucose (UA) Normal Urine Ketones Negative Urine Blood 1+ H Urine Nitrate Negative Urine Bilirubin Negative Urine Urobilinogen Normal Ur Leukocyte Esterase Neg Urine WBC (Auto) 3 Urine RBC (Auto) 5 H Ur Squamous Epith Cells < 1 Urine Bacteria Rare 02/25/17 23:40 WBC 7.4 RBC 3.09 L Hgb 9.0 L Hct 27.6 L MCV 89.2 MCH 29.1 MCHC 32.6 L RDW 15.5 H Plt Count 483 H MPV 7.2 Neut % (Auto) 67.8 Lymph % (Auto) 15.0 L [place] % (Auto) 7.8 Eos % (Auto) 8.1 H Baso % (Auto) 1.3 Neut # 5.0 Lymph # 1.1 Amelia # 0.6 Eos # 0.6 Baso # 0.1 Sodium Potassium Chloride Carbon Dioxide Anion Gap BUN Creatinine Est GFR ( Amer) Est GFR (Non-Af Amer) Random Glucose Calcium Total Bilirubin AST ALT Alkaline Phosphatase Troponin I NT-Pro-B Natriuret Pep Total Protein Albumin Globulin Albumin/Globulin Ratio Lipase TSH 3rd Generation Urine Color Urine Clarity Urine pH Ur Specific [place] Urine Protein Urine Glucose (UA) Urine Ketones Urine Blood Urine Nitrate Urine Bilirubin Urine Urobilinogen Ur Leukocyte Esterase Urine WBC (Auto) Urine RBC (Auto) Ur Squamous Epith Cells Urine Bacteria Assessment & Plan (1) Emphysema Status: Acute (2) Dehydration Status: Acute (3) Failure to thrive Status: Acute (4) Altered mental status, unspecified Status: Acute Priority: Medium (5) Psoriatic arthritis Status: Acute Priority: Medium (6) Systolic and diastolic CHF, acute on chronic Status: Acute (7) Weakness Status: Acute
[2017-02-26 12:03] LABS: BLOOD UREA NITROGEN 28 mg/dL (9-20); CALCIUM 8.7 mg/dl (8.6-10.4); CARBON DIOXIDE 22 mmol/L (22-30); CHLORIDE 104 mmol/L (98-107); GFR AFRICAN-AMERICAN > 60; GLUCOSE,RANDOM 96 mg/dL (75-110); POTASSIUM 3.9 mmol/L (3.6-5.2); SODIUM 136 mmol/L (132-148)
[2017-02-26] MEDS ORDERED: Dextrose 5%/0.45% NS 1,000 ML IV SCH (17:45)
[2017-02-26 20:14] LABS: INR 1.5
--- NOTE | 2017-02-26 22:47 | CP.PCM.PN ---
Subjective - Date & Time of Evaluation Date of Evaluation: 02/26/17 Time of Evaluation: 13:30 - Subjective Subjective: Patient having difficulty swollowing. He is mildly confused. O2 bynasal canula in place. Hgb 27. Consult requested with Dr Cerna. Continue IV fluids and get swollow study. Objective - Vital Signs/Intake and Output Vital Signs (last 24 hours): Temp Pulse Resp BP Pulse Ox 99.9 F H 80 20 102/58 L 93 L 02/26/17 17:06 02/26/17 17:06 02/26/17 17:06 02/26/17 17:06 02/26/17 17:06 Intake and Output: 02/26/17 02/27/17 18:59 06:59 Intake Total 200 Balance 200 - Medications Medications: Current Medications Folic Acid (Folic Acid) 1 mg PO DAILY [facility] Furosemide (Lasix) 20 mg IVP DAILY [facility] Dextrose/Sodium Chloride (Dextrose 5%/0.45% Ns 1000 Ml) 1,000 mls @ 70 mls/hr IV .[id number] [facility] Last Admin: 02/26/17 17:43 Dose: 70 mls/hr Pantoprazole Sodium (Protonix Inj) 40 mg IVP DAILY [facility] Last Admin: 02/26/17 21:27 Dose: 40 mg Potassium Chloride (Klor-Con 10) 10 meq PO DAILY [facility] Last Admin: 02/26/17 09:54 Dose: 10 meq - Labs Labs: 02/26/17 11:18 02/26/17 11:18 PT 16.5 SECONDS (9.7-12.2) H 02/26/17 19:57 INR 1.5 02/26/17 19:57 APTT 31 SECONDS (21-34) 02/26/17 19:57 - Constitutional Appears: No Acute Distress - Head Exam Head Exam: NORMOCEPHALIC - Eye Exam Eye Exam: Normal appearance Pupil Exam: NORMAL ACCOMODATION - ENT Exam ENT Exam: Normal Oropharynx - Neck Exam Neck Exam: Normal Inspection - Respiratory Exam Respiratory Exam: Decreased Breath Sounds - GI/Abdominal Exam GI & Abdominal Exam: Hyperactive Bowel Sounds - Rectal Exam Rectal Exam: Deferred - Exam Exam: NORMAL INSPECTION - Extremities Exam Extremities Exam: Joint Swelling - Back Exam Back Exam: NORMAL INSPECTION - Neurological Exam Neurological Exam: Altered - Psychiatric Exam Psychiatric exam: Depressed - Skin Skin Exam: Dry Assessment and Plan (1) Emphysema Status: Acute (2) Dehydration Status: Acute (3) Failure to thrive Status: Acute (4) Altered mental status, unspecified Status: Acute (5) Psoriatic arthritis Status: Acute (6) Systolic and diastolic CHF, acute on chronic Status: Acute (7) Weakness Status: Acute
[2017-02-27] MEDS: Dextrose 5%/0.45% NS 1,000 ML IV SCH ×2 (00:22→16:24)
[2017-02-27 07:28] LABS: BASO # 0.1 K/uL (0.0-0.2); BASO % 0.9 % (0.0-2.0); EOS # 0.6 K/uL (0.0-0.7); HEMATOCRIT 24.1 % (35.0-51.0); MEAN CELL VOLUME 89.1 fL (80.0-94.0); MEAN CORPUSCULAR HEMOGLOBIN 30.1 pg (27.0-31.0); MEAN CORPUSCULAR HGB CONC 33.8 g/dL (33.0-37.0); MEAN PLATELET VOLUME 7.6 fL (7.2-11.7); MONO # 0.6 K/uL (0.0-0.8); MONO % 8.9 % (0.0-10.0); RED CELL DISTRIBUTION WIDTH 15.6 % (11.5-14.5); WHITE BLOOD COUNT 6.5 K/uL (4.8-10.8)
[2017-02-27 08:00] LABS: POTASSIUM 3.5 mmol/L (3.6-5.2)
[2017-02-27 08:05] LABS: CALCIUM 8.6 mg/dl (8.6-10.4); POTASSIUM 3.5 mmol/L (3.6-5.2)
[2017-02-27] MEDS: Potassium Chloride 10 mEq ER Tab PO SCH (09:11)
[2017-02-27 11:52] LABS: HEMATOCRIT 27.6 % (35.0-51.0); MEAN CELL VOLUME 89.1 fL (80.0-94.0); MEAN CORPUSCULAR HEMOGLOBIN 29.3 pg (27.0-31.0); MEAN CORPUSCULAR HGB CONC 32.9 g/dL (33.0-37.0); MEAN PLATELET VOLUME 7.5 fL (7.2-11.7); RED CELL DISTRIBUTION WIDTH 15.8 % (11.5-14.5); WHITE BLOOD COUNT 5.3 K/uL (4.8-10.8)
--- NOTE | 2017-02-27 13:40 | PN ---
LOCATION: [facility], bed A. SUBJECTIVE: This is a 76-year-old male seen and examined for GI consultation initially on 02/26/2017 in the presence of his family and as requested by the admitting medical staff. The entire chart is reviewed including, but not limited to the most recent lab and radiology study results, current and previous medication lists, current and the previous medical events. Case discussed again today with the staff at length. It has to be mentioned that the patient is unable to swallow any medication or food. It has to be mentioned that we are still waiting for a swallow evaluation before any plan for PEG insertion, discussed at length with the family. Today's lab showed low hemoglobin of 8.2, hematocrit 24.1 with thrombocytosis of 477 with low potassium of 3.5 and BUN 24 but normal creatinine. The patient's PT still elevated 16.5. PHYSICAL EXAMINATION: GENERAL: A 76-year-old male. VITAL SIGNS: Afebrile with pulse of 72, respiratory rate 20 to 22 with blood pressure of 118/60. HEENT: Showed pale, dry oral mucoid membrane. Nonicteric sclerae. LUNGS: Scattered crepitation with decreased air entry at bases bilaterally. HEART: Positive S1 and S2. ABDOMEN: Soft. Bowel sounds are present. No masses or organomegaly. No rebound tenderness or guarding. EXTREMITIES: Lower extremity mild edematous changes. No clubbing or cyanosis. NEUROLOGIC: No reported new neurological deficits, sensory or motor. IMPRESSION: 1. Failure to thrive. 2. Malnutrition, hypoalbuminemia. 3. The patient is a candidate for percutaneous endoscopic gastrostomy insertion. 4. Known health history of colon carcinoma, dementia, depression, atrial fibrillation, chronic obstructive pulmonary disease, osteoarthritis as well as hypertension with renal stones before. 5. Status post pacemaker insertion by history. SUGGESTION: 1. Continue current management. 2. Due to the patient's anemia and coagulopathy, blood transfusion to keep hemoglobin 10 g percent, correct any underlying electrolyte imbalance, hold any anticoagulation for the mean time. 3. Further recommendation to follow, awaiting family's final decision regarding PEG insertion. Juaquin Patterson MD cc: Juaquin Patterson MD
[2017-02-28] MEDS: Dextrose 5%/0.45% NS 1,000 ML IV SCH ×3 (03:45→20:10)
[2017-02-28 07:50] LABS: HEMATOCRIT 25.5 % (35.0-51.0); MEAN CELL VOLUME 88.7 fL (80.0-94.0); MEAN CORPUSCULAR HEMOGLOBIN 29.1 pg (27.0-31.0); MEAN CORPUSCULAR HGB CONC 32.8 g/dL (33.0-37.0); MEAN PLATELET VOLUME 7.6 fL (7.2-11.7); WHITE BLOOD COUNT 6.8 K/uL (4.8-10.8)
[2017-02-28] MEDS ORDERED: Phytonadione 10 mg/ml Inj (Adult) SC STA (08:01)
[2017-02-28 08:30] LABS: CALCIUM 8.4 mg/dl (8.6-10.4); POTASSIUM 3.6 mmol/L (3.6-5.2)
--- NOTE | 2017-02-28 09:07 | CP.PCM.PN ---
Subjective - Date & Time of Evaluation Date of Evaluation: 02/27/17 Time of Evaluation: 15:45 - Subjective Subjective: Patient extremely weak and bearly responsive. He has difficulty swollowing. Swollow study requested. Patient was evaluated by Dr Cerna who suggests PEG insertion. Mrs Almonte was present and we discussed her 's condition and the need for a PEG. The family will make a decision. Objective - Vital Signs/Intake and Output Vital Signs (last 24 hours): Temp Pulse Resp BP Pulse Ox 99.8 F H 65 20 105/61 97 02/28/17 08:29 02/28/17 08:29 02/28/17 08:29 02/28/17 08:29 02/28/17 08:29 Intake and Output: 02/28/17 02/28/17 06:59 18:59 Intake Total 960 Output Total 500 Balance 460 - Medications Medications: Current Medications Folic Acid (Folic Acid) 1 mg PO DAILY [facility] Last Admin: 02/27/17 09:11 Dose: Not Given Furosemide (Lasix) 20 mg IVP DAILY [facility] Last Admin: 02/27/17 09:41 Dose: 20 mg Dextrose/Sodium Chloride (Dextrose 5%/0.45% Ns 1000 Ml) 1,000 mls @ 60 mls/hr IV .[id number] [facility] Last Admin: 02/28/17 03:45 Dose: 60 mls/hr Pantoprazole Sodium (Protonix Inj) 40 mg IVP DAILY [facility] Last Admin: 02/27/17 09:41 Dose: 40 mg Potassium Chloride (Klor-Con 10) 10 meq PO DAILY [facility] Last Admin: 02/27/17 09:11 Dose: Not Given - Labs Labs: 02/28/17 07:42 02/28/17 07:42 PT 16.5 SECONDS (9.7-12.2) H 02/26/17 19:57 INR 1.5 02/26/17 19:57 APTT 31 SECONDS (21-34) 02/26/17 19:57 - Constitutional Appears: Chronically Ill - Head Exam Head Exam: NORMOCEPHALIC - Eye Exam Eye Exam: Normal appearance - ENT Exam ENT Exam: Mucous Membranes Dry - Neck Exam Neck Exam: Normal Inspection - Respiratory Exam Respiratory Exam: Decreased Breath Sounds - GI/Abdominal Exam GI & Abdominal Exam: Normal Bowel Sounds - Exam Exam: NORMAL INSPECTION - Back Exam Back Exam: NORMAL INSPECTION - Neurological Exam Neurological Exam: Altered - Skin Skin Exam: Dry Assessment and Plan (1) Emphysema Status: Acute (2) Dehydration Status: Acute (3) Failure to thrive Status: Acute (4) Altered mental status, unspecified Status: Acute (5) Psoriatic arthritis Status: Acute (6) Systolic and diastolic CHF, acute on chronic Status: Acute (7) Weakness Status: Acute (8) Swallowing difficulty Status: Acute
[2017-02-28] MEDS: Potassium Chloride 10 mEq ER Tab PO SCH (09:39)
[2017-02-28] MEDS ORDERED: Influenza Vaccine 60 mcg/0.5 mL SYR (4YR UP) IM ONE (10:00)
--- NOTE | 2017-02-28 12:44 | CON ---
DATE: 02/26/[address] Patterson to Dr. Holland. HISTORY OF PRESENT ILLNESS: I was called for GI consultation by the admitting MD. The patient is seen and fully examined in the presence of his family members on 02/26/2017. The entire chart is reviewed including but not limited to the most recent lab and radiology study results, current and previous medication lists, current and previous medical events, allergy to medication list as well as all the available current and previous medical records. It has to be mentioned that due to the patient's clinical status and language barrier, all the information obtained from the daughter, medical record, medical staff, and nursing staff. This is a 76-year-old male who was admitted to the hospital due to change of mental status with excessive decrease of oral intake, loss of appetite with generalized weakness and malaise, post fall about 2 weeks ago prior to his admission. No reported active bleeding, nausea, vomiting, or significant change in bowel movement recently. PAST MEDICAL HISTORY: Including mainly but not limited to: 1. COPD. 2. Atrial fibrillation. 3. Rheumatoid arthritis. 4. Dementia. 5. Known history of hypertension, renal stone, colon CA. 6. Status post pacemaker insertion. 7. Status post partial colon resection. 8. Peptic ulcer disease. FAMILY HISTORY: Unknown. SOCIAL HISTORY: Positive for cigarette smoking. No recent history of alcohol intake. CURRENT MEDICATIONS: Medication lists were reviewed. ALLERGIES TO MEDICATION: UNCLEAR. LABORATORY DATA: After being admitted to the hospital, the patient was found to have low hemoglobin of 9.1 with hematocrit of 27.7 with thrombocytosis of 509, BUN elevated at 27 with normal creatinine. Chest x-ray report is seen. The patient also had CAT scan of the head with evidence of generalized atrophy. Please see official report. PHYSICAL EXAMINATION: GENERAL: A 76-year-old male, afebrile, less responding to verbal stimuli, refusing any oral intake, keeping the food in his mouth and choking on it. VITAL SIGNS: The patient is afebrile with pulse of 80, respiratory rate 20 to 22, blood pressure 106/52. HEENT: Showed pale, dry oral mucoid membrane. Nonicteric sclerae. LYMPH NODES: No lymphadenitis or no lymphadenopathy. LUNGS: Few scattered crepitation with decreased air entry at bases. HEART: Positive S1 and S2. ABDOMEN: Soft with slight distention. Bowel sounds are hypoactive. No mass or organomegaly. No rebound tenderness or guarding. EXTREMITIES: Without significant clubbing, cyanosis, or edema. NEUROLOGIC: No reported new neurological deficits, sensory, or motor. No new deficits. IMPRESSION: 1. Dysphagia. 2. Failure to thrive. 3. Anemia, most likely secondary to chronic disease versus less likely gastrointestinal blood loss. 4. Acute change of mental status of unclear etiology so far. 5. Past medical history including but not limited to atrial fibrillation, chronic obstructive pulmonary disease, dementia, depression, hypertension, status post partial colon resection due to colon cancer with history of rheumatoid arthritis. SUGGESTIONS: 1. Agree with your plan. 2. Cancer makers including CEA and alpha-fetoprotein. 3. Peripheral hyperalimentation. 4. A swallow evaluation. 5. Correct any underlying electrolyte imbalance. 6. Proton pump inhibitors. 7. The patient is a candidate for PEG insertion, upper swallow evaluation, upper endoscopy to be performing. 8. Further recommendation to follow. Case discussed at length with the family at bedside. Thank you for letting me participate in your patient's case management. Juaquin Patterson MD cc: Juaquin Patterson MD
--- NOTE | 2017-02-28 13:12 | PN ---
LOCATION: [facility], bed A. SUBJECTIVE: This is a 76-year-old male seen and examined in rounds without significant clinical changes, refused to swallow his food, on n.p.o. status. The entire chart is reviewed including but not limited to the most recent lab and radiology study results, current and previous medication lists, current and the previous medical events. Case discussed at length with the staff on the floor. Today's lab showed hemoglobin dropped to 8.3, hematocrit 25.5 with thrombocytosis of 494. PHYSICAL EXAMINATION: GENERAL: A 76-year-old male. VITAL SIGNS: Afebrile with pulse of 68, respiratory rate 20 to 22, blood pressure of 118/72. HEENT: Showed pale, dry mucoid membrane. Nonicteric sclerae. LUNGS: Few scattered crepitation with decreased air entry at bases. HEART: Positive S1 and S2. ABDOMEN: Soft with mild distention. No masses or organomegaly. No rebound tenderness or guarding. EXTREMITIES: Without significant clubbing, cyanosis, or edema. NEUROLOGIC: No reported new neurological deficits, sensory or motor. IMPRESSION: 1. Malnutrition. 2. Dysphagia. 3. Hypoalbuminemia. 4. The patient is a candidate for percutaneous endoscopic gastrostomy insertion to be proceeded by upper endoscopy. 5. Known history of but not limited to colon carcinoma, depression, dementia, atrial fibrillation with osteoarthritis. 6. Known history of chronic obstructive pulmonary disease, hypertension, and renal stones. 7. Cardiac arrhythmias, status post pacemaker insertion by history. SUGGESTION: 1. Continue current management. 2. Correct any underlying . 3. Awaiting swallow evaluation. 4. Possible PEG insertion that to be discussed again and again with the family. It was discussed before at length with the doctor. Juaquin Patterson MD cc: Juaquin Patterson MD
--- NOTE | 2017-02-28 18:08 | CP.PCM.CON ---
History of Present Illness - History of Present Illness History of Present Illness: Reason for consultation: Shortness of breath and pulmonary fibrosis 76-year-old male with history of atrial fibrillation, COPD, hypertension, dementia who was admitted with change in mental status and slurred speech. According to family patient was also having trouble breathing. Chest x-ray consistent with pulmonary fibrosis and previous CAT scan of the chest showed COPD/emphysema and fibrosis. Review of Systems - Review of Systems All systems: reviewed and no additional remarkable complaints except (Change in mental status and shortness of breath) Past Patient History - Infectious Disease Hx of Infectious Diseases: None - Tetanus Immunizations Tetanus Immunization: Up to Date, >10 years Ago - Past Medical History & Family History Past Medical History?: Yes - Past Social History Smoking Status: Former Smoker Chewing Tobacco Use: No Cigar Use: No Alcohol: None Drugs: Denies Home Situation {Lives}: With Family Domestic Violence: Negative - CARDIAC Hx Cardiac Disorders: Yes (CAD, Angina, A-fib,) Hx Hypertension: Yes - PULMONARY Hx Chronic Obstructive Pulmonary Disease (COPD): Yes (Emphysema,) - NEUROLOGICAL Hx Neurological Disorder: Yes Hx Dementia: Yes - HEENT Hx HEENT Problems: No - RENAL Hx Renal Failure: Yes (Renal Disease) - ENDOCRINE/METABOLIC Hx Hypothyroidism: No - HEMATOLOGICAL/ONCOLOGICAL Hx Blood Disorders: Yes Hx Blood Transfusions: Yes Hx Blood Transfusion Reaction: No Hx Cancer: Yes (COLON,NO TREATMENT) Other/Comment: has left colostomy - INTEGUMENTARY Hx Dermatological Problems: Yes Hx Psoriasis: Yes - MUSCULOSKELETAL/RHEUMATOLOGICAL Hx Arthritis: Yes (GOUT, OA) Hx Rheumatoid Arthritis: Yes - GASTROINTESTINAL Hx Gastrointestinal Disorders: Yes Hx Bowel Surgery: Yes (2003;2005) Hx Colostomy: Yes Hx Hemorrhoids: Yes Hx Vomiting: Yes Other/Comment: COLON CA 2003 - GENITOURINARY/GYNECOLOGICAL Hx Genitourinary Disorders: Yes Hx Incontinence: Yes - PSYCHIATRIC Hx Psychophysiologic Disorder: Yes Hx Depression: Yes Hx Substance Use: No - SURGICAL HISTORY Hx Surgeries: Yes Hx Vascular Access Device: Yes (RT PORTOCATH 2003) Other/Comment: pacemaker. colostomy - ANESTHESIA Hx Anesthesia: Yes Hx Anesthesia Reactions: No Hx Malignant Hyperthermia: No Meds Allergies/Adverse Reactions: Allergies Allergy/AdvReac Type Severity Reaction Status Date / Time No Known Allergies Allergy Verified 02/25/17 13:14 - Medications Medications: Current Medications Albuterol/Ipratropium (Duoneb 3 Mg/0.5 Mg (3 Ml) Ud) 3 ml INH RQ6 [facility] Folic Acid (Folic Acid) 1 mg PO DAILY [facility] Last Admin: 02/28/17 09:40 Dose: 1 mg Furosemide (Lasix) 20 mg IVP DAILY [facility] Last Admin: 02/28/17 09:40 Dose: 20 mg Dextrose/Sodium Chloride (Dextrose 5%/0.45% Ns 1000 Ml) 1,000 mls @ 60 mls/hr IV .[id number] [facility] Last Admin: 02/28/17 09:41 Dose: 60 mls/hr Methylprednisolone (Solu-Medrol) 40 mg IVP Q8 [facility] Pantoprazole Sodium (Protonix Inj) 40 mg IVP DAILY [facility] Last Admin: 02/28/17 09:40 Dose: 40 mg Potassium Chloride (Klor-Con 10) 10 meq PO DAILY [facility] Last Admin: 02/28/17 09:39 Dose: 10 meq Physical Exam - Head Exam Head Exam: ATRAUMATIC, NORMOCEPHALIC - ENT Exam ENT Exam: Mucous Membranes Moist - Neck Exam Neck exam: Positive for: Normal Inspection - Respiratory Exam Respiratory Exam: Decreased Breath Sounds - Cardiovascular Exam Cardiovascular Exam: Irregular Rhythm - GI/Abdominal Exam GI & Abdominal Exam: Normal Bowel Sounds, Soft - Extremities Exam Extremities exam: Positive for: normal inspection Results - Vital Signs Recent Vital Signs: Last Vital Signs Temp 98.4 F 02/28/17 16:03 Pulse 67 02/28/17 16:03 Resp 20 02/28/17 16:03 BP 115/66 02/28/17 16:03 Pulse Ox 98 02/28/17 16:03 - Labs Result Diagrams: 02/28/17 07:42 02/28/17 07:42 Labs: Laboratory Results - last 24 hr 02/28/17 02/28/17 07:42 07:42 WBC 6.8 RBC 2.87 L Hgb 8.3 L Hct 25.5 L MCV 88.7 MCH 29.1 MCHC 32.8 L RDW 16.0 H Plt Count 494 H MPV 7.6 Sodium 137 Potassium 3.6 Chloride 105 Carbon Dioxide 23 Anion Gap 13 BUN 21 H Creatinine 1.4 Est GFR ( Amer) 59 Est GFR (Non-Af Amer) 49 Random Glucose 105 Calcium 8.4 L Assessment & Plan (1) Chronic obstructive pulmonary disease Status: Acute Comment: Patient with long history of smoking and emphysematous changes on the CAT scan. Continue nebulizer treatment. IV steroids. Follow-up ABG (2) Pulmonary fibrosis Status: Acute
[2017-02-28 18:51] LABS: ABG ALLEN TEST POS; ARTERIAL BLOOD HGB O2 SAT 85.1 % (95.0-98.0); CARBOXYHEMOGLOBIN 2.4 % (0.5-1.5); DRAW SITE RR; HHB 10.9 % (0.0-5.0); METHEMOGLOBIN 1.7 % (0.0-3.0)
[2017-02-28] MEDS: Albuterol-Ipratrop 3 mg / 0.5 (3 ml) UD INH SCH (19:35)
[2017-02-28] MEDS: MethylPREDNISolone 40 mg Vial IVP SCH (21:27)
--- NOTE | 2017-02-28 21:52 | CP.PCM.PN ---
Subjective - Date & Time of Evaluation Date of Evaluation: 02/28/17 Time of Evaluation: 17:35 - Subjective Subjective: Patient is mildly confused with diiffically swallowing. He has slurred speech and recurrent shortness of breath. Both shoulders stiff and tender. Dr Cerna to schedule PEG insertion. Objective - Vital Signs/Intake and Output Vital Signs (last 24 hours): Temp Pulse Resp BP Pulse Ox 98.4 F 67 20 115/66 98 02/28/17 16:03 02/28/17 16:03 02/28/17 16:03 02/28/17 16:03 02/28/17 16:03 Intake and Output: 02/28/17 03/01/17 18:59 06:59 Intake Total 480 480 Output Total 400 Balance 80 480 - Medications Medications: Current Medications Albuterol/Ipratropium (Duoneb 3 Mg/0.5 Mg (3 Ml) Ud) 3 ml INH RQ6 [facility] Last Admin: 02/28/17 19:35 Dose: 3 ml Folic Acid (Folic Acid) 1 mg PO DAILY [facility] Last Admin: 02/28/17 09:40 Dose: 1 mg Furosemide (Lasix) 20 mg IVP DAILY [facility] Last Admin: 02/28/17 09:40 Dose: 20 mg Dextrose/Sodium Chloride (Dextrose 5%/0.45% Ns 1000 Ml) 1,000 mls @ 60 mls/hr IV .[id number] [facility] Last Admin: 02/28/17 20:10 Dose: 60 mls/hr Methylprednisolone (Solu-Medrol) 40 mg IVP Q8 [facility] Last Admin: 02/28/17 21:27 Dose: 40 mg Pantoprazole Sodium (Protonix Inj) 40 mg IVP DAILY [facility] Last Admin: 02/28/17 09:40 Dose: 40 mg Potassium Chloride (Klor-Con 10) 10 meq PO DAILY [facility] Last Admin: 02/28/17 09:39 Dose: 10 meq - Labs Labs: 02/28/17 07:42 02/28/17 07:42 PT 16.5 SECONDS (9.7-12.2) H 02/26/17 19:57 INR 1.5 02/26/17 19:57 APTT 31 SECONDS (21-34) 02/26/17 19:57 - Constitutional Appears: Chronically Ill - Head Exam Head Exam: NORMOCEPHALIC - Eye Exam Eye Exam: Normal appearance Pupil Exam: NORMAL ACCOMODATION - ENT Exam ENT Exam: Mucous Membranes Dry - Neck Exam Neck Exam: Normal Inspection - Respiratory Exam Respiratory Exam: Decreased Breath Sounds - GI/Abdominal Exam GI & Abdominal Exam: Hyperactive Bowel Sounds - Rectal Exam Rectal Exam: Deferred - Exam Exam: NORMAL INSPECTION - Extremities Exam Extremities Exam: Tenderness - Back Exam Back Exam: NORMAL INSPECTION - Neurological Exam Neurological Exam: Altered - Skin Skin Exam: Dry Assessment and Plan (1) Emphysema Status: Acute (2) Dehydration Status: Acute (3) Failure to thrive Status: Acute (4) Altered mental status, unspecified Status: Acute (5) Psoriatic arthritis Status: Acute (6) Systolic and diastolic CHF, acute on chronic Status: Acute (7) Weakness Status: Acute (8) Swallowing difficulty Status: Acute
[2017-03-01] MEDS: Albuterol-Ipratrop 3 mg / 0.5 (3 ml) UD INH SCH ×4 (01:28→19:28)
[2017-03-01] MEDS: Dextrose 5%/0.45% NS 1,000 ML IV SCH ×2 (01:45→13:11)
[2017-03-01] MEDS: MethylPREDNISolone 40 mg Vial IVP SCH ×2 (05:31→21:40)
[2017-03-01 07:27] LABS: HEMATOCRIT 24.9 % (35.0-51.0); MEAN CELL VOLUME 89.6 fL (80.0-94.0); MEAN CORPUSCULAR HEMOGLOBIN 30.1 pg (27.0-31.0); MEAN CORPUSCULAR HGB CONC 33.6 g/dL (33.0-37.0); MEAN PLATELET VOLUME 7.6 fL (7.2-11.7); RED CELL DISTRIBUTION WIDTH 15.6 % (11.5-14.5); WHITE BLOOD COUNT 5.3 K/uL (4.8-10.8)
[2017-03-01 07:56] LABS: CALCIUM 8.4 mg/dl (8.6-10.4)
[2017-03-01] MEDS: Potassium Chloride 10 mEq ER Tab PO SCH (09:06)
--- NOTE | 2017-03-01 14:16 | PN ---
DATE: LOCATION: [facility], bed A. SUBJECTIVE: This is 76 years old male, seen and examined in rounds without significant clinical changes or change of his mental status, again with difficulty of tolerating his diet, however, as per his speech therapist and his swallow evaluation was positive despite having high risk of aspiration clinically. The entire chart is reviewed including but not limited to the most recent lab and radiology study results, current and the previous medication list, current and the previous medical events, and the patient still had low hemoglobin of 8.4, hematocrit 24.9, with thrombocytosis of 469. His BUN is 23. His blood glucose level 198, but low calcium of 8.4. No reported recent chest x-ray. PHYSICAL EXAMINATION: GENERAL: A 76 years old male. VITAL SIGNS: Afebrile with pulse of 70, blood pressure 124/70, respiratory rate 20 to 22. HEENT: Show pale, dry oral mucous membrane, nonicteric sclerae. LUNGS: With scattered crepitation, decreased air entry at bases. HEART: Positive S1 and S2. ABDOMEN: Soft. Bowel sounds are present. No mass or organomegaly. No rebound tenderness or guarding. EXTREMITIES: With evidence of muscle wasting syndrome and mild lower extremity edematous changes. No clubbing or cyanosis. NEUROLOGIC: No reported new neurological deficits, sensory or motor. ABGs were abnormal with hypoxia of 61 here. IMPRESSION: 1. Reported failure to thrive. 2. Hypoalbuminemia with malnutrition. 3. Reported dysphagia before with poor oral intake. 4. Known history of but not limited to colon carcinoma, dementia, depression, atrial fibrillation with osteoarthritis. 5. Known history of chronic obstructive pulmonary disease, pneumonia, hypertension, and renal stones. 6. Cardiac arrhythmias with status post percutaneous endoscopic gastrostomy tube insertion. SUGGESTION: 1. Agree with your plan. 2. We will follow with speech therapist recommendation for thick liquid diet and advance gradually as tolerated. If the patient is held, then upper endoscopy to be considered. Thank you for letting me participate in your patient's case management. Insertion of the PEG tube may be required pending on the outcome of the upper endoscopy. Juaquin Patterson MD cc: Juaquin Patterson MD [facility] # [id number]
--- NOTE | 2017-03-01 15:52 | PN ---
DATE: SUBJECTIVE: Patient is alert, oriented. He is in bed. PHYSICAL EXAMINATION: GENERAL: He is not in acute distress. VITAL SIGNS: Stable with blood pressure of 130/72; pulse rate 74, irregular; respirations 20, hemoglobin oxygen saturation of 99% on FiO2 of 3 liters via nasal cannula per minute. HEART: Irregular with no gallop rhythm. LUNGS: Diminished breath sounds over the lung bases. Rhonchi decreased. ABDOMEN: Soft. Colostomy wound present, status post carcinoma of colon. EXTREMITIES: Legs: No ankle edema. There is general weakness. LABORATORY DATA: His white count is 5,300, hemoglobin 8.4, platelet count 469,000. Serum sodium 136, potassium 4, chloride 104, BUN 23, creatinine 1.4. Arterial blood gas studies on FiO2 of 32% shows pCO2 38, pO2 of 51, pH 7.43, saturation 89% that was yesterday. Today, hemoglobin oxygen saturation was 99% on oxygen via nasal cannula at 3 liters per minute. X-ray of chest shows interstitial pattern. IMPRESSION: Patient with past history of coronary artery disease and has atrial fibrillation, hypertensive cardiovascular disease, emphysema with chronic obstructive pulmonary disease, dementia, carcinoma of colon and left colostomy, and he was admitted with altered mental status with slurred speech. PLAN: To continue with current medications including bronchodilators and neurology followup. Alessandro Hayes MD
--- NOTE | 2017-03-01 22:48 | CP.PCM.PN ---
Subjective - Date & Time of Evaluation Date of Evaluation: 03/01/17 Time of Evaluation: 13:30 - Subjective Subjective: Patient still mildly confused. Hct 24. Will tranfused 2 units of packed cells slowly.Maintain nasal canula O2 continuously. Objective - Vital Signs/Intake and Output Vital Signs (last 24 hours): Temp Pulse Resp BP Pulse Ox 97.3 F L 75 20 118/59 L 96 03/01/17 16:00 03/01/17 16:00 03/01/17 16:00 03/01/17 16:00 03/01/17 16:00 Intake and Output: 03/01/17 03/02/17 18:59 06:59 Intake Total 680 Output Total 400 Balance 280 - Medications Medications: Current Medications Albuterol/Ipratropium (Duoneb 3 Mg/0.5 Mg (3 Ml) Ud) 3 ml INH RQ6 [facility] Last Admin: 03/01/17 19:28 Dose: 3 ml Folic Acid (Folic Acid) 1 mg PO DAILY [facility] Last Admin: 03/01/17 09:06 Dose: 1 mg Furosemide (Lasix) 20 mg IVP DAILY [facility] Last Admin: 03/01/17 09:05 Dose: 20 mg Dextrose/Sodium Chloride (Dextrose 5%/0.45% Ns 1000 Ml) 1,000 mls @ 40 mls/hr IV .Q24H [facility] Last Admin: 03/01/17 13:11 Dose: 40 mls/hr Methylprednisolone (Solu-Medrol) 40 mg IVP Q12H [facility] Last Admin: 03/01/17 21:40 Dose: 40 mg Pantoprazole Sodium (Protonix Inj) 40 mg IVP DAILY [facility] Last Admin: 03/01/17 09:06 Dose: 40 mg - Labs Labs: 03/01/17 06:59 03/01/17 06:59 PT 16.5 SECONDS (9.7-12.2) H 02/26/17 19:57 INR 1.5 02/26/17 19:57 APTT 31 SECONDS (21-34) 02/26/17 19:57 - Constitutional Appears: Chronically Ill - Head Exam Head Exam: NORMOCEPHALIC - Eye Exam Eye Exam: Normal appearance Pupil Exam: NORMAL ACCOMODATION - ENT Exam ENT Exam: Mucous Membranes Dry - Neck Exam Neck Exam: Normal Inspection - Respiratory Exam Respiratory Exam: Decreased Breath Sounds - GI/Abdominal Exam GI & Abdominal Exam: Diminished Bowel Sounds - Rectal Exam Rectal Exam: Deferred - Exam Exam: NORMAL INSPECTION - Back Exam Back Exam: NORMAL INSPECTION - Neurological Exam Neurological Exam: Altered - Psychiatric Exam Psychiatric exam: Depressed - Skin Skin Exam: Dry Assessment and Plan (1) Emphysema Status: Acute (2) Dehydration Status: Acute (3) Failure to thrive Status: Acute (4) Altered mental status, unspecified Status: Acute (5) Psoriatic arthritis Status: Acute (6) Systolic and diastolic CHF, acute on chronic Status: Acute (7) Weakness Status: Acute (8) Swallowing difficulty Status: Acute
[2017-03-02] MEDS: Albuterol-Ipratrop 3 mg / 0.5 (3 ml) UD INH SCH ×4 (01:27→20:30)
[2017-03-02] MEDS ORDERED: Acetaminophen 650mg/20.3ml solution UD PO ONE ×2 (01:45)
[2017-03-02] MEDS: MethylPREDNISolone 40 mg Vial IVP SCH ×2 (09:43→22:04)
--- NOTE | 2017-03-02 09:45 | PN ---
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 PHYSICAL EXAMINATION VITAL SIGNS: Blood pressure 129/61, mean arterial pressure of 82, temperature 98 degree. The patient is sleeping, arousable on calling his name. He is communicable. He moves all 4 extremities. Rest of the examination is unchanged to compare with the previous exam. The patient can be benefited on cholinesterase inhibitors when medically stable. The patient should get out of the bed and physical therapy should be initiated. Neuro status is unchanged. Continue with the present management. Ghulam Harper MD
[2017-03-02] MEDS: Dextrose 5%/0.45% NS 1,000 ML IV SCH ×2 (15:17→17:55)
[2017-03-02 19:47] LABS: BASO % 0.2 % (0.0-2.0); HEMATOCRIT 29.4 % (35.0-51.0); LYMPH # 0.8 K/uL (1.0-4.3); LYMPH % 8.4 % (20.0-40.0); MEAN CORPUSCULAR HEMOGLOBIN 29.9 pg (27.0-31.0); MEAN CORPUSCULAR HGB CONC 33.2 g/dL (33.0-37.0); MEAN PLATELET VOLUME 7.4 fL (7.2-11.7); MONO # 0.5 K/uL (0.0-0.8); MONO % 4.6 % (0.0-10.0); PLATELET COUNT 456 K/uL (130-400); RED CELL DISTRIBUTION WIDTH 15.3 % (11.5-14.5); WHITE BLOOD COUNT 9.8 K/uL (4.8-10.8)
[2017-03-02 20:10] LABS: ABG ALLEN TEST POS; ARTERIAL BLOOD HGB O2 SAT 95.6 % (95.0-98.0); CARBOXYHEMOGLOBIN 2.2 % (0.5-1.5); DRAW SITE RRADIAL; HHB 0.2 % (0.0-5.0)
[2017-03-02 21:23] LABS: NEUTROPHIL 88 % (50-75); TOTAL CELLS COUNTED 100
--- NOTE | 2017-03-02 22:54 | CP.PCM.PN ---
Subjective - Date & Time of Evaluation Date of Evaluation: 03/02/17 Time of Evaluation: 13:25 - Subjective Subjective: Patient receiving two units of packed cells. Still confused and disoriented as to time. Patient evaluated by Dr Harper. Objective - Vital Signs/Intake and Output Vital Signs (last 24 hours): Temp Pulse Resp BP Pulse Ox 97.3 F L 77 18 141/63 98 03/02/17 16:00 03/02/17 16:20 03/02/17 16:00 03/02/17 16:00 03/02/17 16:20 Intake and Output: 03/02/17 03/03/17 18:59 06:59 Intake Total 279 Balance 279 - Medications Medications: Current Medications Albuterol/Ipratropium (Duoneb 3 Mg/0.5 Mg (3 Ml) Ud) 3 ml INH RQ6 [facility] Last Admin: 03/02/17 20:30 Dose: 3 ml Folic Acid (Folic Acid) 1 mg PO DAILY [facility] Last Admin: 03/02/17 09:42 Dose: 1 mg Furosemide (Lasix) 20 mg IVP DAILY [facility] Last Admin: 03/02/17 09:43 Dose: 20 mg Dextrose/Sodium Chloride (Dextrose 5%/0.45% Ns 1000 Ml) 1,000 mls @ 40 mls/hr IV .Q24H [facility] Last Admin: 03/02/17 17:55 Dose: 40 mls/hr Methylprednisolone (Solu-Medrol) 40 mg IVP Q12H [facility] Last Admin: 03/02/17 22:04 Dose: 40 mg Pantoprazole Sodium (Protonix Inj) 40 mg IVP DAILY [facility] Last Admin: 03/02/17 09:43 Dose: 40 mg - Labs Labs: 03/02/17 19:45 03/01/17 06:59 PT 16.5 SECONDS (9.7-12.2) H 02/26/17 19:57 INR 1.5 02/26/17 19:57 APTT 31 SECONDS (21-34) 02/26/17 19:57 - Constitutional Appears: Chronically Ill - Head Exam Head Exam: NORMOCEPHALIC - Eye Exam Eye Exam: Normal appearance - ENT Exam ENT Exam: Normal Exam - Neck Exam Neck Exam: Normal Inspection - Respiratory Exam Respiratory Exam: Decreased Breath Sounds - Cardiovascular Exam Cardiovascular Exam: Irregular Rhythm - GI/Abdominal Exam GI & Abdominal Exam: Diminished Bowel Sounds - Rectal Exam Rectal Exam: Deferred - Exam Exam: NORMAL INSPECTION - Extremities Exam Extremities Exam: Tenderness - Back Exam Back Exam: NORMAL INSPECTION - Neurological Exam Neurological Exam: Altered - Psychiatric Exam Psychiatric exam: Depressed - Skin Skin Exam: Dry Assessment and Plan (1) Emphysema Status: Acute (2) Dehydration Status: Acute (3) Failure to thrive Status: Acute (4) Altered mental status, unspecified Status: Acute (5) Psoriatic arthritis Status: Acute (6) Systolic and diastolic CHF, acute on chronic Status: Acute (7) Weakness Status: Acute (8) Swallowing difficulty Status: Acute
[2017-03-03 01:01] VITALS: RESP 20
[2017-03-03] MEDS: Albuterol-Ipratrop 3 mg / 0.5 (3 ml) UD INH SCH ×4 (02:04→19:53)
--- NOTE | 2017-03-03 07:29 | PN ---
LOCATION: [facility], bed A. SUBJECTIVE: This is a 76-year-old male seen and examined in rounds earlier today post blood transfusion, without reported clinical changes, but still with poor oral intake. The entire chart is reviewed including but not limited to the most recent lab and radiologic study results, current and the previous medication list, current and the previous medical events, blood transfusion is still pending. The patient still has elevated blood glucose level, but low calcium, was thrombocytosis with low hemoglobin and hematocrit. PHYSICAL EXAMINATION: GENERAL: A 76 years old male. The patient has intermittent period of dry cough during the physical examination. VITAL SIGNS: Afebrile with heart rate of 64, respiratory rate of 20 to 22, blood pressure 134/64. LUNGS: Scattered crepitation, decreased air entry at bases. HEART: Positive S1 and S2. ABDOMEN: Soft. Bowel sounds are present with slight distension. No mass or organomegaly. No rebound tenderness or guarding. EXTREMITIES: With evidence of muscle wasting syndrome with lower extremity mild edematous changes. No clubbing or cyanosis. NEUROLOGIC: No new reported neurological deficits, sensory or motor. IMPRESSION: 1. Malnutrition with hypoalbuminemia and hypoproteinemia. 2. Failure to thrive. 3. Reported recent episodes of dysphagia. 4. Known history of colon cancer, dementia, atrial fibrillation, depression with osteoarthritis. 5. Known history of chronic obstructive pulmonary disease with pneumonia, hypertension with renal stone. 6. Anemia, most likely secondary to above. 7. Cardiac arrhythmia. SUGGESTIONS: 1. Continue current management. 2. Upper endoscopy due to the patient's reported dysphagia as well as refusal to eat. If that is normal, then PEG insertion to be kept in mind after calorie calculation. Case discussed previously with the family. Juaquin Patterson MD cc: Patient chart.
[2017-03-03 07:51] LABS: BASO % 0.1 % (0.0-2.0); HEMATOCRIT 29.8 % (35.0-51.0); LYMPH # 0.9 K/uL (1.0-4.3); LYMPH % 9.4 % (20.0-40.0); MEAN CELL VOLUME 89.4 fL (80.0-94.0); MEAN CORPUSCULAR HEMOGLOBIN 29.7 pg (27.0-31.0); MEAN CORPUSCULAR HGB CONC 33.2 g/dL (33.0-37.0); MEAN PLATELET VOLUME 7.5 fL (7.2-11.7); MONO # 0.5 K/uL (0.0-0.8); MONO % 5.6 % (0.0-10.0); NRBC % 0.1 % (0.0-2.0); PLATELET COUNT 466 K/uL (130-400); RED CELL DISTRIBUTION WIDTH 15.4 % (11.5-14.5); WHITE BLOOD COUNT 9.4 K/uL (4.8-10.8)
--- NOTE | 2017-03-03 07:57 | PN ---
SUBJECTIVE: The patient is alert, oriented, sitting in Reina position in his bed. PHYSICAL EXAMINATION: VITAL SIGNS: He is afebrile with blood pressure 110/55, pulse 70, respiration 20, hemoglobin oxygen saturation of 99% on FiO2 of 3 L per minute via nasal cannula. GENERAL: He is not distress at rest. He is getting blood transfusion. HEART: Regular. No gallop rhythm. LUNGS: Diminished breath sounds over the lung bases. Rhonchi decreased. ABDOMEN: Soft. Colostomy bag present. EXTREMITIES: Legs: No edema. Mobility markedly limited mostly . LABORATORY DATA: His white count is 5300, hemoglobin 8.4, platelet count is 469,000. His serum sodium is 136, potassium 4, BUN 23, creatinine 1.4. His CO2 was low at 51 with hemoglobin oxygen saturation of 89% two days ago on 02/28/2017, and his saturation has now improved to 99% on FiO2 of 3 L nasal cannula. Chest x-ray shows interstitial changes. We will do a repeat ABG testing. IMPRESSION: Respiratory insufficiency; emphysema; chronic obstructive pulmonary disease; hypertensive cardiovascular disease; colon carcinoma, status post colostomy, has colostomy bag; sepsis;anemia. PLAN: To continue with the current measures, and he is having blood transfusion at the present, and continue a followup with consultants. Alessandro Hayes MD
[2017-03-03 08:18] LABS: POTASSIUM 3.3 mmol/L (3.6-5.2)
[2017-03-03 09:59] LABS: METAMYELOCYTE 1 % (0-0); NEUTROPHIL 85 % (50-75); TOTAL CELLS COUNTED 100
[2017-03-03] MEDS: MethylPREDNISolone 40 mg Vial IVP SCH ×2 (10:00→21:07)
[2017-03-03] MEDS: Dextrose 5%/0.45% NS 1,000 ML IV SCH ×2 (11:30→21:06)
--- NOTE | 2017-03-03 13:31 | PN ---
DATE: LOCATION: [facility], bed A. SUBJECTIVE: This is a 76 years old male seen and examined early in rounds. The entire chart is reviewed, without reported active bleeding, but poor oral intake, inadequate. Patient is still complaining of both knees pain. The most recent lab results showed low hemoglobin of 9.9, low hematocrit 29.8 with thrombocytosis of 466 with low potassium 3.3, but increased BUN at 34 with elevated blood glucose level before. PHYSICAL EXAMINATION: GENERAL: A 76 years old male. VITAL SIGNS: Afebrile with pulse of 74, respiratory rate 20 to 22, blood pressure 120/62. HEENT: Showed pale, dry oral mucoid membrane, nonicteric sclerae. LUNGS: Few scattered crepitation. Decreased air entry at bases. HEART: Positive S1 and S2. ABDOMEN: Soft, bowel sounds are present with slight generalized tenderness. No mass or organomegaly. No rebound tenderness or guarding. EXTREMITIES: Without significant clubbing, cyanosis, or edema. NEUROLOGIC: No reported new neurological deficits, sensory or motor. Peripheral pulses positive bilaterally, both feet. IMPRESSION: 1. Failure to thrive. 2. Poor oral intake, malnutrition, hypoalbuminemia. 3. Known history of colon cancer, atrial fibrillation, dementia, depression with osteoarthritis. 4. History of chronic obstructive pulmonary disease with pneumonia, renal stone, hypertension. 5. Cardiac arrhythmias by history. 6. Anemia, most likely secondary to above. SUGGESTIONS: 1. Continue current management. 2. Peripheral hyperalimentation. 3. Patient is a candidate for PEG insertion when he is more stable clinically. Juaquin Patterson MD
[2017-03-03] MEDS: Potassium Chloride 10 mEq ER Tab PO SCH (14:37)
--- NOTE | 2017-03-03 22:59 | CP.PCM.PN ---
Subjective - Date & Time of Evaluation Date of Evaluation: 03/03/17 Time of Evaluation: 13:25 - Subjective Subjective: Patient complaining of joint pain. Latest K level 3.3. Patient evaluated by Dr Cerna who feels patient needs PEG. Objective - Vital Signs/Intake and Output Vital Signs (last 24 hours): Temp Pulse Resp BP Pulse Ox 97.3 F L 74 20 114/60 96 03/03/17 15:00 03/03/17 15:00 03/03/17 15:00 03/03/17 15:46 03/03/17 15:00 Intake and Output: 03/03/17 03/04/17 18:59 06:59 Intake Total 820 Output Total 1000 700 Balance -180 -700 - Medications Medications: Current Medications Albuterol/Ipratropium (Duoneb 3 Mg/0.5 Mg (3 Ml) Ud) 3 ml INH RQ6 [facility] Last Admin: 03/03/17 19:53 Dose: 3 ml Folic Acid (Folic Acid) 1 mg PO DAILY [facility] Last Admin: 03/03/17 10:00 Dose: 1 mg Furosemide (Lasix) 20 mg IVP DAILY [facility] Last Admin: 03/03/17 09:59 Dose: 20 mg Dextrose/Sodium Chloride (Dextrose 5%/0.45% Ns 1000 Ml) 1,000 mls @ 40 mls/hr IV .Q24H [facility] Last Admin: 03/03/17 21:06 Dose: 40 mls/hr Methylprednisolone (Solu-Medrol) 20 mg IVP Q12 [facility] Last Admin: 03/03/17 21:07 Dose: 20 mg Pantoprazole Sodium (Protonix Inj) 40 mg IVP DAILY [facility] Last Admin: 03/03/17 10:00 Dose: 40 mg Potassium Chloride (Klor-Con 10) 10 meq PO BRK [facility] Last Admin: 03/03/17 14:37 Dose: 10 meq - Labs Labs: 03/03/17 07:22 03/03/17 07:22 PT 16.5 SECONDS (9.7-12.2) H 02/26/17 19:57 INR 1.5 02/26/17 19:57 APTT 31 SECONDS (21-34) 02/26/17 19:57 - Constitutional Appears: Chronically Ill - Head Exam Head Exam: NORMOCEPHALIC - Eye Exam Pupil Exam: NORMAL ACCOMODATION - ENT Exam ENT Exam: Normal Exam - Neck Exam Neck Exam: Normal Inspection - Respiratory Exam Respiratory Exam: Decreased Breath Sounds - GI/Abdominal Exam GI & Abdominal Exam: Hyperactive Bowel Sounds - Rectal Exam Rectal Exam: Deferred - Exam Exam: NORMAL INSPECTION - Back Exam Back Exam: NORMAL INSPECTION - Neurological Exam Neurological Exam: Altered - Psychiatric Exam Psychiatric exam: Depressed - Skin Skin Exam: Dry Assessment and Plan (1) Emphysema Status: Acute (2) Dehydration Status: Acute (3) Failure to thrive Status: Acute (4) Altered mental status, unspecified Status: Acute (5) Psoriatic arthritis Status: Acute (6) Systolic and diastolic CHF, acute on chronic Status: Acute (7) Weakness Status: Acute (8) Swallowing difficulty Status: Acute
[2017-03-04] MEDS: Albuterol-Ipratrop 3 mg / 0.5 (3 ml) UD INH SCH ×4 (01:52→19:12)
[2017-03-04 07:14] LABS: HEMATOCRIT 31.1 % (35.0-51.0); LYMPH % 11.5 % (20.0-40.0); MEAN CELL VOLUME 89.1 fL (80.0-94.0); MEAN CORPUSCULAR HEMOGLOBIN 30.1 pg (27.0-31.0); MEAN CORPUSCULAR HGB CONC 33.8 g/dL (33.0-37.0); MEAN PLATELET VOLUME 7.3 fL (7.2-11.7); MONO # 0.5 K/uL (0.0-0.8); MONO % 6.3 % (0.0-10.0); NRBC % 0.1 % (0.0-2.0); RED CELL DISTRIBUTION WIDTH 15.5 % (11.5-14.5); WHITE BLOOD COUNT 8.4 K/uL (4.8-10.8)
[2017-03-04 07:36] LABS: POTASSIUM 3.7 mmol/L (3.6-5.2)
[2017-03-04] MEDS: Potassium Chloride 10 mEq ER Tab PO SCH (08:18)
[2017-03-04] MEDS: MethylPREDNISolone 40 mg Vial IVP SCH ×2 (09:29→21:03)
--- NOTE | 2017-03-04 15:12 | PN ---
DATE: LOCATION: [facility], [facility] A. SUBJECTIVE: This 76-year-old male, seen and examined in rounds without significant clinical changes, reported by the nursing staff with increased oral intake, without keeping his food in his mouth anymore. Today's lab showed hemoglobin of 10.5, hematocrit 31.1, with thrombocytes of 431, with BUN elevated to 30, but normal creatinine so far. Rest of the lab is still pending. PHYSICAL EXAMINATION GENERAL: A 76-year-old male. VITAL SIGNS: Afebrile with pulse of 66, respiratory rate 20 to 22, blood pressure 140/64. HEENT: Showed pale dry oral mucous membrane. Nonicteric sclerae. LUNGS: Few scattered crepitation. Decreased air entry at bases. HEART: Positive S1 and S2. ABDOMEN: Soft. Bowel sounds are present with mild generalized tenderness. No mass or organomegaly. No rebound tenderness or guarding. EXTREMITIES: With bilateral knee tenderness. The patient has persistent complaint of bilateral knee pain. No clubbing or cyanosis. No edematous changes. NEUROLOGIC: No reported new neurological deficits, sensory or motor. IMPRESSION: 1. Failure to thrive with malnutrition, slightly improving as per the nursing staff. 2. Known history of psoriatic arthritis. 3. Hypertension with congestive heart failure by history. 4. Known history of colon carcinoma and atrial fibrillation. 5. Depression with dementia by history. 6. Known history of chronic obstructive pulmonary disease with anemia, renal stone. 7. Reported recent history of anemia, improving. SUGGESTIONS: 1. Continue current management. 2. Peripheral hyperalimentation. 3. Repeat a swallow reevaluation. Juaquin Patterson MD
[2017-03-04] MEDS: Dextrose 5%/0.45% NS 1,000 ML IV SCH (21:02)
--- NOTE | 2017-03-04 23:06 | CP.PCM.PN ---
Subjective - Date & Time of Evaluation Date of Evaluation: 03/04/17 Time of Evaluation: 14:25 - Subjective Subjective: Patient more responsive and breathing more comfortably. Hct 31 and Bun 30. Continue present therapy. Patient evaluated by Dr Mcclure. Will repeat labs in AM. Objective - Vital Signs/Intake and Output Vital Signs (last 24 hours): Temp Pulse Resp BP Pulse Ox 97.5 F L 77 20 134/68 99 03/04/17 15:00 03/04/17 15:00 03/04/17 15:00 03/04/17 15:00 03/04/17 15:00 Intake and Output: 03/04/17 03/05/17 18:59 06:59 Intake Total 800 540 Output Total 720 Balance 800 -180 - Medications Medications: Current Medications Albuterol/Ipratropium (Duoneb 3 Mg/0.5 Mg (3 Ml) Ud) 3 ml INH RQ6 [facility] Last Admin: 03/04/17 19:12 Dose: 3 ml Folic Acid (Folic Acid) 1 mg PO DAILY [facility] Last Admin: 03/04/17 09:29 Dose: 1 mg Furosemide (Lasix) 20 mg IVP DAILY [facility] Last Admin: 03/04/17 09:28 Dose: 20 mg Methylprednisolone (Solu-Medrol) 20 mg IVP Q12 [facility] Last Admin: 03/04/17 21:03 Dose: 20 mg Pantoprazole Sodium (Protonix Inj) 40 mg IVP DAILY [facility] Last Admin: 03/04/17 09:28 Dose: 40 mg Potassium Chloride (Klor-Con 10) 10 meq PO BRK [facility] Last Admin: 03/04/17 08:18 Dose: 10 meq - Labs Labs: 03/04/17 07:01 03/04/17 07:01 PT 16.5 SECONDS (9.7-12.2) H 02/26/17 19:57 INR 1.5 02/26/17 19:57 APTT 31 SECONDS (21-34) 02/26/17 19:57 - Constitutional Appears: Chronically Ill - Head Exam Head Exam: NORMOCEPHALIC - Eye Exam Eye Exam: Normal appearance Pupil Exam: NORMAL ACCOMODATION - ENT Exam ENT Exam: Mucous Membranes Dry - Neck Exam Neck Exam: Normal Inspection - Respiratory Exam Respiratory Exam: Decreased Breath Sounds - GI/Abdominal Exam GI & Abdominal Exam: Hyperactive Bowel Sounds - Rectal Exam Rectal Exam: Deferred - Exam Exam: NORMAL INSPECTION - Extremities Exam Extremities Exam: Normal Inspection - Back Exam Back Exam: NORMAL INSPECTION - Neurological Exam Neurological Exam: Awake - Psychiatric Exam Psychiatric exam: Depressed - Skin Skin Exam: Dry Assessment and Plan (1) Emphysema Status: Acute (2) Dehydration Status: Acute (3) Failure to thrive Status: Acute (4) Altered mental status, unspecified Status: Acute (5) Psoriatic arthritis Status: Acute (6) Systolic and diastolic CHF, acute on chronic Status: Acute (7) Weakness Status: Acute (8) Swallowing difficulty Status: Acute
[2017-03-05] MEDS: Albuterol-Ipratrop 3 mg / 0.5 (3 ml) UD INH SCH ×4 (01:39→20:57)
[2017-03-05 01:45] VITALS: O2SAT 97
[2017-03-05 07:16] LABS: BASO % 0.1 % (0.0-2.0); HEMATOCRIT 32.3 % (35.0-51.0); LYMPH # 1.1 K/uL (1.0-4.3); LYMPH % 12.6 % (20.0-40.0); MEAN CELL VOLUME 89.3 fL (80.0-94.0); MEAN CORPUSCULAR HEMOGLOBIN 30.1 pg (27.0-31.0); MEAN CORPUSCULAR HGB CONC 33.7 g/dL (33.0-37.0); MEAN PLATELET VOLUME 7.6 fL (7.2-11.7); MONO # 0.6 K/uL (0.0-0.8); NRBC % 0.1 % (0.0-2.0); RED CELL DISTRIBUTION WIDTH 15.6 % (11.5-14.5); WHITE BLOOD COUNT 8.7 K/uL (4.8-10.8)
--- NOTE | 2017-03-05 07:25 | PN ---
DATE: 03/03/2017 SUBJECTIVE: Patient is alert, oriented, in bed. PHYSICAL EXAMINATION GENERAL: He is not in acute distress. VITAL SIGNS: He is afebrile with blood pressure 114/60, pulse 78, respirations 20, and hemoglobin oxygen saturation of 98% on FiO2 of 3 L of oxygen via nasal cannula. HEART: Regular. No gallop rhythm. LUNGS: Diminished breath sounds over the lung bases. Rhonchi decreased. ABDOMEN: Soft, colostomy bag present. EXTREMITIES: Legs, no edema. LABORATORY DATA: White count is 9400, hemoglobin 9.9, and platelet count 466,000. Arterial blood gas studies today show pH of 7.42, pCO2 of 35, and pO2 of 120 with hemoglobin saturation of 100% and bicarbonate of 24 on FiO2 of 32%. In view of the high pO2, we will reduce nasal oxygen administration to maintain adequate hemoglobin oxygen saturation. Serum sodium is 139, potassium 3.3, and BUN 34. IMPRESSION: Respiratory insufficiency, electrolyte imbalance, anemia, sepsis, chronic obstructive pulmonary disease with emphysema, altered mental status, dyspepsia, status post carcinoma of colon and colostomy. PLAN: To continue with current medications including bronchodilators and oxygen therapy. We will order K-Dur because the patient's serum potassium is low at 3.3. Continue with other measures. Alessandro Hayes MD
[2017-03-05 07:52] LABS: POTASSIUM 3.7 mmol/L (3.6-5.2)
--- NOTE | 2017-03-05 07:55 | PN ---
DATE: 03/04/2017 SUBJECTIVE: The patient is alert in bed. He is not in acute distress. PHYSICAL EXAMINATION: VITAL SIGNS: He is afebrile with blood pressure 130/68, pulse 77, respirations 20, hemoglobin oxygen saturation 99%. HEART: Regular. No gallop rhythm. LUNGS: Diminished breath sounds over the lung bases. Rhonchi decreased. ABDOMEN: Soft, colostomy bag present. EXTREMITIES: Legs, no edema. IMPRESSION: Respiratory insufficiency, chronic obstructive pulmonary disease exacerbation, anemia, status post carcinoma of colon, colostomy bag, hypertensive cardiovascular disease, PLAN: To continue with current measures including albuterol, bronchodilators. Alessandro Hayes MD
[2017-03-05] MEDS: Potassium Chloride 10 mEq ER Tab PO SCH (08:00)
[2017-03-05] MEDS: MethylPREDNISolone 40 mg Vial IVP SCH (10:18)
--- NOTE | 2017-03-05 11:52 | PN ---
DATE: LOCATION: [facility], bed A. SUBJECTIVE: This 76-year-old male seen and examined in rounds without significant clinical changes or reported active bleeding, still with inadequate oral intake, but more awake and alert. The entire chart is reviewed including, but not limited to the most recent lab and radiology study results, current and previous medication list, current and previous medical events and the case discussed with the staff at length. Today's labs showed low hemoglobin of 10.9, hematocrit 32.3, with thrombocytosis of 415, but with BUN of 29. Rest of the lab results still pending. PHYSICAL EXAMINATION GENERAL: A 76 years old male. VITAL SIGNS: Afebrile with pulse of 70, respiratory rate 20 to 22, blood pressure 136/70. HEENT: Pale, dry oral mucous membranes. Non-icteric sclerae. LUNGS: A few scattered crepitation, decreased air entry at bases. HEART: Positive S1 and S2. ABDOMEN: Soft. Bowel sounds are present with slight distention and mild generalized tenderness. No mass or organomegaly. No rebound tenderness or guarding. EXTREMITIES: Bilateral knee tenderness and slight edematous changes. No clubbing or cyanosis. NEUROLOGIC: No reported new neurological focal deficits, sensory or motor. IMPRESSION: 1. Failure to thrive, gradually improving with oral intake, but not adequately with malnutrition. 2. Known history of psoriatic arthritis, congestive heart failure. 3. Hypertension by history. 4. Reported history of colon cancer with cardiac arrhythmia, atrial fibrillation. 5. Dementia, depression by history. 6. Known history of chronic obstructive pulmonary disease. 7. Renal stone by history. 8. Anemia, most likely secondary to chronic disease, no evidence of active bleeding so far. SUGGESTIONS: 1. Continue current management. 2. We will discuss the case with his speech therapist regarding the patient's oral intake and outcome of swallow evaluation. 3. Peripheral hyperalimentation. Juaquin Patterson MD
[2017-03-05 17:36] VITALS: BP 119/70; PULSE 79; TEMP 97.3
--- NOTE | 2017-03-05 17:39 | CP.PCM.PN ---
Subjective - Date & Time of Evaluation Date of Evaluation: 03/05/17 Time of Evaluation: 11:40 - Subjective Subjective: Patient seen today, awake, alert, NAD , states feels better and appetite improved , denies any abdominal pain, sob, N/V/D today lab- unremarkable hgb - stable -10.9>10.5>9.8 Objective - Vital Signs/Intake and Output Vital Signs (last 24 hours): Temp Pulse Resp BP Pulse Ox 97.3 F L 79 20 119/70 97 03/05/17 15:00 03/05/17 15:00 03/05/17 15:00 03/05/17 15:00 03/05/17 15:00 Intake and Output: 03/05/17 03/05/17 06:59 18:59 Intake Total 1060 340 Output Total 1420 Balance -360 340 - Medications Medications: Current Medications Albuterol/Ipratropium (Duoneb 3 Mg/0.5 Mg (3 Ml) Ud) 3 ml INH RQ6 [facility] Last Admin: 03/05/17 14:11 Dose: 3 ml Folic Acid (Folic Acid) 1 mg PO DAILY [facility] Last Admin: 03/05/17 10:17 Dose: 1 mg Furosemide (Lasix) 20 mg IVP DAILY [facility] Last Admin: 03/05/17 10:18 Dose: 20 mg Methylprednisolone (Solu-Medrol) 20 mg IVP Q12 [facility] Last Admin: 03/05/17 10:18 Dose: 20 mg Pantoprazole Sodium (Protonix Inj) 40 mg IVP DAILY [facility] Last Admin: 03/05/17 10:18 Dose: 40 mg Potassium Chloride (Klor-Con 10) 10 meq PO BRK [facility] Last Admin: 03/05/17 08:00 Dose: 10 meq - Labs Labs: 03/05/17 06:59 03/05/17 06:59 PT 16.5 SECONDS (9.7-12.2) H 02/26/17 19:57 INR 1.5 02/26/17 19:57 APTT 31 SECONDS (21-34) 02/26/17 19:57 Assessment and Plan - Assessment and Plan (Free Text) Assessment: A/P 76 yr old male admitted with AMS and decr. appetite
--- NOTE | 2017-03-05 22:33 | CP.PCM.DIS ---
Provider - Provider Date of Admission: 02/25/17 18:22 Attending physician: Hever Holland MD Time Spent in preparation of Discharge (in minutes): 24 Diagnosis - Discharge Diagnosis (1) Emphysema Status: Acute (2) Dehydration Status: Acute (3) Failure to thrive Status: Acute (4) Altered mental status, unspecified Status: Acute Priority: Medium (5) Psoriatic arthritis Status: Acute Priority: Medium (6) Systolic and diastolic CHF, acute on chronic Status: Acute (7) Weakness Status: Acute (8) Swallowing difficulty Status: Acute Hospital Course - Lab Results Lab Results: Most Recent Lab Values WBC 8.7 K/uL (4.8-10.8) 03/05/17 06:59 RBC 3.62 Mil/uL (4.40-5.90) L 03/05/17 06:59 Hgb 10.9 g/dL (12.0-18.0) L 03/05/17 06:59 Hct 32.3 % (35.0-51.0) L 03/05/17 06:59 MCV 89.3 fL (80.0-94.0) 03/05/17 06:59 MCH 30.1 pg (27.0-31.0) 03/05/17 06:59 MCHC 33.7 g/dL (33.0-37.0) 03/05/17 06:59 RDW 15.6 % (11.5-14.5) H 03/05/17 06:59 Plt Count 415 K/uL (130-400) H 03/05/17 06:59 MPV 7.6 fL (7.2-11.7) 03/05/17 06:59 Neut % (Auto) 80.3 % (50.0-75.0) H 03/05/17 06:59 Lymph % (Auto) 12.6 % (20.0-40.0) L 03/05/17 06:59 [place] % (Auto) 7.0 % (0.0-10.0) 03/05/17 06:59 Eos % (Auto) 0.0 % (0.0-4.0) 03/05/17 06:59 Baso % (Auto) 0.1 % (0.0-2.0) 03/05/17 06:59 Neut # 7.0 K/uL (1.8-7.0) 03/05/17 06:59 Lymph # 1.1 K/uL (1.0-4.3) 03/05/17 06:59 [place] # 0.6 K/uL (0.0-0.8) 03/05/17 06:59 Eos # 0.0 K/uL (0.0-0.7) 03/05/17 06:59 Baso # 0.0 K/uL (0.0-0.2) 03/05/17 06:59 Neutrophils % (Manual) 85 % (50-75) H 03/03/17 07:22 Band Neutrophils % 2 % (0-2) 03/03/17 07:22 Lymphocytes % (Manual) 6 % (20-40) L 03/03/17 07:22 Monocytes % (Manual) 6 % (0-10) 03/03/17 07:22 Metamyelocytes % 1 % (0-0) H 03/03/17 07:22 Platelet Estimate Slightly increased (NORMAL) H 03/03/17 07:22 Anisocytosis (manual) Slight 03/03/17 07:22 PT 16.5 SECONDS (9.7-12.2) H 02/26/17 19:57 INR 1.5 02/26/17 19:57 APTT 31 SECONDS (21-34) 02/26/17 19:57 Puncture Site Rradial 03/02/17 20:00 pCO2 35 mm/Hg (35-45) 03/02/17 20:00 pO2 120 mm/Hg (80-100) H 03/02/17 20:00 HCO3 23.8 mmol/L (21-28) 03/02/17 20:00 ABG pH 7.42 (7.35-7.45) 03/02/17 20:00 ABG Total CO2 23.8 mmol/L (22-28) 03/02/17 20:00 ABG O2 Saturation 99.8 % (95-98) H 03/02/17 20:00 ABG Base Excess -1.4 mmol/L (-2.0-3.0) 03/02/17 20:00 ABG Hemoglobin 9.9 g/dL (11.7-17.4) L 03/02/17 20:00 ABG Carboxyhemoglobin 2.2 % (0.5-1.5) H 03/02/17 20:00 POC ABG HHb (Measured) 0.2 % (0.0-5.0) 03/02/17 20:00 ABG Methemoglobin 2.0 % (0.0-3.0) 03/02/17 20:00 Jerad Test Pos 03/02/17 20:00 A-a O2 Difference 130.0 mm/Hg 02/28/17 18:46 Respiratory Index 2.5 02/28/17 18:46 Hgb O2 Saturation 95.6 % (95.0-98.0) 03/02/17 20:00 Liter Flow 4.0 03/02/17 20:00 FiO2 32.0 % 02/28/17 18:46 Sodium 134 mmol/L (132-148) 03/05/17 06:59 Potassium 3.7 mmol/L (3.6-5.2) 03/05/17 06:59 Chloride 101 mmol/L (98-107) 03/05/17 06:59 Carbon Dioxide 28 mmol/L (22-30) 03/05/17 06:59 Anion Gap 13 (10-20) 03/01/17 06:59 BUN 29 mg/dL (9-20) H 03/05/17 06:59 Creatinine 1.4 mg/dL (0.8-1.5) 03/01/17 06:59 Est GFR ( Amer) 59 03/01/17 06:59 Est GFR (Non-Af Amer) 49 03/01/17 06:59 Random Glucose 198 mg/dL (75-110) H 03/01/17 06:59 Calcium 8.4 mg/dl (8.6-10.4) L 03/01/17 06:59 Total Bilirubin 0.8 mg/dL (0.2-1.3) 02/25/17 14:16 AST 22 U/L (17-59) 02/25/17 14:16 ALT 17 U/L (21-72) L 02/25/17 14:16 Alkaline Phosphatase 100 U/L (38-126) 02/25/17 14:16 Troponin I < 0.0120 ng/mL (0.00-0.120) 02/25/17 14:16 NT-Pro-B Natriuret Pep 1590 pg/mL (0-900) H 02/25/17 14:16 Total Protein 7.5 g/dL (6.3-8.3) 02/25/17 14:16 Albumin 2.9 g/dL (3.5-5.0) L 02/25/17 14:16 Globulin 4.7 gm/dL (2.2-3.9) H 02/25/17 14:16 Albumin/Globulin Ratio 0.6 (1.0-2.1) L 02/25/17 14:16 Lipase 98 U/L (23-300) 02/25/17 14:16 TSH 3rd Generation 3.00 mIU/L (0.46-4.68) 02/26/17 19:57 Urine Color Yellow (YELLOW) 02/25/17 16:51 Urine Clarity Clear (Clear) 02/25/17 16:51 Urine pH 5.0 (5.0-8.0) 02/25/17 16:51 Ur Specific [place] 1.018 (1.003-1.030) 02/25/17 16:51 Urine Protein 1+ mg/dL (NEGATIVE) H 02/25/17 16:51 Urine Glucose (UA) Normal mg/dL (Normal) 02/25/17 16:51 Urine Ketones Negative mg/dL (NEGATIVE) 02/25/17 16:51 Urine Blood 1+ (NEGATIVE) H 02/25/17 16:51 Urine Nitrate Negative (NEGATIVE) 02/25/17 16:51 Urine Bilirubin Negative (NEGATIVE) 02/25/17 16:51 Urine Urobilinogen Normal mg/dL (0.2-1.0) 02/25/17 16:51 Ur Leukocyte Esterase Neg Yuriy/uL (Negative) 02/25/17 16:51 Urine WBC (Auto) 3 /hpf (0-5) 02/25/17 16:51 Urine RBC (Auto) 5 /hpf (0-3) H 02/25/17 16:51 Ur Squamous Epith Cells < 1 /hpf (0-5) 02/25/17 16:51 Urine Bacteria Rare (<OCC) 02/25/17 16:51 Blood Type A NEGATIVE 03/02/17 00:26 Antibody Screen Negative 03/02/17 00:26 Discharge Exam - Head Exam Head Exam: NORMOCEPHALIC - Eye Exam Eye Exam: Normal appearance Pupil Exam: NORMAL ACCOMODATION - ENT Exam ENT Exam: Normal Exam - Neck Exam Neck exam: Normal Inspection - Respiratory Exam Respiratory Exam: Decreased Breath Sounds - GI/Abdominal Exam GI & Abdominal Exam: Normal Bowel Sounds - Rectal Exam Rectal Exam: Deferred - Exam Exam: NORMAL INSPECTION - Extremities Exam Extremities exam: tenderness - Back Exam Back exam: NORMAL INSPECTION - Neurological Exam Neurological exam: Altered - Psychiatric Exam Psychiatric exam: Depressed - Skin Skin Exam: Dry Discharge Plan - Discharge Medications Prescriptions: Albuterol/Ipratropium [Duoneb 3 mg/0.5 mg (3 ml) UD] 3 ml INH RQ6 #30 neb Albuterol HFA [Ventolin HFA 90 mcg/actuation (8 g)] 0.09 mg IH Q6 #2 puff - Follow Up Plan Condition: FAIR Disposition: HOME/ ROUTINE Instructions: Failure to Thrive (DC), Gastrointestinal Bleeding (DC), Altered Mental Status (GEN) Additional Instructions: Please f/u with Dr. Holland office in 1 week Continue medication as per med. rec. 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
== END 2017-03-05 21:30 | disposition home health service (06) | DRG 640 ==
LOC: C.ER 13:06 → C.9E 18:22 → C.3T 02-26 00:06
PROVIDERS: ADMIT Internal Medicine; ATTEND Internal Medicine
PROC: 3E0336Z Introduction of Nutritional Substance into Peripheral Vein, Percutaneous Approach (ICD-10-PCS; 2017-02-25)
PROC: 30233N1 Transfusion of Nonautologous Red Blood Cells into Peripheral Vein, Percutaneous Approach (ICD-10-PCS; principal; 2017-03-02)
DX: E86.0 Dehydration (principal); G93.41 Metabolic encephalopathy; I50.43 Acute on chronic combined systolic (congestive) and diastolic (congestive) heart failure; E46 Unspecified protein-calorie malnutrition; R13.10 Dysphagia, unspecified; D68.9 Coagulation defect, unspecified; G93.89 Other specified disorders of brain; I48.91 Unspecified atrial fibrillation; J84.10 Pulmonary fibrosis, unspecified; J44.1 Chronic obstructive pulmonary disease with (acute) exacerbation; I13.0 Hypertensive heart and chronic kidney disease with heart failure and stage 1 through stage 4 chronic kidney disease, or unspecified chronic kidney disease; G30.1 Alzheimer's disease with late onset; E77.8 Other disorders of glycoprotein metabolism; F01.50 Vascular dementia, unspecified severity, without behavioral disturbance, psychotic disturbance, mood disturbance, and anxiety; G62.9 Polyneuropathy, unspecified; F02.80 Dementia in other diseases classified elsewhere, unspecified severity, without behavioral disturbance, psychotic disturbance, mood disturbance, and anxiety; D63.8 Anemia in other chronic diseases classified elsewhere; F17.210 Nicotine dependence, cigarettes, uncomplicated; I25.10 Atherosclerotic heart disease of native coronary artery without angina pectoris; L40.50 Arthropathic psoriasis, unspecified; M06.9 Rheumatoid arthritis, unspecified; M10.9 Gout, unspecified; N18.9 Chronic kidney disease, unspecified; R62.7 Adult failure to thrive; Z85.038 Personal history of other malignant neoplasm of large intestine; Z86.73 Personal history of transient ischemic attack (TIA), and cerebral infarction without residual deficits; Z87.11 Personal history of peptic ulcer disease; Z93.3 Colostomy status; Z95.0 Presence of cardiac pacemaker; R47.81 Slurred speech

== ENCOUNTER 2017-07-16 20:58 | Inpatient (IN) | payer MEDICARE ==
[2017-07-16 20:58] VITALS: BMI 21.1
[2017-07-16] MEDS ORDERED: Sodium Chloride 0.9% 1,000 ML IV ONE (21:26)
[2017-07-16] MEDS ORDERED: Sodium Chloride 0.9% 1,000 ML ONE (21:39)
--- NOTE | 2017-07-16 21:46 | C.PDOC ---
History Of Present Illness 76 year old male presents to the ED after being referred by Dr. Holland for evaluation nausea, vomiting, and diarrhea which began yesterday. Patient denies fever, chills. Time Seen by Provider: 07/16/17 21:17 Chief Complaint (Nursing): Abdominal Pain History Per: Patient History/Exam Limitations: no limitations Onset/Duration Of Symptoms: Hrs Current Symptoms Are (Timing): Still Present Quality Of Discomfort: "Pain" Associated Symptoms: Nausea, Vomiting, Diarrhea Past Medical History Reviewed: Historical Data, Nursing Documentation, Vital Signs Vital Signs: Last Vital Signs Temp 97.8 F 07/16/17 21:11 Pulse 90 07/16/17 21:11 Resp 18 07/16/17 21:11 BP 132/85 07/16/17 21:11 Pulse Ox 99 07/16/17 22:32 - Medical History PMH: Arthritis, Asthma, Atrial Fibrillation, Cardia Arrhythmia, COPD (Emphysema, ), Dementia, Depression, Emphysema, HTN, Kidney Stones, Malignancy (COLON CANCER ), Chronic Kidney Disease, Rheumatoid Arthritis Denies: Hypothyroidism Surgical History: Pacemaker (03/15/2015) - [facility] Procedures DRAINAGE OF L LOW LEG SUBCU/FASCIA, OPEN APPROACH, DIAGN (02/24/16) DRAINAGE OF R PLEURAL CAV WITH DRAIN DEV, PERC APPROACH (08/24/16) ENDOSCOPIC BRONCHIAL BX (05/01/14) EXCISION OF L LOW LEG SUBCU/FASCIA, OPEN APPROACH (02/24/16) EXCISION OF STOMACH, PYLORUS, ENDO, DIAGN (08/24/16) INITIAL INSERT TRANS LEADS INTO ATRIUM & VENTRICLE (03/14/14) INITIAL INSERTION OF DUAL-CHAMBER DEVICE (03/14/14) INJECT/INFUSE NEC (05/18/13) INSERTION OF ENDOTRACHEAL AIRWAY INTO TRACHEA, VIA OPENING (08/24/16) INTRODUCTION OF NUTRITIONAL INTO PERIPH VEIN, PERC APPROACH (02/25/17) RESPIRATORY VENTILATION, 24-96 CONSECUTIVE HOURS (08/24/16) TRANSFUSE NONAUT RED BLOOD CELLS IN PERIPH VEIN, PERC (02/25/17) Family History: States: Unknown Family Hx - Social History Hx Tobacco Use: Yes Hx Alcohol Use: No Hx Substance Use: No - Immunization History Hx Tetanus Toxoid Vaccination: No Hx Influenza Vaccination: No (2015) Hx Pneumococcal Vaccination: Yes Review Of Systems Gastrointestinal: Positive for: Nausea, Vomiting, Diarrhea Physical Exam - Physical Exam Appears: Non-toxic, No Acute Distress, Chronically Ill, Other (elderly male, obese) Skin: Warm, Dry, Pale Head: Atraumatic, Normacephalic Eye(s): bilateral: Normal Inspection Oral Mucosa: Moist Neck: Supple Chest: Symmetrical, No Deformity, No Tenderness Cardiovascular: Rhythm Regular, No Murmur Respiratory: Normal Breath Sounds, No Rales, No Rhonchi, No Wheezing Gastrointestinal/Abdominal: Soft, No Tenderness, No Guarding, No Rebound Extremity: Normal ROM, Capillary Refill (less than 2 seconds ) Neurological/Psych: Oriented x3, Normal Speech, Normal Cognition ED Course And Treatment - Laboratory Results Result Diagrams: 07/16/17 21:45 07/16/17 21:45 Lab Interpretation: Abnormal (trop neg, bnp 1700 H) ECG: Interpreted By Me ECG Rhythm: Sinus Rhythm O2 Sat by Pulse Oximetry: 99 (on RA) Pulse Ox Interpretation: Normal - Radiology CXR: Interpreted by Me CXR Interpretation: Yes: No Acute Disease, Other (+ interstitial dz, +CHF) Progress Note: Bloodwork, UA, Obstructive Series Abdomen, EKG ordered and reviewed. Toradol IVP and IV Fluids administered. Reevaluation Time: 22:31 Reassessment Condition: Improved - Physician Consult Information Outcome Of Conversation: 2230: d/w eden Cabral to admit. Medical Decision Making Medical Decision Making: gastroenteritis, ? viral Disposition Doctor Will See Patient In The: Hospital Counseled Patient/Family Regarding: Studies Performed, Diagnosis - Disposition Disposition: HOSPITALIZED Disposition Time: 22:32 Condition: GOOD - Clinical Impression Clinical Impression: Pulmonary fibrosis, Gastroenteritis - Scribe Statement The provider has reviewed the documentation as recorded by the Scribe (Ashley Armenta) Provider Attestation: All medical record entries made by the Scribe were at my direction and personally dictated by me. I have reviewed the chart and agree that the record accurately reflects my personal performance of the history, physical exam, medical decision making, and the department course for this patient. I have also personally directed, reviewed, and agree with the discharge instructions and disposition.
[2017-07-16 22:00] LABS: ALB/GLOB RATIO 0.7 (1.0-2.1); ALBUMIN 3.6 g/dL (3.5-5.0); ALT/SGPT 17 U/L (21-72); AST/SGOT 20 U/L (17-59); BLOOD UREA NITROGEN 30 mg/dL (9-20); CALCIUM 9.5 mg/dl (8.6-10.4); GFR AFRICAN-AMERICAN > 60; GFR NON-AFRICAN AMERICAN 54; LIPASE 70 U/L (23-300)
[2017-07-16 22:04] LABS: BASO % 0.5 % (0.0-2.0); EOS # 0.3 K/uL (0.0-0.7); LYMPH # 1.2 K/uL (1.0-4.3); LYMPH % 13.5 % (20.0-40.0); MEAN CELL VOLUME 91.2 fL (80.0-94.0); MEAN CORPUSCULAR HEMOGLOBIN 30.4 pg (27.0-31.0); MEAN CORPUSCULAR HGB CONC 33.4 g/dL (33.0-37.0); MONO # 0.7 K/uL (0.0-0.8); MONO % 8.1 % (0.0-10.0); NEUT # 6.5 K/uL (1.8-7.0); NEUT % 74.9 % (50.0-75.0); NRBC % 0.2 % (0.0-2.0); RBC 4.52 Mil/uL (4.40-5.90); RED CELL DISTRIBUTION WIDTH 15.5 % (11.5-14.5); WHITE BLOOD COUNT 8.7 K/uL (4.8-10.8)
[2017-07-16 22:08] LABS: HEMOGLOBIN 13.8 g/dL (12.0-18.0)
[2017-07-16 22:12] LABS: B-TYPE NATRIURETIC PEPTIDE 1700 pg/mL (0-900)
[2017-07-16] MEDS ORDERED: Dextrose 5%/0.45% NS 1,000 ML IV SCH (22:45)
[2017-07-16 22:55] LABS: SQUAMOUS EPITHIAL < 1 /hpf (0-5); URINE BACTERIA OCC (<OCC); URINE BILIRUBIN 1+ (NEGATIVE); URINE BLOOD NEGATIVE (NEGATIVE); URINE CLARITY Hazy (Clear); URINE COLOR Amber (YELLOW); URINE GLUCOSE (UA) NORMAL (Normal); URINE LEUKOCYTE ESTERASE NEG Leu/uL (Negative); URINE PROTEIN 1+ mg/dL (NEGATIVE)
[2017-07-16] MEDS: Dextrose 5%/0.45% NS 1,000 ML IV SCH (23:50)
[2017-07-17] MEDS: Albuterol-Ipratrop 3 mg / 0.5 (3 ml) UD INH SCH ×4 (06:20→19:52)
[2017-07-17] MEDS: Sucralfate 1 gm/10 ml Oral Susp UD PO SCH ×2 (06:53→17:36)
[2017-07-17 06:59] LABS: ALB/GLOB RATIO 0.7 (1.0-2.1); ALBUMIN 2.9 g/dL (3.5-5.0); CALCIUM 8.6 mg/dl (8.6-10.4)
[2017-07-17 07:11] LABS: BASO % 0.4 % (0.0-2.0); EOS # 0.4 K/uL (0.0-0.7); HEMOGLOBIN 11.6 g/dL (12.0-18.0); LYMPH # 1.3 K/uL (1.0-4.3); LYMPH % 23.2 % (20.0-40.0); MEAN CELL VOLUME 89.9 fL (80.0-94.0); MEAN CORPUSCULAR HEMOGLOBIN 30.9 pg (27.0-31.0); MEAN CORPUSCULAR HGB CONC 34.3 g/dL (33.0-37.0); MEAN PLATELET VOLUME 7.5 fL (7.2-11.7); MONO # 0.3 K/uL (0.0-0.8); MONO % 5.5 % (0.0-10.0); NEUT # 3.4 K/uL (1.8-7.0); NEUT % 63.9 % (50.0-75.0); NRBC % 0.1 % (0.0-2.0); RBC 3.76 Mil/uL (4.40-5.90); RED CELL DISTRIBUTION WIDTH 15.4 % (11.5-14.5); WHITE BLOOD COUNT 5.4 K/uL (4.8-10.8)
--- NOTE | 2017-07-17 08:01 | RAD ---
Abdomen five views History: Abdominal pain. Comparison: None available. Findings: Left lower quadrant ostomy in place. Surgical clips in the pelvis. Calcified phleboliths in the pelvis. Degenerative changes in the lower lumbar spine and bilateral hips. Few mildly distended loops of small bowel in the upper abdomen. Left-sided pacemaker. Moderate venous congestion. Diffuse increased interstitial lung markings. Patchy bibasilar airspace opacities. Biapical pleural thickening with upper lobe granulomatous changes. Scarring and/or nodularity at the left lung apex. Emphysematous changes or emphysematous bullous changes seen at the left lung apex. Right central venous catheter its tip extending in to the cavoatrial junction. Impression: Left lower quadrant ostomy in place. Surgical clips in the pelvis. Calcified phleboliths in the pelvis. Degenerative changes in the lower lumbar spine and bilateral hips. Few mildly distended loops of small bowel in the upper abdomen. Left-sided pacemaker. Moderate venous congestion. Diffuse increased interstitial lung markings. Patchy bibasilar airspace opacities. Biapical pleural thickening with upper lobe granulomatous changes. Scarring and/or nodularity at the left lung apex. Emphysematous changes or emphysematous bullous changes seen at the left lung apex. Right central venous catheter its tip extending in to the cavoatrial junction.
[2017-07-17] MEDS: Potassium Chloride 10 mEq ER Tab PO SCH (09:11)
--- NOTE | 2017-07-17 22:11 | CP.PCM.HP ---
History of Present Illness - History of Present Illness History of Present Illness: 76 year old male with psoriatic arthritis and pacemaker referred to ER because of nausea, vomiting, diarrhea, abdominal pain and vertigo for four days. Obstructive series ordered in ER reveals distended loops of bowel, osteotomy in place, severe degenerative disc disease, left sided pacemaker, moderate venous congestion, and pulmonary scarring and nodule of the left upper apex. Lab studies demonstrate a BUN of 32, creatinine of 1.4, PBNT of 1700. Present on Admission - Present on Admission Any Indicators Present on Admission: No History of DVT/PE: No History of Uncontrolled Diabetes: No Urinary Catheter: No Decubitus Ulcer Present: No History Surgical Site Infection Following: None Review of Systems - Review of Systems Systems not reviewed;Unavailable: Other (abdominal pain vertigo) - Constitutional Constitutional: Lethargy, Snoring - EENT Nose/Mouth/Throat: Dry Mouth - Cardiovascular Cardiovascular: Dyspnea on Exertion - Respiratory Respiratory: Cough - Gastrointestinal Gastrointestinal: Abdominal Pain - Genitourinary Genitourinary: Urinary Frequency - Musculoskeletal Musculoskeletal: Arthralgias, Back Pain - Integumentary Integumentary: Dry Skin - Neurological Neurological: Dizziness - Psychiatric Psychiatric: Memory Loss Past Patient History - Infectious Disease Hx of Infectious Diseases: None - Tetanus Immunizations Tetanus Immunization: Up to Date, >10 years Ago - Past Medical History & Family History Past Medical History?: Yes - Past Social History Smoking Status: Former Smoker Chewing Tobacco Use: No Cigar Use: No Alcohol: None Drugs: Denies Home Situation {Lives}: With Family - CARDIAC Hx Cardiac Disorders: Yes Hx Atrial Fibrillation: Yes Hx Cardia Arrhythmia: Yes Hx Hypertension: Yes Hx Pacemaker: Yes (03/15/2015) - PULMONARY Hx Respiratory Disorders: Yes Hx Asthma: Yes Hx Chronic Obstructive Pulmonary Disease (COPD): Yes (Emphysema,) Hx Emphysema: Yes - NEUROLOGICAL Hx Neurological Disorder: Yes Hx Dementia: Yes - HEENT Hx HEENT Problems: No - RENAL Hx Chronic Kidney Disease: Yes Hx Kidney Stones: Yes - ENDOCRINE/METABOLIC Hx Endocrine Disorders: No Hx Hypothyroidism: No - HEMATOLOGICAL/ONCOLOGICAL Hx Blood Disorders: Yes Hx Blood Transfusions: Yes Hx Blood Transfusion Reaction: No Hx Cancer: Yes (COLON,NO TREATMENT) Other/Comment: has left colostomy - INTEGUMENTARY Hx Dermatological Problems: Yes Hx Psoriasis: Yes - MUSCULOSKELETAL/RHEUMATOLOGICAL Hx Musculoskeletal Disorders: Yes Hx Arthritis: Yes Hx Falls: Yes Hx Rheumatoid Arthritis: Yes - GASTROINTESTINAL Hx Gastrointestinal Disorders: Yes Hx Bowel Surgery: Yes (2003;2005) Hx Colostomy: Yes Hx Hemorrhoids: Yes Hx Vomiting: Yes Other/Comment: COLON CA 2003 - GENITOURINARY/GYNECOLOGICAL Hx Genitourinary Disorders: Yes Hx Incontinence: Yes - PSYCHIATRIC Hx Psychophysiologic Disorder: Yes Hx Depression: Yes Hx Substance Use: No - SURGICAL HISTORY Hx Surgeries: Yes Hx Vascular Access Device: Yes (RT PORTOCATH 2003) Other/Comment: pacemaker. colostomy - ANESTHESIA Hx Anesthesia: Yes Hx Anesthesia Reactions: No Hx Malignant Hyperthermia: No Meds Allergies/Adverse Reactions: Allergies Allergy/AdvReac Type Severity Reaction Status Date / Time No Known Allergies Allergy Verified 07/16/17 21:09 Physical Exam - Constitutional Appears: Chronically Ill - Head Exam Head Exam: NORMOCEPHALIC - Eye Exam Eye Exam: Normal appearance Pupil Exam: NORMAL ACCOMODATION - ENT Exam ENT Exam: Normal Exam - Neck Exam Neck exam: Positive for: Normal Inspection - Respiratory Exam Respiratory Exam: Decreased Breath Sounds - Cardiovascular Exam Cardiovascular Exam: Irregular Rhythm - GI/Abdominal Exam GI & Abdominal Exam: Tenderness - Rectal Exam Rectal Exam: Deferred - Exam Exam: NORMAL INSPECTION - Extremities Exam Extremities exam: Positive for: tenderness - Back Exam Back exam: paraspinal tenderness - Neurological Exam Neurological exam: Oriented x3 - Psychiatric Exam Psychiatric exam: Flat Affect - Skin Skin Exam: Dry Results - Vital Signs Recent Vital Signs: Last Vital Signs Temp 98.0 F 07/17/17 15:00 Pulse 65 07/17/17 15:00 Resp 20 07/17/17 15:00 BP 110/63 07/17/17 15:00 Pulse Ox 99 07/17/17 15:00 - Labs Result Diagrams: 07/17/17 06:30 07/17/17 06:30 Labs: Laboratory Results - last 24 hr 07/16/17 07/16/17 07/16/17 21:27 21:45 21:45 WBC 8.7 RBC 4.52 Hgb 13.8 D Hct 41.3 MCV 91.2 MCH 30.4 MCHC 33.4 RDW 15.5 H Plt Count 324 MPV 8.0 Neut % (Auto) 74.9 Lymph % (Auto) 13.5 L [place] % (Auto) 8.1 Eos % (Auto) 3.0 Baso % (Auto) 0.5 Neut # (Auto) 6.5 Lymph # (Auto) 1.2 [place] # (Auto) 0.7 Eos # (Auto) 0.3 Baso # (Auto) 0.0 Sodium Potassium Chloride Carbon Dioxide Anion Gap BUN Creatinine Est GFR ( Amer) Est GFR (Non-Af Amer) Random Glucose Calcium Total Bilirubin AST ALT Alkaline Phosphatase Troponin I 0.0240 NT-Pro-B Natriuret Pep 1700 H Total Protein Albumin Globulin Albumin/Globulin Ratio Urine Color Urine Clarity Urine pH Ur Specific [place] Urine Protein Urine Glucose (UA) Urine Ketones Urine Blood Urine Nitrate Urine Bilirubin Urine Urobilinogen Ur Leukocyte Esterase Urine WBC (Auto) Urine RBC (Auto) Ur Squamous Epith Cells Urine Bacteria Hyaline Casts C. difficile Ag & Toxin Negative 07/16/17 07/17/17 07/17/17 22:50 06:30 06:30 WBC 5.4 RBC 3.76 L Hgb 11.6 L D Hct 33.8 L MCV 89.9 MCH 30.9 MCHC 34.3 RDW 15.4 H Plt Count 263 MPV 7.5 Neut % (Auto) 63.9 Lymph % (Auto) 23.2 [place] % (Auto) 5.5 Eos % (Auto) 7.0 H Baso % (Auto) 0.4 Neut # (Auto) 3.4 Lymph # (Auto) 1.3 [place] # (Auto) 0.3 Eos # (Auto) 0.4 Baso # (Auto) 0.0 Sodium 141 Potassium 3.7 Chloride 107 Carbon Dioxide 21 L Anion Gap 16 BUN 32 H Creatinine 1.4 Est GFR ( Amer) 59 Est GFR (Non-Af Amer) 49 Random Glucose 103 Calcium 8.6 Total Bilirubin 0.4 AST 17 ALT 11 L D Alkaline Phosphatase 100 Troponin I NT-Pro-B Natriuret Pep Total Protein 6.8 Albumin 2.9 L Globulin 3.9 Albumin/Globulin Ratio 0.7 L Urine Color [place] Urine Clarity Hazy Urine pH 5.0 Ur Specific [place] 1.025 Urine Protein 1+ H Urine Glucose (UA) Normal Urine Ketones Trace Urine Blood Negative Urine Nitrate Negative Urine Bilirubin 1+ H Urine Urobilinogen 2.0 Ur Leukocyte Esterase Neg Urine WBC (Auto) 1 Urine RBC (Auto) 1 Ur Squamous Epith Cells < 1 Urine Bacteria Occ H Hyaline Casts 3-5 H C. difficile Ag & Toxin Assessment & Plan (1) Degenerative disc disease Status: Acute (2) Gastroenteritis Status: Acute (3) Anemia Status: Acute (4) Dehydration Status: Acute (5) Pulmonary infiltrates on CXR Status: Acute (6) Systolic and diastolic CHF, acute on chronic Status: Acute (7) Upper GI bleed Status: Acute
--- NOTE | 2017-07-17 22:26 | CP.PCM.PN ---
Subjective - Date & Time of Evaluation Date of Evaluation: 07/17/17 Time of Evaluation: 15:20 - Subjective Subjective: Less abdominal pain but still dizzy. Persistant cough and joint pain. Pulmonary scaring present and left apex nodule. CT scan of the chest ordered. Pulmonary consultation requested. Objective - Vital Signs/Intake and Output Vital Signs (last 24 hours): Temp Pulse Resp BP Pulse Ox 98.0 F 65 20 110/63 99 07/17/17 15:00 07/17/17 15:00 07/17/17 15:00 07/17/17 15:00 07/17/17 15:00 Intake and Output: 07/17/17 07/18/17 18:59 06:59 Intake Total 560 Balance 560 - Medications Medications: Current Medications Albuterol/Ipratropium (Duoneb 3 Mg/0.5 Mg (3 Ml) Ud) 3 ml INH RQ6 [facility] Last Admin: 07/17/17 19:52 Dose: 3 ml Famotidine (Pepcid) 20 mg PO BID [facility] Furosemide (Lasix) 20 mg PO DAILY [facility] Last Admin: 07/17/17 09:11 Dose: 20 mg Heparin Sodium (Porcine) (Heparin) 5,000 units SC Q12 [facility] Last Admin: 07/17/17 21:41 Dose: 5,000 units Dextrose/Sodium Chloride (Dextrose 5%/0.45% Ns 1000 Ml) 1,000 mls @ 40 mls/hr IV .Q24H [facility] Last Admin: 07/16/17 23:02 Dose: 40 mls/hr Dextrose/Sodium Chloride (Dextrose 5%/0.45% Ns 1000 Ml) 1,000 mls @ 20 mls/hr IV .Q24H [facility] Last Admin: 07/16/17 23:50 Dose: 20 mls/hr Pneumococcal Polyvalent Vaccine (Pneumovax 23 Vaccine) 0.5 ml IM .ONCE ONE Stop: 07/19/17 12:05 Potassium Chloride (Klor-Con 10) 10 meq PO DAILY [facility] Last Admin: 07/17/17 09:11 Dose: 10 meq Sucralfate (Carafate Oral Susp) 1 gm PO ACBD [facility] Last Admin: 07/17/17 17:36 Dose: 1 gm - Labs Labs: 07/17/17 06:30 07/17/17 06:30 - Constitutional Appears: Chronically Ill - Head Exam Head Exam: NORMOCEPHALIC - Eye Exam Eye Exam: Normal appearance Pupil Exam: NORMAL ACCOMODATION - ENT Exam ENT Exam: Normal Exam - Neck Exam Neck Exam: Normal Inspection - Respiratory Exam Respiratory Exam: Decreased Breath Sounds - Cardiovascular Exam Cardiovascular Exam: Irregular Rhythm - GI/Abdominal Exam GI & Abdominal Exam: Tenderness - Rectal Exam Rectal Exam: Deferred - Exam Exam: NORMAL INSPECTION - Extremities Exam Extremities Exam: Joint Swelling - Back Exam Back Exam: paraspinal tenderness - Neurological Exam Neurological Exam: Oriented x3 - Psychiatric Exam Psychiatric exam: Flat Affect - Skin Skin Exam: Dry Assessment and Plan (1) Degenerative disc disease Status: Acute (2) Gastroenteritis Status: Acute (3) Anemia Status: Acute (4) Dehydration Status: Acute (5) Pulmonary infiltrates on CXR Status: Acute (6) Systolic and diastolic CHF, acute on chronic Status: Acute (7) Upper GI bleed Status: Acute
[2017-07-17] MEDS: Dextrose 5%/0.45% NS 1,000 ML IV SCH (22:50)
[2017-07-18] MEDS: Albuterol-Ipratrop 3 mg / 0.5 (3 ml) UD INH SCH ×4 (01:18→20:15)
[2017-07-18] MEDS: Sucralfate 1 gm/10 ml Oral Susp UD PO SCH ×2 (07:43→17:25)
[2017-07-18 08:20] LABS: ALB/GLOB RATIO 0.7 (1.0-2.1); ALBUMIN 2.9 g/dL (3.5-5.0); ALT/SGPT 11 U/L (21-72); AST/SGOT 15 U/L (17-59); BLOOD UREA NITROGEN 26 mg/dL (9-20); CALCIUM 8.5 mg/dl (8.6-10.4); GFR AFRICAN-AMERICAN > 60; GFR NON-AFRICAN AMERICAN > 60
[2017-07-18 08:21] LABS: CK-MB 0.37 ng/mL (0.0-3.38)
[2017-07-18 08:23] LABS: BASO % 0.6 % (0.0-2.0); EOS # 0.2 K/uL (0.0-0.7); EOS % 4.3 % (0.0-4.0); HEMOGLOBIN 11.4 g/dL (12.0-18.0); LYMPH # 0.9 K/uL (1.0-4.3); LYMPH % 16.7 % (20.0-40.0); MEAN CELL VOLUME 89.5 fL (80.0-94.0); MEAN CORPUSCULAR HEMOGLOBIN 30.9 pg (27.0-31.0); MEAN CORPUSCULAR HGB CONC 34.5 g/dL (33.0-37.0); MEAN PLATELET VOLUME 7.5 fL (7.2-11.7); MONO # 0.3 K/uL (0.0-0.8); MONO % 4.9 % (0.0-10.0); NEUT # 4.1 K/uL (1.8-7.0); NEUT % 73.5 % (50.0-75.0); NRBC % 0.1 % (0.0-2.0); RBC 3.7 Mil/uL (4.40-5.90); WHITE BLOOD COUNT 5.6 K/uL (4.8-10.8)
[2017-07-18] MEDS: Potassium Chloride 10 mEq ER Tab PO SCH (09:46)
--- NOTE | 2017-07-18 09:54 | CT ---
CT chest History: Chest infiltrate. Comparison: X-ray dated 07/16/2017 Technique: Multiple contiguous axial images were performed through the chest without the use of intravenous contrast. Subsequently, sagittal and coronal reformatted images were obtained. This CT exam was performed using one or more of the following dose reduction techniques: Automated exposure control, adjustment of the mA and/or kV according to patient size, and/or use of iterative reconstruction technique. Findings: Persistent diffuse fibrotic changes throughout the lungs greatest at the lung bases. Persistent multiple blebs and bullae most predominant at the lung apices. Biapical pleural thickening bilaterally. Superimposed reticular changes at the lung bases which may represent superimposed infiltrates. Clinical correlation. Trace right pleural effusion. Atelectatic changes at the lung bases. Small nodular densities within the right middle lobe on series 3, image 86 measuring 1.2 centimeters as well as series 3, image 54 in the right upper lobe measuring 8 millimeters. 5 millimeter pulmonary nodule within the right upper lobe on series 3, image 49. 6 millimeter pulmonary nodule within the right lung anteriorly on series 3, image 63. Clinical correlation. Post treatment interval followup would be helpful to ensure resolution. Trachea thru central airways are patent. No significant axillary adenopathy. Heterogeneity of the thyroid. Calcification and plaque within the aorta. Coronary calcifications and or stents. Pacer leads in place. Right paratracheal lymph node measures up to 1.3 centimeters. Left paratracheal lymph node measures up to 1.1 centimeters. Subcarinal lymph node measures up to 9 millimeters. Right hilar lymph node measures 1.1 centimeters. No significant pericardial effusion. Prominent liver. Mild nodularity of the left adrenal gland. Mild fatty atrophy of the pancreas. Small hiatal hernia. Punctate 2 millimeter nonobstructive calculus in the lower pole of the right kidney. Multiple low-attenuation lesions seen at the level of the left kidney measuring up to 3.3 and 1.8 centimeters demonstrating Hounsfield unit attenuations of 9 and 4 suggestive for cysts. Prominent degenerative changes in the osseous structures with a patchy heterogeneous sclerotic appearance. Compression deformities seen throughout the spine some of which appear moderate in the lower thoracic region. Milder compression deformities are noted within the upper thoracic region. Severe degenerative changes in the cervical spine. Clinical correlation. Impression: 1. Persistent diffuse fibrotic changes throughout the lungs greatest at the lung bases. Persistent multiple blebs and bullae most predominant at the lung apices. Biapical pleural thickening bilaterally. Superimposed reticular changes at the lung bases which may represent superimposed infiltrates. Clinical correlation. Trace right pleural effusion. Atelectatic changes at the lung bases. Small nodular densities within the right middle lobe on series 3, image 86 measuring 1.2 centimeters as well as series 3, image 54 in the right upper lobe measuring 8 millimeters. 5 millimeter pulmonary nodule within the right upper lobe on series 3, image 49. 6 millimeter pulmonary nodule within the right lung anteriorly on series 3, image 63. Clinical correlation. Post treatment interval followup would be helpful to ensure resolution. 2. Right paratracheal lymph node measures up to 1.3 centimeters. Left paratracheal lymph node measures up to 1.1 centimeters. Subcarinal lymph node measures up to 9 millimeters. Right hilar lymph node measures 1.1 centimeters. 3. Small hiatal hernia. 4. Punctate 2 millimeter nonobstructive calculus in the lower pole of the right kidney. 5. Multiple low-attenuation lesions seen at the level of the left kidney measuring up to 3.3 and 1.8 centimeters demonstrating Hounsfield unit attenuations of 9 and 4 suggestive for cysts. 6. Compression deformities seen throughout the spine some of which appear moderate in the lower thoracic region. Milder compression deformities are noted within the upper thoracic region. Severe degenerative changes in the cervical spine. Clinical correlation. Additional findings as above.
--- NOTE | 2017-07-18 13:04 | CP.PCM.CON ---
History of Present Illness - History of Present Illness History of Present Illness: 76 year old male presents to the ED after being referred by Dr. Holland for evaluation nausea, vomiting, and diarrhea which began yesterday. Patient denies fever, chills. - Medical History PMH: Arthritis, Asthma, Atrial Fibrillation, Cardia Arrhythmia, COPD (Emphysema, ), Dementia, Depression, Emphysema, HTN, Kidney Stones, Malignancy (COLON CANCER ), Chronic Kidney Disease, Rheumatoid Arthritis Denies: Hypothyroidism Surgical History: Pacemaker (03/15/2015) Past Patient History - Infectious Disease Hx of Infectious Diseases: None - Tetanus Immunizations Tetanus Immunization: Up to Date, >10 years Ago - Past Medical History & Family History Past Medical History?: Yes - Past Social History Smoking Status: Former Smoker Chewing Tobacco Use: No Cigar Use: No Alcohol: None Drugs: Denies Home Situation {Lives}: With Family - CARDIAC Hx Cardiac Disorders: Yes Hx Atrial Fibrillation: Yes Hx Cardia Arrhythmia: Yes Hx Hypertension: Yes Hx Pacemaker: Yes (03/15/2015) - PULMONARY Hx Respiratory Disorders: Yes Hx Asthma: Yes Hx Chronic Obstructive Pulmonary Disease (COPD): Yes (Emphysema,) Hx Emphysema: Yes - NEUROLOGICAL Hx Neurological Disorder: Yes Hx Dementia: Yes - HEENT Hx HEENT Problems: No - RENAL Hx Chronic Kidney Disease: Yes Hx Kidney Stones: Yes - ENDOCRINE/METABOLIC Hx Endocrine Disorders: No Hx Hypothyroidism: No - HEMATOLOGICAL/ONCOLOGICAL Hx Blood Disorders: Yes Hx Blood Transfusions: Yes Hx Blood Transfusion Reaction: No Hx Cancer: Yes (COLON,NO TREATMENT) Other/Comment: has left colostomy - INTEGUMENTARY Hx Dermatological Problems: Yes Hx Psoriasis: Yes - MUSCULOSKELETAL/RHEUMATOLOGICAL Hx Musculoskeletal Disorders: Yes Hx Arthritis: Yes Hx Falls: Yes Hx Rheumatoid Arthritis: Yes - GASTROINTESTINAL Hx Gastrointestinal Disorders: Yes Hx Bowel Surgery: Yes (2003;2005) Hx Colostomy: Yes Hx Hemorrhoids: Yes Hx Vomiting: Yes Other/Comment: COLON CA 2003 - GENITOURINARY/GYNECOLOGICAL Hx Genitourinary Disorders: Yes Hx Incontinence: Yes - PSYCHIATRIC Hx Psychophysiologic Disorder: Yes Hx Depression: Yes Hx Substance Use: No - SURGICAL HISTORY Hx Surgeries: Yes Hx Vascular Access Device: Yes (RT PORTOCATH 2003) Other/Comment: pacemaker. colostomy - ANESTHESIA Hx Anesthesia: Yes Hx Anesthesia Reactions: No Hx Malignant Hyperthermia: No Meds Allergies/Adverse Reactions: Allergies Allergy/AdvReac Type Severity Reaction Status Date / Time No Known Allergies Allergy Verified 07/16/17 21:09 - Medications Medications: Current Medications Albuterol/Ipratropium (Duoneb 3 Mg/0.5 Mg (3 Ml) Ud) 3 ml INH RQ6 [facility] Last Admin: 07/18/17 07:26 Dose: 3 ml Famotidine (Pepcid) 20 mg PO BID [facility] Last Admin: 07/18/17 10:29 Dose: 20 mg Furosemide (Lasix) 20 mg PO DAILY [facility] Last Admin: 07/18/17 09:46 Dose: 20 mg Heparin Sodium (Porcine) (Heparin) 5,000 units SC Q12 [facility] Last Admin: 07/18/17 09:46 Dose: 5,000 units Dextrose/Sodium Chloride (Dextrose 5%/0.45% Ns 1000 Ml) 1,000 mls @ 40 mls/hr IV .Q24H [facility] Last Admin: 07/16/17 23:02 Dose: 40 mls/hr Dextrose/Sodium Chloride (Dextrose 5%/0.45% Ns 1000 Ml) 1,000 mls @ 20 mls/hr IV .Q24H [facility] Last Admin: 07/17/17 22:50 Dose: Not Given Pneumococcal Polyvalent Vaccine (Pneumovax 23 Vaccine) 0.5 ml IM .ONCE ONE Stop: 07/19/17 12:05 Potassium Chloride (Klor-Con 10) 10 meq PO DAILY [facility] Last Admin: 07/18/17 09:46 Dose: 10 meq Sucralfate (Carafate Oral Susp) 1 gm PO ACBD [facility] Last Admin: 07/18/17 07:43 Dose: 1 gm Results - Vital Signs Recent Vital Signs: Last Vital Signs Temp 97.5 F L 07/18/17 07:00 Pulse 64 07/18/17 08:00 Resp 20 07/18/17 07:00 BP 113/54 L 07/18/17 09:46 Pulse Ox 94 L 07/18/17 07:00 - Labs Result Diagrams: 07/18/17 07:47 07/18/17 07:47 Labs: Laboratory Results - last 24 hr 07/18/17 07/18/17 07/18/17 07:47 07:47 07:47 WBC 5.6 RBC 3.70 L Hgb 11.4 L Hct 33.1 L MCV 89.5 MCH 30.9 MCHC 34.5 RDW 15.0 H Plt Count 264 MPV 7.5 Neut % (Auto) 73.5 Lymph % (Auto) 16.7 L [place] % (Auto) 4.9 Eos % (Auto) 4.3 H Baso % (Auto) 0.6 Neut # (Auto) 4.1 Lymph # (Auto) 0.9 L [place] # (Auto) 0.3 Eos # (Auto) 0.2 Baso # (Auto) 0.0 Sodium 137 Potassium 3.7 Chloride 106 Carbon Dioxide 21 L Anion Gap 15 BUN 26 H Creatinine 1.1 Est GFR ( Amer) > 60 Est GFR (Non-Af Amer) > 60 Random Glucose 129 H Calcium 8.5 L Total Bilirubin 0.5 AST 15 L ALT 11 L Alkaline Phosphatase 98 Total Creatine Kinase 30 L CK-MB (Mass) 0.37 C-React Prot High Sens > 15.00 H Total Protein 6.9 Albumin 2.9 L Globulin 3.9 Albumin/Globulin Ratio 0.7 L Carcinoembryonic Ag 10.5 H CA 125 Antigen 119 H
[2017-07-18 14:29] LABS: ABG ALLEN TEST POS; ARTERIAL BLOOD GAS HCO3 24.9 mmol/L (21-28); ARTERIAL BLOOD GAS HEMOGLOBIN 11.9 g/dL (11.7-17.4); ARTERIAL BLOOD GAS O2 SAT 95.3 % (95-98); ARTERIAL BLOOD GAS PCO2 29 mm/Hg (35-45); ARTERIAL BLOOD GAS PO2 57 mm/Hg (80-100); ARTERIAL BLOOD GAS TCO2 23.5 mmol/L (22-28)
--- NOTE | 2017-07-18 15:59 | CP.PCM.CON ---
History of Present Illness - History of Present Illness History of Present Illness: 76 year old male with psoriatic arthritis and pacemaker referred to ER because of nausea, vomiting, diarrhea, abdominal pain and vertigo for four days. Obstructive series ordered in ER reveals distended loops of bowel, osteotomy in place, severe degenerative disc disease, left sided pacemaker, moderate venous congestion, and pulmonary scarring and nodule of the left upper apex. Lab studies demonstrate a BUN of 32, creatinine of 1.4, PBNT of 1700. PATIENT EVALUATED FOR POSSIBLE SEPSIS CULTURES SENT IV ANTIBIOTICS STARTED - Medical History PMH: RHEUMATOID Arthritis, Asthma, Cardia Arrhythmia, COPD (Emphysema,), Dementia, Depression, Emphysema, HTN, Kidney Stones, Malignancy (COLON CANCER), Rheumatoid Arthritis Denies: Hypothyroidism, Chronic Kidney Disease Surgical History: Pacemaker (03/15/2015) LLQ COLOSTOMY - [facility] Procedures DRAINAGE OF L LOW LEG SUBCU/FASCIA, OPEN APPROACH, DIAGN (02/24/16) DRAINAGE OF R PLEURAL CAV WITH DRAIN DEV, PERC APPROACH (08/24/16) ENDOSCOPIC BRONCHIAL BX (05/01/14) EXCISION OF L LOW LEG SUBCU/FASCIA, OPEN APPROACH (02/24/16) EXCISION OF STOMACH, PYLORUS, ENDO, DIAGN (08/24/16) INITIAL INSERT TRANS LEADS INTO [employer] (03/14/14) INITIAL INSERTION OF DUAL-CHAMBER DEVICE (03/14/14) INJECT/INFUSE NEC (05/18/13) INSERTION OF ENDOTRACHEAL AIRWAY INTO TRACHEA, VIA OPENING (08/24/16) RESPIRATORY VENTILATION, 24-96 CONSECUTIVE HOURS (08/24/16) TRANSFUSE NONAUT RED BLOOD CELLS IN PERIPH VEIN, PERC (08/24/16) Review of Systems - Review of Systems Systems not reviewed;Unavailable: Altered Mental Status All systems: reviewed and no additional remarkable complaints except - Constitutional Constitutional: As Per HPI - EENT Eyes: absent: As Per HPI, Blind Spots, Blurred Vision, Change in Vision, Decreased Night Vision, Diplopia, Discharge, Dry Eye, Exophthalmos, Floaters, Irritation, Itchy Eyes, Loss of Peripheral Vision, Pain, Photophobia, Requires Corrective Lenses, Sees Flashes, Spots in Vision, Tunnel Vision, Other Visual Disturbances, Loss of Vision, Other Ears: absent: As Per HPI, Decreased Hearing, Ear Discharge, Ear Pain, Tinnitus, Abnormal Hearing, Disequilibrium, Dizziness, Other Nose/Mouth/Throat: absent: As Per HPI, Epistaxis, Nasal Congestion, Nasal Discharge, Nasal Obstruction, Nasal Trauma, Nose Pain, Post Nasal Drip, Sinus Pain, Sinus Pressure, Bleeding Gums, Change in Voice, Dental Pain, Dry Mouth, Dysphagia, Halitosis, Hoarsness, Lip Swelling, Mouth Lesions, Mouth Pain, Odynophagia, Sore Throat, Throat Swelling, Tongue Swelling, Facial Pain, Neck Pain, Neck Mass, Other - Cardiovascular Cardiovascular: absent: As Per HPI, Acrocyanosis, Chest Pain, Chest Pain at Rest , Chest Pain with Activity, Claudication, Diaphoresis, Dyspnea, Dyspnea on Exertion, Edema, Irregular Heart Rhythm, Pain Radiating to Arm/Neck/Jaw, Leg Edema, Leg Ulcers, Lightheadedness, Orthopnea, Palpitations, Paroxysmal Nocturnal Dyspnea, Pedal Edema, Radiating Pain, Rapid Heart Rate, Slow Heart Rate, Syncope, Other - Respiratory Respiratory: As Per HPI, Cough - Gastrointestinal Gastrointestinal: As Per HPI, Abdominal Pain - Genitourinary Genitourinary: absent: As Per HPI, Change in Urinary Stream, Difficulty Urinating, Dysuria, Flank Pain, Hematuria, Pyuria, Nocturia, Urinary Incontinence, Urinary Frequency, Urinary Hesitance, Urinary Urgency, Voiding Freq/Small Amts, Freq UTI, Hx Renal/Bladder Calculi, Hx /Renal Surgery, Bladder Distension, Other - Musculoskeletal Musculoskeletal: As Per HPI - Integumentary Integumentary: absent: As Per HPI, Acne, Alopecia, Bleeding Lesions, Change in Hair, Change in Nails, Change in Pigmentation, Changing Lesions, Dry Skin, Erythema, Furuncle, Hirsutism, Lesions, New Lesions, Non-Healing Lesions, Photosensitivity, Pruritus, Rash, Skin Pain, Skin Ulcer, Sores, Striae, Swelling , Unusual Bruising, Wounds, Jaundice, Other - Neurological Neurological: absent: As Per HPI, Abnormal Gait, Abnormal Hearing, Abnormal Movements, Abnormal Speech, Behavioral Changes, Burning Sensations, Confusion, Convulsions, Disequilibrium, Dizziness, Numbness, Focal Weakness, Frequent Falls , Headaches, Lack of Coordination, Loss of Vision, Memory Loss, Paresthesias, Radicular Pain, Restless Legs, Sensory Deficit, Syncope, Tingling, Tremor, Vertigo, Weakness, Other Visual Disturbances, Other - Psychiatric Psychiatric: absent: As Per HPI, Abnormal Sleep Pattern, Anhedonia, Anxiety, Auditory Hallucinations, Behavioral Changes, Change in Appetite, Change in Libido, Confusion, Depression, Difficulty Concentrating, Hallucinations, Homicidal Ideation, Hopelessness, Irritability, Memory Loss, Mood Swings, Panic Attacks, Paranoia, Suicidal Ideation, Visual Hallucinations, Tactile Hallucinations, Other - Endocrine Endocrine: absent: As Per HPI, Change in Body Appearance, Change in Libido, Cold Intolorance, Deepening of Voice, Excessive Sweating, Fatigue, Flushing, Heat Intolorance, Increase in Ring/Shoe/Hat Size, Palpitations, Polydipsia, Polyphagia, Polyuria, Other - Hematologic/Lymphatic Hematologic: absent: As Per HPI, Easy Bleeding, Easy Bruising, Lymphadenopathy, Other Past Patient History - Infectious Disease Hx of Infectious Diseases: None - Tetanus Immunizations Tetanus Immunization: Up to Date, >10 years Ago - Past Medical History & Family History Past Medical History?: Yes - Past Social History Smoking Status: Former Smoker Chewing Tobacco Use: No Cigar Use: No Alcohol: None Drugs: Denies Home Situation {Lives}: With Family - CARDIAC Hx Cardiac Disorders: Yes Hx Atrial Fibrillation: Yes Hx Cardia Arrhythmia: Yes Hx Hypertension: Yes Hx Pacemaker: Yes (03/15/2015) - PULMONARY Hx Respiratory Disorders: Yes Hx Asthma: Yes Hx Chronic Obstructive Pulmonary Disease (COPD): Yes (Emphysema,) Hx Emphysema: Yes - NEUROLOGICAL Hx Neurological Disorder: Yes Hx Dementia: Yes - HEENT Hx HEENT Problems: No - RENAL Hx Chronic Kidney Disease: Yes Hx Kidney Stones: Yes - ENDOCRINE/METABOLIC Hx Endocrine Disorders: No Hx Hypothyroidism: No - HEMATOLOGICAL/ONCOLOGICAL Hx Blood Disorders: Yes Hx Blood Transfusions: Yes Hx Blood Transfusion Reaction: No Hx Cancer: Yes (COLON,NO TREATMENT) Other/Comment: has left colostomy - INTEGUMENTARY Hx Dermatological Problems: Yes Hx Psoriasis: Yes - MUSCULOSKELETAL/RHEUMATOLOGICAL Hx Musculoskeletal Disorders: Yes Hx Arthritis: Yes Hx Falls: Yes Hx Rheumatoid Arthritis: Yes - GASTROINTESTINAL Hx Gastrointestinal Disorders: Yes Hx Bowel Surgery: Yes (2003;2005) Hx Colostomy: Yes Hx Hemorrhoids: Yes Hx Vomiting: Yes Other/Comment: COLON CA 2003 - GENITOURINARY/GYNECOLOGICAL Hx Genitourinary Disorders: Yes Hx Incontinence: Yes - PSYCHIATRIC Hx Psychophysiologic Disorder: Yes Hx Depression: Yes Hx Substance Use: No - SURGICAL HISTORY Hx Surgeries: Yes Hx Vascular Access Device: Yes (RT PORTOCATH 2003) Other/Comment: pacemaker. colostomy - ANESTHESIA Hx Anesthesia: Yes Hx Anesthesia Reactions: No Hx Malignant Hyperthermia: No Meds Allergies/Adverse Reactions: Allergies Allergy/AdvReac Type Severity Reaction Status Date / Time No Known Allergies Allergy Verified 07/16/17 21:09 - Medications Medications: Current Medications Albuterol/Ipratropium (Duoneb 3 Mg/0.5 Mg (3 Ml) Ud) 3 ml INH RQ6 [facility] Last Admin: 07/18/17 13:30 Dose: 3 ml Famotidine (Pepcid) 20 mg PO BID [facility] Last Admin: 07/18/17 10:29 Dose: 20 mg Furosemide (Lasix) 20 mg PO DAILY [facility] Last Admin: 07/18/17 09:46 Dose: 20 mg Heparin Sodium (Porcine) (Heparin) 5,000 units SC Q12 [facility] Last Admin: 07/18/17 09:46 Dose: 5,000 units Dextrose/Sodium Chloride (Dextrose 5%/0.45% Ns 1000 Ml) 1,000 mls @ 40 mls/hr IV .Q24H [facility] Last Admin: 07/16/17 23:02 Dose: 40 mls/hr Dextrose/Sodium Chloride (Dextrose 5%/0.45% Ns 1000 Ml) 1,000 mls @ 20 mls/hr IV .Q24H [facility] Last Admin: 07/17/17 22:50 Dose: Not Given Pneumococcal Polyvalent Vaccine (Pneumovax 23 Vaccine) 0.5 ml IM .ONCE ONE Stop: 07/19/17 12:05 Potassium Chloride (Klor-Con 10) 10 meq PO DAILY [facility] Last Admin: 07/18/17 09:46 Dose: 10 meq Sucralfate (Carafate Oral Susp) 1 gm PO ACBD [facility] Last Admin: 07/18/17 07:43 Dose: 1 gm Physical Exam - Constitutional Appears: Non-toxic, Confused, Chronically Ill - Head Exam Head Exam: ATRAUMATIC, NORMAL INSPECTION, NORMOCEPHALIC - Eye Exam Eye Exam: EOMI, PERRL. absent: Scleral icterus Pupil Exam: NORMAL ACCOMODATION - ENT Exam ENT Exam: Mucous Membranes Dry, Normal External Ear Exam, Normal Oropharynx - Neck Exam Neck exam: Negative for: Lymphadenopathy, Thyromegaly - Respiratory Exam Respiratory Exam: Decreased Breath Sounds, Rhonchi - Cardiovascular Exam Cardiovascular Exam: REGULAR RHYTHM, +S1, +S2 - GI/Abdominal Exam GI & Abdominal Exam: Diminished Bowel Sounds, Distended, Soft. absent: Rebound , Rigid, Tenderness Additional comments: = COLOSTOMY - Rectal Exam Rectal Exam: Deferred - Exam Exam: NORMAL INSPECTION - Extremities Exam Extremities exam: Positive for: pedal edema, pedal pulses present. Negative for : calf tenderness, tenderness - Back Exam Back exam: absent: CVA tenderness (L), CVA tenderness (R), paraspinal tenderness - Neurological Exam Neurological exam: Alert, Altered, CN II-XII Intact - Psychiatric Exam Psychiatric exam: Depressed - Skin Skin Exam: Dry Results - Vital Signs Recent Vital Signs: Last Vital Signs Temp 97.5 F L 07/18/17 07:00 Pulse 87 07/18/17 12:00 Resp 20 07/18/17 07:00 BP 113/54 L 07/18/17 09:46 Pulse Ox 94 L 07/18/17 07:00 - Labs Result Diagrams: 07/18/17 07:47 07/18/17 07:47 Labs: Laboratory Results - last 24 hr 07/18/17 07/18/17 07/18/17 07:47 07:47 07:47 WBC 5.6 RBC 3.70 L Hgb 11.4 L Hct 33.1 L MCV 89.5 MCH 30.9 MCHC 34.5 RDW 15.0 H Plt Count 264 MPV 7.5 Neut % (Auto) 73.5 Lymph % (Auto) 16.7 L [place] % (Auto) 4.9 Eos % (Auto) 4.3 H Baso % (Auto) 0.6 Neut # (Auto) 4.1 Lymph # (Auto) 0.9 L [place] # (Auto) 0.3 Eos # (Auto) 0.2 Baso # (Auto) 0.0 Puncture Site pCO2 pO2 HCO3 ABG pH ABG Total CO2 ABG O2 Saturation ABG Base Excess ABG Hemoglobin ABG Carboxyhemoglobin POC ABG HHb (Measured) ABG Methemoglobin Jerad Test A-a O2 Difference Respiratory Index Hgb O2 Saturation FiO2 Sodium 137 Potassium 3.7 Chloride 106 Carbon Dioxide 21 L Anion Gap 15 BUN 26 H Creatinine 1.1 Est GFR ( Amer) > 60 Est GFR (Non-Af Amer) > 60 Random Glucose 129 H Calcium 8.5 L Total Bilirubin 0.5 AST 15 L ALT 11 L Alkaline Phosphatase 98 Total Creatine Kinase 30 L CK-MB (Mass) 0.37 C-React Prot High Sens > 15.00 H Total Protein 6.9 Albumin 2.9 L Globulin 3.9 Albumin/Globulin Ratio 0.7 L Carcinoembryonic Ag 10.5 H CA 125 Antigen 119 H 07/18/17 14:24 WBC RBC Hgb Hct MCV MCH MCHC RDW Plt Count MPV Neut % (Auto) Lymph % (Auto) [place] % (Auto) Eos % (Auto) Baso % (Auto) Neut # (Auto) Lymph # (Auto) [place] # (Auto) Eos # (Auto) Baso # (Auto) Puncture Site Rra pCO2 29 L pO2 57 L HCO3 24.9 ABG pH 7.50 H ABG Total CO2 23.5 ABG O2 Saturation 95.3 ABG Base Excess 0.2 ABG Hemoglobin 11.9 ABG Carboxyhemoglobin 2.8 H POC ABG HHb (Measured) 4.5 ABG Methemoglobin 1.6 Jerad Test Pos A-a O2 Difference 56.0 Respiratory Index 1.0 Hgb O2 Saturation 91.1 L FiO2 21.0 Sodium Potassium Chloride Carbon Dioxide Anion Gap BUN Creatinine Est GFR ( Amer) Est GFR (Non-Af Amer) Random Glucose Calcium Total Bilirubin AST ALT Alkaline Phosphatase Total Creatine Kinase CK-MB (Mass) C-React Prot High Sens Total Protein Albumin Globulin Albumin/Globulin Ratio Carcinoembryonic Ag CA 125 Antigen Assessment & Plan (1) Gastroenteritis Status: Acute (2) Pneumonia Status: Acute (3) Pneumonia Status: Acute - Assessment and Plan (Free Text) Assessment: R/O SEPSIS AWAIT CULTURES CONT IV RX
[2017-07-18] MEDS ORDERED: Moxifloxacin IV 400mg/250ml NS 400 MG/250 ML BAG IVPB SCH ×2 (16:15→18:00)
[2017-07-19] MEDS: Albuterol-Ipratrop 3 mg / 0.5 (3 ml) UD INH SCH ×3 (01:17→13:12)
[2017-07-19] MEDS: Dextrose 5%/0.45% NS 1,000 ML IV SCH (01:36)
[2017-07-19] MEDS: Sucralfate 1 gm/10 ml Oral Susp UD PO SCH ×2 (08:30→17:17)
[2017-07-19] MEDS: Potassium Chloride 10 mEq ER Tab PO SCH (09:45)
--- NOTE | 2017-07-19 11:26 | CP.PCM.PN ---
Subjective - Date & Time of Evaluation Date of Evaluation: 07/19/17 Time of Evaluation: 09:00 - Subjective Subjective: seen on rounds weak and bed bound await Pulm eval less congested no fever Objective - Vital Signs/Intake and Output Vital Signs (last 24 hours): Temp Pulse Resp BP Pulse Ox 98.9 F 85 18 99/60 L 99 07/19/17 07:10 07/19/17 07:10 07/19/17 07:10 07/19/17 09:46 07/19/17 07:10 Intake and Output: 07/19/17 07/19/17 06:59 18:59 Intake Total 260 Balance 260 - Medications Medications: Current Medications Albuterol/Ipratropium (Duoneb 3 Mg/0.5 Mg (3 Ml) Ud) 3 ml INH RQ6 [facility] Last Admin: 07/19/17 07:24 Dose: 3 ml Famotidine (Pepcid) 20 mg PO BID [facility] Last Admin: 07/19/17 09:45 Dose: 20 mg Furosemide (Lasix) 20 mg PO DAILY [facility] Last Admin: 07/19/17 09:46 Dose: Not Given Heparin Sodium (Porcine) (Heparin) 5,000 units SC Q12 [facility] Last Admin: 07/19/17 10:25 Dose: 5,000 units Dextrose/Sodium Chloride (Dextrose 5%/0.45% Ns 1000 Ml) 1,000 mls @ 40 mls/hr IV .Q24H [facility] Last Admin: 07/16/17 23:02 Dose: 40 mls/hr Dextrose/Sodium Chloride (Dextrose 5%/0.45% Ns 1000 Ml) 1,000 mls @ 20 mls/hr IV .Q24H [facility] Last Admin: 07/19/17 01:36 Dose: 20 mls/hr Moxifloxacin HCl (Avelox) 400 mg PO Q24H [facility] PRN Reason: Protocol Last Admin: 07/18/17 21:34 Dose: 400 mg Pneumococcal Polyvalent Vaccine (Pneumovax 23 Vaccine) 0.5 ml IM .ONCE ONE Stop: 07/19/17 12:05 Potassium Chloride (Klor-Con 10) 10 meq PO DAILY [facility] Last Admin: 07/19/17 09:45 Dose: 10 meq Sucralfate (Carafate Oral Susp) 1 gm PO ACBD [facility] Last Admin: 07/19/17 08:30 Dose: 1 gm - Labs Labs: 07/18/17 07:47 07/18/17 07:47 - Constitutional Appears: Non-toxic, Chronically Ill - Head Exam Head Exam: NORMOCEPHALIC - Eye Exam Eye Exam: PERRL - ENT Exam ENT Exam: Mucous Membranes Dry - Neck Exam Neck Exam: absent: Lymphadenopathy - Respiratory Exam Respiratory Exam: Decreased Breath Sounds - Cardiovascular Exam Cardiovascular Exam: REGULAR RHYTHM - GI/Abdominal Exam GI & Abdominal Exam: Distended, Soft - Rectal Exam Rectal Exam: Deferred - Exam Exam: NORMAL INSPECTION - Extremities Exam Extremities Exam: absent: Pedal Edema - Back Exam Back Exam: absent: CVA tenderness (L), CVA tenderness (R) - Neurological Exam Neurological Exam: Alert, Awake Assessment and Plan (1) Gastroenteritis Status: Acute (2) Pneumonia Status: Acute (3) Pneumonia Status: Acute
[2017-07-19] MEDS ORDERED: Pneumococcal 23-Valent Vaccine IM ONE (12:04)
[2017-07-19 14:02] LABS: BASO % 0.4 % (0.0-2.0); EOS # 0.3 K/uL (0.0-0.7); EOS % 5.9 % (0.0-4.0); HEMOGLOBIN 11.5 g/dL (12.0-18.0); LYMPH # 0.9 K/uL (1.0-4.3); LYMPH % 15.9 % (20.0-40.0); MEAN CELL VOLUME 89.5 fL (80.0-94.0); MEAN CORPUSCULAR HEMOGLOBIN 31.4 pg (27.0-31.0); MEAN CORPUSCULAR HGB CONC 35.1 g/dL (33.0-37.0); MEAN PLATELET VOLUME 7.5 fL (7.2-11.7); MONO # 0.4 K/uL (0.0-0.8); MONO % 7.5 % (0.0-10.0); NEUT # 3.8 K/uL (1.8-7.0); NEUT % 70.3 % (50.0-75.0); RBC 3.65 Mil/uL (4.40-5.90); RED CELL DISTRIBUTION WIDTH 15.1 % (11.5-14.5); WHITE BLOOD COUNT 5.4 K/uL (4.8-10.8)
[2017-07-19 14:15] LABS: BLOOD UREA NITROGEN 23 mg/dL (9-20); CALCIUM 8.6 mg/dl (8.6-10.4); GFR AFRICAN-AMERICAN > 60; GFR NON-AFRICAN AMERICAN > 60
--- NOTE | 2017-07-19 15:35 | CP.PCM.PN ---
Subjective - Date & Time of Evaluation Date of Evaluation: 07/19/17 Time of Evaluation: 11:35 - Subjective Subjective: Patient seen today , awake, alert, denies any chest pain, sob, abdominal pain , N/VD a febrile stool culture- negative stool c-dif - negative occult blood - negative todays labs reviewed- WNL seen by Dr. Pino Objective - Vital Signs/Intake and Output Vital Signs (last 24 hours): Temp Pulse Resp BP Pulse Ox 98.9 F 86 18 99/60 L 99 07/19/17 07:10 07/19/17 12:00 07/19/17 07:10 07/19/17 09:46 07/19/17 07:10 Intake and Output: 07/19/17 07/19/17 06:59 18:59 Intake Total 260 240 Balance 260 240 - Medications Medications: Current Medications Albuterol/Ipratropium (Duoneb 3 Mg/0.5 Mg (3 Ml) Ud) 3 ml INH RQ6 [facility] Last Admin: 07/19/17 13:12 Dose: Not Given Famotidine (Pepcid) 20 mg PO BID [facility] Last Admin: 07/19/17 09:45 Dose: 20 mg Furosemide (Lasix) 20 mg PO DAILY [facility] Last Admin: 07/19/17 09:46 Dose: Not Given Heparin Sodium (Porcine) (Heparin) 5,000 units SC Q12 [facility] Last Admin: 07/19/17 10:25 Dose: 5,000 units Dextrose/Sodium Chloride (Dextrose 5%/0.45% Ns 1000 Ml) 1,000 mls @ 40 mls/hr IV .Q24H [facility] Last Admin: 07/16/17 23:02 Dose: 40 mls/hr Moxifloxacin HCl (Avelox) 400 mg PO Q24H [facility] PRN Reason: Protocol Last Admin: 07/18/17 21:34 Dose: 400 mg Potassium Chloride (Klor-Con 10) 10 meq PO DAILY [facility] Last Admin: 07/19/17 09:45 Dose: 10 meq Sucralfate (Carafate Oral Susp) 1 gm PO ACBD [facility] Last Admin: 07/19/17 08:30 Dose: 1 gm - Labs Labs: 07/19/17 13:50 07/19/17 13:50 Assessment and Plan - Assessment and Plan (Free Text) Assessment: A/P 76 yr old male with pmhx of COPD ( on home o2), Dementia, Depression, Emphysema , , Chronic Kidney Disease, Rheumatoid Arthritis admitted with abdominal pain N/ V/D work up - negative hgb- stable ct of chest - (see report for details) D/W Dr. pino, stable for discharge pradeep e today and f/u wiht Dr. Pino office in 1 week Discharge plan discussed with daughter , who understands and agrees with plan SW will arrange transportation
--- NOTE | 2017-07-19 15:35 | PCM.HF ---
Heart Failure Core Measure - Heart Failure Ejection Fraction: 40 % or Greater ALYSIA Inhibitor Prescribed: No Contraindication/Reason for not providing: ej>45 Beta-Ashley Prescribed: None Contraindication/Reason for not providing: copd Angiotensin II Receptor Ashley Prescribed: No Contraindication/Reason for not providing: ef>45 AnticoagulationTherapy for Atrial Fibrillation/Atrialflutter: No Contraindication/Reason for not providing: no hx of afib Aldosterone Antagonist Prescribed: No Contraindication/Reason for not providing: ef>45 Hydralazine Nitrate Prescribed: No Contraindication/Reason for not providing: ef>45 Implantable Cardioverter Defibrillator Therapy: Yes Cardiac Resynchronization Therapy Prescribed: No Contraindication/Reason for not providing: pt has pacemaker - Follow up Will be discharged to: Home Follow Up Date (must be within 7 days from discharge): 07/26/17 Follow Up Time: 09:00
[2017-07-19 15:44] VITALS: BP 157/79; RESP 20; TEMP 98; O2SAT 98
[2017-07-19 16:46] VITALS: PULSE 63
--- NOTE | 2017-07-19 16:58 | CARD ---
APPROVED REPORT EKG Measurement Heart [id number] <Conclusion> Atrial-sensed ventricular-paced rhythm Abnormal ECG
--- NOTE | 2017-07-20 07:14 | CON ---
DATE: 07/19/2017 HISTORY OF PRESENT ILLNESS: This is 76-year-old male is an ex-smoker with a history of asthmatic bronchitis, chronic obstructive pulmonary disease, emphysema, hypertension, cardiac arrhythmias, pacemaker insertion, renal stones, renal insufficiency, rheumatoid arthritis, and carcinoma of the colon and then admitted with abdominal pain, bloating, and diarrhea. There were no chills or fever. . He has been an ex-smoker with occasional history of alcohol use. There are no allergies reported. PAST HISTORY: As stated above, emphysema with COPD, hypertensive cardiovascular disease, cardiac arrhythmias with pacemaker insertion, depression, dementia, renal stones, renal insufficiency, carcinoma of the colon, rheumatoid arthritis. FAMILY HISTORY: Nothing remarkable explained systemic, as reported above. There have been no seizures. In addition to symptoms reported related to GI system, respiratory, cardiorespiratory system, renal system, and neurological system, he has weakness of the legs and deformity of the hands with poor mobility. He is unable to move about independently. He complained of shortness of breath on movement, had occasional cough with no phlegm at present. There have been no chills or fever. PHYSICAL EXAMINATION: GENERAL: On examination, at this time, he is alert. He is not in distress at rest, at this stage. VITAL SIGNS: Afebrile. Blood pressure 99/60. In room air, ABGs were reported to be 95%, pulse rate of 86, respirations 18. NECK: Supple. He has no lymphadenopathy. HEENT: Unremarkable. HEART: Regular. LUNGS: Diminished breath sounds over lung bases. Few occasional rhonchi and crackles. ABDOMEN: Soft. EXTREMITIES: Has no leg edema at this time. Deep tendon reflexes are diminished. Plantars are upgoing. LABORATORY DATA: His lab data reveals white count of 5600, hemoglobin 11.4, MCV 89.5, platelet count 264,000, pCO2 of 29, pO2 of 57, hemoglobin oxygen saturation of 95%, pH of 7.5, and bicarbonate of 25. Chest scan is reported to show diffuse fibrotic changes throughout the lungs, greatest over the lung bases and persistent and most prominent of her lung apices, bilateral pleural thickening is noticed. bilateral biapically superimposed atelectatic changes over the lung bases. No nodular densities are reported and has a small hiatus hernia reported. nonobstructive calculus reported in the lower poles of the right kidney and lesion noted in left kidney. Compression deformity throughout the spine, some of which are moderate in the lower thoracic region as reported by radiologist along with degenerative changes in the spine. Microbiology and sputum culture shows no growth. IMPRESSION: Respiratory insufficiency, chronic obstructive pulmonary disease with emphysema, and fibrotic lung disease, renal stones, cardiac arrhythmia with pacemaker insertion, rheumatoid arthritis, history of carcinoma of the colon and dyspepsia, hiatus hernia with abdominal and dyspepsia. Recommend agree with the therapy. Suggest bronchodilators, albuterol, and antibiotics as recommended by Infectious Disease specialist, cardiac and renal evaluation as indicated. Oxygen therapy and DVT prophylaxis. Alessandro Hayes MD
--- NOTE | 2017-07-20 22:53 | CP.PCM.DIS ---
Provider - Provider Date of Admission: 07/16/17 22:32 Attending physician: Hever Holland MD Primary care physician: Hever Holland MD Time Spent in preparation of Discharge (in minutes): 24 Diagnosis - Discharge Diagnosis (1) Degenerative disc disease Status: Acute (2) Gastroenteritis Status: Acute (3) Anemia Status: Acute (4) Dehydration Status: Acute (5) Pulmonary infiltrates on CXR Status: Acute (6) Systolic and diastolic CHF, acute on chronic Status: Acute (7) Upper GI bleed Status: Acute Hospital Course - Lab Results Lab Results: Micro Results 07/18/17 16:00 Stool Stool Culture - Final NO SALMONELLA, SHIGELLA OR CAMPYLOBACTER ISOLATED. 07/19/17 05:14 Stool Ova and Parasite Concentrate Exam - Final Most Recent Lab Values WBC 5.4 K/uL (4.8-10.8) 07/19/17 13:50 RBC 3.65 Mil/uL (4.40-5.90) L 07/19/17 13:50 Hgb 11.5 g/dL (12.0-18.0) L 07/19/17 13:50 Hct 32.7 % (35.0-51.0) L 07/19/17 13:50 MCV 89.5 fL (80.0-94.0) 07/19/17 13:50 MCH 31.4 pg (27.0-31.0) H 07/19/17 13:50 MCHC 35.1 g/dL (33.0-37.0) 07/19/17 13:50 RDW 15.1 % (11.5-14.5) H 07/19/17 13:50 Plt Count 284 K/uL (130-400) 07/19/17 13:50 MPV 7.5 fL (7.2-11.7) 07/19/17 13:50 Neut % (Auto) 70.3 % (50.0-75.0) 07/19/17 13:50 Lymph % (Auto) 15.9 % (20.0-40.0) L 07/19/17 13:50 [place] % (Auto) 7.5 % (0.0-10.0) 07/19/17 13:50 Eos % (Auto) 5.9 % (0.0-4.0) H 07/19/17 13:50 Baso % (Auto) 0.4 % (0.0-2.0) 07/19/17 13:50 Neut # (Auto) 3.8 K/uL (1.8-7.0) 07/19/17 13:50 Lymph # (Auto) 0.9 K/uL (1.0-4.3) L 07/19/17 13:50 [place] # (Auto) 0.4 K/uL (0.0-0.8) 07/19/17 13:50 Eos # (Auto) 0.3 K/uL (0.0-0.7) 07/19/17 13:50 Baso # (Auto) 0.0 K/uL (0.0-0.2) 07/19/17 13:50 Puncture Site Rra 07/18/17 14:24 pCO2 29 mm/Hg (35-45) L 07/18/17 14:24 pO2 57 mm/Hg (80-100) L 07/18/17 14:24 HCO3 24.9 mmol/L (21-28) 07/18/17 14:24 ABG pH 7.50 (7.35-7.45) H 07/18/17 14:24 ABG Total CO2 23.5 mmol/L (22-28) 07/18/17 14:24 ABG O2 Saturation 95.3 % (95-98) 07/18/17 14:24 ABG Base Excess 0.2 mmol/L (-2.0-3.0) 07/18/17 14:24 ABG Hemoglobin 11.9 g/dL (11.7-17.4) 07/18/17 14:24 ABG Carboxyhemoglobin 2.8 % (0.5-1.5) H 07/18/17 14:24 POC ABG HHb (Measured) 4.5 % (0.0-5.0) 07/18/17 14:24 ABG Methemoglobin 1.6 % (0.0-3.0) 07/18/17 14:24 Jerad Test Pos 07/18/17 14:24 A-a O2 Difference 56.0 mm/Hg 07/18/17 14:24 Respiratory Index 1.0 07/18/17 14:24 Hgb O2 Saturation 91.1 % (95.0-98.0) L 07/18/17 14:24 FiO2 21.0 % 07/18/17 14:24 Sodium 137 mmol/L (132-148) 07/19/17 13:50 Potassium 3.9 mmol/L (3.6-5.2) 07/19/17 13:50 Chloride 105 mmol/L (98-107) 07/19/17 13:50 Carbon Dioxide 22 mmol/L (22-30) 07/19/17 13:50 Anion Gap 14 (10-20) 07/19/17 13:50 BUN 23 mg/dL (9-20) H 07/19/17 13:50 Creatinine 1.0 mg/dL (0.8-1.5) 07/19/17 13:50 Est GFR ( Amer) > 60 07/19/17 13:50 Est GFR (Non-Af Amer) > 60 07/19/17 13:50 Random Glucose 122 mg/dL (75-110) H 07/19/17 13:50 Calcium 8.6 mg/dl (8.6-10.4) 07/19/17 13:50 Total Bilirubin 0.5 mg/dL (0.2-1.3) 07/18/17 07:47 AST 15 U/L (17-59) L 07/18/17 07:47 ALT 11 U/L (21-72) L 07/18/17 07:47 Alkaline Phosphatase 98 U/L (38-126) 07/18/17 07:47 Total Creatine Kinase 30 U/L (55-170) L 07/18/17 07:47 CK-MB (Mass) 0.37 ng/mL (0.0-3.38) 07/18/17 07:47 Troponin I 0.0240 ng/mL (0.00-0.120) 07/16/17 21:45 C-React Prot High Sens > 15.00 mg/L (1.00-3.00) H 07/18/17 07:47 NT-Pro-B Natriuret Pep 1700 pg/mL (0-900) H 07/16/17 21:45 Total Protein 6.9 g/dL (6.3-8.3) 07/18/17 07:47 Albumin 2.9 g/dL (3.5-5.0) L 07/18/17 07:47 Globulin 3.9 gm/dL (2.2-3.9) 07/18/17 07:47 Albumin/Globulin Ratio 0.7 (1.0-2.1) L 07/18/17 07:47 Lipase 70 U/L (23-300) 07/16/17 21:45 Carcinoembryonic Ag 10.5 ng/mL (0-3.0) H 07/18/17 07:47 CA 125 Antigen 119 U/mL (0-35) H 07/18/17 07:47 Urine Color Carmen (YELLOW) 07/16/17 22:50 Urine Clarity Hazy (Clear) 07/16/17 22:50 Urine pH 5.0 (5.0-8.0) 07/16/17 22:50 Ur Specific [place] 1.025 (1.003-1.030) 07/16/17 22:50 Urine Protein 1+ mg/dL (NEGATIVE) H 07/16/17 22:50 Urine Glucose (UA) Normal mg/dL (Normal) 07/16/17 22:50 Urine Ketones Trace mg/dL (NEGATIVE) 07/16/17 22:50 Urine Blood Negative (NEGATIVE) 07/16/17 22:50 Urine Nitrate Negative (NEGATIVE) 07/16/17 22:50 Urine Bilirubin 1+ (NEGATIVE) H 07/16/17 22:50 Urine Urobilinogen 2.0 mg/dL (0.2-1.0) 07/16/17 22:50 Ur Leukocyte Esterase Neg Yuriy/uL (Negative) 07/16/17 22:50 Urine WBC (Auto) 1 /hpf (0-5) 07/16/17 22:50 Urine RBC (Auto) 1 /hpf (0-3) 07/16/17 22:50 Ur Squamous Epith Cells < 1 /hpf (0-5) 07/16/17 22:50 Urine Bacteria Occ (<OCC) H 07/16/17 22:50 Hyaline Casts 3-5 /lpf (0-2) H 07/16/17 22:50 Stool Occult Blood Negative (NEGATIVE) 07/19/17 07:20 C. difficile Ag & Toxin Negative (NEGATIVE) 07/16/17 21:27 Discharge Exam - Head Exam Head Exam: NORMOCEPHALIC - Eye Exam Eye Exam: Normal appearance Pupil Exam: NORMAL ACCOMODATION - ENT Exam ENT Exam: Normal Exam - Neck Exam Neck exam: Normal Inspection - Respiratory Exam Respiratory Exam: Decreased Breath Sounds - Cardiovascular Exam Cardiovascular Exam: REGULAR RHYTHM - GI/Abdominal Exam GI & Abdominal Exam: Hyperactive Bowel Sounds - Rectal Exam Rectal Exam: Deferred - Exam Exam: NORMAL INSPECTION - Extremities Exam Extremities exam: tenderness - Back Exam Back exam: paraspinal tenderness - Neurological Exam Neurological exam: Abnormal Gait - Psychiatric Exam Psychiatric exam: Depressed - Skin Skin Exam: Dry Discharge Plan - Discharge Medications Prescriptions: Sucralfate [Carafate Oral Susp] 1 gm PO ACBD #90 udc Albuterol/Ipratropium [Duoneb 3 mg/0.5 mg (3 ml) UD] 3 ml INH RQ6 #30 neb Potassium Chloride [Klor-Con 10] 10 meq PO DAILY #15 ter Furosemide [Lasix] 20 mg PO DAILY #30 tab Famotidine [Pepcid] 20 mg PO BID #60 tab Albuterol HFA [Ventolin HFA 90 mcg/actuation (8 g)] 0.09 mg IH Q6 #2 puff - Follow Up Plan Condition: GOOD Disposition: HOME/ ROUTINE Patient education suggested?: No Instructions: Heart Failure, Adult, Heart Healthy Diet, Pneumonia, Adult (DC), Albuterol, Famotidine, Furosemide, Ipratropium and Albuterol, Potassium Chloride , Sucralfate, Gastroenteritis (DC), Altered Mental Status (GEN) Additional Instructions: Please f/u with Dr. Holland office in 1 week Please continue medication as per med. rec. all RX e prescribed to your pharmacy- please [facility] Referrals: Hever Holland MD [Primary Care Provider] -
== END 2017-07-19 18:10 | disposition home or self-care (01) | DRG 391 ==
LOC: C.ER 20:58 → SUPCPDRO 20:58 → C.9E 22:32 → C.6T 22:54
PROVIDERS: ADMIT Internal Medicine; ATTEND Internal Medicine
DX: K52.9 Noninfective gastroenteritis and colitis, unspecified (principal); I50.43 Acute on chronic combined systolic (congestive) and diastolic (congestive) heart failure; J18.9 Pneumonia, unspecified organism; I13.0 Hypertensive heart and chronic kidney disease with heart failure and stage 1 through stage 4 chronic kidney disease, or unspecified chronic kidney disease; J44.0 Chronic obstructive pulmonary disease with (acute) lower respiratory infection; D64.9 Anemia, unspecified; E86.0 Dehydration; F03.90 Unspecified dementia, unspecified severity, without behavioral disturbance, psychotic disturbance, mood disturbance, and anxiety; I48.91 Unspecified atrial fibrillation; J84.10 Pulmonary fibrosis, unspecified; L40.50 Arthropathic psoriasis, unspecified; M06.9 Rheumatoid arthritis, unspecified; N18.9 Chronic kidney disease, unspecified; Z74.01 Bed confinement status; Z85.038 Personal history of other malignant neoplasm of large intestine; Z87.891 Personal history of nicotine dependence; Z93.3 Colostomy status; Z95.0 Presence of cardiac pacemaker